=== PATIENT | female | born 1940 | race Caucasian/White ===

== ENCOUNTER → 2020-09-25 13:11 | Outpatient (BNVA) | payer MEDICARE, SELFPAY | PROVIDERS: PCP Internal Medicine; Referring Provider Internal Medicine; Visit Provider Internal Medicine Cardiovascular Disease | DX: I48.0 Paroxysmal atrial fibrillation (principal); I10 Essential (primary) hypertension | CPT/HCPCS: 93005; 99212 ==

== ENCOUNTER 2020-10-08 19:21 | Inpatient (IN) | payer MEDICARE, SELFPAY ==
[2020-10-08 19:27] VITALS: BP 117/57; BP 137/90; PULSE 67; PULSE 80; RESP 19; TEMP 36.6; O2SAT 97; O2SAT 98; BMI 23.5
--- NOTE | 2020-10-08 19:43 | CT_ITS ---
EXAMINATION: CT LUMBAR SPINE WITHOUT CONTRAST CLINICAL INFORMATION: Atraumatic back pain at L3-L4. COMPARISON: Lumbar spine radiographs from 10/19/2006. TECHNIQUE: Multidetector helical imaging of the lumbar spine was obtained without intravenous contrast. Multiple axial reformats and coronal/sagittal reconstructions were created the technologist workstation for review. This CT examination was performed using dose optimization techniques as appropriate, variously including the following: *Automated exposure control. *Adjustment of mA and/or kV according to patient size (this includes techniques or standardized protocols for targeted exams where dose is matched to indication/reason for exam; i.e. extremities or head). *Use of iterative reconstruction technique. DLP: 521 mGy-cm FINDINGS: Straightening of the normal lumbar lordosis. Compression deformity of the L3 vertebral body (30% loss of body height anteriorly and 65% loss of body height centrally). Depression of the L3 superior endplate with mild underlying sclerosis and ledge formation along the superior aspects of the anterior and posterior bodies. The inferior endplate is depressed centrally. There is 0.5 cm retropulsion of the superior posterior body. Mild to moderate prevertebral soft tissue edema at the level of L3. Otherwise, normal anatomic alignment. Advanced degenerative disc disease at L4-L5 and L5-S1. Small Schmorl's node in the superior endplate of L1. No evidence of additional acute fracture or traumatic subluxation. The remaining vertebral body heights are maintained. No suspicious lytic or sclerotic osseous lesions. Fatty atrophy of the paraspinal musculature. No discrete paraspinal collection. Limited evaluation of the intra-abdominal structures without significant abnormalities. The abdominal aorta is of normal contour and caliber with moderate calcific atherosclerotic disease. AXIAL SPINAL LEVELS: L1-L2: Normal annular contour. There is mild bilateral facet joint arthropathy. There is no neural foraminal stenosis. There is no spinal canal stenosis. L2-L3: Mild diffuse disc bulge. Retropulsion of the posterior body wall of L3. There is moderate and mild left facet joint arthropathy. There is mild left and no right neural foraminal stenosis. There appears to be mild spinal canal stenosis secondary to the retropulsed L3 body wall. L3-L4: Mild to moderate diffuse disc bulge. There is moderate bilateral facet joint arthropathy. There is no neural foraminal stenosis. There is no demonstrated spinal canal stenosis. L4-L5: Mild diffuse disc bulge with posterior osseous ridging. There is mild to moderate bilateral facet joint arthropathy. There is mild bilateral neural foraminal stenosis. There is no demonstrated spinal canal stenosis. L5-S1: Mild diffuse disc bulge. There is mild bilateral facet joint arthropathy. There is moderate bilateral neural foraminal stenosis. There is no demonstrated spinal canal stenosis. CT/CT lumbar spine wo con IMPRESSION: Age-indeterminate compression deformity of the L3 vertebral body. However, mild to moderate prevertebral edema suggestive of acuity. There is 0.5 cm retropulsion of the posterior body wall that appears to cause mild spinal canal stenosis at the level of L3. Otherwise, moderate multilevel degenerative spondyloarthropathy of the lumbar spine as described in detail above. There are moderate neural foraminal stenoses at L5-S1. No additional demonstrated spinal canal stenosis on this limited exam without intrathecal contrast.
--- NOTE | 2020-10-08 19:49 | PC.NURSE ---
Taken for CT.
[2020-10-08 20:25] VITALS: RESP 17
[2020-10-08] MEDS: Morphine Sulfate 4 MG/ML CARTRIDGE IVPUSH (20:25)
[2020-10-08] MEDS: ondansetron HCL 4 MG/2 ML VIAL IVPUSH (20:26)
--- NOTE | 2020-10-08 20:48 | ECG_ITS ---
Test Reason : BACK PAIN Blood Pressure : / mmHG Vent. Rate : 068 BPM Atrial Rate : 068 BPM P-R Int : 202 ms QRS Dur : 078 ms QT Int : 420 ms P-R-T Axes : 075 007 054 degrees QTc Int : 446 ms Normal sinus rhythm Possible Left atrial enlargement Borderline ECG When compared with ECG of 11-JUL-2018 18:35, Sinus rhythm has replaced Atrial fibrillation Non-specific change in ST segment in Anterior leads T wave inversion no longer evident in Inferior leads Referred By: Santiago Graham Electronically Signed By:Isauro Conway
--- NOTE | 2020-10-08 20:53 | ED_ITS ---
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 and today she was holding 6 bottles of water and pain got worse without radiation to any lower extremities no urinary incontinence or bowel incontinence no history of any cancer MD elicited complaint: back pain Pertinent past history: prior back pain Onset (ago): day(s) (10) Timing: constant Severity: moderate Similar Symptoms Previously: Yes Quality: sharp Location: lumbar spine Exacerbating factors: movement Relieving factors: immobilization Associated symptoms: denies other symptoms Related Data Home Medications Medication Instructions Recorded Confirmed ascorbic acid (vitamin C) 500 mg 500 mg PO 08/06/20 09/25/20 capsule atorvastatin 20 mg tablet 20 mg PO DAILY 08/06/20 10/09/20 calcium citrate 250 mg 1 tab PO DAILY tab 08/06/20 10/09/20 calcium-vitamin D3 5 mcg (200 unit) tablet cholecalciferol (vitamin D3) 50 50 mcg PO DAILY 08/06/20 10/09/20 mcg (2,000 unit) capsule diazepam 2 mg tablet 2 mg PO DAILY PRN tab 08/06/20 10/08/20 mecobalamin (vitamin B12) 1,000 1,000 mcg SUBLINGUAL 3XW 08/06/20 10/08/20 mcg disintegrating tablet,sublingual dronedarone [Multaq] 400 mg 10/08/20 amoxicillin 500 mg PO BID 10/09/20 10/09/20 apixaban [Eliquis] 5 mg PO BID 10/09/20 10/09/20 Previous Rx's Medication Instructions Recorded atenolol 25 mg tablet 25 mg PO BID 90 Days #180 tab 09/03/20 Allergies Allergy/AdvReac Type Severity Reaction Status Date / Time meperidine [Demerol] Allergy Intermediate syncope Verified 10/08/20 19:37 nitrofurantoin Allergy Intermediate Rash Verified 10/08/20 19:37 [From Macrobid] paroxetine [From PAXIL] Allergy Intermediate SYNCOPE Verified 10/08/20 19:37 shellfish derived Allergy Intermediate HIVES Verified 10/08/20 19:37 [SHELLFISH DERIVED] azithromycin AdvReac presyncope Verified 10/08/20 19:37 [From ZITHROMAX Z-NAYLA] Review of Systems Review of Systems: REVIEW OF SYSTEMS: Pertinent positives and negatives are stated above in the history. GEN: no fevers, chills, fatigue HEENT: no nasal congestion, sore throat, ear pain NEURO: no headache, dizziness, focal weakness PULM: no cough, shortness of breath CV: no chest pain, palpitations, LE edema ABD: no abdominal pain, nausea, vomiting, diarrhea : no dysuria, urgency, frequency SKIN: no rash ROS otherwise negative x 10 PMFSH Past Medical History Medical History Anxiety and depression Gout Hypercholesterolemia Hypertension Osteopenia Paroxysmal atrial fibrillation Tubular adenoma of colon UTI (urinary tract infection) Surgical History History of colonoscopy History of tonsillectomy History of tubal ligation Family History Family History Father Diabetes Social History Social History Alcohol intake: current Alcohol intake frequency: a few times a week Alcohol type: wine Smoked in Last 30 Days: No Use of substances other than those prescribed or required for medical reasons: No Advance Directives: No Advance Directives Information Provided: No Physical Exam Vital Signs: Vital Signs: Last Vital Signs Temp 98.5 F 10/09/20 00:00 Pulse 73 10/09/20 00:00 Resp 22 H 10/09/20 00:00 BP 146/72 H 10/09/20 00:00 Pulse Ox 99 10/09/20 00:00 Body Mass Index 23.5 Const: General: cooperative, healthy appearing, well developed and in distress moderate Nutritional Appearance: average body habitus Orientation/consciousness: patient oriented x3 Limitations: no limitations HENMT: Head: Yes normal to inspection Ears: hearing grossly normal bilaterally General nose exam: Normal external nose present Mouth: Normal oral and palatal mucosa present Eyes: General: appearance normal, both eyes and all related structures Conjunctivae: conjunctivae normal Sclerae: sclerae normal Neck: Neck: Yes normal visual inspection, Yes full ROM and Yes no lymphadenopathy Chest: Chest palpation & inspection: normal inspection of the chest and normal palpation of entire chest wall Resp: Effort & Inspection: normal respiratory effort Auscultation: clear to auscultation bilaterally Cardio: Palpation: normal PMI Rate: regular rate Rhythm: regular rhythm Heart sounds: S1 normal heart sound present and S2 normal heart sound present GI: Inspection: Yes normal to inspection Palpation (GI): Soft to palpation and nontender : General: Yes no CVA tenderness Back/Spine/Pelvis: Back: no CVA tenderness Thoracic/Lumbar Spine: lumbar spinal tenderness at L3 and No straight leg raise positive Skin: General skin exam: no rashes or lesions noted Neuro: General: patient oriented x3, tone normal, moves all extremities, Normal light touch and pain sensation, no focal motor deficits and CN's II-XI intact bilaterally Extrem: General: Yes normal to inspection, Yes full ROM and Yes no calf tend erness MDM - Back Pain/Injury MDM Narrative Medical decision making narrative: Patient with chronic occasional low back pain got worse in last few days after slight pending with focal tenderness in L3. Likely compression fracture which is confirmed by the CT scan which showed L3 compression fracture without any spinal cord injury. Case discussed with neurosurgery PA at [facility] who has seen the CT scan and advised nonsurgical approach with TLSO soft brace and pain management as there is no neuro deficit at this time and is not a surgical case not sure about vertebroplasty. Patient lives alone and very uncomfortable in ambulation will admit patient for pain control and rehab. Medical Records Attestation: I reviewed the patient's medical records. Lab Data Attestation: I reviewed the patient's lab results. Result diagrams: 10/08/20 22:36 10/08/20 22:36 Labs: Lab Results 10/08/20 10/08/20 10/08/20 Range/Units 22:36 22:36 22:36 WBC 10.1 (4.8-10.8) X10*3/uL RBC 4.42 (4.20-5.50) X10*6/uL Hgb 14.0 (12.0-16.0) g/dl Hct 41.4 (37-47) % MCV 93.7 (80-98) fL MCH 31.7 (27.0-33.0) pg MCHC 33.8 (31.0-35.0) g/dl RDW 11.9 (11.0-16.0) % Plt Count 285 (160-400) X10*3/uL MPV 9.0 L (9.4-12.3) fL Immature Gran % (Auto) 0.3 (0.0-0.4) % Neut % (Auto) 71.0 (45-73) % Lymph % (Auto) 17.6 L (20-40) % [place] % (Auto) 8.6 (2-11) % Eos % (Auto) 2.2 (0-4) % Baso % (Auto) 0.3 (0-2) % Lymph # (Auto) 1.8 (1.2-4.9) X10*3/uL [place] # (Auto) 0.9 (0.1-1.2) X10*3/uL Eos # (Auto) 0.2 (0.0-0.4) X10*3/uL Baso # (Auto) 0.0 (0.0-0.2) X10*3/uL Abs Immat Gran (auto) 0.03 (0.00-0.03) X10*3/uL Absolute Neuts (auto) 7.1 (2.0-8.3) X10*3/uL Absolute Nucleated RBC 0.000 (0.0-0.012) X10*3/uL Nucleated RBC % (auto) 0.0 (0.0-0.2) /100WBC ESR 23 H (0-20) MM/HR PT 18.7 H (10.8-13.0) SEC INR 1.6 H (0.9-1.1) Sodium (135-145) mmol/L Potassium (3.3-5.1) mmol/l Chloride (96-108) mmol/L Carbon Dioxide (22-29) mmol/L Anion Gap (12-20) BUN (9-16) mg/dL Creatinine (0.5-1.4) mg/dL Estim Creat Clear Calc Estimated GFR Random Glucose (60-115) mg/dL Calcium (8.4-10.2) mg/dL Coronavirus (PCR) (Negative) Influenza Type A (PCR) (Negative) Influenza Type B (PCR) (Negative) RSV RNA Qual (PCR) (Negative) 10/08/20 10/08/20 Range/Units 22:36 22:37 WBC (4.8-10.8) X10*3/uL RBC (4.20-5.50) X10*6/uL Hgb (12.0-16.0) g/dl Hct (37-47) % MCV (80-98) fL MCH (27.0-33.0) pg MCHC (31.0-35.0) g/dl RDW (11.0-16.0) % Plt Count (160-400) X10*3/uL MPV (9.4-12.3) fL Immature Gran % (Auto) (0.0-0.4) % Neut % (Auto) (45-73) % Lymph % (Auto) (20-40) % [place] % (Auto) (2-11) % Eos % (Auto) (0-4) % Baso % (Auto) (0-2) % Lymph # (Auto) (1.2-4.9) X10*3/uL [place] # (Auto) (0.1-1.2) X10*3/uL Eos # (Auto) (0.0-0.4) X10*3/uL Baso # (Auto) (0.0-0.2) X10*3/uL Abs Immat Gran (auto) (0.00-0.03) X10*3/uL Absolute Neuts (auto) (2.0-8.3) X10*3/uL Absolute Nucleated RBC (0.0-0.012) X10*3/uL Nucleated RBC % (auto) (0.0-0.2) /100WBC ESR (0-20) MM/HR PT (10.8-13.0) SEC INR (0.9-1.1) Sodium 136 (135-145) mmol/L Potassium 4.3 (3.3-5.1) mmol/l Chloride 103 (96-108) mmol/L Carbon Dioxide 23 (22-29) mmol/L Anion Gap 14 (12-20) BUN 13 (9-16) mg/dL Creatinine 0.80 (0.5-1.4) mg/dL Estim Creat Clear Calc 56.5 Estimated GFR > 60 Random Glucose 81 (60-115) mg/dL Calcium 8.2 L (8.4-10.2) mg/dL Coronavirus (PCR) NEGATIVE (Negative) Influenza Type A (PCR) NEGATIVE (Negative) Influenza Type B (PCR) NEGATIVE (Negative) RSV RNA Qual (PCR) NEGATIVE (Negative) ECG Data Attestation: I personally reviewed and interpreted this ECG as follows: Interpretation: Normal sinus rhythm ventricular rate [address] T wave changes normal axis normal intervals impression normal EKG Discharge Plan Discharge Clinical Impression: Closed lumbar vertebral fracture Qualifiers: Encounter type: initial encounter Lumbar vertebra fracture level: L3 Fracture morphology: burst- stable Qualified Code(s): S32.031A - Stable burst fracture of third lumbar vertebra, initial encounter for closed fracture Patient Disposition: Admitted As Inpatient
[2020-10-08 22:45] LABS: Basophils Percent Auto 0.3 % (0-2); Eosinophils Absolute Auto 0.2 X10*3/uL (0.0-0.4); Eosinophils Percent Auto 2.2 % (0-4); Hematocrit 41.4 % (37-47); Imm Gran Abs Auto 0.03 X10*3/uL (0.00-0.03); Imm Gran Pct Auto 0.3 % (0.0-0.4); Lymphocytes Absolute Auto 1.8 X10*3/uL (1.2-4.9); Lymphocytes Percent Auto 17.6 % (20-40); Mean Corpuscular HGB Conc 33.8 g/dl (31.0-35.0); Mean Corpuscular Hemoglobin 31.7 pg (27.0-33.0); Mean Corpuscular Volume 93.7 fL (80-98); Monocytes Absolute Auto 0.9 X10*3/uL (0.1-1.2); Monocytes Percent Auto 8.6 % (2-11); Neutrophils Absolute Auto 7.1 X10*3/uL (2.0-8.3); Platelet Count 285 X10*3/uL (160-400); Red Blood Count 4.42 X10*6/uL (4.20-5.50); Red Cell Distribution Width 11.9 % (11.0-16.0); White Blood Count 10.1 X10*3/uL (4.8-10.8)
[2020-10-08 22:47] LABS: MANUAL DIFF FLAG NO
[2020-10-08 22:56] LABS: INTERNATIONAL NORM RATIO 1.6 (0.9-1.1); Prothrombin Time 18.7 SEC (10.8-13.0)
[2020-10-08 23:06] LABS: Anion Gap 14 (12-20); Blood Urea Nitrogen 13 mg/dL (9-16); Calcium 8.2 mg/dL (8.4-10.2); Carbon Dioxide 23 mmol/L (22-29); Chloride 103 mmol/L (96-108); Creatinine Clr Calc Pharmacy 56.5; Estimated Glomerular Filt Rate > 60; Glucose Random 81 mg/dL (60-115); Potassium 4.3 mmol/l (3.3-5.1); Sodium 136 mmol/L (135-145)
--- NOTE | 2020-10-08 23:16 | PC.NURSE ---
CALL PLACED TO [facility] PT TX LINE PER DR ESPANA REQUEST TO SPEAK WITH A NEUROSURGEON @ [phone] ALEJANDRO ANSWERS, TAKES PT INFO, CALL BACK NUMBER ([phone] GIVEN) AND ASKS TO SPEAK WITH DR ESPANA RETURN CALL FROM ALEJANDRO FROM [facility] PT TX LINE @ [phone] WITH [address] JOVI ESPANA PICKS UP CALL FROM [place] [phone]
--- NOTE | 2020-10-08 23:22 | PC.NURSE ---
RETURN CALL FROM ALEJANDRO FROM [facility] PT TX LINE @ [phone] JOVI ESPANA TAKES OVER CALL RIGHT AWAY
[2020-10-08 23:24] LABS: Influenza A PCR NEGATIVE (Negative); Influenza B PCR NEGATIVE (Negative); Resp Syncy Virus RNA Qual PCR NEGATIVE (Negative); SARS COV2 PCR INHOUSE NEGATIVE (Negative)
--- NOTE | 2020-10-08 23:46 | PC.NURSE ---
RETURN CALL FROM ALEJANDRO FROM [facility] PT TX LINE FOR DR ESPANA @ [phone] DR ESPANA TAKES OVER CALL RIGHT AWAY
[2020-10-08 23:54] LABS: Erythrocyte Sedimentation Rate 23 MM/HR (0-20)
[2020-10-09] VITALS (10 sets, daily range): BP systolic 115–146; BP diastolic 62–72; PULSE 63–73; RESP 16–22; TEMP 36.1–36.9; O2SAT 97–99
--- NOTE | 2020-10-09 00:39 | PM.IMHP ---
History of Present Illness Date of Service: 10/09/20 Chief Complaint: Back pain 80 y/o with an extended PMHX who presented from home c/o back pain. Per history provided by the patient, 10 days ago, she bended herself to get a paper from the floor. Upon bending she felt a strong pain , sharp like, 10/10 in intensity, radiating from the right side of the lower back to the buttocks. Patient reports that pain persistent on and off which is worse with movements, for what decided to come to the ED for further evaluation. Denies any weakness, numbness, urinary incontinence or any bowel incontinence. On presentation to the ED patient is found to be hemodynamically stable, Blood work unremarkable, Imaging of the lower back showing L3 compression fracture with mild bulding causing spinal stenosis. Neurosurgery was consulted per ED at [facility] who does not recommends any further intervention at present besides supportive management. Decision for admission given. Patient seen and examined at the bedside, laying down in bed in no acute distress. ROS as above otherwise negative. Physical exam unremarkable. PMHX: Paroxysmal afib, HTN, HLP, Anxiety disorder, Osteopenia, Hx of tubular adenoma, IBS PSx: bilateral tubal ligation Toxic habits: none Review of Systems Constitutional: Constitutional: Reports as per [facility] Medical History Anxiety and depression Gout Hypercholesterolemia Hypertension Osteopenia Paroxysmal atrial fibrillation Tubular adenoma of colon UTI (urinary tract infection) Functional capacity: independent ambulation Family History Father Diabetes Family history: reviewed and not pertinent Surgical History History of colonoscopy History of tonsillectomy History of tubal ligation Social History Alcohol intake: current Alcohol intake frequency: a few times a week Alcohol type: wine Smoked in Last 30 Days: No Use of substances other than those prescribed or required for medical reasons: No Advance Directives: No Advance Directives Information Provided: No Meds Allergies Allergy/AdvReac Type Severity Reaction Status Date / Time meperidine [Demerol] Allergy Intermediate syncope Verified 10/08/20 19:37 nitrofurantoin Allergy Intermediate Rash Verified 10/08/20 19:37 [From Macrobid] paroxetine [From PAXIL] Allergy Intermediate SYNCOPE Verified 10/08/20 19:37 shellfish derived Allergy Intermediate HIVES Verified 10/08/20 19:37 [SHELLFISH DERIVED] azithromycin AdvReac presyncope Verified 10/08/20 19:37 [From ZITHROMAX Z-NAYLA] Home Medications Medication Instructions Recorded Confirmed Type ascorbic acid (vitamin C) 500 mg 500 mg PO 08/06/20 09/25/20 History capsule atorvastatin 20 mg tablet 20 mg PO DAILY 08/06/20 10/09/20 History calcium citrate 250 mg 1 tab PO DAILY tab 08/06/20 10/09/20 History calcium-vitamin D3 5 mcg (200 unit) tablet cholecalciferol (vitamin D3) 50 50 mcg PO DAILY 08/06/20 10/09/20 History mcg (2,000 unit) capsule diazepam 2 mg tablet 2 mg PO DAILY PRN tab 08/06/20 10/08/20 History mecobalamin (vitamin B12) 1,000 1,000 mcg SUBLINGUAL 3XW 08/06/20 10/08/20 History mcg disintegrating tablet,sublingual dronedarone [Multaq] 400 mg 10/08/20 History amoxicillin 500 mg PO BID 10/09/20 10/09/20 History apixaban [Eliquis] 5 mg PO BID 10/09/20 10/09/20 History Physical Exam Vital Signs and Narrative: Vital Signs: Last Vital Signs Temp 98.5 F 10/09/20 00:00 Pulse 73 10/09/20 00:00 Resp 22 H 10/09/20 00:00 BP 146/72 H 10/09/20 00:00 Pulse Ox 99 10/09/20 00:00 Body Mass Index 23.5 Const: General: cooperative, comfortable and no acute distress Orientation/consciousness: oriented to person, oriented to place and oriented to time HENMT: Head: Yes normal to inspection Eyes: General: appearance normal, both eyes and all related structures Neck: Yes normal visual inspection Chest: Chest palpation & inspection: normal inspection of the chest Resp: Effort & Inspection: normal respiratory effort Cardio: Jugular venous distension: no JVD Rate: regular rate Rhythm: regular rhythm Heart sounds: S1 normal heart sound present and S2 normal heart sound present GI: Inspection: Yes normal to inspection Back/Spine/Pelvis: Cervical Spine: other (right sided tenderness on palpation ) Skin: General skin exam: no rashes or lesions noted Neuro: General: oriented to person, oriented to place and oriented to time Cognition (Neuro): normal cognition Extrem: General: Yes normal to inspection Results Labs CBC and Chem 7: 10/08/20 22:36 10/08/20 22:36 Labs: Laboratory Results - last 24 hr 10/08/20 10/08/20 10/08/20 22:36 22:36 22:36 MCV 93.7 MCH 31.7 MCHC 33.8 RDW 11.9 Plt Count 285 MPV 9.0 L Immature Gran % (Auto) 0.3 Neut % (Auto) 71.0 Lymph % (Auto) 17.6 L [place] % (Auto) 8.6 Eos % (Auto) 2.2 Baso % (Auto) 0.3 Lymph # (Auto) 1.8 [place] # (Auto) 0.9 Eos # (Auto) 0.2 Baso # (Auto) 0.0 Abs Immat Gran (auto) 0.03 Absolute Neuts (auto) 7.1 Absolute Nucleated RBC 0.000 Nucleated RBC % (auto) 0.0 ESR 23 H PT 18.7 H INR 1.6 H Anion Gap Estim Creat Clear Calc Estimated GFR Random Glucose Calcium Coronavirus (PCR) Influenza Type A (PCR) Influenza Type B (PCR) RSV RNA Qual (PCR) 10/08/20 10/08/20 22:36 22:37 MCV MCH MCHC RDW Plt Count MPV Immature Gran % (Auto) Neut % (Auto) Lymph % (Auto) [place] % (Auto) Eos % (Auto) Baso % (Auto) Lymph # (Auto) [place] # (Auto) Eos # (Auto) Baso # (Auto) Abs Immat Gran (auto) Absolute Neuts (auto) Absolute Nucleated RBC Nucleated RBC % (auto) ESR PT INR Anion Gap 14 Estim Creat Clear Calc 56.5 Estimated GFR > 60 Random Glucose 81 Calcium 8.2 L Coronavirus (PCR) NEGATIVE Influenza Type A (PCR) NEGATIVE Influenza Type B (PCR) NEGATIVE RSV RNA Qual (PCR) NEGATIVE Imaging Radiologist's Impressions: Impressions Lumbar Spine CT 10/08/20 19:43 IMPRESSION: Age-indeterminate compression deformity of the L3 vertebral body. However, mild to moderate prevertebral edema suggestive of acuity. There is 0.5 cm retropulsion of the posterior body wall that appears to cause mild spinal canal stenosis at the level of L3. Otherwise, moderate multilevel degenerative spondyloarthropathy of the lumbar spine as described in detail above. There are moderate neural foraminal stenoses at L5-S1. No additional demonstrated spinal canal stenosis on this limited exam without intrathecal contrast. Assessment and Plan (1) Compression fracture of L3 vertebra: Status: Acute Supportive management per Neurosurgery recommendations at [facility] Brace PT/OT Pain control (2) Paroxysmal atrial fibrillation: Problem details: September 2011, echo normal LV July 2018 Status: Acute continue with eliquis home dose continue with atenolol home dose (3) Hypercholesterolemia: Status: Acute continue with statin home dose (4) Hypertension: Status: Acute continue with atenolol home dose (5) Anxiety and depression: Status: Acute continue with diazepam home dose
--- NOTE | 2020-10-09 01:28 | PC.NURSE ---
REPORT TO RN ON FLOOR.
[2020-10-09] MEDS: Atorvastatin Calcium 20 MG TABLET PO ×2 (02:26→20:49)
[2020-10-09 06:29] LABS: Basophils Percent Auto 0.1 % (0-2); Eosinophils Percent Auto 0.1 % (0-4); Hemoglobin 14.3 g/dl (12.0-16.0); Imm Gran Abs Auto 0.03 X10*3/uL (0.00-0.03); Imm Gran Pct Auto 0.4 % (0.0-0.4); Lymphocytes Absolute Auto 0.6 X10*3/uL (1.2-4.9); Lymphocytes Percent Auto 7.5 % (20-40); MANUAL DIFF FLAG SCAN; Mean Corpuscular Hemoglobin 31.3 pg (27.0-33.0); Mean Corpuscular Volume 91.9 fL (80-98); Mean Platelet Volume 9.1 fL (9.4-12.3); Monocytes Absolute Auto 0.1 X10*3/uL (0.1-1.2); Monocytes Percent Auto 1.5 % (2-11); Neutrophils Absolute Auto 7.4 X10*3/uL (2.0-8.3); Neutrophils Percent Auto 90.4 % (45-73); Platelet Count 288 X10*3/uL (160-400); Red Blood Count 4.57 X10*6/uL (4.20-5.50); Red Cell Distribution Width 11.9 % (11.0-16.0); SCAN SMEAR FLAG 1; White Blood Count 8.2 X10*3/uL (4.8-10.8)
[2020-10-09 06:53] LABS: Anion Gap 11 (12-20); Blood Urea Nitrogen 11 mg/dL (9-16); Calcium 8.6 mg/dL (8.4-10.2); Carbon Dioxide 25 mmol/L (22-29); Chloride 101 mmol/L (96-108); Creatinine Clr Calc Pharmacy 66.6; Estimated Glomerular Filt Rate > 60; Glucose Random 136 mg/dL (60-115); Potassium 4.4 mmol/l (3.3-5.1); Sodium 133 mmol/L (135-145)
[2020-10-09] MEDS: Morphine Sulfate 2 MG/ML CARTRIDGE 1 MG IVPUSH (07:23)
[2020-10-09] MEDS: 0.9 % Sodium Chloride Flush 3 ML SYRINGE IVFLUSH ×3 (07:27→23:56)
[2020-10-09 08:00] LABS: SLIDE REVIEW VERIFIED
--- NOTE | 2020-10-09 09:44 | MHC.CM.PN ---
pt lives alone in [facility]. she generally is very independent in her care. although many of her needs are met by the services offered at the facility where she lives. she does not use any AD c ambulation at baseline. pt would like to return to [place] c [facility] ref. for nsg and home PT, this has been done. additionally, pt will need rx at dc for wheeled walker c seat , per her request. pt will have her daughter, phillip from [place] , provide transportation at dc. dc plan is home c vna and rx for walker. cm to cont. to follow.
[2020-10-09] MEDS: Cholecalciferol (Vitamin D3) 25 MCG TABLET 50 MCG PO (10:06)
[2020-10-09] MEDS: Apixaban 5 MG TABLET PO ×2 (10:07→20:49)
[2020-10-09] MEDS: Calcium + Vitamin D 250 MG TABLET PO (10:07)
[2020-10-09] MEDS: atenoloL 25 MG TABLET PO ×2 (10:07→20:48)
--- NOTE | 2020-10-09 10:16 | PC.NURSE ---
Grady removed at 1015. DTV #1 at [id number]. Patient aware and call sandoval in reach to assist to br.
[2020-10-09] MEDS: Acetaminophen 325 MG TABLET 650 MG PO ×2 (11:41→18:05)
[2020-10-09] MEDS: Dronedarone HCl 400 MG TABLET PO ×2 (11:41→20:49)
[2020-10-09] MEDS: Docusate Sodium 100 MG CAPSULE PO ×2 (12:53→20:49)
[2020-10-09] MEDS: Amoxicillin 500 MG CAPSULE PO ×2 (12:53→20:48)
[2020-10-09] MEDS: Milk of Magnesia 30 ML ORAL.SUSP 15 ML PO (12:54)
--- NOTE | 2020-10-09 15:41 | PM.EVENT ---
Event Note Date of Service: 10/09/20 Event Note: Patient seen and evaluated this morning Feels comfortable, was able to work with physical therapy To start ATC Tylenol to start as needed oxycodone She prefer going back home with home services To re-evaluate tomorrow morning and decide on discharge
[2020-10-09] MEDS: oxyCODONE HCl Immed Release 5 MG TABLET 2.5 MG PO (15:48)
[2020-10-10 04:00] VITALS: BP 142/79; PULSE 64; RESP 16; TEMP 36.4; O2SAT 100
[2020-10-10] MEDS: Acetaminophen 325 MG TABLET 650 MG PO ×2 (07:52→12:01)
[2020-10-10 07:54] VITALS: BP 143/68; PULSE 60; RESP 16; TEMP 36.4; O2SAT 99
[2020-10-10] MEDS: Docusate Sodium 100 MG CAPSULE PO (07:54)
[2020-10-10] MEDS: Calcium + Vitamin D 250 MG TABLET PO (07:54)
[2020-10-10] MEDS: 0.9 % Sodium Chloride Flush 3 ML SYRINGE IVFLUSH (07:54)
[2020-10-10] MEDS: Apixaban 5 MG TABLET PO (07:54)
[2020-10-10 07:55] VITALS: BP 143/68; PULSE 64
[2020-10-10] MEDS: atenoloL 25 MG TABLET PO (07:55)
[2020-10-10] MEDS: Dronedarone HCl 400 MG TABLET PO (07:55)
[2020-10-10] MEDS: Cholecalciferol (Vitamin D3) 25 MCG TABLET 50 MCG PO (07:55)
[2020-10-10 08:51] LABS: Anion Gap 12 (12-20); Blood Urea Nitrogen 17 mg/dL (9-16); Calcium 8.7 mg/dL (8.4-10.2); Carbon Dioxide 27 mmol/L (22-29); Chloride 100 mmol/L (96-108); Creatinine Clr Calc Pharmacy 65.5; Estimated Glomerular Filt Rate > 60; Glucose Random 104 mg/dL (60-115); Potassium 4.8 mmol/l (3.3-5.1); Sodium 134 mmol/L (135-145)
[2020-10-10] MEDS: Amoxicillin 500 MG CAPSULE PO (10:15)
--- NOTE | 2020-10-10 11:03 | MHC.CM.PN ---
PATIENT IS A RETURNING HOME WITH [facility]. HOSPITALIST IS AWARE OF PATIENT PRECRIPTION REQUESTS
--- NOTE | 2020-10-10 11:10 | P.F2F_ITS ---
Service Date Service Date: 10/10/20 Encounter Date of encounter: 10/09/20 Reasons for Services Signs and symptoms assessed: L3 lumbar fracture back pain Reason for physical therapy: home safety and mobility and therapeutic exercises Overseeing Care: Isaac Fischer Homebound: Leaving the home is medically contraindicated at this time without the asist of a device and/or another person due th the listed conditions above and below. Certification: Based on the above findings, I certify that this patient is confined to the home and needs intermittent retirement care, physical therapy and/or speech therapy, or continues to need occupational therapy. The patient is under my care, and I have initiated the establishment of the plan of care. The patient will be followed by a physician who will periodically review the plan of care.
--- NOTE | 2020-10-10 11:14 | MHC.CM.PN ---
PER PHYSICIAN ROUNDS, PLAN IS FOR PATIENT TO RETURN HOME BY THURSDAY WITH NO NEED FOR SERVICES
--- NOTE | 2020-10-10 11:16 | P.DS_ITS ---
DS: Providers Provider Date of admission: 10/09/20 00:22 Primary care physician: Isaac Fischer MD DS: Diagnosis Discharge Diagnosis (1) Compression fracture of L3 vertebra: Status: Acute (2) Paroxysmal atrial fibrillation: Status: Acute Problem details: September 2011, echo normal LV July 2018 (3) Hypercholesterolemia: Status: Acute (4) Hypertension: Status: Acute (5) Anxiety and depression: Status: Acute DS: Medications Discharge Medications Home Medications: Home Medications Medication Instructions Recorded Confirmed ascorbic acid (vitamin C) 500 mg 500 mg PO 08/06/20 09/25/20 capsule atorvastatin 20 mg tablet 20 mg PO DAILY 08/06/20 10/09/20 calcium citrate 250 mg 1 tab PO DAILY tab 08/06/20 10/09/20 calcium-vitamin D3 5 mcg (200 unit) tablet cholecalciferol (vitamin D3) 50 50 mcg PO DAILY 08/06/20 10/09/20 mcg (2,000 unit) capsule diazepam 2 mg tablet 2 mg PO DAILY PRN tab 08/06/20 10/08/20 mecobalamin (vitamin B12) 1,000 1,000 mcg SUBLINGUAL 3XW 08/06/20 10/08/20 mcg disintegrating tablet,sublingual dronedarone [Multaq] 400 mg 10/08/20 amoxicillin 500 mg PO BID 10/09/20 10/09/20 apixaban [Eliquis] 5 mg PO BID 10/09/20 10/09/20 Previous Rx's Medication Instructions Recorded atenolol 25 mg tablet 25 mg PO BID 90 Days #180 tab 09/03/20 oxycodone 5 mg PO Q6H PRN #10 tab 10/10/20 DS: Summary Hospital Course Hospital Course: HPI 80 y/o with an extended PMHX who presented from home c/o back pain. Per history provided by the patient, 10 days ago, she bended herself to get a paper from the floor. Upon bending she felt a strong pain , sharp like, 10/10 in intensity, radiating from the right side of the lower back to the buttocks. Patient reports that pain persistent on and off which is worse with movements, for what decided to come to the ED for further evaluation. Denies any weakness, numbness, urinary incontinence or any bowel incontinence. On presentation to the ED patient is found to be hemodynamically stable, Blood work unremarkable, Imaging of the lower back showing L3 compression fracture with mild bulding causing spin al stenosis. Neurosurgery was consulted per ED at [facility] who does not recommends any further intervention at present besides supportive management. Decision for admission given. hospital course 80-year-old female admitted with back pain found to have L3 lumbar fracture, neurosurgery was consulted by ER physician recommended no intervention, patient was started on pain medication, patient was evaluated by Physical therapy recommended home PT, patient's pain was controlled, patient was stable discharged home with physical therapy on pain medication Time Spent with Patient Time attestation: Total time spent providing and/or coordinating discharge services: Physical Exam Vital Signs: Vital Signs: Last Vital Signs Temp 97.5 F 10/10/20 07:54 Pulse 64 10/10/20 07:55 Resp 16 10/10/20 07:54 BP 143/68 H 10/10/20 07:55 Pulse Ox 99 10/10/20 07:54 Body Mass Index 23.5 Const: General: cooperative, comfortable and no acute distress Orientation/consciousness: oriented to person, oriented to place and oriented to time HENMT: Head: Yes normal to inspection Eyes: General: appearance normal, both eyes and all related structures Neck: Neck: Yes normal visual inspection Chest: Chest palpation & inspection: normal inspection of the chest Resp: Effort & Inspection: normal respiratory effort Cardio: Jugular venous distension: no JVD Rate: regular rate Rhythm: regular rhythm Heart sounds: S1 normal heart sound present and S2 normal heart sound present GI: Inspection: Yes normal to inspection Back/Spine/Pelvis: Cervical Spine: other (right sided tenderness on palpation ) Skin: General skin exam: no rashes or lesions noted Neuro: General: oriented to person, oriented to place and oriented to time Cognition (Neuro): normal cognition Extrem: General: Yes normal to inspection DS: Data Data Completed and Pending Labs on day of discharge: 10/08/20 19:43 CT lumbar spine wo con Stat 10/08/20 20:10 Morphine Sulfate 4 mg IVPUSH ONCE ONE dexAMETHasone Sod Phosphate/PF [Decadron] 10 mg IVPUSH ONCE ONE ondansetron HCL [Zofran] 4 mg IVPUSH ONCE ONE 10/08/20 20:48 ECG 12 lead EKG Stat EKG Documentation DIRECTED 10/08/20 22:36 Basic Metabolic Panel Stat Complete Blood Count Auto Diff Stat Erythrocyte Sedimentation Rate Stat Prothrombin Time INR Stat 10/08/20 22:37 SARS-CoV2/FLU/RSV Stat 10/09/20 00:20 Transfer Order Routine 10/09/20 01:33 Insert/maintain urinary catheter NOW 10/09/20 06:15 Basic Metabolic Panel Routine Complete Blood Count Auto Diff Routine SLIDE REVIEW Routine 10/09/20 06:57 Morphine Sulfate 1 mg IVPUSH ONCE ONE 10/09/20 07:59 oxyCODONE HCl Immed Release [Roxicodone] 5 mg PO Q6H PRN 10/10/20 07:50 Basic Metabolic Panel DAILY@0600 10/10/20 10:28 Glycerin Adult [Adult Glycerin] 1 supp UT ONCE ONE Laboratory Last Values WBC 8.2 X10*3/uL (4.8-10.8) 10/09/20 06:15 RBC 4.57 X10*6/uL (4.20-5.50) 10/09/20 06:15 Hgb 14.3 g/dl (12.0-16.0) 10/09/20 06:15 Hct 42.0 % (37-47) 10/09/20 06:15 MCV 91.9 fL (80-98) 10/09/20 06:15 MCH 31.3 pg (27.0-33.0) 10/09/20 06:15 MCHC 34.0 g/dl (31.0-35.0) 10/09/20 06:15 RDW 11.9 % (11.0-16.0) 10/09/20 06:15 Plt Count 288 X10*3/uL (160-400) 10/09/20 06:15 MPV 9.1 fL (9.4-12.3) L 10/09/20 06:15 Immature Gran % (Auto) 0.4 % (0.0-0.4) 10/09/20 06:15 Neut % (Auto) 90.4 % (45-73) H 10/09/20 06:15 Lymph % (Auto) 7.5 % (20-40) L 10/09/20 06:15 [place] % (Auto) 1.5 % (2-11) L 10/09/20 06:15 Eos % (Auto) 0.1 % (0-4) 10/09/20 06:15 Baso % (Auto) 0.1 % (0-2) 10/09/20 06:15 Lymph # (Auto) 0.6 X10*3/uL (1.2-4.9) L 10/09/20 06:15 [place] # (Auto) 0.1 X10*3/uL (0.1-1.2) 10/09/20 06:15 Eos # (Auto) 0.0 X10*3/uL (0.0-0.4) 10/09/20 06:15 Baso # (Auto) 0.0 X10*3/uL (0.0-0.2) 10/09/20 06:15 Abs Immat Gran (auto) 0.03 X10*3/uL (0.00-0.03) 10/09/20 06:15 Absolute Neuts (auto) 7.4 X10*3/uL (2.0-8.3) 10/09/20 06:15 Absolute Nucleated RBC 0.000 X10*3/uL (0.0-0.012) 10/09/20 06:15 Nucleated RBC % (auto) 0.0 /100WBC (0.0-0.2) 10/09/20 06:15 Smear Tech's Comments VERIFIED 10/09/20 06:15 ESR 23 MM/HR (0-20) H 10/08/20 22:36 PT 18.7 SEC (10.8-13.0) H 10/08/20 22:36 INR 1.6 (0.9-1.1) H 10/08/20 22:36 Sodium 134 mmol/L (135-145) L 10/10/20 07:50 Potassium 4.8 mmol/l (3.3-5.1) 10/10/20 07:50 Chloride 100 mmol/L (96-108) 10/10/20 07:50 Carbon Dioxide 27 mmol/L (22-29) 10/10/20 07:50 Anion Gap 12 (-20) 10/10/20 07:50 BUN 17 mg/dL (9-16) H D 10/10/20 07:50 Creatinine 0.69 mg/dL (0.5-1.4) 10/10/20 07:50 Estim Creat Clear Calc 65.5 10/10/20 07:50 Estimated GFR > 60 10/10/20 07:50 Random Glucose 104 mg/dL (60-115) 10/10/20 07:50 Calcium 8.7 mg/dL (8.4-10.2) 10/10/20 07:50 Coronavirus (PCR) NEGATIVE (Negative) 10/08/20 22:37 Influenza Type A (PCR) NEGATIVE (Negative) 10/08/20 22:37 Influenza Type B (PCR) NEGATIVE (Negative) 10/08/20 22:37 RSV RNA Qual (PCR) NEGATIVE (Negative) 10/08/20 22:37 Discharge Plan Discharge Anticipated Discharge Date/Time: 10/10/20 10:54 Patient Disposition: Home Health Service Referrals: [facility] [Outside] (PATIENT IS RETURNING HOME WITH [facility] FOR RN AND PHYSICAL THERAPY NEEDS.) Po,Isaac Zhu MD [Primary Care Provider] - Discharge Medications: New acetaminophen 325 mg Tablet 650 mg PO TIDWM Qty: 20 RF: 0 oxycodone 5 mg Tablet 5 mg PO Q6H PRN (Reason: Pain, Severe (Pain Scale 7-10)) Qty: 10 RF: 0 Continued atenolol 25 mg tablet 25 mg PO BID 90 Days Qty: 180 RF: 1 Multaq 400 mg Tablet 400 mg RF: 0 Eliquis 5 mg Tablet 5 mg PO BID RF: 0 amoxicillin 500 mg Capsule 500 mg PO BID RF: 0 calcium citrate-vitamin D3 [Citracal Regular] 250 mg-5 mcg (200 unit) tablet 1 tab PO DAILY RF: 0 cholecalciferol (vitamin D3) 50 mcg (2,000 unit) capsule 50 mcg PO DAILY RF: 0 mecobalamin (vitamin B12) 1,000 mcg tablet,disintegrating 1,000 mcg sublingual 3XW RF: 0 ascorbic acid (vitamin C) 500 mg capsule 500 mg PO RF: 0 atorvastatin 20 mg tablet 20 mg PO DAILY RF: 0 diazepam 2 mg tablet 2 mg PO DAILY PRN (Reason: Anxiety) RF: 0 Discharge Orders: Discharge Order (Routine); Ordered 10/10/20 Ordered By: Giancarlo Garza Diet: advance to usual diet Activity on Discharge: As tolerated Discharge Date/Time: 10/10/20 14:11 Visit Report Forms: Patient Portal Discharge page Care Plan Goals: Control pain Health Concerns: lumbar fracture Plan of Treatment: pain management and home PT
[2020-10-10] MEDS: Glycerin Adult SUPP.RECT 1 SUPP PR (11:47)
== END 2020-10-10 14:11 | disposition home health service (06) | DRG 552 ==
LOC: HO.ED 10-09 → HO.S3 10-09 00:30
PROVIDERS: Student in an Organized Health Care Education/Training Program; Admitting Provider Internal Medicine; Emergency Provider Internal Medicine; PCP Internal Medicine; Visit Provider Internal Medicine
DX: S32.031A Stable burst fracture of third lumbar vertebra, initial encounter for closed fracture (principal); I10 Essential (primary) hypertension; E78.5 Hyperlipidemia, unspecified; F41.9 Anxiety disorder, unspecified; F32.9 Major depressive disorder, single episode, unspecified; I48.0 Paroxysmal atrial fibrillation; W19.XXXA Unspecified fall, initial encounter; Y93.9 Activity, unspecified; Y92.9 Unspecified place or not applicable; Y99.9 Unspecified external cause status; Z20.828 Contact with and (suspected) exposure to other viral communicable diseases; Z79.01 Long term (current) use of anticoagulants; Z79.891 Long term (current) use of opiate analgesic; Z79.899 Other long term (current) drug therapy
CPT/HCPCS: 0241U; 36415; 72131; 80048; 85025; 85610; 85652; 93005; 96374; 96375; 97162; 97166; 97535; 99284; 99285; C1758; J1100; J2270; J2405

== ENCOUNTER 2020-10-29 23:08 | Emergency (ER) | payer MEDICARE, SELFPAY ==
[2020-10-29 23:31] VITALS: BP 145/56; BP 150/100; PULSE 68; PULSE 80; RESP 16; TEMP 36.5; O2SAT 100; BMI 22.8
--- NOTE | 2020-10-30 | XR_ITS ---
EXAMINATION: XR CHEST CLINICAL INFORMATION: Back pain. Chest pressure. COMPARISON: 07/11/2018 TECHNIQUE: Frontal view of the chest was obtained. FINDINGS: The lungs are well expanded. There is no focal consolidation, edema, or effusion. No pneumothorax. The cardiomediastinal silhouette is within normal limits. No acute osseous abnormality. XR/XR chest 1V IMPRESSION: Clear lungs.
--- NOTE | 2020-10-30 | ECG_ITS ---
Test Reason : PAIN Blood Pressure : / mmHG Vent. Rate : 065 BPM Atrial Rate : 065 BPM P-R Int : 172 ms QRS Dur : 072 ms QT Int : 440 ms P-R-T Axes : 062 000 039 degrees QTc Int : 457 ms Normal sinus rhythm Possible Left atrial enlargement Nonspecific ST and T wave abnormality Abnormal ECG When compared with ECG of 08-OCT-2020 22:08, No significant change was found Referred By: Generic ED Physician Electronically Signed By:Isauro Conway
--- NOTE | 2020-10-30 00:40 | CT_ITS ---
EXAMINATION: CT THORACIC SPINE WITHOUT CONTRAST CT LUMBAR SPINE WITHOUT CONTRAST CLINICAL INFORMATION: New onset of thoracic spine pain around the T10 level. Known compression fracture of L3 with worsening pain. COMPARISON: 10/08/2020 TECHNIQUE: Multidetector volumetric imaging of the thoracic and lumbar spine performed without IV contrast. Coronal and sagittal reformatted images are obtained and reviewed. This CT examination was performed using dose optimization techniques as appropriate, variously including the following: *Automated exposure control *Adjustment of mA and/or kV according to patient size (this includes techniques or standardized protocols for targeted exams where dose is matched to indication/reason for exam; i.e. extremities or head) *Use of iterative reconstruction technique DLP: 888 mGy-cm FINDINGS: There is a compression deformity of the T11 vertebral body superior endplate with central height loss of 70%. There is anterior height loss of 35%. This is of uncertain chronicity. Mild height loss at the T7 vertebral body anteriorly of approximately 20%. Remaining vertebral body heights of the thoracic spine are maintained. Mild disc space narrowing with endplate osteophytes. Facet arthropathy noted. Redemonstration of the compression deformity of the L3 vertebral body. There is increased sclerosis of the vertebral body with increased height loss. Centrally there is approximately 75% loss of vertebral body height, increased from approximately 60% on prior. There is also now mild superior endplate compression of the L2 vertebral body, new from prior. There is central height loss of 25%. Diffuse disc space narrowing. Vacuum disc phenomenon of L4-L5 and L5-S1. The visualized sacrum is intact. The sacroiliac joints are symmetric. The visualized lungs are clear. Coronary artery calcifications are noted. The paraspinal musculature is unremarkable. Diffuse aortic calcifications. The visualized retroperitoneal structures show no acute abnormality. Colonic diverticulosis noted. CT/CT thoracic spine wo con IMPRESSION: 1. Compression deformities of T7 and T11 vertebral bodies, of uncertain chronicity. There is approximately 70% loss of height centrally at the T11 vertebral body. 2. Progressive height loss of the L3 vertebral body compression deformity. There is also new mild compression deformity of L2.
--- NOTE | 2020-10-30 00:43 | ED.GENADULT ---
HPI - General Adult General Chief complaint: Back Pain/Injury Stated complaint: Chest pain/Back pain Time Seen by Provider: 10/30/20 00:30 Source: patient Mode of arrival: EMS Limitations: no limitations History of Present Illness HPI narrative: Patient comes to the emergency room complaining of worsening lumbar pain and thoracic pain. Patient states days ago she was discharged from short-term rehab, she was sent there for back pain secondary to lumbar compression fracture. Patient states that since she got home, she has been deteriorating, becoming weaker, unable to function at home at all, unable to take care of herself. Patient lives alone. Patient denies any new injuries. MD complaint: Back pain Related Data Home Medications Medication Instructions Recorded Confirmed ascorbic acid (vitamin C) 500 mg 500 mg PO 08/06/20 09/25/20 capsule atorvastatin 20 mg tablet 20 mg PO DAILY 08/06/20 10/09/20 calcium citrate 250 mg 1 tab PO DAILY tab 08/06/20 10/09/20 calcium-vitamin D3 5 mcg (200 unit) tablet cholecalciferol (vitamin D3) 50 50 mcg PO DAILY 08/06/20 10/09/20 mcg (2,000 unit) capsule mecobalamin (vitamin B12) 1,000 1,000 mcg SUBLINGUAL 3XW 08/06/20 10/08/20 mcg disintegrating tablet,sublingual Multaq 400 mg 10/08/20 Eliquis 5 mg PO BID 10/09/20 10/09/20 amoxicillin 500 mg PO BID 10/09/20 10/09/20 Previous Rx's Medication Instructions Recorded atenolol 25 mg tablet 25 mg PO BID 90 Days #180 tab 09/03/20 acetaminophen 650 mg PO TIDWM #20 tab 10/10/20 oxycodone 5 mg PO Q6H PRN #10 tab 10/10/20 lidocaine 5 % topical patch 1 patch TOPICAL DAILY 30 Days #30 10/11/20 ea diazepam 2 mg tablet 2 mg PO BID PRN 90 Days #180 tab 10/29/20 Allergies Allergy/AdvReac Type Severity Reaction Status Date / Time meperidine [Demerol] Allergy Intermediate syncope Verified 10/08/20 19:37 nitrofurantoin Allergy Intermediate Rash Verified 10/08/20 19:37 [From Macrobid] paroxetine [From PAXIL] Allergy Intermediate SYNCOPE Verified 10/08/20 19:37 shellfish derived Allergy Intermediate HIVES Verified 10/08/20 19:37 [SHELLFISH DERIVED] azithromycin AdvReac presyncope Verified 10/08/20 19:37 [From ZITHROMAX Z-NAYLA] Review of Systems Review of Systems: Constitutional : No Weight loss, No Fever, No Chills, No Night Sweats, No Fatigue, No Malaise ENT/Mouth : No Hearing loss, No Ear Pain, No Nasal Congestion, No Sinus Pain, No Hoarseness, No sore throat, No Rhinorrhea, No Swallowing Difficulty Eyes: No Eye Pain, No Swelling, No Redness, No Foreign Body, No Discharge, No Vision Changes Cardiovascular : No Chest Pain, No SOB, No Dyspnea on Exertion, No Orthopnea, No Edema, No Palpitations Respiratory : No Cough, No Sputum, No Wheezing, No Smoke Exposure, No Dyspnea Gastrointestinal : No Nausea, No Vomiting, No Diarrhea, No Constipation, No abdominal Pain, No Hematochezia, No Melena Genitourinary : no irregular bleeding, No Dysuria, No Urinary Frequency, No Hematuria, No Urinary Incontinence, No Urgency, No Flank Pain, No Urinary Flow Changes, No Hesitancy Musculoskeletal : No joint pain, complaining of worsening lumbar pain and new thoracic pain Skin : No Skin Lesions, No rash Neuro : No Weakness, No Numbness, No Paresthesias, No Loss of Consciousness, No Dizziness, No Headache Psych : No Anxiety/Panic, No Depression, No SI/HI/AH/VH, No Social Issues, Heme/Lymph: No Bruising, No Bleeding,No Lymphadenopathy Endocrine : No Polyuria, No Polydipsia, No Temperature Intolerance [facility] Past Medical History Medical History Anxiety and depression Gout Hypercholesterolemia Hypertension Osteopenia Paroxysmal atrial fibrillation Tubular adenoma of colon UTI (urinary tract infection) Surgical History History of colonoscopy History of tonsillectomy History of tubal ligation Family History Family History Father Diabetes Social History Social History Household Members: None Housing: Apartment Alcohol intake: current Alcohol intake frequency: a few times a week Alcohol type: wine Smoking Status: Never smoker Second Hand Smoke Exposure: No Advance Directives: No service: No Current occupational status: retired Physical Exam Vital Signs: Vital Signs: Last Vital Signs Temp 97.8 F 10/30/20 01:43 Pulse 59 10/30/20 01:43 Resp 16 10/30/20 01:43 BP 142/71 H 10/30/20 01:43 Pulse Ox 99 10/30/20 01:43 Body Mass Index 22.8 Appearance: Alert. Oriented X3. No acute distress. Eyes: Pupils equal, round and reactive to light. ENT: Pharynx normal. Neck: Normal inspection. Neck supple. No lymph nodes noted. No crepitus CVS: Normal heart rate and rhythm. Pulses normal. Normal S1 and S2 Respiratory: No respiratory distress. Breath sounds normal. No Wheezing. No rales Abdomen: Soft and nontender. No rigidity. No distention. good BS x4 Skin: Skin warm and dry. Normal skin color. Normal skin turgor. Extremities: No lower extremity edema. No lower extremity edema. No Lacerations. No Rash Neuro: Oriented X 3. No motor deficit. No sensory deficit. Moving all extermities. No slurred speech. Course Course Course Narrative: Patient has new L2 compression fracture, unknown chronicity of compression fractures on T7 and T11. Case management and physical therapy consult pending in the morning. Patient declined oxycodone, patient prefers Vicodin for pain control Sign out given to Dr. Restrepo Medical Decision Making Lab Data Result diagrams: 10/30/20 01:49 10/30/20 01:49 Labs: Lab Results 10/30/20 10/30/20 10/30/20 Range/Units 01:49 01:49 01:49 WBC 7.6 (4.8-10.8) X10*3/uL RBC 3.87 L (4.20-5.50) X10*6/uL Hgb 12.2 (12.0-16.0) g/dl Hct 36.3 L (37-47) % MCV 93.8 (80-98) fL MCH 31.5 (27.0-33.0) pg MCHC 33.6 (31.0-35.0) g/dl RDW 12.0 (11.0-16.0) % Plt Count 220 (160-400) X10*3/uL MPV 9.4 (9.4-12.3) fL Immature Gran % (Auto) 0.4 (0.0-0.4) % Neut % (Auto) 65.8 (45-73) % Lymph % (Auto) 21.8 (20-40) % [place] % (Auto) 9.3 (2-11) % Eos % (Auto) 2.4 (0-4) % Baso % (Auto) 0.3 (0-2) % Lymph # (Auto) 1.7 (1.2-4.9) X10*3/uL [place] # (Auto) 0.7 (0.1-1.2) X10*3/uL Eos # (Auto) 0.2 (0.0-0.4) X10*3/uL Baso # (Auto) 0.0 (0.0-0.2) X10*3/uL Abs Immat Gran (auto) 0.03 (0.00-0.03) X10*3/uL Absolute Neuts (auto) 5.0 (2.0-8.3) X10*3/uL Absolute Nucleated RBC 0.000 (0.0-0.012) X10*3/uL Nucleated RBC % (auto) 0.0 (0.0-0.2) /100WBC Sodium 139 (135-145) mmol/L Potassium 4.0 (3.3-5.1) mmol/l Chloride 103 (96-108) mmol/L Carbon Dioxide 23 (22-29) mmol/L Anion Gap 17 (12-20) BUN 10 (9-16) mg/dL Creatinine 0.73 (0.5-1.4) mg/dL Estim Creat Clear Calc 62.0 Estimated GFR > 60 Random Glucose 100 (60-115) mg/dL Calcium 8.3 L (8.4-10.2) mg/dL Troponin I High Sens < 3.5 (<3.5-17.0) ng/L Imaging Data Thoracic and lumbar CT scan: Radiologist's impression: FINDINGS: There is a compression deformity of the T11 vertebral body superior endplate with central height loss of 70%. There is anterior height loss of 35%. This is of uncertain chronicity. Mild height loss at the T7 vertebral body anteriorly of approximately 20%. Remaining vertebral body heights of the thoracic spine are maintained. Mild disc space narrowing with endplate osteophytes. Facet arthropathy noted. Redemonstration of the compression deformity of the L3 vertebral body. There is increased sclerosis of the vertebral body with increased height loss. Centrally there is approximately 75% loss of vertebral body height, increased from approximately 60% on prior. There is also now mild superior endplate compression of the L2 vertebral body, new from prior. There is central height loss of 25%. Diffuse disc space narrowing. Vacuum disc phenomenon of L4-L5 and L5-S1. The visualized sacrum is intact. The sacroiliac joints are symmetric. The visualized lungs are clear. Coronary artery calcifications are noted. The paraspinal musculature is unremarkable. Diffuse aortic calcifications. The visualized retroperitoneal structures show no acute abnormality. Colonic diverticulosis noted. CT/CT lumbar spine wo con IMPRESSION: 1. Compression deformities of T7 and T11 vertebral bodies, of uncertain chronicity. There is approximately 70% loss of height centrally at the T11 vertebral body. 2. Progressive height loss of the L3 vertebral body compression deformity. There is also new mild compression deformity of L2. ECG Data Attestation: I personally reviewed and interpreted this ECG as follows: (Normal sinus, heart rate 65, nonspecific ST and T-wave abnormalities, QTC 457) Discharge Plan Discharge Clinical Impression: Closed compression fracture of L2 vertebra, Closed compression fracture of thoracic vertebra Prescriptions: No [facility] atenolol 25 mg tablet 25 mg PO BID 90 Days Qty: 180 RF: 1 lidocaine [Lidoderm] 5 % adhesive patch,medicated 1 patch topical DAILY 30 Days Qty: 30 RF: 2 diazepam 2 mg tablet 2 mg PO BID PRN (Reason: anxiety) 90 Days Qty: 180 RF: 1 Multaq 400 mg Tablet 400 mg RF: 0 Eliquis 5 mg Tablet 5 mg PO BID RF: 0 amoxicillin 500 mg Capsule 500 mg PO BID RF: 0 acetaminophen 325 mg Tablet 650 mg PO TIDWM Qty: 20 RF: 0 oxycodone 5 mg Tablet 5 mg PO Q6H PRN (Reason: Pain, Severe (Pain Scale 7-10)) Qty: 10 RF: 0 calcium citrate-vitamin D3 [Citracal Regular] 250 mg-5 mcg (200 unit) tablet 1 tab PO DAILY RF: 0 cholecalciferol (vitamin D3) 50 mcg (2,000 unit) capsule 50 mcg PO DAILY RF: 0 mecobalamin (vitamin B12) 1,000 mcg tablet,disintegrating 1,000 mcg sublingual 3XW RF: 0 ascorbic acid (vitamin C) 500 mg capsule 500 mg PO RF: 0 atorvastatin 20 mg tablet 20 mg PO DAILY RF: 0
[2020-10-30] MEDS: HYDROcodone Bit/Acetam 5/325 TABLET 2 TAB PO (00:55)
[2020-10-30 01:43] VITALS: BP 142/71; PULSE 59; RESP 16; TEMP 36.6; O2SAT 99
[2020-10-30 01:55] LABS: Basophils Percent Auto 0.3 % (0-2); Eosinophils Absolute Auto 0.2 X10*3/uL (0.0-0.4); Eosinophils Percent Auto 2.4 % (0-4); Hematocrit 36.3 % (37-47); Hemoglobin 12.2 g/dl (12.0-16.0); Imm Gran Abs Auto 0.03 X10*3/uL (0.00-0.03); Imm Gran Pct Auto 0.4 % (0.0-0.4); Lymphocytes Absolute Auto 1.7 X10*3/uL (1.2-4.9); Lymphocytes Percent Auto 21.8 % (20-40); Mean Corpuscular HGB Conc 33.6 g/dl (31.0-35.0); Mean Corpuscular Hemoglobin 31.5 pg (27.0-33.0); Mean Corpuscular Volume 93.8 fL (80-98); Mean Platelet Volume 9.4 fL (9.4-12.3); Monocytes Absolute Auto 0.7 X10*3/uL (0.1-1.2); Monocytes Percent Auto 9.3 % (2-11); Neutrophils Percent Auto 65.8 % (45-73); Platelet Count 220 X10*3/uL (160-400); Red Blood Count 3.87 X10*6/uL (4.20-5.50); White Blood Count 7.6 X10*3/uL (4.8-10.8)
[2020-10-30 01:56] LABS: MANUAL DIFF FLAG NO
[2020-10-30 02:25] LABS: Anion Gap 17 (12-20); Blood Urea Nitrogen 10 mg/dL (9-16); Calcium 8.3 mg/dL (8.4-10.2); Carbon Dioxide 23 mmol/L (22-29); Chloride 103 mmol/L (96-108); Estimated Glomerular Filt Rate > 60; Glucose Random 100 mg/dL (60-115); Sodium 139 mmol/L (135-145)
[2020-10-30 02:29] LABS: Troponin-I High Sensitivity < 3.5 ng/L (<3.5-17.0)
[2020-10-30] MEDS: Docusate Sodium 100 MG CAPSULE 200 MG PO (10:32)
--- NOTE | 2020-10-30 10:32 | MHC.CM.ED ---
Received case management consult overnight from Dr Valentine. Patient came to ER due to back pain. Work up essentially negative. Physical therapy eval completed. Short term rehab is recommended. Met with patient in regards to d/c planning. Patient lives in independent living at [facility], ambulates with a cane and is active with [facility]. PCP verified. Patient's daughter has a copy of her HCP. Patient has been to [facility] in the past and does not want to return. Patient requesting referral to [facility]. Referrral made via [employer], however they may not be contracted with patient's insurance. List of facilities contracted with patient's insurance provided from [employer]. Patient will review the list and provide 2 choices. Continue to monitor for d/c needs.
[2020-10-30 10:33] VITALS: BP 154/71; PULSE 69; RESP 20; O2SAT 99
--- NOTE | 2020-10-30 11:06 | MHC.CM.ED ---
Patient's facility choices are: 1)[facility] 2)[facility] and 3)[facility]. Referrals made via [employer]. [facility] and [facility] are not able to offer a bed. [facility] is able to offer a bed, but they're requesting a copy of patient's HCP and a negative Covid swab. They are in the process of obtaining insurance auth. Covid swab is pending. T/W spoke with patient's sister, Cornelio via telephone at [phone]. She will contact patient's daughter to obtain a copy. Patient aware. Continue to monitor to d/c needs.
[2020-10-30 11:30] LABS: COVID-19 Test Negative (Negative)
[2020-10-30] MEDS: Cholecalciferol (Vitamin D3) 25 MCG TABLET 50 MCG PO (13:16)
[2020-10-30 13:17] VITALS: BP 156/76; PULSE 67
[2020-10-30] MEDS: Apixaban 5 MG TABLET PO (13:17)
[2020-10-30] MEDS: atenoloL 25 MG TABLET PO (13:17)
[2020-10-30] MEDS: Atorvastatin Calcium 20 MG TABLET PO (13:18)
[2020-10-30] MEDS: oxyCODONE HCl Immed Release 5 MG TABLET PO (13:23)
--- NOTE | 2020-10-30 13:46 | MHC.CM.ED ---
Patient's daughter Stefani was unable to find HCP. New HCP completed, signed and witnessed. Insurance auth has been obtained by [facility]. Patient can leave at 3pm. [facility] booked. [facility] with chart. Patient, sister Cornelio, daughter ElidaZoltan RN and Dr Parra aware. Continue to monitor for d/c needs.
[2020-10-30] MEDS: Dronedarone HCl 400 MG TABLET PO (14:01)
== END 2020-10-30 16:05 | disposition skilled nursing facility (03) ==
PROVIDERS: Emergency Medicine; Emergency Provider Emergency Medicine; PCP Internal Medicine
DX: S22.028A Other fracture of second thoracic vertebra, initial encounter for closed fracture (principal); X58.XXXA Exposure to other specified factors, initial encounter; I10 Essential (primary) hypertension; I48.0 Paroxysmal atrial fibrillation; Z20.828 Contact with and (suspected) exposure to other viral communicable diseases; Y93.9 Activity, unspecified; Y92.9 Unspecified place or not applicable; Y99.9 Unspecified external cause status
CPT/HCPCS: 36415; 71045; 72128; 72131; 80048; 84484; 85025; 87635; 93005; 97162; 99284

== ENCOUNTER 2020-11-11 12:41 | Inpatient (IN) | payer MEDICARE, SELFPAY ==
[2020-11-11 12:48] VITALS: BP 125/44; BP 126/72; PULSE 70; PULSE 82; RESP 20; TEMP 36.7; O2SAT 98; BMI 27.1
--- NOTE | 2020-11-11 13:05 | CT_ITS ---
EXAMINATION: CT ABDOMEN PELVIS WITHOUT IV CONTRAST CT LUMBAR SPINE WITHOUT CONTRAST CLINICAL INFORMATION: Back pain. Known compression fracture. Evaluate for any change. Abdominal pain and diarrhea. COMPARISON: CT thoracolumbar spine from 10/30/2020. TECHNIQUE: Noncontrast volumetric helical CT acquisition of the abdomen and pelvis. Axial images are presented at 0.6 mm and 5 mm slice thickness. Coronal and sagittal reformatted images were generated at the technologist workstation. Also, multidetector CT imaging evaluation of the lumbar spine was performed. Axial images are reviewed. Coronal and sagittal reformatted images are reviewed. This CT examination was performed using dose optimization techniques as appropriate, variously including the following: *Automated exposure control *Adjustment of mA and/or kV according to patient size (this includes techniques or standardized protocols for targeted exams where dose is matched to indication/reason for exam; i.e. extremities or head) *Use of iterative reconstruction technique DLP: 477 mGy-cm. FINDINGS: LUNG BASES: Minimal atelectasis in dependent aspect of each lower lobe. No consolidation or pleural effusion in either base. LIVER, GALLBLADDER, AND BILIARY TREE: The liver has normal size, shape, and attenuation. No focal hepatic lesion. The gallbladder is grossly normal; no radiopaque gallstones, wall thickening, or pericholecystic fluid. No intrahepatic or extrahepatic bile duct dilatation. PANCREAS: Normal. No evidence of pancreatic mass, edema or ductal dilatation. SPLEEN: Normal. ADRENAL GLANDS: Normal. KIDNEYS AND URETERS: Kidneys are normal in size. No nephrolithiasis or hydronephrosis. 2.2 cm cortical cyst at the lower pole of the right kidney has a simple appearance on these noncontrast images. The ureters are unremarkable. BLADDER: No evidence of bladder mass or calculus. Multiple phleboliths are observed within the pelvis. BOWEL AND PERITONEUM: Stomach is underdistended and suboptimally evaluated. No dilated bowel loops. The terminal ileum and appendix have a normal appearance. Diverticulosis of the sigmoid colon. No pericolonic fat stranding. Fluid is seen in the lumen of the rectum, which is underdistended. No ascites or pneumoperitoneum. ABDOMINAL WALL: Unremarkable. LYMPH NODES: No pathologic sized lymph nodes in the abdomen or pelvis. No inguinal lymphadenopathy. VASCULATURE: Atherosclerotic calcification of the abdominal aorta and iliofemoral vessels without aneurysm. PELVIC VISCERA: The uterus is unremarkable. No adnexal mass. No pelvic free fluid. The foci of rim-like calcification in the left presacral fat of no appreciable clinical significance. There is 1.9 cm transverse diameter, hyperdense left-sided Bartholin gland cyst. MUSCULOSKELETAL: Bones appear to be diffusely osteoporotic. Pelvic bones and proximal femurs are intact. LUMBOSACRAL SPINE: Again noted is the T11 compression fracture with approximately 70% central and approximately 40% anterior height loss, which is unchanged if measurements are acquired in same locations on 10/30/2020. There is stable, mild concave depression of the L2 superior endplate. Chronic, severe compression deformity of the L3 vertebral body with approximately 75-80% central height loss and 50% anterior height loss. Chronic, mild retropulsion of the L3 posterior vertebral body wall which narrows the central spinal canal to 1 cm AP diameter. The L4 and L5 vertebral bodies have normal height. Chronic degenerative disc disease of L4-5 and L5-S1. No new fractures or subluxations in the lumbar spine. CT/CT abdomen pelvis wo con IMPRESSION: * On this noncontrast examination, there are no overt findings of acute enteritis, colitis or diverticulitis. * Atherosclerotic disease of the abdominal aorta without aneurysm. * T11, L2 and L3 vertebral body fractures are unchanged compared to 10/30/2020. No new fractures or malalignment.
--- NOTE | 2020-11-11 13:05 | ECG_ITS ---
Test Reason : VOMITING Blood Pressure : / mmHG Vent. Rate : 068 BPM Atrial Rate : 068 BPM P-R Int : 168 ms QRS Dur : 074 ms QT Int : 424 ms P-R-T Axes : 054 -08 037 degrees QTc Int : 450 ms Normal sinus rhythm Possible Left atrial enlargement Nonspecific ST abnormality Abnormal ECG When compared with ECG of 30-OCT-2020 00:23, No significant change was found Referred By: Carmen Godinez Electronically Signed By:BROOKE MUKHERJEE
--- NOTE | 2020-11-11 13:10 | XR_ITS ---
EXAMINATION: XR CHEST CLINICAL INFORMATION: Cough COMPARISON: Previous chest x-rays most recent 10/30/[address] of the thoracic spine from the same day TECHNIQUE: Frontal view of the chest was obtained. FINDINGS: The cardiac and mediastinal contours are normal. There is a small 4 mm right mid lung nodule that is stable. Compared with previous CT of the thoracic spine earlier this month is corresponds to a calcified granuloma. The lungs are otherwise clear. There is no pleural effusion or pneumothorax. There are degenerative changes of the spine. XR/XR chest 1V IMPRESSION: No evidence for acute disease in the chest.
--- NOTE | 2020-11-11 13:17 | ED.GENADULT ---
HPI - General Adult General Chief complaint: General Medical Stated complaint: BACK PAIN NO INJURY,DIARRHEA Time Seen by Provider: 11/11/20 12:46 Source: patient and EMS Mode of arrival: EMS History of Present Illness HPI narrative: 80 y.o. F with PMH of paroxysmal atrial fibrillation on Eliquis, HTN, HLD, anxiety, depression, lumbar compression fractures presenting to the ED with back pain and diarrhea. Pt. states she was recently seen in the ED and was told she had compression fractures, placed into a spinal brace and sent to rehab. Pt. was discharged on Thursday from rehab to home and states she was discharged prematurely. She lives alone and had to hire nursing staff to help her during the day. She has been having a difficult time moving due to the pain. She has not taken anything for her pain because tylenol and pain medication upset her stomach. She also notes she has been extremely nauseous, loss of apetitie, diarrhea. She has intermittent abdominal pain. She dopes suffer from UTIs states it has been several months since her last one and is intermittently incontinent and wears briefs, states she has seen urology for this. She feels generally weak. SHe feels unsafe at home. She also adds she has had a cough. She had a negative COVID on Thursday. She denies new trauma but does state she felt like she was going to fall several times and may have twisted her back. She otherwise denies fevers, CP, SOB, vomiting, dysuria. Related Data Home Medications Medication Instructions Recorded Confirmed calcium citrate 250 mg 1 tab PO DAILY tab 08/06/20 11/11/20 calcium-vitamin D3 5 mcg (200 unit) tablet cholecalciferol (vitamin D3) 50 50 mcg PO DAILY 08/06/20 11/11/20 mcg (2,000 unit) capsule mecobalamin (vitamin B12) 1,000 1,000 mcg SUBLINGUAL Q3D 08/06/20 11/11/20 mcg disintegrating tablet,sublingual Multaq 400 mg PO BID 10/08/20 11/11/20 Eliquis 5 mg PO BID 10/09/20 11/11/20 docusate sodium 100 mg PO BID PRN 10/30/20 11/11/20 Previous Rx's Medication Instructions Recorded atenolol 25 mg tablet 25 mg PO BID 90 Days #180 tab 09/03/20 diazepam 2 mg tablet 2 mg PO BID PRN 90 Days #180 tab 10/29/20 diazepam [Valium] 2 mg PO BID PRN #10 tab 10/30/20 atorvastatin 20 mg tablet 20 mg PO DAILY #30 tab 11/08/20 Allergies Allergy/AdvReac Type Severity Reaction Status Date / Time meperidine [Demerol] Allergy Intermediate syncope Verified 10/08/20 19:37 nitrofurantoin Allergy Intermediate Rash Verified 10/08/20 19:37 [From Macrobid] paroxetine [From PAXIL] Allergy Intermediate SYNCOPE Verified 10/08/20 19:37 shellfish derived Allergy Intermediate HIVES Verified 10/08/20 19:37 [SHELLFISH DERIVED] azithromycin AdvReac presyncope Verified 10/08/20 19:37 [From ZITHROMAX Z-NAYLA] Review of Systems Constitutional: Constitutional: Denies fever(s), Denies headache(s) and Reports poor appetite Eyes: Eyes: Reports no additional eye complaints ENT: Denies headache(s) Cardiovascular: Cardiovascular: Denies chest pain and Denies dyspnea Respiratory: Respiratory: Reports cough and Denies dyspnea Gastrointestinal: Gastrointestinal: Reports abdominal pain, Reports diarrhea, Reports nausea and Denies vomiting Genitourinary: Genitourinary: Denies dysuria Musculoskeletal: Musculoskeletal: Reports back pain Neurologic: Denies headache(s) Hematologic/Lymphatic: Hematologic/Lymphatic: Reports easy bleeding PMFSH Past Medical History Medical History Anxiety and depression Gout Hypercholesterolemia Hypertension Osteopenia Paroxysmal atrial fibrillation Tubular adenoma of colon UTI (urinary tract infection) Surgical History History of colonoscopy History of tonsillectomy History of tubal ligation Family History Family History Father Diabetes Social History Social History Household Members: None Housing: Apartment Alcohol intake: never Smoking Status: Never smoker Smoked in Last 30 Days: No Second Hand Smoke Exposure: No Use of substances other than those prescribed or required for medical reasons: No Advance Directives: No Advance Directives Information Provided: Yes service: No Current occupational status: retired Physical Exam Vital Signs: Vital Signs: Last Vital Signs Temp 98.1 F 11/11/20 12:48 Pulse 67 11/11/20 14:13 Resp 20 11/11/20 12:48 BP 129/64 11/11/20 15:01 Pulse Ox 98 11/11/20 12:48 Body Mass Index 27.1 Const: Other: appears uncomfortable, tearful General: cooperative Orientation/consciousness: patient oriented x3 HENMT: Head: Yes atraumatic Neck: Neck: Yes full ROM and Yes trachea midline Resp: Effort & Inspection: normal respiratory effort and able to speak in complete sentences Auscultation: clear to auscultation bilaterally Cardio: Rate: regular rate Rhythm: regular rhythm GI: Inspection: No distended Palpation (GI): Soft to palpation and Tenderness to palpation present (GI) (mild diffusely, no guarding ) Back/Spine/Pelvis: Other: wearing back brace, brace removed had diffuse tenderness most prominent to her lower spine and had midline lumbar tenderness, no skin changes Skin: Rashes: no rashes Neuro: Other: nonfocal neurological exam, sensation intact, strength diminished bilaterally to lower extremities secondary to pain in back, gait not assessed due to pain General: patient oriented x3 Course Course Course Narrative: Labs reviewed, unrevealing. Pt. declined IV contrast for her CT because she reports it makes her feel hot and she does not like the sensation, she is aware CT would be limited, CT without contrast limited but negative. CT of lumbar spine is unchanged. Per prior ED note neurosurgery was consulted and reccomended nonsurgical intervention, she does have a brace on, no indication for further emergent neurosurgical intervention She does have an upcoming appointment. UA is still pending. Will plan to admit for pain control, new COVID status which is most likely contributing to her symptoms. No hypoxia, no indication for steroids. CXR negative for PNA. Medical Decision Making [facility] Narrative Medical decision making narrative: 80 y.o. F presenting to the ED with back pain, nausea diarrhea, abdominal pain, recent discharge from rehab 5 days ago VS stable, not toxic appearing, hemodynamically stable WIll plan for basic labs to assess for leukocytosis, anemia, renal dysfunction. WIll check for electrolyte abnormalities. Will evaluate UA for infectious source. WIll evaluate abdominal CT to r/o infectious process in the abdomen. Will also check lumbar CT to assess for interval change since her CT on 10/30. SEA less likely as she is afebrile, no IVDU, no injections into the spine, not immunocompromised. Cord compression less likely as she has no saddle anesthesia, no focal weakness. Incontinence was advised as chronic no red flags for cord compression. Doubt retroperitoneal hematoma as her CT on 10/30 did not show this and she has not had a new fall since discharge. WIll give gentle IV fluid hydration due to her diarrhea, zofran for nausea. WIll give morphine for pain as she is very uncomfortable. Will swab for COVID as I anticipate probable admission for pain control and PT/case management eval. Lab Data Lab results reviewed: Yes I reviewed the patient's lab results. Lab results narrative: Leukopenia noted at 4.2, AST slightly elevated and low CA level. COVID newly positive. Result diagrams: 11/11/20 14:05 11/11/20 14:05 Labs: Lab Results 11/11/20 11/11/20 11/11/20 Range/Units 14:05 14:05 14:05 WBC 4.2 L (4.8-10.8) X10*3/uL RBC 4.27 (4.20-5.50) X10*6/uL Hgb 13.2 (12.0-16.0) g/dl Hct 40.0 (37-47) % MCV 93.7 (80-98) fL MCH 30.9 (27.0-33.0) pg MCHC 33.0 (31.0-35.0) g/dl RDW 12.4 (11.0-16.0) % Plt Count 186 (160-400) X10*3/uL MPV 9.9 (9.4-12.3) fL Immature Gran % (Auto) 0.5 H (0.0-0.4) % Neut % (Auto) 64.2 (45-73) % Lymph % (Auto) 23.6 (20-40) % Gates % (Auto) 11.0 (2-11) % Eos % (Auto) 0.5 (0-4) % Baso % (Auto) 0.2 (0-2) % Lymph # (Auto) 1.0 L (1.2-4.9) X10*3/uL Gates # (Auto) 0.5 (0.1-1.2) X10*3/uL Eos # (Auto) 0.0 (0.0-0.4) X10*3/uL Baso # (Auto) 0.0 (0.0-0.2) X10*3/uL Abs Immat Gran (auto) 0.02 (0.00-0.03) X10*3/uL Absolute Neuts (auto) 2.7 (2.0-8.3) X10*3/uL Absolute Nucleated RBC 0.000 (0.0-0.012) X10*3/uL Nucleated RBC % (auto) 0.0 (0.0-0.2) /100WBC Sodium 136 (135-145) mmol/L Potassium 4.8 (3.3-5.1) mmol/l Chloride 104 (96-108) mmol/L Carbon Dioxide 22 (22-29) mmol/L Anion Gap 15 (12-20) BUN 12 (9-16) mg/dL Creatinine 0.79 (0.5-1.4) mg/dL Estim Creat Clear Calc 57.1 Estimated GFR > 60 Random Glucose 93 (60-115) mg/dL Calcium 7.8 L D (8.4-10.2) mg/dL Total Bilirubin 0.3 (0.0-1.0) mg/dL Direct Bilirubin < 0.2 (0.0-0.5) mg/dL AST 36 H (5-31) U/L ALT 20 (0-31) U/L Alkaline Phosphatase 91 (39-117) U/L Total Protein 6.2 L (6.5-8.0) g/dL Albumin 3.4 L (3.5-5.0) g/dL Lipase 38 (8-78) U/L COVID-19 (RONAL) Positive A (Negative) COVID-19 Clin Com See Note ECG Data Attestation: I personally reviewed and interpreted this ECG as follows: Interpretation: NSR rate 68, QTC 450, T wave inversion III, no STEMI Discharge Plan Discharge Clinical Impression: Fracture of lumbar spine, COVID-19, Hypocalcemia, Back pain Patient Disposition: Admitted As Inpatient
[2020-11-11 14:10] LABS: MANUAL DIFF FLAG NO
[2020-11-11] MEDS: 0.9 % Sodium Chloride 500 ML IV (14:11)
[2020-11-11 14:12] LABS: Basophils Percent Auto 0.2 % (0-2); Eosinophils Percent Auto 0.5 % (0-4); Hemoglobin 13.2 g/dl (12.0-16.0); Imm Gran Abs Auto 0.02 X10*3/uL (0.00-0.03); Imm Gran Pct Auto 0.5 % (0.0-0.4); Lymphocytes Percent Auto 23.6 % (20-40); Mean Corpuscular Hemoglobin 30.9 pg (27.0-33.0); Mean Corpuscular Volume 93.7 fL (80-98); Mean Platelet Volume 9.9 fL (9.4-12.3); Monocytes Absolute Auto 0.5 X10*3/uL (0.1-1.2); Neutrophils Absolute Auto 2.7 X10*3/uL (2.0-8.3); Neutrophils Percent Auto 64.2 % (45-73); Platelet Count 186 X10*3/uL (160-400); Red Blood Count 4.27 X10*6/uL (4.20-5.50); Red Cell Distribution Width 12.4 % (11.0-16.0); White Blood Count 4.2 X10*3/uL (4.8-10.8)
[2020-11-11] MEDS: Morphine Sulfate 2 MG/ML CARTRIDGE IVPUSH (14:12)
[2020-11-11] MEDS: ondansetron HCL 4 MG/2 ML VIAL IVPUSH (14:12)
[2020-11-11 14:13] VITALS: BP 120/60; PULSE 67
[2020-11-11 14:27] LABS: IDNOW Serial# 9DD0AD1C
[2020-11-11 14:29] LABS: COVID-19 Test Positive (Negative)
[2020-11-11 14:38] LABS: Alanine Aminotransferase 20 U/L (0-31); Albumin Level 3.4 g/dL (3.5-5.0); Alkaline Phosphatase 91 U/L (39-117); Anion Gap 15 (12-20); Aspartate Amino Transferase 36 U/L (5-31); Bilirubin Direct < 0.2 mg/dL (0.0-0.5); Bilirubin Total 0.3 mg/dL (0.0-1.0); Blood Urea Nitrogen 12 mg/dL (9-16); Calcium 7.8 mg/dL (8.4-10.2); Carbon Dioxide 22 mmol/L (22-29); Chloride 104 mmol/L (96-108); Creatinine Clr Calc Pharmacy 57.1; Estimated Glomerular Filt Rate > 60; Glucose Random 93 mg/dL (60-115); Lipase 38 U/L (8-78); Potassium 4.8 mmol/l (3.3-5.1); Sodium 136 mmol/L (135-145); Total Protein 6.2 g/dL (6.5-8.0)
[2020-11-11 15:01] VITALS: BP 129/64
[2020-11-11 15:56] VITALS: BP 138/68; PULSE 69; RESP 12; TEMP 37.7; O2SAT 98
[2020-11-11] MEDS: 0.9 % Sodium Chloride Flush 3 ML SYRINGE IVFLUSH (16:01)
[2020-11-11] MEDS: Morphine Sulfate 4 MG/ML CARTRIDGE 2 MG IVPUSH (21:27)
[2020-11-11 21:28] VITALS: BP 141/69; PULSE 81
[2020-11-11] MEDS: atenoloL 25 MG TABLET PO (21:28)
[2020-11-11] MEDS: Dronedarone HCl 400 MG TABLET PO (21:28)
[2020-11-11 21:49] LABS: Glucose Urine UA NEG (NEG); Leukocyte Esterase Urine NEG (NEG); Nitrite Urine NEG (NEG); Specific Gravity - Urine 1.025 (1.005-1.025); Urine Blood NEG (NEG); Urine Ketones 5 MG/DL (NEG); Urine Protein NEG (NEG-TRACE)
[2020-11-11 21:58] LABS: Appearance Urine CLEAR; Color Urine YELLOW
[2020-11-11 23:15] VITALS: BP 142/63; PULSE 73; RESP 16; TEMP 36.9; O2SAT 97
[2020-11-12] VITALS (9 sets, daily range): BP systolic 99–175; BP diastolic 47–78; PULSE 60–95; RESP 16–20; TEMP 36.6–36.8; O2SAT 94–97
--- NOTE | 2020-11-12 | NM_ITS ---
EXAMINATION: NM BONE SCAN OF THE WHOLE BODY CLINICAL INFORMATION: Severe back pain. L3 compression fracture. COMPARISON: CT lumbar spine 11/11/2020 TECHNIQUE: Multiple gamma scintillation camera images of the whole body were performed 3 hours following the intravenous administration of 26 mCi Tc-99m MDP. FINDINGS: In the head, no abnormal uptake. In the thoracic cage and upper extremities, no abnormal uptake seen. In the spine, there is moderate to intense activity seen in L3, L2 and T7 vertebra with minimal activity seen in T11 vertebra. In the pelvis, no bony abnormality seen. There is activity seen in the bladder with a Grady's catheter noted In the lower extremities, no abnormal uptake No other definite bony abnormalities are noted. The urinary bladder and faint visualization of both kidneys are noted. NM/NM bone scan whole body IMPRESSION: Moderate intense activity L3, L2 and T7 vertebra consistent with acute vertebral compression fractures. There is mild activity seen in T11 vertebra likely subacute to old compression fracture.
[2020-11-12] MEDS: 0.9 % Sodium Chloride Flush 3 ML SYRINGE IVFLUSH ×2 (00:16→23:57)
[2020-11-12 01:13] LABS: Mucus Urine 1+ /LPF; RBC Urine 0 /HPF (0); Squamous Epithelial Cell Urine TRACE /LPF; WBC Urine 0-2 /HPF (0-4)
[2020-11-12 06:16] LABS: MANUAL DIFF FLAG NO
[2020-11-12 06:19] LABS: Basophils Percent Auto 0.2 % (0-2); Eosinophils Percent Auto 0.9 % (0-4); Hematocrit 38.2 % (37-47); Hemoglobin 13.1 g/dl (12.0-16.0); Imm Gran Abs Auto 0.02 X10*3/uL (0.00-0.03); Imm Gran Pct Auto 0.5 % (0.0-0.4); Lymphocytes Absolute Auto 1.1 X10*3/uL (1.2-4.9); Lymphocytes Percent Auto 26.5 % (20-40); Mean Corpuscular HGB Conc 34.3 g/dl (31.0-35.0); Mean Corpuscular Hemoglobin 31.6 pg (27.0-33.0); Mean Platelet Volume 9.5 fL (9.4-12.3); Monocytes Absolute Auto 0.4 X10*3/uL (0.1-1.2); Monocytes Percent Auto 8.3 % (2-11); Neutrophils Absolute Auto 2.7 X10*3/uL (2.0-8.3); Neutrophils Percent Auto 63.6 % (45-73); Platelet Count 179 X10*3/uL (160-400); Red Blood Count 4.15 X10*6/uL (4.20-5.50); Red Cell Distribution Width 12.3 % (11.0-16.0); White Blood Count 4.2 X10*3/uL (4.8-10.8)
[2020-11-12 06:36] LABS: Anion Gap 14 (12-20); Blood Urea Nitrogen 8 mg/dL (9-16); Carbon Dioxide 22 mmol/L (22-29); Chloride 102 mmol/L (96-108); Creatinine Clr Calc Pharmacy 71.7; Estimated Glomerular Filt Rate > 60; Glucose Random 90 mg/dL (60-115); Sodium 134 mmol/L (135-145)
--- NOTE | 2020-11-12 07:56 | PC.NURSE ---
Pt sleeping in room at this time. no sign of distress noted. respirations even/unlabored bilaterally. will continue to monitor.
[2020-11-12] MEDS: atenoloL 25 MG TABLET PO ×2 (09:42→21:31)
[2020-11-12] MEDS: Docusate Sodium 100 MG CAPSULE PO (09:42)
[2020-11-12] MEDS: Cholecalciferol (Vitamin D3) 25 MCG TABLET 50 MCG PO (09:42)
[2020-11-12] MEDS: Dronedarone HCl 400 MG TABLET PO ×2 (09:43→21:31)
[2020-11-12] MEDS: Atorvastatin Calcium 20 MG TABLET PO (09:43)
--- NOTE | 2020-11-12 12:01 | MHC.CM.PN ---
Attempted to meet with patient in regards to discharrge planning. Patient currently sleeping. Spoke with patient's daughter/HCP Elida via telephone at [phone]. Patient was discharged to [facility] [address] [facility] on 10/30. She was discharged home with [facility] HERNANDEZ on 11/07. Elida stated it was like she didn't receive any rehab at all. She was so weak and unable to transfer by herself. Fracisco HERNANDEZ was attempting to find placement from home. However, patient became more weak, had increased pain and was having diarrhea. Patient came to the ER and was found to be positive for Covid. Patient lives alone at [facility] assisted living. PCP verified. HCP verified to be on file. IMM explained and mailed to Elida. Elida is requesting hospitalist see if there are any IR interventions that can help with patient's pain. Dr Garza made aware of this. Physical therapy has seen patient and is recommending short term rehab. Daughter's choices are: 1) [facility] 2)[facility]. Referrals made via allscripts. Continue to monitor for d/c needs.
--- NOTE | 2020-11-12 12:58 | HP_ITS ---
DATE OF SERVICE: 11/11/2020 CHIEF COMPLAINT: Back pain. HISTORY OF PRESENT ILLNESS: An 80-year-old woman presenting to the ER with complaints of worsening back pain. The patient was originally diagnosed with L3 lumbar fracture in September 2020 at [facility]. Neurosurgery was consulted and recommendation was for no intervention. The patient was started on pain medication and had physical therapy evaluation for home PT. The patient then presented to [facility] on October 14 with complaints of continued pain. She was seen by the neurosurgeon at that time, who recommended a soft TLSO brace, which was ordered and which she has been using. She was treated for pain at that time and sent for short-term rehab. She reports that she was discharged from short-term rehab on Thursday, however, continued to have back pain, leg weakness, and developed diarrhea and lethargy. She denied fever, chills, nausea, vomiting, numbness or tingling to her lower extremities, falls. Today, she was diagnosed with COVID-19, however, not noted to be hypoxic and chest x-ray not showing any consolidation or effusion. Lumbar spine CT showed T11, L2, and L3 vertebral fractures unchanged from previous imaging. She was given Salonpas patch, morphine, IV fluids, and Zofran. She will be admitted for further management and treatment of intractable back pain due to compression fracture. PAST MEDICAL HISTORY: 1. Atrial fibrillation, on anticoagulation. 2. Hypertension. 3. Hyperlipidemia. 4. Anxiety. 5. Osteopenia. 6. History of tubular adenomas. 7. IBS. 8. Bilateral tubal ligation. 9. Colonoscopy. 10. Tonsillectomy. SOCIAL HISTORY: Lives alone. Denies any alcohol, tobacco, or illicit drug use. FAMILY HISTORY: Father had diabetes. LABORATORY DATA: WBC 4.2, hemoglobin 13.2, hematocrit 40.0, platelets 186. Sodium is 136, potassium is 4.8, chloride is 104, bicarb is 22, BUN is 12, creatinine 0.79. COVID-19 is positive. REVIEW OF SYSTEMS: CONSTITUTIONAL: Denies any recent fever, chills, decrease in appetite. RESPIRATORY: Denies any shortness of breath, cough, or sputum production. CARDIOVASCULAR: Denies any chest pain, orthopnea, PND, or edema. GASTROINTESTINAL: See HPI. GENITOURINARY: Denies any dysuria, frequency, or hematuria. MUSCULOSKELETAL: See HPI. NEURO: Reports leg weakness. No history of seizures. All other systems are reviewed and are negative. PHYSICAL EXAMINATION: CONSTITUTIONAL: Resting in bed. No acute distress. Lying flat. VITAL SIGNS: 98.1, 67, 120/60, 98% on room air. SKIN: Intact without rash or open sores. HEENT: Head is normocephalic, atraumatic. Eyes, pupils are PERRLA. Sclerae anicteric. Mouth and throat, mucous membranes are intact and moist. NECK: Supple. No lymphadenopathy. No JVD noted. CHEST: Clear to auscultation without wheezes, rhonchi, or rales. HEART: Regular rate and rhythm. Clear S1, S2. No murmurs, rubs, gallops. ABDOMEN: Soft, nontender. No hepatomegaly or splenomegaly noted. NEURO: The patient is alert and oriented x3. Cranial nerves 2 through 12 were grossly intact without focal deficits. ASSESSMENT AND PLAN: An 80-year-old woman, who is being admitted with intractable back pain and subsequently found to have COVID-19. She had been initially diagnosed with lumbar fracture in September and then again went to [facility] and was given a TLSO soft brace. However, pain seems to be continuous at this point. She was also subsequently found to have COVID-19, asymptomatic. 1. Intractable back pain secondary to T11, L2, and L3 vertebral body fractures. Pain management, Interventional Radiology consultation for possible kyphoplasty. We will hold Eliquis. Last dose was this morning. We will need physical therapy consultation at some point. 2. COVID-19. Completely asymptomatic. We will need to be placed on isolation. 3. Atrial fibrillation. Continue atenolol. Hold Eliquis. Continue Multaq. 4. Hyperlipidemia. Continue statin. 5. Deep vein thrombosis prophylaxis with mechanical compression boots. 6. Case discussed with Dr. Garza. 7. Full code. AMBER De La Cruz MD JR/KENNA / [id number]
--- NOTE | 2020-11-12 14:17 | HO.PM.IMPN ---
Subjective Subjective Date of Service: 11/12/20 Interval History: Patient seen and examined at bedside, patient was reporting back pain Constitutional Constitutional: Denies fever(s), Denies headache(s) and Reports poor appetite Eyes Eyes: Reports no additional eye complaints ENT Ears, Nose, Mouth, and Throat: Denies headache(s) Cardiovascular Cardiovascular: Denies chest pain and Denies dyspnea Respiratory Respiratory: Reports cough and Denies dyspnea Gastrointestinal Gastrointestinal: Reports abdominal pain, Reports diarrhea, Reports nausea and Denies vomiting Musculoskeletal Musculoskeletal: Reports back pain Neurologic Neurologic: Denies headache(s) Hematologic/Lymphatic Hematologic/Lymphatic: Reports easy bleeding Physical Exam Vital Signs: Vital Signs: Last Vital Signs Temp 97.9 F 11/12/20 06:04 Pulse 95 11/12/20 12:13 Resp 16 11/12/20 12:13 BP 129/71 11/12/20 12:13 Pulse Ox 96 11/12/20 12:13 Body Mass Index 27.1 Const: Other: appears uncomfortable, tearful General: cooperative Orientation/consciousness: patient oriented x3 HENMT: Head: Yes atraumatic Neck: Neck: Yes full ROM and Yes trachea midline Resp: Effort & Inspection: normal respiratory effort and able to speak in complete sentences Auscultation: clear to auscultation bilaterally Cardio: Other: appears uncomfortable, tearful Rate: regular rate Rhythm: regular rhythm GI: Inspection: No distended Palpation (GI): Soft to palpation and Tenderness to palpation present (GI) (mild diffusely, no guarding ) Back/Spine/Pelvis: Other: wearing back brace, brace removed had diffuse tenderness most prominent to her lower spine and had midline lumbar tenderness, no skin changes Skin: Rashes: no rashes Neuro: Other: nonfocal neurological exam, sensation intact, strength diminished bilaterally to lower extremities secondary to pain in back, gait not assessed due to pain General: patient oriented x3 Objective Data Current Medications Generic Name Dose Route Start Last Admin Trade Name Freq PRN Reason Stop Dose Admin Acetaminophen 650 mg 11/11/20 15:47 Acetaminophen 325 Mg Tablet PO Q6H PRN Pain, Mild (Pain Scale 1-3) Acetaminophen 650 mg 11/11/20 15:47 11/12/20 10:19 Acetaminophen 325 Mg Tablet PO Not Given Q6H [facility] Atenolol 25 mg 11/11/20 21:00 11/12/20 09:42 Atenolol 25 Mg Tablet PO 25 mg BID KETAN Administration Protocol Atorvastatin Calcium 20 mg 11/12/20 09:00 11/12/20 09:43 Atorvastatin Calcium 20 Mg Tablet PO 20 mg DAILY KETAN Administration Diazepam 2 mg 11/11/20 15:47 Diazepam 2 Mg Tablet PO BID PRN anxiety Diazepam 2 mg 11/11/20 15:47 Diazepam 2 Mg Tablet PO BID PRN anxiety Docusate Sodium 100 mg 11/11/20 15:47 11/12/20 09:42 Docusate Sodium 100 Mg Capsule PO 100 mg BID PRN Administration Constipation Dronedarone 400 mg 11/11/20 21:00 11/12/20 09:43 Dronedarone Hcl 400 Mg Tablet PO 400 mg BID KETAN Administration Morphine Sulfate 2 mg 11/11/20 15:47 11/11/20 21:27 Morphine Sulfate 4 Mg/Ml Cartridge IVPUSH 2 mg Q4H PRN Administration Pain, Severe (Pain Scale 7-10) Ondansetron HCl 4 mg 11/11/20 15:47 Ondansetron Hcl 4 Mg/2 Ml Vial IVPUSH Q8H PRN Nausea and Vomiting Oxycodone HCl 5 mg 11/11/20 15:47 Oxycodone Hcl Immed Release 5 Mg Tablet PO Q6H PRN Pain, Severe (Pain Scale 7-10) Pharmacy Consult 1 each 11/11/20 14:47 Consult Rx Perform Med Rec MISCELLANE ONCE PRN Consult order Sodium Chloride 3 ml 11/11/20 16:00 11/12/20 08:14 0.9 % Sodium Chloride Flush 3 Ml Syringe IVFLUSH Not Given QSHIFT [facility] Vitamin D 50 mcg 11/12/20 09:00 11/12/20 09:42 Cholecalciferol (Vitamin D3) 25 Mcg Tablet PO 50 mcg DAILY KETAN Administration Labs CBC & Chem 7: 11/12/20 06:09 11/12/20 06:09 Assessment and Plan (1) Closed lumbar vertebral fracture: Status: Acute (2) Paroxysmal atrial fibrillation: Problem details: September 2011, echo normal LV July 2018 Status: Acute (3) Hypercholesterolemia: Status: Acute (4) Back pain: Status: Acute Assessment and Plan: 80-year-old woman, who is being admitted with intractable back pain and subsequently found to have COVID-19. She had been initially diagnosed with lumbar fracture in September and then again went to [facility] and was given a TLSO soft brace. However, pain seems to be continuous at this point. She was also subsequently found to have COVID-19, asymptomatic. Intractable back pain secondary to T11, L2, and L3 vertebral body fractures. continue Pain management discussed with IR Dr. parkinson recommended holding Eliquis, recommended bone scan bone scan ordered hold Eliquis COVID-19. Completely asymptomatic continue isolation Atrial fibrillation. Continue atenolol. Hold Eliquis. Continue Multaq Hyperlipidemia. Continue statin. Deep vein thrombosis prophylaxis with mechanical compression boots.
[2020-11-12 15:36] LABS: SARS COV2 IgG Negative (Negative)
--- NOTE | 2020-11-12 20:25 | PC.NURSE ---
pt co of the cui and requests the cui to be dc. pt has a uti and has burning on urination. teaching done, call place to give report and rn will call back for report.
[2020-11-12] MEDS: diazePAM 2 MG TABLET PO (21:32)
[2020-11-13] VITALS (8 sets, daily range): BP systolic 92–140; BP diastolic 60–79; PULSE 64–92; RESP 18–19; TEMP 36.6–36.8; O2SAT 92–99
[2020-11-13] MEDS: diazePAM 2 MG TABLET PO ×2 (00:06→16:59)
--- NOTE | 2020-11-13 06:35 | MHC.PIE ---
P ?UTI I.PT STATES SHE FEELS LIKE SHE HAS A UTI.STATES SHE FEELS BURNING. UPDATED.ORDER GIVEN FOR URINE SAMPLE TO BE OBTAINED.PT UPDATED AND NEXT SHIFT UPDATED. E.CONT TO MONITOR.
[2020-11-13] MEDS: Dronedarone HCl 400 MG TABLET PO ×2 (09:26→20:32)
[2020-11-13] MEDS: Cholecalciferol (Vitamin D3) 25 MCG TABLET 50 MCG PO (09:26)
[2020-11-13] MEDS: atenoloL 25 MG TABLET PO ×2 (09:27→20:32)
[2020-11-13] MEDS: Atorvastatin Calcium 20 MG TABLET PO (09:27)
[2020-11-13] MEDS: 0.9 % Sodium Chloride Flush 3 ML SYRINGE IVFLUSH ×2 (09:28→14:49)
[2020-11-13] MEDS: ondansetron HCL 4 MG/2 ML VIAL IVPUSH (12:51)
--- NOTE | 2020-11-13 14:01 | P.PNIM_ITS ---
Subjective Subjective Date of Service: 11/13/20 Interval History: Patient seen and examined at bedside, patient was reporting back pain Constitutional Constitutional: Denies fever(s), Denies headache(s) and Reports poor appetite Eyes Eyes: Reports no additional eye complaints ENT Ears, Nose, Mouth, and Throat: Denies headache(s) Cardiovascular Cardiovascular: Denies chest pain and Denies dyspnea Respiratory Respiratory: Reports cough and Denies dyspnea Gastrointestinal Gastrointestinal: Reports abdominal pain, Reports diarrhea, Reports nausea and Denies vomiting Musculoskeletal Musculoskeletal: Reports back pain Neurologic Neurologic: Denies headache(s) Hematologic/Lymphatic Hematologic/Lymphatic: Reports easy bleeding Physical Exam Vital Signs: Vital Signs: Last Vital Signs Temp 97.8 F 11/13/20 10:49 Pulse 64 11/13/20 10:49 Resp 18 11/13/20 10:49 BP 92/60 11/13/20 10:49 Pulse Ox 97 11/13/20 10:49 Body Mass Index 27.1 Const: Other: appears uncomfortable, tearful General: cooperative Orientation/consciousness: patient oriented x3 HENMT: Head: Yes atraumatic Neck: Neck: Yes full ROM and Yes trachea midline Resp: Effort & Inspection: normal respiratory effort and able to speak in complete sentences Auscultation: clear to auscultation bilaterally Cardio: Other: appears uncomfortable, tearful Rate: regular rate Rhythm: regular rhythm GI: Inspection: No distended Palpation (GI): Soft to palpation and Tenderness to palpation present (GI) (mild diffusely, no guarding ) Back/Spine/Pelvis: Other: wearing back brace, brace removed had diffuse tenderness most prominent to her lower spine and had midline lumbar tenderness, no skin changes Skin: Rashes: no rashes Neuro: Other: nonfocal neurological exam, sensation intact, strength diminished bilaterally to lower extremities secondary to pain in back, gait not assessed due to pain General: patient oriented x3 Objective Data Current Medications Generic Name Dose Route Start Last Admin Trade Name Freq PRN Reason Stop Dose Admin Acetaminophen 650 mg 11/11/20 15:47 Acetaminophen 325 Mg Tablet PO Q6H PRN Pain, Mild (Pain Scale 1-3) Acetaminophen 650 mg 11/11/20 15:47 11/13/20 12:51 Acetaminophen 325 Mg Tablet PO Not Given Q6H [facility] Atenolol 25 mg 11/11/20 21:00 11/13/20 09:27 Atenolol 25 Mg Tablet PO 25 mg BID KETAN Administration Protocol Atorvastatin Calcium 20 mg 11/12/20 09:00 11/13/20 09:27 Atorvastatin Calcium 20 Mg Tablet PO 20 mg DAILY KETAN Administration Diazepam 2 mg 11/11/20 15:47 11/13/20 00:06 Diazepam 2 Mg Tablet PO 2 mg BID PRN Administration anxiety Docusate Sodium 100 mg 11/11/20 15:47 11/12/20 09:42 Docusate Sodium 100 Mg Capsule PO 100 mg BID PRN Administration Constipation Dronedarone 400 mg 11/11/20 21:00 11/13/20 09:26 Dronedarone Hcl 400 Mg Tablet PO 400 mg BID KETAN Administration Morphine Sulfate 2 mg 11/11/20 15:47 11/11/20 21:27 Morphine Sulfate 4 Mg/Ml Cartridge IVPUSH 2 mg Q4H PRN Administration Pain, Severe (Pain Scale 7-10) Ondansetron HCl 4 mg 11/11/20 15:47 11/13/20 12:51 Ondansetron Hcl 4 Mg/2 Ml Vial IVPUSH 4 mg Q8H PRN Administration Nausea and Vomiting Oxycodone HCl 5 mg 11/11/20 15:47 Oxycodone Hcl Immed Release 5 Mg Tablet PO Q6H PRN Pain, Severe (Pain Scale 7-10) Pharmacy Consult 1 each 11/11/20 14:47 Consult Rx Perform Med Rec MISCELLANE ONCE PRN Consult order Sodium Chloride 3 ml 11/11/20 16:00 11/13/20 09:28 0.9 % Sodium Chloride Flush 3 Ml Syringe IVFLUSH 3 ml QSHIFT KETAN Administration Vitamin D 50 mcg 11/12/20 09:00 11/13/20 09:26 Cholecalciferol (Vitamin D3) 25 Mcg Tablet PO 50 mcg DAILY KETAN Administration Labs CBC & Chem 7: 11/12/20 06:09 11/12/20 06:09 Assessment and Plan (1) Closed lumbar vertebral fracture: Status: Acute (2) Paroxysmal atrial fibrillation: Problem details: September 2011, echo normal LV July 2018 Status: Acute (3) Hypercholesterolemia: Status: Acute (4) Back pain: Status: Acute Assessment and Plan: 80-year-old woman, who is being admitted with intractable back pain and subsequently found to have COVID-19. She had been initially diagnosed with lumbar fracture in September and then again went to [facility] and was given a TLSO soft brace. However, pain seems to be continuous at this point. She was also subsequently found to have COVID-19, asymptomatic. Intractable back pain secondary to T11, L2, and L3 vertebral body fractures. continue Pain management IR consulted for kyphoplasty recommended bone scan Bone scan done shows fracture at T11-L2 and L3 Plan for kyphoplasty possibly tomorrow hold Eliquis COVID-19. Completely asymptomatic continue isolation Atrial fibrillation. Continue atenolol. Hold Eliquis. Continue Multaq Hyperlipidemia. Continue statin. Deep vein thrombosis prophylaxis with mechanical compression boots.
[2020-11-13 14:16] LABS: Glucose Urine UA NEG (NEG); Leukocyte Esterase Urine 2+ (NEG); Nitrite Urine POS (NEG); Specific Gravity - Urine 1.025 (1.005-1.025); Urine Blood 3+ (NEG); Urine Ketones 15 MG/DL (NEG); Urine Protein 2+ MG/DL (NEG-TRACE)
[2020-11-13 14:21] LABS: Appearance Urine CLOUDY; Color Urine YELLOW
[2020-11-13 15:05] LABS: Bacteria Urine 3+ /LPF; RBC Urine 50-75 /HPF (0); Squamous Epithelial Cell Urine 1+ /LPF; WBC Urine TNTC /HPF (0-4)
--- NOTE | 2020-11-13 18:41 | PC.NURSE ---
MD made aware of urine results from today being back for review. Also reported patient symptoms of UTI (burning on urination and lower abdominal pain) Awaiting for response or new orders at this time. Will continue to monitor and assess.
[2020-11-13] MEDS: cefTRIAXone sodium 1 GM in 0.9 % Sodium Chloride 50 ML IV (19:45)
--- NOTE | 2020-11-13 23:15 | P.CNID_ITS ---
History of Present Illness Data of Consult Service Date: 11/13/20 Requesting physician: Giancarlo Garza Primary Care Provider: MD CHAO Spear Reason for consult: pyuria,COVID She presents to hospital with worsening back pain She had gone to Rehab after compression fracture She has pyuria She is now COVID positive She complains of back and pelvic pain Review of Systems Constitutional: Constitutional: Denies headache(s) ENT: Denies headache(s) Neurologic: Denies headache(s) [facility] Past Medical History Medical History (Updated 11/25/20 @ 00:00 by Dirk Randolph) Anxiety and depression Back pain Closed lumbar vertebral fracture Fracture of lumbar spine Gout Hypercholesterolemia Hypertension Osteopenia Paroxysmal atrial fibrillation Tubular adenoma of colon Family History Family History Father Diabetes Family history: reviewed and not pertinent Surgical History Surgical History History of colonoscopy History of tonsillectomy History of tubal ligation Social History Social History Household Members: None Housing: Apartment Alcohol intake: never Smoking Status: Never smoker Second Hand Smoke Exposure: No service: No Current occupational status: retired Meds Allergies Allergy/AdvReac Type Severity Reaction Status Date / Time meperidine [Demerol] Allergy Intermediate syncope Verified 10/08/20 19:37 nitrofurantoin Allergy Intermediate Rash Verified 10/08/20 19:37 [From Macrobid] paroxetine [From PAXIL] Allergy Intermediate SYNCOPE Verified 10/08/20 19:37 shellfish derived Allergy Intermediate HIVES Verified 10/08/20 19:37 [SHELLFISH DERIVED] azithromycin AdvReac presyncope Verified 10/08/20 19:37 [From ZITHROMAX Z-NAYLA] Home Medications Medication Instructions Recorded Confirmed Type calcium citrate 250 mg 1 tab PO DAILY tab 08/06/20 11/11/20 History calcium-vitamin D3 5 mcg (200 unit) tablet cholecalciferol (vitamin D3) 50 50 mcg PO DAILY 08/06/20 11/11/20 History mcg (2,000 unit) capsule mecobalamin (vitamin B12) 1,000 1,000 mcg SUBLINGUAL Q3D 08/06/20 11/11/20 History mcg disintegrating tablet,sublingual Multaq 400 mg PO BID 10/08/20 11/11/20 History Eliquis 5 mg PO BID 10/09/20 11/11/20 History docusate sodium 100 mg PO BID PRN 10/30/20 11/11/20 History Physical Exam Vital Signs: Vital Signs: Last Vital Signs Temp 98.1 F 11/13/20 19:19 Pulse 72 11/13/20 20:32 Resp 19 11/13/20 19:19 BP 138/70 11/13/20 20:32 Pulse Ox 98 11/13/20 19:19 Body Mass Index 27.1 Const: General: cooperative HENMT: Head: Yes normal to inspection Mouth: Normal oral and palatal mucosa present Eyes: General: appearance normal, both eyes and all related structures Resp: Effort & Inspection: normal respiratory effort Cardio: Rate: regular rate Rhythm: regular rhythm GI: Palpation (GI): Soft to palpation and nontender : General: Yes CVA tenderness Back/Spine/Pelvis: Back: CVA tenderness Skin: General skin exam: no rashes or lesions noted Extrem: General: Yes normal to inspection Assessment and Plan (1) Fracture of lumbar spine: Problem details: Kyphoplasty October 2020 (2) COVID-19: Problem details: Asymptomatic Status: Acute No treatment unless hypoxic (3) UTI (urinary tract infection): Status: Inactive Continue Ceftriaxone ?hold on surgery until improved,probable total 10-14 d antibiotics,can change to po Results Labs CBC & Chem 7: 11/16/20 05:43 11/16/20 05:43 Labs: Urine 11/13/20 Range/Units 14:02 Urine Color YELLOW Urine Appearance CLOUDY Urine pH 6.0 (5.0-8.0) Ur Specific [place] 1.025 (1.005-1.025) Urine Protein 2+ H (NEG-TRACE) MG/DL Urine Glucose (UA) NEG (NEG) MG/DL
[2020-11-14] VITALS (7 sets, daily range): BP systolic 101–112; BP diastolic 51–84; PULSE 68–111; RESP 18–22; TEMP 36.7–36.8; O2SAT 95–97
[2020-11-14] MEDS: 0.9 % Sodium Chloride Flush 3 ML SYRINGE IVFLUSH ×3 (00:05→15:41)
[2020-11-14] MEDS: atenoloL 25 MG TABLET PO ×2 (08:35→20:09)
[2020-11-14] MEDS: Dronedarone HCl 400 MG TABLET PO ×2 (08:35→20:09)
[2020-11-14] MEDS: Atorvastatin Calcium 20 MG TABLET PO (08:35)
[2020-11-14] MEDS: Cholecalciferol (Vitamin D3) 25 MCG TABLET 50 MCG PO (08:36)
--- NOTE | 2020-11-14 08:46 | MHC.CM.PN ---
CM spoke with patient by phone r/t COVID +. Instructed both first choices [facility] and [facility] are not able to accept COVID +. Instructed [facility] and [facility] are able to offer a bed. Patient wants to speak with her dtr before picking 1st choice. CM will continue to follow patient for discharge needs.
--- NOTE | 2020-11-14 12:34 | MHC.CM.PN ---
Patient is on IV Ceftriaxone for +UTI. Also waiting for IR to do Kyphoplasty, pain still not controlled. Patient's discharge plan is [facility]. CM instructed patient top 2 choices, [facility] and [facility] are not able to accept COVID + patients. Also instructed that [facility] and [facility] are interested. Patient states she wants to speak with her dtr before deciding on choice of [facility]. CM will continue to follow patient for discharge needs.
[2020-11-14] MEDS: ondansetron HCL 4 MG/2 ML VIAL IVPUSH (13:34)
--- NOTE | 2020-11-14 15:20 | P.PNIM_ITS ---
Subjective Subjective Date of Service: 11/14/20 Interval History: Patient seen and examined at bedside, patient was reporting back pain and lower abdominal pain Constitutional Constitutional: Denies fever(s), Denies headache(s) and Reports poor appetite Eyes Eyes: Reports no additional eye complaints ENT Ears, Nose, Mouth, and Throat: Denies headache(s) Cardiovascular Cardiovascular: Denies chest pain and Denies dyspnea Respiratory Respiratory: Reports cough and Denies dyspnea Gastrointestinal Gastrointestinal: Reports abdominal pain, Reports diarrhea, Reports nausea and Denies vomiting Musculoskeletal Musculoskeletal: Reports back pain Neurologic Neurologic: Denies headache(s) Hematologic/Lymphatic Hematologic/Lymphatic: Reports easy bleeding Physical Exam Vital Signs: Vital Signs: Last Vital Signs Temp 98.0 F 11/14/20 11:38 Pulse 87 11/14/20 11:38 Resp 20 11/14/20 11:38 BP 104/61 11/14/20 11:38 Pulse Ox 96 11/14/20 11:38 Body Mass Index 27.1 Const: Other: appears uncomfortable, tearful General: cooperative Orientation/consciousness: patient oriented x3 HENMT: Head: Yes atraumatic Neck: Neck: Yes full ROM and Yes trachea midline Resp: Effort & Inspection: normal respiratory effort and able to speak in complete sentences Auscultation: clear to auscultation bilaterally Cardio: Other: appears uncomfortable, tearful Rate: regular rate Rhythm: regular rhythm GI: Inspection: No distended Palpation (GI): Soft to palpation and Tenderness to palpation present (GI) (mild diffusely, no guarding ) Back/Spine/Pelvis: Other: wearing back brace, brace removed had diffuse tenderness most prominent to her lower spine and had midline lumbar tenderness, no skin changes Skin: Rashes: no rashes Neuro: Other: nonfocal neurological exam, sensation intact, strength diminished bilaterally to lower extremities secondary to pain in back, gait not assessed due to pain General: patient oriented x3 Objective Data Current Medications Generic Name Dose Route Start Last Admin Trade Name Freq PRN Reason Stop Dose Admin Acetaminophen 650 mg 11/11/20 15:47 Acetaminophen 325 Mg Tablet PO Q6H PRN Pain, Mild (Pain Scale 1-3) Acetaminophen 650 mg 11/11/20 15:47 11/14/20 08:36 Acetaminophen 325 Mg Tablet PO Not Given Q6H [facility] Atenolol 25 mg 11/11/20 21:00 11/14/20 08:35 Atenolol 25 Mg Tablet PO 25 mg BID KETAN Administration Protocol Atorvastatin Calcium 20 mg 11/12/20 09:00 11/14/20 08:35 Atorvastatin Calcium 20 Mg Tablet PO 20 mg DAILY KETAN Administration Diazepam 2 mg 11/11/20 15:47 11/13/20 16:59 Diazepam 2 Mg Tablet PO 2 mg BID PRN Administration anxiety Docusate Sodium 100 mg 11/11/20 15:47 11/12/20 09:42 Docusate Sodium 100 Mg Capsule PO 100 mg BID PRN Administration Constipation Dronedarone 400 mg 11/11/20 21:00 11/14/20 08:35 Dronedarone Hcl 400 Mg Tablet PO 400 mg BID KETAN Administration Ceftriaxone Sodium 1 gm/ 50 mls @ 100 mls/hr 11/13/20 20:00 11/13/20 20:20 Sodium Chloride IV Infused Q24H K[facility]AN Infusion Morphine Sulfate 2 mg 11/11/20 15:47 11/11/20 21:27 Morphine Sulfate 4 Mg/Ml Cartridge IVPUSH 2 mg Q4H PRN Administration Pain, Severe (Pain Scale 7-10) Ondansetron HCl 4 mg 11/11/20 15:47 11/14/20 13:34 Ondansetron Hcl 4 Mg/2 Ml Vial IVPUSH 4 mg Q8H PRN Administration Nausea and Vomiting Oxycodone HCl 5 mg 11/11/20 15:47 Oxycodone Hcl Immed Release 5 Mg Tablet PO Q6H PRN Pain, Severe (Pain Scale 7-10) Pharmacy Consult 1 each 11/11/20 14:47 Consult Rx Perform Med Rec MISCELLANE ONCE PRN Consult order Sodium Chloride 3 ml 11/11/20 16:00 11/14/20 08:36 0.9 % Sodium Chloride Flush 3 Ml Syringe IVFLUSH 3 ml QSHIFT KETAN Administration Vitamin D 50 mcg 11/12/20 09:00 11/14/20 08:36 Cholecalciferol (Vitamin D3) 25 Mcg Tablet PO 50 mcg DAILY KETAN Administration Labs CBC & Chem 7: 11/12/20 06:09 11/12/20 06:09 Assessment and Plan (1) Closed lumbar vertebral fracture: Status: Acute (2) Paroxysmal atrial fibrillation: Problem details: September 2011, echo normal LV July 2018 Status: Acute (3) Hypercholesterolemia: Status: Acute (4) Back pain: Status: Acute Assessment and Plan: 80-year-old woman, who is being admitted with intractable back pain and subsequently found to have COVID-19. She had been initially diagnosed with lumbar fracture in September and then again went to [facility] and was given a TLSO soft brace. However, pain seems to be continuous at this point. She was also subsequently found to have COVID-19, asymptomatic. Intractable back pain secondary to T11, L2, and L3 vertebral body fractures. continue Pain management IR consulted for kyphoplasty recommended bone scan Bone scan done shows fracture at T11-L2 and L3 Plan for kyphoplasty possibly on hold Eliquis UTI Started on Rocephin Follow-up urine culture COVID-19. Completely asymptomatic continue isolation Atrial fibrillation. Continue atenolol. Hold Eliquis. Continue Multaq Hyperlipidemia. Continue statin. Deep vein thrombosis prophylaxis with mechanical compression boots.
[2020-11-14] MEDS: cefTRIAXone sodium 1 GM in 0.9 % Sodium Chloride 50 ML IV (20:09)
[2020-11-15] MEDS: 0.9 % Sodium Chloride Flush 3 ML SYRINGE IVFLUSH ×4 (00:24→23:50)
[2020-11-15 03:57] VITALS: BP 96/70; PULSE 103; RESP 18; TEMP 36.7; O2SAT 96
[2020-11-15 07:52] VITALS: BP 108/57; PULSE 107; RESP 18; TEMP 36.8; O2SAT 93
[2020-11-15] MEDS: Cholecalciferol (Vitamin D3) 25 MCG TABLET 50 MCG PO (09:17)
[2020-11-15] MEDS: atenoloL 25 MG TABLET PO ×2 (09:18→21:11)
[2020-11-15] MEDS: Dronedarone HCl 400 MG TABLET PO ×2 (09:18→21:11)
[2020-11-15] MEDS: Atorvastatin Calcium 20 MG TABLET PO (09:18)
[2020-11-15 12:00] VITALS: BP 97/58; PULSE 100; RESP 18; TEMP 36.4; O2SAT 98
--- NOTE | 2020-11-15 14:10 | P.PNIM_ITS ---
Subjective Subjective Date of Service: 11/15/20 Interval History: Patient seen and examined at bedside, patient was reporting back pain and lower abdominal pain Patient was reporting diarrhea Constitutional Constitutional: Denies fever(s), Denies headache(s) and Reports poor appetite Eyes Eyes: Reports no additional eye complaints ENT Ears, Nose, Mouth, and Throat: Denies headache(s) Cardiovascular Cardiovascular: Denies chest pain and Denies dyspnea Respiratory Respiratory: Reports cough and Denies dyspnea Gastrointestinal Gastrointestinal: Reports abdominal pain, Reports diarrhea, Reports nausea and Denies vomiting Musculoskeletal Musculoskeletal: Reports back pain Neurologic Neurologic: Denies headache(s) Hematologic/Lymphatic Hematologic/Lymphatic: Reports easy bleeding Physical Exam Vital Signs: Vital Signs: Last Vital Signs Temp 97.5 F 11/15/20 12:00 Pulse 100 11/15/20 12:00 Resp 18 11/15/20 12:00 BP 97/58 L 11/15/20 12:00 Pulse Ox 98 11/15/20 12:00 Body Mass Index 27.1 Const: Other: appears uncomfortable, tearful General: cooperative Orientation/consciousness: patient oriented x3 HENMT: Head: Yes atraumatic Neck: Neck: Yes full ROM and Yes trachea midline Resp: Effort & Inspection: normal respiratory effort and able to speak in complete sentences Auscultation: clear to auscultation bilaterally Cardio: Other: appears uncomfortable, tearful Rate: regular rate Rhythm: regular rhythm GI: Inspection: No distended Palpation (GI): Soft to palpation and Tenderness to palpation present (GI) (mild diffusely, no guarding ) Back/Spine/Pelvis: Other: wearing back brace, brace removed had diffuse tenderness most prominent to her lower spine and had midline lumbar tenderness, no skin changes Skin: Rashes: no rashes Neuro: Other: nonfocal neurological exam, sensation intact, strength diminished bilaterally to lower extremities secondary to pain in back, gait not assessed due to pain General: patient oriented x3 Objective Data Current Medications Generic Name Dose Route Start Last Admin Trade Name Freq PRN Reason Stop Dose Admin Acetaminophen 650 mg 11/11/20 15:47 Acetaminophen 325 Mg Tablet PO Q6H PRN Pain, Mild (Pain Scale 1-3) Acetaminophen 650 mg 11/11/20 15:47 11/15/20 09:18 Acetaminophen 325 Mg Tablet PO Not Given Q6H KETAN Atenolol 25 mg 11/11/20 21:00 11/15/20 09:18 Atenolol 25 Mg Tablet PO 25 mg BID KETAN Administration Protocol Atorvastatin Calcium 20 mg 11/12/20 09:00 11/15/20 09:18 Atorvastatin Calcium 20 Mg Tablet PO 20 mg DAILY KETAN Administration Diazepam 2 mg 11/11/20 15:47 11/13/20 16:59 Diazepam 2 Mg Tablet PO 2 mg BID PRN Administration anxiety Docusate Sodium 100 mg 11/11/20 15:47 11/12/20 09:42 Docusate Sodium 100 Mg Capsule PO 100 mg BID PRN Administration Constipation Dronedarone 400 mg 11/11/20 21:00 11/15/20 09:18 Dronedarone Hcl 400 Mg Tablet PO 400 mg BID KETAN Administration Ceftriaxone Sodium 1 gm/ 50 mls @ 100 mls/hr 11/13/20 20:00 11/14/20 20:50 Sodium Chloride IV Infused Q24H KETAN Infusion Morphine Sulfate 2 mg 11/11/20 15:47 11/11/20 21:27 Morphine Sulfate 4 Mg/Ml Cartridge IVPUSH 2 mg Q4H PRN Administration Pain, Severe (Pain Scale 7-10) Ondansetron HCl 4 mg 11/11/20 15:47 11/14/20 13:34 Ondansetron Hcl 4 Mg/2 Ml Vial IVPUSH 4 mg Q8H PRN Administration Nausea and Vomiting Oxycodone HCl 5 mg 11/11/20 15:47 Oxycodone Hcl Immed Release 5 Mg Tablet PO Q6H PRN Pain, Severe (Pain Scale 7-10) Pharmacy Consult 1 each 11/11/20 14:47 Consult Rx Perform Med Rec MISCELLANE ONCE PRN Consult order Sodium Chloride 3 ml 11/11/20 16:00 11/15/20 09:18 0.9 % Sodium Chloride Flush 3 Ml Syringe IVFLUSH 3 ml QSHIFT [facility] Administration Vitamin D 50 mcg 11/12/20 09:00 11/15/20 09:17 Cholecalciferol (Vitamin D3) 25 Mcg Tablet PO 50 mcg DAILY KETAN Administration Labs CBC & Chem 7: 11/12/20 06:09 11/12/20 06:09 Microbiology Microbiology Results: Microbiology 11/13/20 14:02 Urine clean catch - Clean Catch Midstream Urine Culture - Preliminary Gram negative chyna Assessment and Plan (1) Closed lumbar vertebral fracture: Status: Acute (2) Paroxysmal atrial fibrillation: Problem details: September 2011, echo normal LV July 2018 Status: Acute (3) Hypercholesterolemia: Status: Acute (4) Back pain: Status: Acute Assessment and Plan: 80-year-old woman, who is being admitted with intractable back pain and subsequently found to have COVID-19. She had been initially diagnosed with lumbar vertebra fracture in September and then again went to [facility] and was given a TLSO soft brace. However, pain seems to be continuous at this point. She was also subsequently found to have COVID-19, asymptomatic. Intractable back pain secondary to T11, L2, and L3 vertebral body fractures. continue Pain management IR consulted for kyphoplasty recommended bone scan Bone scan done shows fracture at T11-L2 and L3 Plan for kyphoplasty possibly on Thursday given UTI hold Eliquis UTI Started on Rocephin Urine culture growing gram-negative rods Diarrhea on antibiotics Will check C diff COVID-19. continue isolation Continue supportive manage Currently not requiring any oxygen Atrial fibrillation. Continue atenolol. Hold Eliquis. Continue Multaq Hyperlipidemia. Continue statin. Deep vein thrombosis prophylaxis with mechanical compression boots.
[2020-11-15 15:23] LABS: CDIFF Ag Negative (Negative); CDIFF Internal ctrl Dots and bkg OK (V); CDiff Toxin Negative (Negative)
[2020-11-15 15:29] VITALS: BP 109/71; PULSE 95; RESP 18; TEMP 36.4; O2SAT 95
[2020-11-15 19:28] VITALS: BP 109/62; PULSE 95; RESP 18; TEMP 36.8; O2SAT 92
[2020-11-15] MEDS: cefTRIAXone sodium 1 GM in 0.9 % Sodium Chloride 50 ML IV (21:11)
[2020-11-15 23:59] VITALS: BP 113/71; PULSE 85; RESP 18; TEMP 36.8; O2SAT 96
[2020-11-16] VITALS (14 sets, daily range): BP systolic 101–142; BP diastolic 59–70; PULSE 63–80; RESP 16–18; TEMP 36.3–36.9; O2SAT 94–97
--- NOTE | 2020-11-16 | IR_ITS ---
EXAMINATION: FLUOROSCOPY-GUIDED T7, L2 AND L3 KYPHOPLASTY CLINICAL INFORMATION: Significant back pain unable to move. No relief with pain medications. Covid positive. COMPARISON: None TECHNIQUE: Following explaining fluoroscopy-guided T7, L2 and L3 kyphoplasty procedure, benefits and risk, a written consent was obtained. Separate consent was obtained by anesthesia department for sedation. Patient was placed prone and the entire thoracic and lumbar spine area was cleaned and draped in usual sterile manner. Initially right L2 pedicle was localized on the skin and 1% lidocaine infiltrated. A 22-gauge spinal needle was then advanced from the skin to the level of right pedicle periosteum and 0.25% Marcaine injected. Through a small skin incision a 10-gauge Kyphon needle was advanced from the skin to the level of right L2 pedicle and through the pedicle into the posterior one-third of vertebra with a hammer. In a similar fashion a 2nd needle was inserted to the left pedicle of L2 vertebra followed by 3rd and 4th needles through the right and left pedicles of L3 vertebra. A hand drill was injected in a similar fashion through the right and left pedicles of L2 and L3 vertebrae and a tract created. High tensile balloons were then inserted through the pedicles of L2 and L3 vertebra and inflated to 200 psi for 5 minutes. The balloons were deflated and freshly prepared polymethylmethacrylate was injected through the right and left needles at L3 vertebra followed by right and left needles at L2 vertebra. The cement injection was observed under fluoroscopy in oblique, AP and lateral positions. After achieving adequate amount of cement and observing no cement leak, both needles were withdrawn and complete hemostasis achieved at puncture site. 1% lidocaine was then injected on the skin following localization of right T7 pedicle. A 22-gauge needle was then inserted from the skin to the level of periosteum of the right pedicle. Through a small skin incision a 10-gauge Kyphon needle was inserted from the skin to the level of the pedicle and through the pedicle into the posterior one-third of T7 vertebra with a hammer. A 2nd needle was then inserted through the left needle in a similar fashion. A hand drill was injected and a tract created. High tensile balloons were then inserted through the right and left needle and inflated to 100 psi for 5 minutes. The balloons were deflated and removed and a freshly prepared polymethylmethacrylate was injected through the right and left needle under continuous AP, oblique and lateral fluoroscopy monitoring. After achieving adequate amount of cement and observing no more cement leak, both needles were withdrawn and complete hemostasis achieved at puncture site. Sterile band-aid was applied at all 6 sites. Images were obtained during the exam. Sedation was provided by anesthesia department. There were no immediate competitions. FINDINGS: On preliminary fluoroscopy imaging there is acute T7, L2 and L3 compression fractures as was noted on the pre-kyphoplasty CT. Under fluoroscopy high tensile balloons were inserted and dilated at all 3 fractured vertebral levels without any complications. Cement was also injected at all 3 vertebral levels without any extravasation. No biopsy was obtained. IR/IR kyphoplasty thoracic IMPRESSION: Successful fluoroscopy-guided bipedicle approach T7, L2 and L3 kyphoplasty of compression fracture was performed without immediate complications. Fluoroscopy time: 22.5 minutes. DAP: 5655 mGy/cm2
--- NOTE | 2020-11-16 | CT_ITS ---
EXAMINATION: CT LUMBAR SPINE WITHOUT CONTRAST CLINICAL INFORMATION: Acute L2 and L3 compression fracture. Pre-kyphoplasty evaluation. COMPARISON: None TECHNIQUE: Axial 2 mm thin and reformatted 2 mm thin coronal and sagittal images of lumbar spine were obtained from T12 through L3 vertebra. In addition axial 2 mm thin images of thoracic spine from T3 to mid T10 vertebra were obtained. This CT examination was performed using dose optimization techniques as appropriate, variously including the following: *Automated exposure control *Adjustment of mA and/or kV according to patient size (this includes techniques or standardized protocols for targeted exams where dose is matched to indication/reason for exam; i.e. extremities or head) *Use of iterative reconstruction technique DLP: 439 mGy-cm FINDINGS: Thoracic Spine: On sagittal reconstructed images, there is exaggerated thoracic kyphosis centered at T7 vertebra. There is an acute T7 compression fracture with approximately 20% loss of vertebral height. There is mild sclerotic bone seen along the superior endplate and posterior one-third of the vertebra likely from compressed bone from fracture. No posterior bony component seen extending into the spinal canal. There is no pedicular fracture seen. The paravertebral soft tissues are normal. The adjacent dorsal vertebrae are normal height. The intervening disc heights within the mid thoracic spine are normal. No spinal canal stenosis seen. The paravertebral soft tissues are normal. There is minimal atelectatic changes and patchy ground-glass opacity in both lower lobes likely related to COVID inflammation. Lumbar Spine: There is maintained lumbar lordosis. There is acute loss of L2 and L3 vertebral heights. There is approximately 60-70% loss of L3 and approximately 10-50% loss of superior endplate L2 vertebral height. There is an old T11 compression fracture noted. Rest of the vertebral height is preserved. There are degenerative disc changes with vacuum disc phenomena L5-S1 and L4-L5 disc levels with endplate spondylosis. There is no extension of fracture into the spinal canal or any spinal stenosis. No evidence of disc bulge, herniation or spinal stenosis at any of the disc levels. CT/CT lumbar spine wo con IMPRESSION: Acute T7, L2 and L3 compression fractures. There is no posterior bony component causing spinal canal compromise. The pedicles are intact. There is an old T11 compression fracture. There is no disc herniation or spinal stenosis. Incidental finding of ground-glass opacity in both lower lobes superior segment likely related to COVID inflammation.
--- NOTE | 2020-11-16 | CT_ITS ---
EXAMINATION: CT THORACIC AND LUMBAR SPINE CLINICAL INFORMATION: Status post T7, L2 and L3 kyphoplasty. COMPARISON: Pre-kyphoplasty CT thoracic and lumbar spine. TECHNIQUE: 2 mm thin axial and reformatted 2 mm thin sagittal and coronal images of thoracic spine from T6 through mid T9 and lumbar spine from mid L1 through inferior L4 vertebra was obtained. This CT examination was performed using dose optimization techniques as appropriate, variously including the following: *Automated exposure control *Adjustment of mA and/or kV according to patient size (this includes techniques or standardized protocols for targeted exams where dose is matched to indication/reason for exam; i.e. extremities or head) *Use of iterative reconstruction technique DLP: 269 mGy-cm FINDINGS: THORACIC SPINE: There is an adequate amount of cement occupying the entire T7 vertebra with no extravasation of cement seen. There is no small canal stenosis. The paravertebral soft tissues are normal. The adjoining T5, T6, T8 vertebral heights are maintained normal. Again visualized is bilateral ground-glass opacities in lower lobes. There is diffuse osteopenia visualized bones. LUMBAR SPINE: There is maintained lumbar lordosis. There is an adequate amount of cement occupying the L2 and L3 vertebrae without any cement extravasation. There is no change in 20% loss of L2 vertebral height and greater than 50% loss of L5 vertebral height. There is no cement extravasation seen into the disc space or spinal canal. The adjoining L1 and L4 vertebral heights are maintained. There is diffuse osteopenia of visualized bones. CT/CT lumbar spine post vert IMPRESSION: Adequate amount of cement occupying T7 compression fracture without any extravasation. There is no spinal canal stenosis. There are ground-glass densities in both lower lobes likely related to Covid infection. Adequate amount of cement occupying the L2 and L3 compression fracture without any extravasation.
[2020-11-16 06:44] LABS: INTERNATIONAL NORM RATIO 1.1 (0.9-1.1); Prothrombin Time 12.6 SEC (10.8-13.0)
[2020-11-16 07:04] LABS: Basophils Percent Auto 0.3 % (0-2); Eosinophils Percent Auto 0.6 % (0-4); Hematocrit 45.2 % (37-47); Imm Gran Abs Auto 0.05 X10*3/uL (0.00-0.03); Imm Gran Pct Auto 0.7 % (0.0-0.4); Lymphocytes Absolute Auto 1.2 X10*3/uL (1.2-4.9); Lymphocytes Percent Auto 17.6 % (20-40); MANUAL DIFF FLAG SCAN; Mean Corpuscular HGB Conc 33.2 g/dl (31.0-35.0); Mean Corpuscular Hemoglobin 30.5 pg (27.0-33.0); Mean Corpuscular Volume 92.1 fL (80-98); Mean Platelet Volume 11.2 fL (9.4-12.3); Monocytes Absolute Auto 0.7 X10*3/uL (0.1-1.2); Monocytes Percent Auto 10.8 % (2-11); Neutrophils Absolute Auto 4.8 X10*3/uL (2.0-8.3); Platelet Count 204 X10*3/uL (160-400); Red Blood Count 4.91 X10*6/uL (4.20-5.50); Red Cell Distribution Width 12.5 % (11.0-16.0); SCAN SMEAR FLAG 1; White Blood Count 6.8 X10*3/uL (4.8-10.8)
[2020-11-16 07:14] LABS: Anion Gap 17 (12-20); Blood Urea Nitrogen 22 mg/dL (9-16); Calcium 8.5 mg/dL (8.4-10.2); Carbon Dioxide 23 mmol/L (22-29); Chloride 100 mmol/L (96-108); Creatinine Clr Calc Pharmacy 52.4; Estimated Glomerular Filt Rate > 60; Glucose Random 79 mg/dL (60-115); Potassium 4.8 mmol/l (3.3-5.1); Sodium 135 mmol/L (135-145)
[2020-11-16] MEDS: Cholecalciferol (Vitamin D3) 25 MCG TABLET 50 MCG PO (08:43)
[2020-11-16] MEDS: Dronedarone HCl 400 MG TABLET PO ×2 (08:43→20:04)
[2020-11-16] MEDS: 0.9 % Sodium Chloride Flush 3 ML SYRINGE IVFLUSH ×3 (08:44→20:04)
[2020-11-16] MEDS: atenoloL 25 MG TABLET PO ×2 (08:44→20:04)
[2020-11-16] MEDS: Atorvastatin Calcium 20 MG TABLET PO (08:44)
[2020-11-16 08:46] LABS: SLIDE REVIEW VERIFIED
[2020-11-16 08:48] LABS: Glucose Urine UA NEG (NEG); Leukocyte Esterase Urine NEG (NEG); Nitrite Urine NEG (NEG); Specific Gravity - Urine >= 1.030 (1.005-1.025); Urine Blood 1+ (NEG); Urine Ketones 40 MG/DL (NEG); Urine Protein TRACE MG/DL (NEG-TRACE)
[2020-11-16 08:51] LABS: Appearance Urine CLEAR; Color Urine YELLOW
[2020-11-16 09:01] LABS: Hyaline Casts Urine 0-2 /LPF; Mucus Urine 2+ /LPF; Squamous Epithelial Cell Urine 2+ /LPF; UACC CULT YES
[2020-11-16 09:02] LABS: Bacteria Urine TRACE /LPF; Granular Casts Urine 0-2 /LPF
--- NOTE | 2020-11-16 11:25 | HO.ANESPROP2 ---
HPI - Anesthesia Eval Consult details Narrative: COVID-19 severe back pain PMFSH Past Medical History Medical History Anxiety and depression Gout Hypercholesterolemia Hypertension Osteopenia Paroxysmal atrial fibrillation Tubular adenoma of colon UTI (urinary tract infection) UTI (urinary tract infection) Family History Family History Father Diabetes Family history of problems with anesthesia: No Surgical History Surgical History History of colonoscopy History of tonsillectomy History of tubal ligation History of Problems with Anesthesia: No Social History Social History Household Members: None Housing: Apartment Alcohol intake: never Smoking Status: Never smoker Smoked in Last 30 Days: No Second Hand Smoke Exposure: No Use of substances other than those prescribed or required for medical reasons: No Currently Displaying Signs/Symptoms of Drug Intoxication Withdrawal: No Have you been hit, kicked, punched, or otherwise hurt by someone within the past year? If so, by whom?: No Do you feel safe in your current relationship?: No Is there a partner from a previous relationship who is making you feel unsafe now?: No Are you made to feel afraid or neglected: No Advance Directives: No Advance Directives Information Provided: Yes Do you have thoughts of harming others: None Do you have a plan to hurt others: No Plan Recently lost weight without trying: No service: No Current occupational status: retired Meds Allergies Allergy/AdvReac Type Severity Reaction Status Date / Time meperidine [Demerol] Allergy Intermediate syncope Verified 10/08/20 19:37 nitrofurantoin Allergy Intermediate Rash Verified 10/08/20 19:37 [From Macrobid] paroxetine [From PAXIL] Allergy Intermediate SYNCOPE Verified 10/08/20 19:37 shellfish derived Allergy Intermediate HIVES Verified 10/08/20 19:37 [SHELLFISH DERIVED] azithromycin AdvReac presyncope Verified 10/08/20 19:37 [From ZITHROMAX Z-NAYLA] Home Medications Medication Instructions Recorded Confirmed Type calcium citrate 250 mg 1 tab PO DAILY tab 08/06/20 11/11/20 History calcium-vitamin D3 5 mcg (200 unit) tablet cholecalciferol (vitamin D3) 50 50 mcg PO DAILY 08/06/20 11/11/20 History mcg (2,000 unit) capsule mecobalamin (vitamin B12) 1,000 1,000 mcg SUBLINGUAL Q3D 08/06/20 11/11/20 History mcg disintegrating tablet,sublingual Multaq 400 mg PO BID 10/08/20 11/11/20 History Eliquis 5 mg PO BID 10/09/20 11/11/20 History docusate sodium 100 mg PO BID PRN 10/30/20 11/11/20 History Exam Exam Date and Time: November 16, 2020 1125 Height,Weight and Vital Signs: Height 5 ft 5 in Weight 73.9 kg Last Vital Signs Temp 97.9 F 11/16/20 08:00 Pulse 80 11/16/20 10:57 Resp 17 11/16/20 08:00 BP 119/66 11/16/20 10:57 Pulse Ox 95 11/16/20 10:57 Pertinent Lab Results Pertinent Lab Results: Laboratory Tests 11/11/20 11/11/20 11/11/20 14:05 14:05 14:05 WBC 4.2 L RBC 4.27 Hgb 13.2 Hct 40.0 MCV 93.7 MCH 30.9 MCHC 33.0 RDW 12.4 Plt Count 186 MPV 9.9 Immature Gran % (Auto) 0.5 H Neut % (Auto) 64.2 Lymph % (Auto) 23.6 [place] % (Auto) 11.0 Eos % (Auto) 0.5 Baso % (Auto) 0.2 Lymph # (Auto) 1.0 L [place] # (Auto) 0.5 Eos # (Auto) 0.0 Baso # (Auto) 0.0 Abs Immat Gran (auto) 0.02 Absolute Neuts (auto) 2.7 Absolute Nucleated RBC 0.000 Nucleated RBC % (auto) 0.0 Smear Tech's Comments PT INR Sodium 136 Potassium 4.8 Chloride 104 Carbon Dioxide 22 Anion Gap 15 BUN 12 Creatinine 0.79 Estim Creat Clear Calc 57.1 Estimated GFR > 60 Random Glucose 93 Calcium 7.8 L D Total Bilirubin 0.3 Direct Bilirubin < 0.2 AST 36 H ALT 20 Alkaline Phosphatase 91 Total Protein 6.2 L Albumin 3.4 L Lipase 38 Urine Color Urine Appearance Urine pH Ur Specific [place] Urine Protein Urine Glucose (UA) Urine Ketones Urine Blood Urine Nitrite Ur Leukocyte Esterase Urine RBC Urine WBC Ur Squamous Epith Cells Urine Bacteria Hyaline Casts Granular Casts Urine Mucus C. difficile Toxin A&B C. difficile Antigen C. difficile Interpret COVID-19 (RONAL) Positive A COVID-19 Clin Com See Note SARS-CoV-2 IgG Ab 11/11/20 11/12/20 11/12/20 21:36 06:09 06:09 WBC 4.2 L RBC 4.15 L Hgb 13.1 Hct 38.2 MCV 92.0 MCH 31.6 MCHC 34.3 RDW 12.3 Plt Count 179 MPV 9.5 Immature Gran % (Auto) 0.5 H Neut % (Auto) 63.6 Lymph % (Auto) 26.5 [place] % (Auto) 8.3 Eos % (Auto) 0.9 Baso % (Auto) 0.2 Lymph # (Auto) 1.1 L [place] # (Auto) 0.4 Eos # (Auto) 0.0 Baso # (Auto) 0.0 Abs Immat Gran (auto) 0.02 Absolute Neuts (auto) 2.7 Absolute Nucleated RBC 0.000 Nucleated RBC % (auto) 0.0 Smear Tech's Comments PT INR Sodium 134 L Potassium 4.0 Chloride 102 Carbon Dioxide 22 Anion Gap 14 BUN 8 L Creatinine 0.63 Estim Creat Clear Calc 71.7 Estimated GFR > 60 Random Glucose 90 Calcium 8.0 L Total Bilirubin Direct Bilirubin AST ALT Alkaline Phosphatase Total Protein Albumin Lipase Urine Color YELLOW Urine Appearance CLEAR Urine pH 6.0 Ur Specific [place] 1.025 Urine Protein NEG Urine Glucose (UA) NEG Urine Ketones 5 Urine Blood NEG Urine Nitrite NEG Ur Leukocyte Esterase NEG Urine RBC 0 Urine WBC 0-2 Ur Squamous Epith Cells TRACE Urine Bacteria NONE Hyaline Casts Granular Casts Urine Mucus 1+ C. difficile Toxin A&B C. difficile Antigen C. difficile Interpret COVID-19 (RONAL) COVID-19 Clin Com SARS-CoV-2 IgG Ab 11/12/20 11/13/20 11/15/20 06:09 14:02 14:00 WBC RBC Hgb Hct MCV MCH MCHC RDW Plt Count MPV Immature Gran % (Auto) Neut % (Auto) Lymph % (Auto) [place] % (Auto) Eos % (Auto) Baso % (Auto) Lymph # (Auto) [place] # (Auto) Eos # (Auto) Baso # (Auto) Abs Immat Gran (auto) Absolute Neuts (auto) Absolute Nucleated RBC Nucleated RBC % (auto) Smear Tech's Comments PT INR Sodium Potassium Chloride Carbon Dioxide Anion Gap BUN Creatinine Estim Creat Clear Calc Estimated GFR Random Glucose Calcium Total Bilirubin Direct Bilirubin AST ALT Alkaline Phosphatase Total Protein Albumin Lipase Urine Color YELLOW Urine Appearance CLOUDY Urine pH 6.0 Ur Specific [place] 1.025 Urine Protein 2+ H Urine Glucose (UA) NEG Urine Ketones 15 Urine Blood 3+ H Urine Nitrite POS H Ur Leukocyte Esterase 2+ H Urine RBC 50-75 H Urine WBC TNTC H Ur Squamous Epith Cells 1+ Urine Bacteria 3+ Hyaline Casts Granular Casts Urine Mucus C. difficile Toxin A&B Negative C. difficile Antigen Negative C. difficile Interpret SEE NOTE COVID-19 (RONAL) COVID-19 Clin Com SARS-CoV-2 IgG Ab Negative 11/16/20 11/16/20 11/16/20 05:43 05:43 05:43 WBC 6.8 RBC 4.91 Hgb 15.0 Hct 45.2 MCV 92.1 MCH 30.5 MCHC 33.2 RDW 12.5 Plt Count 204 MPV 11.2 Immature Gran % (Auto) 0.7 H Neut % (Auto) 70.0 Lymph % (Auto) 17.6 L [place] % (Auto) 10.8 Eos % (Auto) 0.6 Baso % (Auto) 0.3 Lymph # (Auto) 1.2 [place] # (Auto) 0.7 Eos # (Auto) 0.0 Baso # (Auto) 0.0 Abs Immat Gran (auto) 0.05 H Absolute Neuts (auto) 4.8 Absolute Nucleated RBC 0.000 Nucleated RBC % (auto) 0.0 Smear Tech's Comments VERIFIED PT 12.6 D INR 1.1 Sodium 135 Potassium 4.8 Chloride 100 Carbon Dioxide 23 Anion Gap 17 BUN 22 H D Creatinine 0.86 Estim Creat Clear Calc 52.4 Estimated GFR > 60 Random Glucose 79 Calcium 8.5 D Total Bilirubin Direct Bilirubin AST ALT Alkaline Phosphatase Total Protein Albumin Lipase Urine Color Urine Appearance Urine pH Ur Specific [place] Urine Protein Urine Glucose (UA) Urine Ketones Urine Blood Urine Nitrite Ur Leukocyte Esterase Urine RBC Urine WBC Ur Squamous Epith Cells Urine Bacteria Hyaline Casts Granular Casts Urine Mucus C. difficile Toxin A&B C. difficile Antigen C. difficile Interpret COVID-19 (RONAL) COVID-19 Clin Com SARS-CoV-2 IgG Ab 11/16/20 Unknown WBC RBC Hgb Hct MCV MCH MCHC RDW Plt Count MPV Immature Gran % (Auto) Neut % (Auto) Lymph % (Auto) [place] % (Auto) Eos % (Auto) Baso % (Auto) Lymph # (Auto) [place] # (Auto) Eos # (Auto) Baso # (Auto) Abs Immat Gran (auto) Absolute Neuts (auto) Absolute Nucleated RBC Nucleated RBC % (auto) Smear Tech's Comments PT INR Sodium Potassium Chloride Carbon Dioxide Anion Gap BUN Creatinine Estim Creat Clear Calc Estimated GFR Random Glucose Calcium Total Bilirubin Direct Bilirubin AST ALT Alkaline Phosphatase Total Protein Albumin Lipase Urine Color YELLOW Urine Appearance CLEAR Urine pH 6.0 Ur Specific [place] >= 1.030 H Urine Protein TRACE Urine Glucose (UA) NEG Urine Ketones 40 Urine Blood 1+ H Urine Nitrite NEG Ur Leukocyte Esterase NEG Urine RBC 15-29 H Urine WBC 5-9 H Ur Squamous Epith Cells 2+ Urine Bacteria TRACE Hyaline Casts 0-2 Granular Casts 0-2 Urine Mucus 2+ C. difficile Toxin A&B C. difficile Antigen C. difficile Interpret COVID-19 (RONAL) COVID-19 Clin Com SARS-CoV-2 IgG Ab Airway Mallampati Class: I TM Dist: >3cm Neck ROM: Full Heart: ok Lungs: ok Assessment and Plan Assessment Anesthesia Assessment: Anesthesia Plan Discussed and Chart Reviewed Final Anesthetic Review NPO: Yes ASA Class: IV Final Preanesthetic Review: No Changes in Pt Med Stat, Meds/Allgs Chart Reviewed, Consent Obtained/Reviewed and Anes Risks/Benef Reviewed Patient Risk: Intermediate Procedure Risk: Intermediate Anesthetic Plan Anesthetic Plan: MAC: and Agree w/ Assess. and Plan Disposition: Standard PACU
--- NOTE | 2020-11-16 12:03 | MHC.CM.PN ---
DP STR via BLS. 1st choice. waiting on confirmation of Bed @ [facility].
[2020-11-16] MEDS: Lidocaine HCl 1 % MPF 5 ML VIAL 10 ML SUBCUT (14:43)
--- NOTE | 2020-11-16 14:53 | HO.PM.IMPN ---
Subjective Subjective Date of Service: 11/16/20 Interval History: Patient seen and examined at bedside, patient was reporting weakness Constitutional Constitutional: Denies fever(s), Denies headache(s) and Reports poor appetite Eyes Eyes: Reports no additional eye complaints ENT Ears, Nose, Mouth, and Throat: Denies headache(s) Cardiovascular Cardiovascular: Denies chest pain and Denies dyspnea Respiratory Respiratory: Reports cough and Denies dyspnea Gastrointestinal Gastrointestinal: Reports abdominal pain, Reports diarrhea, Reports nausea and Denies vomiting Musculoskeletal Musculoskeletal: Reports back pain Neurologic Neurologic: Denies headache(s) Hematologic/Lymphatic Hematologic/Lymphatic: Reports easy bleeding Physical Exam Vital Signs: Vital Signs: Last Vital Signs Temp 98.4 F 11/16/20 12:19 Pulse 74 11/16/20 12:19 Resp 18 11/16/20 12:19 BP 101/67 11/16/20 12:19 Pulse Ox 95 11/16/20 12:19 Body Mass Index 27.1 Const: General: cooperative Orientation/consciousness: patient oriented x3 HENMT: Head: Yes atraumatic Neck: Neck: Yes full ROM and Yes trachea midline Resp: Effort & Inspection: normal respiratory effort and able to speak in complete sentences Auscultation: clear to auscultation bilaterally Cardio: Other: appears uncomfortable, tearful Rate: regular rate Rhythm: regular rhythm GI: Inspection: No distended Palpation (GI): Soft to palpation and Tenderness to palpation present (GI) (mild diffusely, no guarding ) Back/Spine/Pelvis: Other: wearing back brace, brace removed had diffuse tenderness most prominent to her lower spine and had midline lumbar tenderness, no skin changes Skin: Rashes: no rashes Neuro: Other: nonfocal neurological exam, sensation intact, strength diminished bilaterally to lower extremities secondary to pain in back, gait not assessed due to pain General: patient oriented x3 Objective Data Current Medications Generic Name Dose Route Start Last Admin Trade Name Freq PRN Reason Stop Dose Admin Acetaminophen 650 mg 11/11/20 15:47 Acetaminophen 325 Mg Tablet PO Q6H PRN Pain, Mild (Pain Scale 1-3) Acetaminophen 650 mg 11/11/20 15:47 11/16/20 08:44 Acetaminophen 325 Mg Tablet PO Not Given Q6H [facility] Atenolol 25 mg 11/11/20 21:00 11/16/20 08:44 Atenolol 25 Mg Tablet PO 25 mg BID KETAN Administration Protocol Atorvastatin Calcium 20 mg 11/12/20 09:00 11/16/20 08:44 Atorvastatin Calcium 20 Mg Tablet PO 20 mg DAILY KETAN Administration Diazepam 2 mg 11/11/20 15:47 11/13/20 16:59 Diazepam 2 Mg Tablet PO 2 mg BID PRN Administration anxiety Docusate Sodium 100 mg 11/11/20 15:47 11/12/20 09:42 Docusate Sodium 100 Mg Capsule PO 100 mg BID PRN Administration Constipation Dronedarone 400 mg 11/11/20 21:00 11/16/20 08:43 Dronedarone Hcl 400 Mg Tablet PO 400 mg BID KETAN Administration Ceftriaxone Sodium 1 gm/ 50 mls @ 100 mls/hr 11/13/20 20:00 11/15/20 21:54 Sodium Chloride IV Infused Q24H KETAN Infusion Morphine Sulfate 2 mg 11/11/20 15:47 11/11/20 21:27 Morphine Sulfate 4 Mg/Ml Cartridge IVPUSH 2 mg Q4H PRN Administration Pain, Severe (Pain Scale 7-10) Ondansetron HCl 4 mg 11/11/20 15:47 11/14/20 13:34 Ondansetron Hcl 4 Mg/2 Ml Vial IVPUSH 4 mg Q8H PRN Administration Nausea and Vomiting Oxycodone HCl 5 mg 11/11/20 15:47 Oxycodone Hcl Immed Release 5 Mg Tablet PO Q6H PRN Pain, Severe (Pain Scale 7-10) Pharmacy Consult 1 each 11/11/20 14:47 Consult Rx Perform Med Rec MISCELLANE ONCE PRN Consult order Sodium Chloride 3 ml 11/11/20 16:00 11/16/20 08:44 0.9 % Sodium Chloride Flush 3 Ml Syringe IVFLUSH 3 ml QSHIFT [facility] Administration Vitamin D 50 mcg 11/12/20 09:00 11/16/20 08:43 Cholecalciferol (Vitamin D3) 25 Mcg Tablet PO 50 mcg DAILY KETAN Administration Labs CBC & Chem 7: 11/16/20 05:43 11/16/20 05:43 Microbiology Microbiology Results: Microbiology 11/13/20 14:02 Urine clean catch - Clean Catch Midstream Urine Culture - Final Escherichia coli Assessment and Plan (1) Closed lumbar vertebral fracture: Status: Acute (2) Paroxysmal atrial fibrillation: Problem details: September 2011, echo normal LV July 2018 Status: Acute (3) Hypercholesterolemia: Status: Acute (4) Back pain: Status: Acute Assessment and Plan: 80-year-old woman, who is being admitted with intractable back pain and subsequently found to have COVID-19. She had been initially diagnosed with lumbar vertebra fracture in September and then again went to [facility] and was given a TLSO soft brace. However, pain seems to be continuous at this point. She was also subsequently found to have COVID-19, asymptomatic. Intractable back pain secondary to T11, L2, and L3 vertebral body fractures. Improving continue Pain management IR consulted for kyphoplasty recommended bone scan Bone scan done shows fracture at T11-L2 and L3 plan for kyphoplasty today Eliquis on hold will resume tomorrow per Interventional Radiology UTI Continue Rocephin Urine culture growing E coli Switch to p.o. on discharge Diarrhea on antibiotics C diff negative improving COVID-19. continue isolation Continue supportive manage Currently not requiring any oxygen Atrial fibrillation. Continue atenolol. Continue Multaq Resume Eliquis tomorrow per Interventional Radiology Hyperlipidemia. Continue statin. Deep vein thrombosis prophylaxis with mechanical compression boots. Resume Eliquis tomorrow Debility weakness PT recommended short-term rehab
[2020-11-16] MEDS: Morphine Sulfate 2 MG/ML CARTRIDGE IVPUSH ×2 (16:29→20:03)
[2020-11-16] MEDS: cefTRIAXone sodium 1 GM in 0.9 % Sodium Chloride 50 ML IV (20:03)
[2020-11-17 04:00] VITALS: BP 111/64; PULSE 79; RESP 16; TEMP 36.4; O2SAT 98
--- NOTE | 2020-11-17 04:43 | PC.NURSE ---
pt refusing to reposition throughout the night, pt was states she was told to lay on her back as long as possible and would like to wait to work with PT in the morning, despite education pt continues to remain supine in bed.
[2020-11-17] MEDS: Atorvastatin Calcium 20 MG TABLET PO (10:30)
[2020-11-17] MEDS: Cholecalciferol (Vitamin D3) 25 MCG TABLET 50 MCG PO (10:30)
[2020-11-17] MEDS: Dronedarone HCl 400 MG TABLET PO (10:34)
[2020-11-17] MEDS: Acetaminophen 325 MG TABLET 650 MG PO (10:35)
[2020-11-17] MEDS: 0.9 % Sodium Chloride Flush 3 ML SYRINGE IVFLUSH (10:35)
[2020-11-17] MEDS: atenoloL 25 MG TABLET PO (10:35)
--- NOTE | 2020-11-17 10:44 | MHC.CM.PN ---
CM contacted pt on her room phone ([phone]) to discuss DC planning. Pt reports she did not speak to anyone yet regarding rehab because her daughter, Elida, usually deals with this. She was informed [facility] is offering a bed and that her first choice facility, [facility] was unable to accept the referral. Lucinda reports she would like this typewriter tester to contact her daughter but asks that it be done after 1200 or 1230 hours as her daughter is busy at the moment getting a covid test. CM informed her the call would be made at 1200 hours and a message would be left if she was unavailable. Pt is agreeable to this plan. CM also informed her she would DC today and CM will call her back once a DC time is known.
--- NOTE | 2020-11-17 11:17 | HO.POSTANES ---
Post Anesthesia Evaluation Post Anesthesia Evaluation Vital Signs: Vital Signs Temp Pulse Resp BP Pulse Ox 11/17/20 04:00 97.5 F 79 16 111/64 98 11/16/20 23:58 97.4 F 68 16 123/67 97 Anesthesia: General Endotracheal-GETA Mental Status: Awake Pain Control: Satisfactory Nausea/Vomiting: None Hydration: Adequate Anesthesia-Related Issues: No Anes. Related Issues
--- NOTE | 2020-11-17 11:30 | MHC.CM.PN ---
CM CONTACTED PTS DAUGHTER, VIRAL [phone]) TO DISCUSS PTS DISCHARGE. VIRAL REPORTS BEING GRATEFUL THAT THE PT WAS OFFERED A BED AT [facility] BECAUSE SHE IS FAMILIAR WITH THE FACILITY AND SOME OF THE STAFF. VIRAL REPORTS SHE SPOKE TO THE PT AND THEY ARE BOTH AGREEABLE TO PT GOING TODAY. A DISCHARGE TIME OF 1400 HOURS WAS AGREED ON AND SHE IS AWARE THE PT WILL BE TRANSPORTED VIA BLS. VIRAL CONFIRMS THE CM YESTERDAY REVIEWED THE PTS MEDICARE RIGHTS WITH HER FOR A SECOND TIME AND SHE REPORTS SHE HAS A COPY THAT WAS MAILED TO HER ON ADMISSION AND REPORTS IT IS NOT NECESSARY TO MAIL ANOTHER COPY. PT WILL DISCHARGE TO [facility] TODAY AT 1400 HOURS VIA [facility] PT, HER DAUGHTER, PTS NURSE AND MD ARE AWARE
--- NOTE | 2020-11-17 11:38 | PM.DS ---
DS: Providers Provider Date of Service: 11/17/20 Date of admission: 11/11/20 15:47 Primary care physician: Isaac Fischer MD Consults: 11/11/20 15:48 Consult to Infectious Diseases Routine Consulting Provider: Indigo Jaeger Reason for consultation: COVID 19 Has provider been notified: No DS: Diagnosis Discharge Diagnosis (1) Closed lumbar vertebral fracture: Status: Acute (2) Paroxysmal atrial fibrillation: Status: Acute (3) Hypercholesterolemia: Status: Acute (4) Back pain: Status: Acute (5) COVID-19: Status: Acute (6) UTI (urinary tract infection): Status: Acute DS: Medications Discharge Medications Home Medications: Home Medications Medication Instructions Recorded Confirmed calcium citrate 250 mg 1 tab PO DAILY tab 08/06/20 11/11/20 calcium-vitamin D3 5 mcg (200 unit) tablet cholecalciferol (vitamin D3) 50 50 mcg PO DAILY 08/06/20 11/11/20 mcg (2,000 unit) capsule mecobalamin (vitamin B12) 1,000 1,000 mcg SUBLINGUAL Q3D 08/06/20 11/11/20 mcg disintegrating tablet,sublingual Multaq 400 mg PO BID 10/08/20 11/11/20 Eliquis 5 mg PO BID 10/09/20 11/11/20 docusate sodium 100 mg PO BID PRN 10/30/20 11/11/20 Previous Rx's Medication Instructions Recorded atenolol 25 mg tablet 25 mg PO BID 90 Days #180 tab 09/03/20 diazepam 2 mg tablet 2 mg PO BID PRN 90 Days #180 tab 10/29/20 diazepam [Valium] 2 mg PO BID PRN #10 tab 10/30/20 atorvastatin 20 mg tablet 20 mg PO DAILY #30 tab 11/08/20 oxycodone 5 mg PO Q6H PRN #15 tab 11/17/20 DS: Summary Hospital Course Hospital Course: Admission note HPI An 80-year-old woman presenting to the ER with complaints of worsening back pain. The patient was originally diagnosed with L3 lumbar fracture in September 2020 at [facility]. Neurosurgery was consulted and recommendation was for no intervention. The patient was started on pain medication and had physical therapy evaluation for home PT. The patient then presented to [facility] on October 14 with complaints of continued pain. She was seen by the neurosurgeon at that time, who recommended a soft TLSO brace, which was ordered and which she has been using. She was treated for pain at that time and sent for short-term rehab. She reports that she was discharged from short-term rehab on Thursday, however, continued to have back pain, leg weakness, and developed diarrhea and lethargy. She denied fever, chills, nausea, vomiting, numbness or tingling to her lower extremities, falls. Today, she was diagnosed with COVID-19, however, not noted to be hypoxic and chest x-ray not showing any consolidation or effusion. Lumbar spine CT showed T11, L2, and L3 vertebral fractures unchanged from previous imaging. She was given Salonpas patch, morphine, IV fluids, and Zofran. She will be admitted for further management and treatment of intractable back pain due to compression fracture. Hospital Course Admitted to the hospital with intractable back pain with a with known lumbar vertebra fracture since September was bothering her on not improving with conservative measures. Images were done as an image of bone scan consistent with T12, L2 and L3 vertebral body fracture. Kyphoplasty was done by IR with fair response. She was able to participate with physical therapy who recommended short-term rehab. To be discharged on as needed doses of oxycodone and to continue physical therapy. She was noted to have urine infection growing E coli. Treated with 5 days of ceftriaxone during the hospital stay. She was noted to have COVID-19 infection. Asymptomatic and did not require any steroids or active treatment. Remained on room air during the hospital stay. Time Spent with Patient Time attestation: Total time spent providing and/or coordinating discharge services: Discharge coordination time: Greater than 30 minutes Physical Exam Vital Signs: Vital Signs: Last Vital Signs Temp 97.5 F 11/17/20 04:00 Pulse 79 11/17/20 04:00 Resp 16 11/17/20 04:00 BP 111/64 11/17/20 04:00 Pulse Ox 98 11/17/20 04:00 Body Mass Index 27.1 Constitutional : Alert, oriented, not in distress Neck : Normal inspection, Supple Cardiovascular : RRR, S1 S2, no lower extremity edema Respiratory : Good bilateral air entry, no crackles, wheezes or rhonchi Gastrointestinal: soft, lax, Normal bowel sounds, Non tender Skin : Warm/Dry, No rash Neurological : Alert & oriented x3, No focal deficit DS: Data Data Completed and Pending Labs on day of discharge: Laboratory Tests 11/11/20 11/11/20 11/11/20 14:05 14:05 14:05 WBC 4.2 L RBC 4.27 Hgb 13.2 Hct 40.0 MCV 93.7 MCH 30.9 MCHC 33.0 RDW 12.4 Plt Count 186 MPV 9.9 Immature Gran % (Auto) 0.5 H Neut % (Auto) 64.2 Lymph % (Auto) 23.6 [place] % (Auto) 11.0 Eos % (Auto) 0.5 Baso % (Auto) 0.2 Lymph # (Auto) 1.0 L [place] # (Auto) 0.5 Eos # (Auto) 0.0 Baso # (Auto) 0.0 Abs Immat Gran (auto) 0.02 Absolute Neuts (auto) 2.7 Absolute Nucleated RBC 0.000 Nucleated RBC % (auto) 0.0 Smear Tech's Comments PT INR Sodium 136 Potassium 4.8 Chloride 104 Carbon Dioxide 22 Anion Gap 15 BUN 12 Creatinine 0.79 Estim Creat Clear Calc 57.1 Estimated GFR > 60 Random Glucose 93 Calcium 7.8 L D Total Bilirubin 0.3 Direct Bilirubin < 0.2 AST 36 H ALT 20 Alkaline Phosphatase 91 Total Protein 6.2 L Albumin 3.4 L Lipase 38 Urine Color Urine Appearance Urine pH Ur Specific [place] Urine Protein Urine Glucose (UA) Urine Ketones Urine Blood Urine Nitrite Ur Leukocyte Esterase Urine RBC Urine WBC Ur Squamous Epith Cells Urine Bacteria Hyaline Casts Granular Casts Urine Mucus C. difficile Toxin A&B C. difficile Antigen C. difficile Interpret COVID-19 (RONAL) Positive A COVID-19 Clin Com See Note SARS-CoV-2 IgG Ab 11/11/20 11/12/20 11/12/20 21:36 06:09 06:09 WBC 4.2 L RBC 4.15 L Hgb 13.1 Hct 38.2 MCV 92.0 MCH 31.6 MCHC 34.3 RDW 12.3 Plt Count 179 MPV 9.5 Immature Gran % (Auto) 0.5 H Neut % (Auto) 63.6 Lymph % (Auto) 26.5 [place] % (Auto) 8.3 Eos % (Auto) 0.9 Baso % (Auto) 0.2 Lymph # (Auto) 1.1 L [place] # (Auto) 0.4 Eos # (Auto) 0.0 Baso # (Auto) 0.0 Abs Immat Gran (auto) 0.02 Absolute Neuts (auto) 2.7 Absolute Nucleated RBC 0.000 Nucleated RBC % (auto) 0.0 Smear Tech's Comments PT INR Sodium 134 L Potassium 4.0 Chloride 102 Carbon Dioxide 22 Anion Gap 14 BUN 8 L Creatinine 0.63 Estim Creat Clear Calc 71.7 Estimated GFR > 60 Random Glucose 90 Calcium 8.0 L Total Bilirubin Direct Bilirubin AST ALT Alkaline Phosphatase Total Protein Albumin Lipase Urine Color YELLOW Urine Appearance CLEAR Urine pH 6.0 Ur Specific [place] 1.025 Urine Protein NEG Urine Glucose (UA) NEG Urine Ketones 5 Urine Blood NEG Urine Nitrite NEG Ur Leukocyte Esterase NEG Urine RBC 0 Urine WBC 0-2 Ur Squamous Epith Cells TRACE Urine Bacteria NONE Hyaline Casts Granular Casts Urine Mucus 1+ C. difficile Toxin A&B C. difficile Antigen C. difficile Interpret COVID-19 (RONAL) COVID-19 Clin Com SARS-CoV-2 IgG Ab 11/12/20 11/13/20 11/15/20 06:09 14:02 14:00 WBC RBC Hgb Hct MCV MCH MCHC RDW Plt Count MPV Immature Gran % (Auto) Neut % (Auto) Lymph % (Auto) [place] % (Auto) Eos % (Auto) Baso % (Auto) Lymph # (Auto) [place] # (Auto) Eos # (Auto) Baso # (Auto) Abs Immat Gran (auto) Absolute Neuts (auto) Absolute Nucleated RBC Nucleated RBC % (auto) Smear Tech's Comments PT INR Sodium Potassium Chloride Carbon Dioxide Anion Gap BUN Creatinine Estim Creat Clear Calc Estimated GFR Random Glucose Calcium Total Bilirubin Direct Bilirubin AST ALT Alkaline Phosphatase Total Protein Albumin Lipase Urine Color YELLOW Urine Appearance CLOUDY Urine pH 6.0 Ur Specific [place] 1.025 Urine Protein 2+ H Urine Glucose (UA) NEG Urine Ketones 15 Urine Blood 3+ H Urine Nitrite POS H Ur Leukocyte Esterase 2+ H Urine RBC 50-75 H Urine WBC TNTC H Ur Squamous Epith Cells 1+ Urine Bacteria 3+ Hyaline Casts Granular Casts Urine Mucus C. difficile Toxin A&B Negative C. difficile Antigen Negative C. difficile Interpret SEE NOTE COVID-19 (RONAL) COVID-19 Clin Com SARS-CoV-2 IgG Ab Negative 11/16/20 11/16/20 11/16/20 05:43 05:43 05:43 WBC 6.8 RBC 4.91 Hgb 15.0 Hct 45.2 MCV 92.1 MCH 30.5 MCHC 33.2 RDW 12.5 Plt Count 204 MPV 11.2 Immature Gran % (Auto) 0.7 H Neut % (Auto) 70.0 Lymph % (Auto) 17.6 L [place] % (Auto) 10.8 Eos % (Auto) 0.6 Baso % (Auto) 0.3 Lymph # (Auto) 1.2 [place] # (Auto) 0.7 Eos # (Auto) 0.0 Baso # (Auto) 0.0 Abs Immat Gran (auto) 0.05 H Absolute Neuts (auto) 4.8 Absolute Nucleated RBC 0.000 Nucleated RBC % (auto) 0.0 Smear Tech's Comments VERIFIED PT 12.6 D INR 1.1 Sodium 135 Potassium 4.8 Chloride 100 Carbon Dioxide 23 Anion Gap 17 BUN 22 H D Creatinine 0.86 Estim Creat Clear Calc 52.4 Estimated GFR > 60 Random Glucose 79 Calcium 8.5 D Total Bilirubin Direct Bilirubin AST ALT Alkaline Phosphatase Total Protein Albumin Lipase Urine Color Urine Appearance Urine pH Ur Specific [place] Urine Protein Urine Glucose (UA) Urine Ketones Urine Blood Urine Nitrite Ur Leukocyte Esterase Urine RBC Urine WBC Ur Squamous Epith Cells Urine Bacteria Hyaline Casts Granular Casts Urine Mucus C. difficile Toxin A&B C. difficile Antigen C. difficile Interpret COVID-19 (RONAL) COVID-19 Clin Com SARS-CoV-2 IgG Ab 11/16/20 Unknown WBC RBC Hgb Hct MCV MCH MCHC RDW Plt Count MPV Immature Gran % (Auto) Neut % (Auto) Lymph % (Auto) [place] % (Auto) Eos % (Auto) Baso % (Auto) Lymph # (Auto) [place] # (Auto) Eos # (Auto) Baso # (Auto) Abs Immat Gran (auto) Absolute Neuts (auto) Absolute Nucleated RBC Nucleated RBC % (auto) Smear Tech's Comments PT INR Sodium Potassium Chloride Carbon Dioxide Anion Gap BUN Creatinine Estim Creat Clear Calc Estimated GFR Random Glucose Calcium Total Bilirubin Direct Bilirubin AST ALT Alkaline Phosphatase Total Protein Albumin Lipase Urine Color YELLOW Urine Appearance CLEAR Urine pH 6.0 Ur Specific [place] >= 1.030 H Urine Protein TRACE Urine Glucose (UA) NEG Urine Ketones 40 Urine Blood 1+ H Urine Nitrite NEG Ur Leukocyte Esterase NEG Urine RBC 15-29 H Urine WBC 5-9 H Ur Squamous Epith Cells 2+ Urine Bacteria TRACE Hyaline Casts 0-2 Granular Casts 0-2 Urine Mucus 2+ C. difficile Toxin A&B C. difficile Antigen C. difficile Interpret COVID-19 (RONAL) COVID-19 Clin Com SARS-CoV-2 IgG Ab Discharge Plan Discharge Patient Disposition: er [facility] Referrals: [facility] [Outside] Po,Isaac Zhu MD [Primary Care Provider] - Discharge Medications: New oxycodone 5 mg Tablet 5 mg PO Q6H PRN (Reason: Pain, Moderate (Pain Scale 4-6) Qty: 15 RF: 0 Continued atenolol 25 mg tablet 25 mg PO BID 90 Days Qty: 180 RF: 1 diazepam 2 mg tablet 2 mg PO BID PRN (Reason: anxiety) 90 Days Qty: 180 RF: 1 atorvastatin 20 mg tablet 20 mg PO DAILY Qty: 30 RF: 3 Multaq 400 mg Tablet 400 mg PO BID RF: 0 Eliquis 5 mg Tablet 5 mg PO BID RF: 0 docusate sodium 100 mg Tablet 100 mg PO BID PRN (Reason: Constipation) RF: 0 diazepam [Valium] 2 mg tablet 2 mg PO BID PRN (Reason: anxiety) Qty: 10 RF: 0 calcium citrate-vitamin D3 [Citracal Regular] 250 mg-5 mcg (200 unit) tablet 1 tab PO DAILY RF: 0 cholecalciferol (vitamin D3) 50 mcg (2,000 unit) capsule 50 mcg PO DAILY RF: 0 mecobalamin (vitamin B12) 1,000 mcg tablet,disintegrating 1,000 mcg sublingual Q3D RF: 0 Discharge Orders: Discharge Order (Routine); Ordered 11/17/20 Ordered By: Dorian Deng Diet: advance to usual diet Activity on Discharge: As tolerated Stand Alone Forms: Patient Portal Discharge page Care Plan Goals: Read below Health Concerns: Read below Plan of Treatment: You were admitted to the hospital for evaluation of back pain. A kyphoplasty was done by radiologist with good response. You were evaluated by physical therapy team who recommended short-term rehab. You were tested negative for COVID-19 before being discharged. continue physical therapy. To use oxycodone as needed for pain.
[2020-11-17 12:00] VITALS: BP 102/59; PULSE 78; RESP 18; TEMP 36.2; O2SAT 97
== END 2020-11-17 14:45 | disposition skilled nursing facility (03) | DRG 515 ==
LOC: HO.ED 15:22 → HO.EDOVER 15:52 → HO.IMC 11-12 16:46
PROVIDERS: Internal Medicine; Nurse Practitioner Acute Care; Physician Assistant Medical; Radiology Diagnostic Radiology; Admitting Provider Internal Medicine; Emergency Provider Emergency Medicine Emergency Medical Services; PCP Internal Medicine; Visit Provider Student in an Organized Health Care Education/Training Program
PROC: 0QS03ZZ Reposition Lumbar Vertebra, Percutaneous Approach (ICD-10-PCS; principal; 2020-11-16 12:00)
DX: S32.031A Stable burst fracture of third lumbar vertebra, initial encounter for closed fracture (principal); U07.1 COVID-19; S22.089A Unspecified fracture of T11-T12 vertebra, initial encounter for closed fracture; S22.069A Unspecified fracture of T7-T8 vertebra, initial encounter for closed fracture; N39.0 Urinary tract infection, site not specified; I48.0 Paroxysmal atrial fibrillation; E83.51 Hypocalcemia; E78.5 Hyperlipidemia, unspecified; F41.9 Anxiety disorder, unspecified; F32.9 Major depressive disorder, single episode, unspecified; B96.20 Unspecified Escherichia coli [E. coli] as the cause of diseases classified elsewhere; S32.029A Unspecified fracture of second lumbar vertebra, initial encounter for closed fracture; S32.039A Unspecified fracture of third lumbar vertebra, initial encounter for closed fracture; X58.XXXA Exposure to other specified factors, initial encounter; Y93.9 Activity, unspecified; Y92.9 Unspecified place or not applicable; Y99.9 Unspecified external cause status; Z79.01 Long term (current) use of anticoagulants; Z79.899 Other long term (current) drug therapy
CPT/HCPCS: 22513; 22514; 22515; 36415; 71045; 72131; 74176; 78306; 80048; 80076; 81001; 83690; 85025; 85610; 86769; 87086; 87088; 87186; 87324; 87449; 87635; 93005; 97110; 97116; 97163; 97530; 99285; A9503; C1713; J0696; J2270; J2405

== ENCOUNTER 2020-11-18 06:31 | Outpatient (REF) | payer MEDICARE, SELFPAY ==
[2020-11-18 07:19] LABS: Hematocrit 40.2 % (37-47); Mean Corpuscular HGB Conc 34.8 g/dl (31.0-35.0); Mean Corpuscular Hemoglobin 31.4 pg (27.0-33.0); Mean Corpuscular Volume 90.1 fL (80-98); Mean Platelet Volume 10.8 fL (9.4-12.3); Platelet Count 206 X10*3/uL (160-400); Red Blood Count 4.46 X10*6/uL (4.20-5.50); Red Cell Distribution Width 12.2 % (11.0-16.0); White Blood Count 5.6 X10*3/uL (4.8-10.8)
[2020-11-18 07:21] LABS: Alanine Aminotransferase 16 U/L (0-31); Albumin Level 3.3 g/dL (3.5-5.0); Alkaline Phosphatase 137 U/L (39-117); Anion Gap 17 (12-20); Aspartate Amino Transferase 29 U/L (5-31); Bilirubin Total 0.9 mg/dL (0.0-1.0); Blood Urea Nitrogen 21 mg/dL (9-16); Calcium 8.2 mg/dL (8.4-10.2); Carbon Dioxide 19 mmol/L (22-29); Chloride 105 mmol/L (96-108); Estimated Glomerular Filt Rate > 60; Glucose Random 88 mg/dL (60-115); Sodium 137 mmol/L (135-145); Total Protein 5.9 g/dL (6.5-8.0)
== END 2020-11-18 06:32 | disposition home or self-care (01) ==
LOC: HO.MMNH1L 06:31
PROVIDERS: Visit Provider Family Medicine
DX: U07.1 COVID-19 (principal); I10 Essential (primary) hypertension
CPT/HCPCS: 36415; 80053; 85027

== ENCOUNTER 2020-11-26 13:36 | Outpatient (REF) | payer MEDICARE, SELFPAY ==
[2020-11-26 07:45] LABS: Hematocrit 32.7 % (37-47); Hemoglobin 11.1 g/dl (12.0-16.0); Mean Corpuscular HGB Conc 33.9 g/dl (31.0-35.0); Mean Corpuscular Hemoglobin 30.9 pg (27.0-33.0); Mean Corpuscular Volume 91.1 fL (80-98); Mean Platelet Volume 10.2 fL (9.4-12.3); Platelet Count 249 X10*3/uL (160-400); Red Blood Count 3.59 X10*6/uL (4.20-5.50); Red Cell Distribution Width 12.4 % (11.0-16.0)
[2020-11-26 08:12] LABS: Anion Gap 12 (12-20); Blood Urea Nitrogen 12 mg/dL (9-16); Carbon Dioxide 24 mmol/L (22-29); Chloride 105 mmol/L (96-108); Estimated Glomerular Filt Rate > 60; Glucose Random 75 mg/dL (60-115); Potassium 3.4 mmol/L (3.3-5.1); Sodium 138 mmol/L (135-145)
== END 2020-11-26 13:37 | disposition home or self-care (01) ==
LOC: HO.MMNH1L 13:36
PROVIDERS: Visit Provider Family Medicine
DX: U07.1 COVID-19 (principal); I10 Essential (primary) hypertension
CPT/HCPCS: 36415; 80048; 85027

== ENCOUNTER 2020-12-03 10:29 | Outpatient (REF) | payer MEDICARE, SELFPAY ==
[2020-12-03 07:50] LABS: Hemoglobin 12.1 g/dl (12.0-16.0); Mean Corpuscular HGB Conc 32.7 g/dl (31.0-35.0); Mean Corpuscular Hemoglobin 30.3 pg (27.0-33.0); Mean Corpuscular Volume 92.7 fL (80-98); Mean Platelet Volume 10.5 fL (9.4-12.3); Platelet Count 238 X10*3/uL (160-400); Red Blood Count 3.99 X10*6/uL (4.20-5.50); Red Cell Distribution Width 12.9 % (11.0-16.0); White Blood Count 6.9 X10*3/uL (4.8-10.8)
[2020-12-03 08:14] LABS: Anion Gap 13 (12-20); Blood Urea Nitrogen 11 mg/dL (9-16); Calcium 8.5 mg/dL (8.4-10.2); Carbon Dioxide 27 mmol/L (22-29); Chloride 104 mmol/L (96-108); Estimated Glomerular Filt Rate > 60; Glucose Random 77 mg/dL (60-115); Potassium 3.4 mmol/L (3.3-5.1); Sodium 141 mmol/L (135-145)
== END 2020-12-03 10:30 | disposition home or self-care (01) ==
LOC: HO.MMNH1L 10:29
PROVIDERS: Visit Provider Family Medicine
DX: U07.1 COVID-19 (principal); I10 Essential (primary) hypertension
CPT/HCPCS: 36415; 80048; 85027

== ENCOUNTER 2020-12-28 11:21 | Outpatient (REF) | payer MEDICARE, SELFPAY ==
--- NOTE | ~2020-12-28 | XR_ITS ---
EXAMINATION: XR LUMBOSACRAL SPINE CLINICAL INFORMATION: Fracture COMPARISON: Previous lumbar spine CT scan most recent November 16, 2020 TECHNIQUE: Three views of the lumbosacral spine. FINDINGS: There are compression fractures and post vertebroplasty changes seen in the L2 and L3 vertebral bodies similar to most recent lumbar spine CT 11/16/2020. There is a severe L1 vertebral body compression fracture. There is a mild L4 vertebral body compression fracture. These are new from October 2020 exam. There is degenerative disc disease at L4-L5 and L5-S1. There is lower lumbar spine facet arthritis. There is evidence of atherosclerotic disease. XR/XR lumbar spine 2-3V IMPRESSION: Compression fractures and post vertebroplasty changes of the L2 and L3 vertebral bodies similar to October 2020 exam. New L1 and L4 vertebral body compression fractures.
== END 2020-12-28 11:22 | disposition home or self-care (01) ==
LOC: HO.XRAY 11:21
PROVIDERS: PCP Internal Medicine; Visit Provider Internal Medicine
DX: S32.009A Unspecified fracture of unspecified lumbar vertebra, initial encounter for closed fracture (principal)
CPT/HCPCS: 72100

== ENCOUNTER → 2021-04-01 13:47 | Outpatient (REF) | payer MEDICARE, SELFPAY ==
--- NOTE | 2021-04-01 13:50 | CA_ITS ---
Transthoracic Echocardiogram Patient (Last, First, Middle): Lucinda Nolasco A Gender: Female Date of : 1940 Age: 81 Procedure Date: 04/01/2021 Procedure Type: Transthoracic Echocardiogram Location: OP Height: 172.72 cm Weight: 64.41 kg BSA: 1.77 m2 Heart Rate: bpm BP: 120 / 74 mmHg Property Portfolio Officer: PIA Referring MD: Seymour Rivera MD Boring Machine Operator Double End: Seymour Rivera MD Symptoms: I48.0 - Paroxysmal atrial fibrillation Study Quality: Good ECG Rhythm: Sinus Conclusions: - 1. Normal LV systolic function with impaired relaxation filling pattern with elevated filling pressures 2. Normal cardiac valvular Doppler 3. Normal RV systolic pressure 4. No pericardial effusion Findings Left Ventricle Normal left ventricular size, thickness, and systolic function. The visually estimated ejection fraction is between 60-65%. Spectral Doppler is indicative of an impaired relaxation filling pattern. Elevated filling pressures. E/E prime ratio is >15, consistent with elevated filling pressures. Right Ventricle Normal right ventricular cavity size and systolic function. Atria The left atrium is likely dilated. There is lipomatous hypertrophy of the interatrial septum. There is no evidence of interatrial shunt. The right atrium is normal in size. Aortic Valve There is moderate calcification of the aortic valve. There is mild thickening of the aortic valve. There is no aortic valve stenosis. There is no aortic valve regurgitation. Mitral Valve There is mild anterior mitral leaflet thickening. There is mild mitral annular calcification. There is trace mitral valve regurgitation. There is no mitral valve stenosis. Pulmonic Valve The pulmonic valve was not well visualized. Tricuspid Valve Likely normal tricuspid valve structure and function. There is mild tricuspid valve regurgitation. The right ventricular systolic pressure is normal. The right ventricular systolic pressure is 27 mmHg. Normal right atrial pressure. There is no evidence of pulmonary hypertension. Great Vessels All visible segments of the aorta are normal in size. The pulmonary artery was not well visualized. Venous The inferior vena cava is normal in size and collapses greater than 50% with inspiration. Pericardium/Pleural There is no evidence of pericardial effusion. Prior Study Comparison Changes noted compared to prior study dated: 08/25/2018. Elevated LV filling pressures noted on this study Measurements 2D Linear Measurements IVSd: 0.97 0.6-0.9/0.6-1.0 cm LVIDd: 3.84 3.9-5.3/4.2-5.9 cm LVIDd Index: 2.17 2.4-3.2/2.2-3.1 cm/m2 LVIDs: 2.70 2.0-3.6 cm LVPWd: 0.65 0.7-1.1 cm Ao Root: 3.00 2.1-3.5 cm LA Diam: 3.20 2.7-3.8/3.0-4.0 cm LAIDs Index: 1.81 1.5-2.3 cm/m2 LV Mass: 109.65 67-162/88-224 g LV Mass Index: 61.95 43-95/49-115 g/m2 LVOT Diam: 1.90 3.0+(-)1.3 cm 2D Systolic Function EF 4C: 63.60 >55% EF 2C: 64.10 >55% EF BiP: 63.80 >55% Mitral Valve MV Pk E: 0.91 MV PK A: 1.16 MV Decel Time: 295.00 E/A: 0.80 E'Lateral: 5.87 E'Medial: 5.11 E/E' Med: 17.70 E/E' Lat: 15.40 PHT: 86.00 MVA PHT: 2.56 Decel Luna: 3.07 Aortic Valve AoV Pk Alhaji: 1.29 AoV Mn Alhaji: 0.98 AoV VTI: 0.30 AoV Pk Grad: 7.00 Aov Mn Grad: 4.00 BHARGAV Cont.VTI: 2.10 LVOT LVOT Pk Alhaji: 0.96 LVOT Mn Alhaji: 0.65 LVOT VTI: 0.22 LVOT Pk Grad: 4.00 LVOT Mn Grad: 2.00 LVOT Diam: 1.90 LVOT Area: 2.84 Diastolic Function MV Pk E: 0.91 MV Pk A: 1.16 E/A: 0.80 E'Medial: 5.11 E/E' Med: 17.70 E' Laterial: 5.87 E/E' Lat: 15.40 Tricuspid Valve TR Pk Alhaji: 2.47 TR Pk Grad: 24.00 RA Press: 3.00 RVSP: 27.00 Great Vessels Aorta Ao Root-2D: 3.00 2.0-3.7 cm Ao Asc: 2.90 2.1-3.4 cm Ao Arch: 2.90 Updated in Other Vendor System with Status of Final Seymour Rivera MD electronically signed on 04/01/2021 5:38:40 PM with status of Final
== END ==
LOC: HO.CARD 13:47
PROVIDERS: PCP Internal Medicine; Visit Provider Internal Medicine Cardiovascular Disease
DX: I48.0 Paroxysmal atrial fibrillation (principal); I10 Essential (primary) hypertension
CPT/HCPCS: 93306

== ENCOUNTER → 2021-04-11 12:45 | Outpatient (BNVA) | payer MEDICARE, SELFPAY | PROVIDERS: PCP Internal Medicine; Referring Provider Internal Medicine; Visit Provider Internal Medicine Cardiovascular Disease | DX: I48.0 Paroxysmal atrial fibrillation (principal); I10 Essential (primary) hypertension; R60.0 Localized edema | CPT/HCPCS: 93005; 99212 ==

== ENCOUNTER → 2021-05-30 13:50 | Outpatient (BNVA) | payer MEDICARE, SELFPAY | PROVIDERS: PCP Internal Medicine; Visit Provider Student in an Organized Health Care Education/Training Program | DX: M80.00XD Age-related osteoporosis with current pathological fracture, unspecified site, subsequent encounter for fracture with routine healing (principal) | CPT/HCPCS: 99202 ==

== ENCOUNTER → 2021-07-11 14:28 | Outpatient (BNVA) | payer MEDICARE, SELFPAY | PROVIDERS: PCP Internal Medicine; Referring Provider Internal Medicine; Visit Provider Internal Medicine Cardiovascular Disease ==

== ENCOUNTER 2021-08-08 14:33 | Outpatient (REF) | payer MEDICARE, SELFPAY ==
[2021-08-08 14:55] LABS: MANUAL DIFF FLAG NO
[2021-08-08 15:05] LABS: Basophils Percent Auto 0.6 % (0-2); Eosinophils Absolute Auto 0.3 X10*3/uL (0.0-0.4); Eosinophils Percent Auto 6.2 % (0-4); Hematocrit 41.1 % (37-47); Hemoglobin 13.7 g/dl (12.0-16.0); Imm Gran Abs Auto 0.01 X10*3/uL (0.00-0.03); Imm Gran Pct Auto 0.2 % (0.0-0.4); Lymphocytes Absolute Auto 1.5 X10*3/uL (1.2-4.9); Lymphocytes Percent Auto 27.1 % (20-40); Mean Corpuscular HGB Conc 33.3 g/dl (31.0-35.0); Mean Corpuscular Hemoglobin 31.6 pg (27.0-33.0); Mean Corpuscular Volume 94.9 fL (80-98); Mean Platelet Volume 9.6 fL (9.4-12.3); Monocytes Absolute Auto 0.6 X10*3/uL (0.1-1.2); Monocytes Percent Auto 10.6 % (2-11); Neutrophils Percent Auto 55.3 % (45-73); Platelet Count 220 X10*3/uL (160-400); Red Blood Count 4.33 X10*6/uL (4.20-5.50); White Blood Count 5.4 X10*3/uL (4.8-10.8)
[2021-08-08 15:26] LABS: Alanine Aminotransferase 15 U/L (0-31); Albumin Level 4.1 g/dL (3.5-5.0); Alkaline Phosphatase 70 U/L (39-117); Anion Gap 10 (12-20); Aspartate Amino Transferase 23 U/L (5-31); Bilirubin Total 0.6 mg/dL (0.0-1.0); Blood Urea Nitrogen 14 mg/dL (9-16); C Reactive Protein 0.04 mg/dL (< or = 0.50); Calcium 9.3 mg/dL (8.4-10.2); Carbon Dioxide 28 mmol/L (22-29); Chloride 104 mmol/L (96-108); Estimated Glomerular Filt Rate 57; Glucose Random 111 mg/dL (60-115); Potassium 4.6 mmol/L (3.3-5.1); Sodium 137 mmol/L (135-145); Total Protein 6.8 g/dL (6.5-8.0)
[2021-08-08 15:31] LABS: B Type Natriuretic Peptide 107 pg/mL (<100)
[2021-08-08 15:49] LABS: Free T4 (Free Thyroxine) 1.13 ng/dL (0.71-1.85); Thyroid Stimulating Hormone 1.87 uIU/mL (0.32-4.0)
[2021-08-08 17:39] LABS: Erythrocyte Sedimentation Rate 7 MM/HR (0-20)
== END 2021-08-08 14:34 | disposition home or self-care (01) ==
LOC: HO.LAB 14:33
PROVIDERS: PCP Internal Medicine; Visit Provider Internal Medicine
DX: I48.0 Paroxysmal atrial fibrillation (principal); K21.9 Gastro-esophageal reflux disease without esophagitis
CPT/HCPCS: 36415; 80053; 83880; 84439; 84443; 85025; 85652; 86140

== ENCOUNTER → 2021-08-09 13:21 | Outpatient (BNVA) | payer MEDICARE, SELFPAY | PROVIDERS: PCP Internal Medicine; Visit Provider Nurse Practitioner Family | DX: M48.56XA Collapsed vertebra, not elsewhere classified, lumbar region, initial encounter for fracture (principal); M85.80 Other specified disorders of bone density and structure, unspecified site; E78.00 Pure hypercholesterolemia, unspecified; I10 Essential (primary) hypertension; I48.0 Paroxysmal atrial fibrillation; D12.6 Benign neoplasm of colon, unspecified | CPT/HCPCS: 99202 ==

== ENCOUNTER → 2021-10-10 13:41 | Outpatient (BNVA) | payer MEDICARE, SELFPAY | PROVIDERS: PCP Internal Medicine; Referring Provider Internal Medicine; Visit Provider Internal Medicine Cardiovascular Disease | DX: I48.0 Paroxysmal atrial fibrillation (principal); I10 Essential (primary) hypertension | CPT/HCPCS: 93005; 99212 ==

== ENCOUNTER → 2022-01-09 12:52 | Outpatient (BNVA) | payer MEDICARE, SELFPAY | PROVIDERS: PCP Internal Medicine; Referring Provider Internal Medicine; Visit Provider Internal Medicine Cardiovascular Disease | DX: I48.0 Paroxysmal atrial fibrillation (principal); I10 Essential (primary) hypertension | CPT/HCPCS: 93005; 99212 ==

== ENCOUNTER → 2022-01-28 11:57 | Outpatient (BNVA) | payer MEDICARE, SELFPAY | PROVIDERS: PCP Internal Medicine; Visit Provider Physician Assistant | DX: K57.90 Diverticulosis of intestine, part unspecified, without perforation or abscess without bleeding (principal); K59.09 Other constipation; S32.030D Wedge compression fracture of third lumbar vertebra, subsequent encounter for fracture with routine healing | CPT/HCPCS: 99202 ==

== ENCOUNTER → 2022-04-29 13:27 | Outpatient (BNVA) | payer MEDICARE, SELFPAY | PROVIDERS: PCP Internal Medicine; Referring Provider Internal Medicine; Visit Provider Physician Assistant | DX: K59.09 Other constipation (principal); I48.91 Unspecified atrial fibrillation; Z79.01 Long term (current) use of anticoagulants | CPT/HCPCS: 99212 ==

== ENCOUNTER → 2022-07-24 12:48 | Outpatient (BNVA) | payer MEDICARE, SELFPAY | PROVIDERS: PCP Internal Medicine; Referring Provider Internal Medicine; Visit Provider Internal Medicine Cardiovascular Disease | DX: I48.0 Paroxysmal atrial fibrillation (principal); I10 Essential (primary) hypertension | CPT/HCPCS: 93005; 99212 ==

== ENCOUNTER → 2022-09-01 13:55 | Outpatient (BNVA) | payer MEDICARE, SELFPAY | PROVIDERS: PCP Internal Medicine; Visit Provider Internal Medicine Gastroenterology | DX: K59.09 Other constipation (principal); M81.0 Age-related osteoporosis without current pathological fracture; R10.9 Unspecified abdominal pain | CPT/HCPCS: 99212 ==

== ENCOUNTER 2022-10-23 13:30 | Outpatient (REF) | payer MEDICARE, SELFPAY ==
[2022-10-23 13:43] LABS: MANUAL DIFF FLAG NO
[2022-10-23 14:14] LABS: Basophils Percent Auto 0.5 % (0-2); Eosinophils Absolute Auto 0.3 X10*3/uL (0.0-0.4); Eosinophils Percent Auto 5.1 % (0-4); Hematocrit 41.6 % (37.0-47.0); Hemoglobin 14.1 g/dl (12.0-16.0); Imm Gran Abs Auto 0.01 X10*3/uL (0.00-0.03); Imm Gran Pct Auto 0.2 % (0.0-0.4); Lymphocytes Absolute Auto 1.8 X10*3/uL (1.2-4.9); Lymphocytes Percent Auto 29.3 % (20-40); Mean Corpuscular HGB Conc 33.9 g/dl (31.0-35.0); Mean Corpuscular Hemoglobin 32.8 pg (27.0-33.0); Mean Corpuscular Volume 96.7 fL (80.0-98.0); Mean Platelet Volume 9.7 fL (9.4-12.3); Monocytes Absolute Auto 0.6 X10*3/uL (0.1-1.2); Monocytes Percent Auto 10.4 % (2-11); Neutrophils Absolute Auto 3.3 x10*3/uL (2.0-8.3); Neutrophils Percent Auto 54.5 % (45-73); Platelet Count 219 X10*3/uL (160-400); Red Cell Distribution Width 12.1 % (11.0-16.0)
[2022-10-23 15:09] LABS: Erythrocyte Sedimentation Rate 6 MM/HR (0-20)
[2022-10-23 16:03] LABS: Alanine Aminotransferase 19 U/L (0-31); Albumin Level 4.2 g/dL (3.5-5.0); Alkaline Phosphatase 79 U/L (39-117); Anion Gap 13 (12-20); Aspartate Amino Transferase 23 U/L (5-31); Bilirubin Total 0.9 mg/dL (0.0-1.0); Blood Urea Nitrogen 16 mg/dL (9-16); Calcium 9.6 mg/dL (8.4-10.2); Carbon Dioxide 26 mmol/L (22-29); Chloride 105 mmol/L (96-108); Estimated Glomerular Filt Rate > 60; Ferritin 88 ng/mL (10-250); Glucose Random 89 mg/dL (60-115); Iron 135 mcg/dL (30-160); Percent Iron Saturation 41 % (15-50); Potassium 4.6 mmol/L (3.3-5.1); Sodium 139 mmol/L (135-145); TSH reflex Free T4 2.28 uIU/mL (0.32-4.0); Total Iron Binding Capacity 330 mcg/dL (228-428); Total Protein 6.7 g/dL (6.5-8.0); Unsaturated Iron Binding 195 ug/dL; Vitamin D 25-OH Total 30.2 ng/mL (>30)
[2022-10-23 16:23] LABS: Folate 7.3 ng/mL (> or = 4.0); Vitamin B12 356 pg/mL (200-900)
[2022-11-01 08:24] LABS: Transglutaminase Ab IgG 6.7 U/mL; Transglutaminase IgA 5.7 U/mL
== END 2022-10-23 13:31 | disposition home or self-care (01) ==
LOC: HO.LAB 13:30
PROVIDERS: PCP Internal Medicine; Visit Provider Internal Medicine Gastroenterology
DX: K59.09 Other constipation (principal); M81.0 Age-related osteoporosis without current pathological fracture; G89.29 Other chronic pain; R10.33 Periumbilical pain; R10.9 Unspecified abdominal pain; Z86.2 Personal history of diseases of the blood and blood-forming organs and certain disorders involving the immune mechanism
CPT/HCPCS: 36415; 80053; 82306; 82607; 82728; 82746; 83540; 84443; 85025; 85652; 86364

== ENCOUNTER → 2022-12-25 12:56 | Outpatient (REF) | payer MEDICARE, SELFPAY ==
--- NOTE | 2022-12-25 12:59 | CA_ITS ---
Transthoracic Echocardiogram Patient (Last, First, Middle): Lucinda Nolasco A Gender: Female Date of : 1940 Age: 82 Procedure Date: 12/25/2022 Procedure Type: Transthoracic Echocardiogram Location: OP Height: 172.72 cm Weight: 65.77 kg BSA: 1.78 m2 Heart Rate: 61 bpm BP: 130 / 70 mmHg Graphic Illustrator: AGUSTINA Referring MD: Seymour Rivera MD Spooler: Seymour Rivera MD Symptoms: I48.0 - Paroxysmal atrial fibrillation Study Quality: Fair ECG Rhythm: Sinus Conclusions: - 1. Normal LV systolic function with impaired relaxation filling pattern 2. Cardiac valvular Doppler within normal limits 3. Normal RV systolic pressure 4. No gross pericardial effusion Findings Left Ventricle Normal left ventricular size, thickness, and systolic function. The visually estimated ejection fraction is between 60-65%. Spectral Doppler is indicative of an impaired relaxation filling pattern. E/E prime ratio is between 8 and 15 consistent with indeterminate filling pressures. Right Ventricle Normal right ventricular cavity size and systolic function. Atria Both atria are normal in size. Aortic Valve There is mild calcification of the aortic valve. There is no aortic valve stenosis. There is no aortic valve regurgitation. Mitral Valve There is mild anterior and posterior mitral leaflet thickening. There is mild mitral annular calcification. There is trace mitral valve regurgitation. There is no mitral valve stenosis. Pulmonic Valve The pulmonic valve is likely normal. There is trace pulmonic valve regurgitation. Tricuspid Valve Normal tricuspid valve structure. There is trace tricuspid valve regurgitation. The right ventricular systolic pressure is normal. The right ventricular systolic pressure is 21 mmHg. Normal right atrial pressure. There is no evidence of pulmonary hypertension. Great Vessels All visible segments of the aorta are normal in size. The pulmonary artery was not well visualized. Venous The inferior vena cava is normal in size and collapses greater than 50% with inspiration. Pericardium/Pleural There is no evidence of pericardial effusion. Measurements 2D Linear Measurements IVSd: 0.95 0.6-0.9/0.6-1.0 cm LVIDd: 3.57 3.9-5.3/4.2-5.9 cm LVIDd Index: 2.01 2.4-3.2/2.2-3.1 cm/m2 LVIDs: 2.41 2.0-3.6 cm LVPWd: 0.90 0.7-1.1 cm LA Diam: 3.30 2.7-3.8/3.0-4.0 cm LAIDs Index: 1.85 1.5-2.3 cm/m2 LV Mass: 117.63 67-162/88-224 g LV Mass Index: 66.08 43-95/49-115 g/m2 LVOT Diam: 1.70 3.0+(-)1.3 cm 2D Systolic Function EF 4C: 58.20 >55% EF 2C: 57.20 >55% EF BiP: 60.00 >55% Mitral Valve MV Pk E: 0.78 MV PK A: 0.96 MV Decel Time: 326.00 E/A: 0.80 E'Lateral: 7.51 E'Medial: 4.90 E/E' Med: 16.00 E/E' Lat: 10.40 PHT: 95.00 MVA PHT: 2.32 Decel [place]: 2.41 Aortic Valve AoV Pk [place]aji: 1.29 AoV Mn [place]: 0.92 AoV VTI: 0.29 AoV Pk Grad: 7.00 Aov Mn Grad: 4.00 BHARGAV Cont.VTI: 1.60 LVOT LVOT Pk [place]: 0.97 LVOT Mn [place]: 0.63 LVOT VTI: 0.21 LVOT Pk Grad: 4.00 LVOT Mn Grad: 2.00 LVOT Diam: 1.70 LVOT Area: 2.27 Diastolic Function MV Pk E: 0.78 MV Pk A: 0.96 E/A: 0.80 E'Medial: 4.90 E/E' Med: 16.00 E' Laterial: 7.51 E/E' Lat: 10.40 Right Ventricle TAPSE (mm): 21.90 TVS' Alhaji: 9.75 Tricuspid Valve TR Pk Al[place]aji: 2.10 TR Pk Grad: 18.00 RA Press: 3.00 RVSP: 21.00 Great Vessels Aorta Sinus of Valsalva: 3.00 2.0-3.5 cm Ao Asc: 3.10 2.1-3.4 cm Pulmonary Valve PV Pk Alhaji: 0.88 Peak PV Grad: 3.00 Updated in Other Vendor System with Status of Final Seymour Rivera MD electronically signed on 12/26/2022 2:23:33 PM with status of Final
== END ==
LOC: HO.CARD 12:56
PROVIDERS: PCP Internal Medicine; Visit Provider Internal Medicine Cardiovascular Disease
DX: I48.0 Paroxysmal atrial fibrillation (principal)
CPT/HCPCS: 93306

== ENCOUNTER → 2023-02-02 11:08 | Outpatient (BNVA) | payer MEDICARE, SELFPAY | PROVIDERS: PCP Internal Medicine; Visit Provider Internal Medicine Gastroenterology | DX: R10.9 Unspecified abdominal pain (principal); R19.4 Change in bowel habit | CPT/HCPCS: 99212 ==

== ENCOUNTER → 2023-02-23 12:15 | Outpatient (BNVA) | payer MEDICARE, SELFPAY | PROVIDERS: PCP Internal Medicine; Referring Provider Internal Medicine; Visit Provider Internal Medicine Cardiovascular Disease | DX: I48.0 Paroxysmal atrial fibrillation (principal) | CPT/HCPCS: 99212 ==

== ENCOUNTER 2023-05-28 11:20 | Outpatient (AMB) | payer MEDICARE, SELFPAY ==
--- NOTE | 2023-05-28 11:51 | A.OFFPC_ITS ---
Vital Signs 05/28/23 12:15 Height 5 ft 5 in Weight 157 lb BMI 26.1 BP 128/68 Blood Pressure Location Lt brachial Position Sitting Pulse 69 Pulse Source Pulse Oximeter Pulse Oximetry (%) 95 Oxygen Delivery Method Room Air Intake Visit Reasons: Annual Exam Allergies meperidine [Demerol] Allergy (Intermediate, Verified 05/28/23 12:15) syncope nitrofurantoin [From Macrobid] Allergy (Intermediate, Verified 05/28/23 12:15) Rash paroxetine [From PAXIL] Allergy (Intermediate, Verified 05/28/23 12:15) SYNCOPE shellfish derived [SHELLFISH DERIVED] Allergy (Intermediate, Verified 05/28/23 12:15) HIVES ondansetron [From Zofran] Allergy (Verified 05/28/23 12:15) Nausea azithromycin [From ZITHROMAX Z-NAYLA] Adverse Reaction (Verified 05/28/23 12:15) presyncope Medication List - Last Reconciled 05/28/23 by Isaac Fischer MD apixaban (Eliquis) 5 mg PO BID 90 days atenolol 25 mg PO BID atorvastatin 20 mg PO DAILY lorazepam 0.5 mg PO DAILY PRN Tobacco use date assessed: 12/24/22 Fall risk assessment: No Falls in past year Last assessed Fall Risk: 05/28/23 Dental Screening Dental Screen Date: 05/28/23 Did you have a dental visit in the last 12 months?: Yes Did you have a dental problem in the last 6 months where you did not have access to dental care?: No Was dental information given to patient?: Patient has dentist HPI Annual Exam HPI Details 83-year-old female with atrial fibrillation, L3 vertebral compression fracture hypertension hypercholesterolemia GERD constipation osteoporosis last seen in December 2022. Patient is here for physical exam. Review of the notes has seen Cardiology for atrial fibrillation patient is stable continuing anticoagulation problems with sleep discussed. Patient also has fill seen gastroenterology has the constipation problem but declined any new medication. Patient is here for physical exam. certain foods caused abdominal diffuse pain- since covid loss of taste very anxious-- took lorazepam 0.5 mg takes the med and states help. discussed about side effects and advised no important decision or driving when taking this. [facility] Medical History Chronic constipation Closed lumbar vertebral fracture Gout Hypercholesterolemia Hypertension Osteopenia Paroxysmal atrial fibrillation Tubular adenoma of colon Surgical History Fracture of lumbar spine History of colonoscopy History of tonsillectomy History of tubal ligation Family History (Updated 05/28/23 @ 12:16 by Annetta Burciaga CMA) Father Diabetes Social History (Updated 05/28/23 @ 12:46 by Isaac Fischer MD) Household Members: None Housing: Apartment Housing Other:: independent living Do you presently have visiting nurse or other home services: No Alcohol intake: current Alcohol intake frequency: does not drink Alcohol type: wine Patient Tobacco Use Status: Never used Tobacco e-Cigarette/Vaping Use: Never Used Second Hand Smoke Exposure: No service: No Current occupational status: retired Cognitive needs: No Hearing needs: No Vision needs: Yes Questionnaire PHQ-9 Over the last 2 weeks, how often have you been bothered by any of the following problems? 1. Little interest or pleasure in doing things: not at all 2. Feeling down, depressed, or hopeless: not at all 3. Trouble falling or staying asleep, or sleeping too much: not at all 4. Feeling tired or having little energy: not at all 5. Poor appetite or overeating: not at all 6. Feeling bad about yourself - or that you are a failure or have let yourself or your family down: not at all 7. Trouble concentrating on things, such as reading the newspaper or watching television: not at all 8. Moving or speaking so slowly that other people could have noticed. Or the opposite - being so fidgety or restless that you have been moving around a lot more than usual: not at all 9. Thoughts that you would be better off or of hurting yourself in some wa y: not at all Total score: 0 Depression Screening Interpretation: Negative Source: Developed by Drs. Leonidas Edwards, Kait Hong, [place] See and colleagues, with an educational lance from [employer]. Thrive Questionnaire Date Thrive assessed: 12/24/22 AUDIT C Alcohol Use Questionnaire (AUDIT-C) 1. How often do you have a drink containing alcohol?: Monthly or less 2. How many drinks containing alcohol do you have on a typical day when you are drinking?: 1 or 2 3. How often do you have six or more drinks on one occasion?: Never Total Score: 1 VAIBHAV-7 AMB Questionnaire VAIBHAV-7 Date VAIBHAV - 7 assessed: 05/28/23 Feeling nervous, anxious, or on edge: 3 = Nearly every day Not being able to stop or control worryin = Several days Worrying too much about different things: 1 = Several days Trouble relaxin = Several days Being so restless that it is hard to sit still: 1 = Several days Becoming easily annoyed or irritable: 1 = Several days Feeling afraid as if something awful might happen: 0 = Not at all Total VAIBHAV-7 score (0-4 normal; 5-9 mild; 10-14 moderate; 15-21 severe): 8 Source: Developed by Drs. Leonidas Edwards, Kait Hong, [place] See and colleagues, with an educational lance from [employer]. Review of Systems Const Denies poor appetite and Denies weakness Eyes Denies no additional complaints ENT Reports Normal hearing present, Denies dizziness, Denies nasal congestion, Denies tinnitus and Denies sore throat Card Denies chest pain, Denies syncope, Denies rapid heart rate and Denies dyspnea Resp Denies cough and Denies dyspnea GI Denies change in stool character, Reports constipation, Denies diarrhea, Denies nausea and Denies vomiting Denies urinary frequency, Denies difficulty voiding and Denies dysuria Neuro Reports Normal hearing present, Denies confusion, Denies dizziness, Denies syncope and Denies weakness Psych Denies confusion Physical exam (Primary Care) Vital Signs: Last Vital Signs Pulse 69 05/28/23 12:15 BP 128/68 05/28/23 12:15 Pulse Ox 95 05/28/23 12:15 Oxygen Delivery Method Room Air 05/28/23 12:15 BMI result Body Mass Index 26.1 Tobacco/Smoking Status: Tobacco use Status Tobacco use date assessed 12/24/22 05/28/23 11:51 Patient Tobacco Use Status Never used Tobacco 05/28/23 12:46 e-Cigarette/Vaping Use Never Used 05/28/23 12:46 PHQ-9: PHQ-9 Score PHQ-9: Total score 0 05/28/23 12:40 Depression Screening Interpretation: Negative Thrive Assessment: Date of Thrive Assessment Date Thrive assessed 12/24/22 05/28/23 11:51 Const General: No confusion Orientation/consciousness: No confusion HENMT Head: Yes normocephalic Ears: external ears normal and TM's normal bilaterally Face and sinus: Yes normal facial exam Mouth: moist mucous membranes Throat: Yes tonsils normal Eyes Conjunctivae: conjunctivae normal Pupils: Equal, round and reactive pupils present and Pupil accommodation reflex normal Direct Ophthalmoscopy: normal light reflex Neck Neck: No lymphadenopathy Thyroid: Thyroid normal Chest Chest palpation & inspection: normal inspection of the chest Resp Effort & Inspection: normal respiratory effort and no audible wheezes Auscultation: clear to auscultation bilaterally, no crackles, no wheezes and lung sounds not diminished Cardio Rate: regular rate Rhythm: regular rhythm Peripheral pulses: radial pulses present and dorsalis pedis present GI Palpation (GI): no masses Auscultation: normal bowel sounds and normoactive bowel sounds Rectal Exam - Female: deferred Skin General skin exam: no rashes or lesions noted Rashes: no rashes Neuro General: No confusion Cranial nerves: Yes Equal, round and reactive pupils present and Yes Normal hearing present Cognition (Neuro): normal cognition Gait exam (Neuro): Normal gait present Motor exam (neuro): 5/5 motor strength present throughout Deep tendon reflexes (DTR's): Right brachioradialis reflex intensity grade: 2+, Left brachioradialis reflex intensity grade: 2+, Right patellar reflex intensity grade: 2+ and Left patellar reflex intensity grade: 2+ Extrem General: No edema Assessment and Plan Assessment & Plan (1) Annual physical exam: Code(s): Z00.00 - Encounter for general adult medical examination without abnormal f indings (2) Hypertension: Code(s): I10 - Essential (primary) hypertension Qualifiers: Hypertension type: essential hypertension Qualified Code(s): I10 - Essential (primary) hypertension Plan: Continue with blood pressure medication. Decrease salt intake and exercise on atenolol 25 mg twice a day (3) Paroxysmal atrial fibrillation: Code(s): I48.0 - Paroxysmal atrial fibrillation Plan: Continue with anticoagulation patient follows up with Cardiology and nothing significant on with echocardiogram (4) Hypercholesterolemia: Comment: April 2022 blood work Code(s): E78.00 - Pure hypercholesterolemia, unspecified Plan: Avoid fried foods, chicken skin, eggs, butter margarine, pastries and meat. Be it pork or beef they have a lot of cholesterol LDL goal of less than 100 and triglyceride of less than 150 on atorvastatin 20 mg once a day (5) GERD (gastroesophageal reflux disease): Code(s): K21.9 - Gastro-esophageal reflux disease without esophagitis Plan: Avoid the foods that causes that usually spicy foods, tomato products, juices, coffee, soda and foods that your sensitive to. After eating do not lie down, allow 3-4 hours before in lie down. And keep the head of bed above 30 degrees to avoid the acid from going up. (6) Generalized anxiety disorder: Code(s): F41.1 - Generalized anxiety disorder Plan: prescrition sent in discussed about side effects of drowsiness and addicting quality (7) Bloated abdomen: Code(s): R14.0 - Abdominal distension (gaseous) Plan: discussed about diet like Dairy products. Medications: New lorazepam 0.5 mg PO DAILY PRN 30 tabs 1RF anxiety F41.1 - Generalized anxiety disorder Coding Level of Care Code Est Pt Prev Care >65y(50487) Diagnoses Annual physical exam Z00.00 Hypertension I10 Hypertension type: essential hypertension Paroxysmal atrial fibrillation I48.0 Hypercholesterolemia E78.00 GERD (gastroesophageal reflux disease) K21.9 Generalized anxiety disorder F41.1 Bloated abdomen R14.0 Additional Codes PHQ-9 - 53349 - PHQ-9 Billing: Y ([id number])
[2023-05-28 12:15] VITALS: BP 128/68; PULSE 69; O2SAT 95; BMI 26.1
== END 2023-05-28 13:12 | disposition home or self-care (01) ==
PROVIDERS: Visit Provider Internal Medicine
DX: Z00.00 Encounter for general adult medical examination without abnormal findings (principal); I10 Essential (primary) hypertension; E78.00 Pure hypercholesterolemia, unspecified; K21.9 Gastro-esophageal reflux disease without esophagitis; F41.1 Generalized anxiety disorder; R14.0 Abdominal distension (gaseous)
CPT/HCPCS: 99397

== ENCOUNTER 2023-10-27 12:49 | Outpatient (AMB) | payer MEDICARE, SELFPAY ==
--- NOTE | 2023-10-27 12:58 | A.SPINEOV_ITS ---
Intake Intake Visit Reasons: low back pain Intake Note: Ms. Nolasco is here today c/o low back pain. MRI done @ [facility]/brought disc. Partnership Marketing Manager Required: No Allergies meperidine [Demerol] Allergy (Intermediate, Verified 05/28/23 12:15) syncope nitrofurantoin [From Macrobid] Allergy (Intermediate, Verified 05/28/23 12:15) Rash paroxetine [From PAXIL] Allergy (Intermediate, Verified 05/28/23 12:15) SYNCOPE shellfish derived [SHELLFISH DERIVED] Allergy (Intermediate, Verified 05/28/23 12:15) HIVES ondansetron [From Zofran] Allergy (Verified 05/28/23 12:15) Nausea azithromycin [From ZITHROMAX Z-NAYLA] Adverse Reaction (Verified 05/28/23 12:15) presyncope Assessment & Plan Assessment & Plan (1) Osteoporosis: Comment: decline meds and testing Code(s): M81.0 - Age-related osteoporosis without current pathological fracture (2) Fracture of lumbar spine: Comment: Kyphoplasty October 2020 Code(s): S32.009A - Unspecified fracture of unspecified lumbar vertebra, initial e ncounter for closed fracture Qualifiers: Encounter type: sequela Fracture morphology: wedge compression Fracture type: closed Lumbar vertebra fracture level: unspecified lumbar vertebra Qualified Code(s): S32.000S - Wedge compression fracture of unspecified lumbar vertebra, sequela Plan Dear Dr. Fischer, I saw your patient 83-year-old Mrs. Nolasco [facility] evaluation of chronic ache in her lower lumbar region. She has a history of osteoporosis with compression fracture at L2 and L3 in 2020, status post kyphoplasty. At the time of those injuries, she experienced improvement in her pain after the procedure but did not get a tremendous relief. Since that time she has had a so slowly worsening burning sensation in her lower lumbar region. She has no pain going down her legs, no tingling or numbness. To this point she has done some physical therapy but other than that has not tried any injections, acupuncture, medicines etc.. She underwent an MRI for evaluation and this showed evidence of multiple chronic compression fractures in the lumbar spine amongst other degenerative changes. She came to us today for evaluation. She is not looking for any type of surgical intervention but rather wanted to try to understand better what is causing her symptoms. PMH: She has a history of IBS, hypertension, high cholesterol macular degene ration, AFib on Eliquis, osteoporosis with compression fractures, long COVID Social hx: She does not smoke Medications: Lipitor, Eliquis, atenolol, PreserVision Allergies: Please see the App[employer] list Physical exam: She is awake alert oriented no acute distress, she is able to stand up out of a chair on her own and her motor examination is normal. She has a significant kyphosis of her thoracic spine, no scoliotic curvature upon palpation. Imaging review: She has a lumbar MRI done at [facility], compared to previous x- rays done in 2020 shows evidence of kyphoplasty at L2 and L3 with compression fractures at L1-T12 and T11. These all appear to be healed. She has some degenerative disc disease lower down at L4-5 as well. There is no evidence of significant central canal stenosis or nerve compression. Impression: 83-year-old with history of osteoporosis, history of compression fracture at L2 and L3 treated with kyphoplasty a few years ago who still remains with some feelings of stiffness and burning in her lower lumbar region. She also gets a little bit of discomfort in between her shoulder blades. I reviewed her MRI and it shows evidence of multiple he will compression fractures throughout the lumbar spine going up into the thoracolumbar junction. I suspect she probably has more going up into her midthoracic region as she has an accentuated kyphotic curvature to her thoracic spine. Unfortunately there is not much we can do for this surgically. I suspect most of the aching that she is feeling in her lumbar region is coming from her lack of sagittal balance as a side effect from the multiple compression fractures causing muscular strain. This is not something we can surgically fix in a woman of her age with poor bone quality. To this point she has done no dedicated conservative treatment either with medicines or injections. She was interested in talking with our colleagues at pain management so I will put a referral into them to see if there is anyt jovani they can offer her. Thank you for allowing us to care for your patient. The total time spent with this visit with this patient was 45 minutes reviewing history, physical exam, lumbar imaging review, and implementation of treatment plan or further diagnostic testing Luke Cordoba MD,PhD [facility] Orders: Referrals Physiatry Referral M81.0 - Age-related osteoporosis without current patholog ical fracture, S32.009A - Unspecified fracture of unspecified lumbar vertebra, initial encounter for closed fracture Coding Level of Care Code New Pt Level 4 (80708) Diagnoses Osteoporosis M81.0 Closed wedge fracture of lumbar vertebra, unspecified lumbar vertebral level, sequela S32.000S Encounter type: sequela Fracture morphology: wedge compression Fracture type: closed Lumbar vertebra fracture level: unspecified lumbar vertebra
== END 2023-10-27 14:08 | disposition home or self-care (01) ==
PROVIDERS: PCP Internal Medicine; Visit Provider Physician Assistant
DX: M81.0 Age-related osteoporosis without current pathological fracture (principal); S32.000S Wedge compression fracture of unspecified lumbar vertebra, sequela
CPT/HCPCS: 99204

== ENCOUNTER → 2023-10-27 12:49 | Outpatient (BNVA) | payer MEDICARE, SELFPAY | PROVIDERS: PCP Internal Medicine; Visit Provider Physician Assistant | DX: M81.0 Age-related osteoporosis without current pathological fracture (principal); S32.000S Wedge compression fracture of unspecified lumbar vertebra, sequela | CPT/HCPCS: 99202 ==

== ENCOUNTER 2023-11-18 10:55 | Outpatient (AMB) | payer MEDICARE, SELFPAY ==
--- NOTE | 2023-11-18 11:00 | MHC.PC.OV ---
Vital Signs 11/18/23 11:01 Height 5 ft 5 in Weight 161 lb 0.8 oz BMI 26.8 BP 140/86 H Blood Pressure Location Lt brachial Position Sitting Pulse 66 Pulse Source Pulse Oximeter Pulse Oximetry (%) 99 Oxygen Delivery Method Room Air Intake Visit Reasons: R eye cataract 11/27-L eye 12/17 Intake Note: Patient is here for a Pre-op for Right eye Cataracts scheduled with Dr. Jacky Moulton 11/27/23 and Left eye for 12/17/23 Allergies meperidine [Demerol] Allergy (Intermediate, Verified 11/18/23 11:45) syncope nitrofurantoin [From Macrobid] Allergy (Intermediate, Verified 11/18/23 11:45) Rash paroxetine [From PAXIL] Allergy (Intermediate, Verified 11/18/23 11:45) SYNCOPE shellfish derived [SHELLFISH DERIVED] Allergy (Intermediate, Verified 11/18/23 11:45) HIVES ondansetron [From Zofran] Allergy (Verified 11/18/23 11:45) Nausea azithromycin [From ZITHROMAX Z-NAYLA] Adverse Reaction (Verified 11/18/23 11:45) presyncope Medication List - Last Reconciled 11/18/23 by Marv Saenz PA-C apixaban (Eliquis) 5 mg PO BID 90 days atenolol 25 mg PO BID atorvastatin 20 mg PO DAILY lorazepam 0.5 mg PO DAILY PRN Tobacco use date assessed: 11/18/23 Fall risk assessment: No Falls in past year Last assessed Fall Risk: 11/18/23 Dental Screening Dental Screen Date: 11/18/23 Did you have a dental visit in the last 12 months?: Yes Did you have a dental problem in the last 6 months where you did not have access to dental care?: No Was dental information given to patient?: Patient has dentist HPI R eye cataract 11/27-L eye 12/17 HPI Details Patient is an 83-year-old female here today for preop visit. Patient is due for cataract removal in November of 2023 This is the 1st time I am meeting this 83-year-old female with a past medical history significant for osteoporosis, peripheral vascular disease, paroxysmal AFib, hyper lipidemia and hypertension. Patient does not have history of UT, Congestive heart failure for CVA. She does take anticoagulation on a daily basis for her AFib. [facility] Medical History Chronic constipation Closed lumbar vertebral fracture Gout Hypercholesterolemia Hypertension Osteopenia Paroxysmal atrial fibrillation Tubular adenoma of colon Surgical History Fracture of lumbar spine History of colonoscopy History of tonsillectomy History of tubal ligation Family History Father Diabetes Social History Household Members: None Housing: Apartment Housing Other:: independent living Do you presently have visiting nurse or other home services: No Alcohol intake: current Alcohol intake frequency: does not drink Alcohol type: wine Comment: sleeping Patient Tobacco Use Status: Never used Tobacco e-Cigarette/Vaping Use: Never Used Second Hand Smoke Exposure: No service: No Current occupational status: retired Cognitive needs: No Hearing needs: No Vision needs: Yes Questionnaire Thrive Questionnaire Date Thrive assessed: 12/24/22 AUDIT C Alcohol Use Questionnaire (AUDIT-C) 1. How often do you have a drink containing alcohol?: Monthly or less 2. How many drinks containing alcohol do you have on a typical day when you are drinking?: 1 or 2 3. How often do you have six or more drinks on one occasion?: Never Total Score: 1 VAIBHAV-7 AMB Questionnaire VAIBHAV-7 Date VAIBHAV - 7 assessed: 11/18/23 Source: Developed by Drs. Leonidas Edwards, Kait Hong, [place] See and colleagues, with an educational lance from [employer]. Review of Systems Const Denies headache(s) Eyes Denies loss of vision ENT Denies vertigo, Denies dizziness, Denies headache(s) and Denies sore throat Card Denies chest pain, Denies leg edema and Denies lightheadedness Resp Denies cough, Denies hemoptysis and Denies wheezing GI Denies abdominal pain, Denies melena, Denies constipation, Denies diarrhea and Denies vomiting Denies urinary frequency, Denies dysuria and Denies urinary urgency Musc Denies arthralgias, Denies joint swelling, Denies numbness and Denies tingling Neuro Denies Abnormal speech present, Denies behavioral changes, Denies vertigo, Denies dizziness, Denies headache(s), Denies loss of vision, Denies memory loss, Denies numbness and Denies tingling Psych Denies anxiety, Denies behavioral changes, Denies depression, Denies memory loss and Denies panic attacks Radu/Lymph Denies easy bleeding and Denies easy bruising Aller/Immun Denies wheezing Physical exam (Primary Care) Vital Signs: Last Vital Signs Pulse 66 11/18/23 11:01 BP 140/86 H 11/18/23 11:01 Pulse Ox 99 11/18/23 11:01 Oxygen Delivery Method Room Air 11/18/23 11:01 BMI result Body Mass Index 26.8 Tobacco/Smoking Status: Tobacco use Status Tobacco use date assessed 11/18/23 11/18/23 11:32 Patient Tobacco Use Status Never used Tobacco 11/18/23 11:01 e-Cigarette/Vaping Use Never Used 11/18/23 11:01 Thrive Assessment: Date of Thrive Assessment Date Thrive assessed 12/24/22 11/18/23 11:01 Const General: healthy appearing, no acute distress, alert and awake Nutritional Appearance: well nourished Orientation/consciousness: oriented to person, oriented to place and oriented to time HENMT Ears: TM's normal bilaterally General nose exam: Normal nasal mucous membranes and turbinates present Eyes Conjunctivae: conjunctivae normal Sclerae: sclerae normal Pupils: Equal, round and reactive pupils present Neck Neck: Yes no lymphadenopathy and Yes no JVD Thyroid: Thyroid normal Carotids: no bruits Resp Effort & Inspection: normal respiratory effort and not tachypneic Auscultation: no crackles, no rales, no rhonchi and no wheezes Cardio Rate: regular rate Rhythm: regular rhythm Heart sounds: no murmurs and normal S1 and S2 GI Palpation (GI): Soft to palpation, nontender, no hepatomegaly and no splenomegaly Auscultation: normal bowel sounds Skin General skin exam: no rashes or lesions noted and dry skin Neuro General: oriented to person, oriented to place and oriented to time Cranial nerves: Yes Equal, round and reactive pupils present Speech: No Abnormal speech present Gait exam (Neuro): Normal gait present Motor exam (neuro): no tremor noted Extrem Right upper extremity: full ROM Left upper extremity: full ROM Right lower extremity: full ROM; no edema Left lower extremity: full ROM; no edema Psych Mental Status: mental status grossly normal Speech and movement: Normal speech and movement present Affect: normal affect Attitude: cooperative Thought process: Normal thought process present Assessment and Plan Assessment & Plan (1) Pre-op evaluation: Code(s): Z01.818 - Encounter for other preprocedural examination Plan: Patient's recent labs and vitals are stable. Patient medically clear for needed cataract removal procedure. (2) Generalized anxiety disorder: Code(s): F41.1 - Generalized anxiety disorder Plan: Interested in getting a refill on her lorazepam to use on a p.r.n. basis for her panic disorder (3) Paroxysmal atrial fibrillation: Code(s): I48.0 - Paroxysmal atrial fibrillation Plan: Followed by Cardiology. Has been stable without any recent hospitalizations. Continues on anticoagulation without any overt signs of bleeding. Medications: Refilled lorazepam 0.5 mg PO DAILY PRN 30 tabs 1RF anxiety F41.1 - Generalized anxiety disorder Coding Level of Care Code Est Pt Level 3 (57117) Diagnoses Pre-op evaluation Z01.818 Generalized anxiety disorder F41.1 Paroxysmal atrial fibrillation I48.0
[2023-11-18 11:01] VITALS: BP 140/86; PULSE 66; O2SAT 99; BMI 26.8
== END 2023-11-18 13:56 | disposition home or self-care (01) ==
PROVIDERS: PCP Internal Medicine; Visit Provider Physician Assistant
DX: I48.0 Paroxysmal atrial fibrillation (principal); F41.1 Generalized anxiety disorder; Z01.818 Encounter for other preprocedural examination
CPT/HCPCS: 99213

== ENCOUNTER 2023-12-02 12:50 | Outpatient (AMB) | payer MEDICARE, SELFPAY ==
[2023-12-02 12:53] VITALS: BP 122/84; PULSE 64; O2SAT 99; BMI 26.6
--- NOTE | 2023-12-02 12:53 | A.OFFPC_ITS ---
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 Allergies meperidine [Demerol] Allergy (Intermediate, Verified 12/02/23 12:57) syncope nitrofurantoin [From Macrobid] Allergy (Intermediate, Verified 12/02/23 12:57) Rash paroxetine [From PAXIL] Allergy (Intermediate, Verified 12/02/23 12:57) SYNCOPE shellfish derived [SHELLFISH DERIVED] Allergy (Intermediate, Verified 12/02/23 12:57) HIVES ondansetron [From Zofran] Allergy (Verified 12/02/23 12:57) Nausea azithromycin [From ZITHROMAX Z-NAYLA] Adverse Reaction (Verified 12/02/23 12:57) presyncope Tobacco use date assessed: 12/02/23 Fall risk assessment: No Falls in past year Last assessed Fall Risk: 12/02/23 Dental Screening Dental Screen Date: 12/02/23 HPI 6m follow up HPI Details 83-year-old female with a history of atr ial fibrillation hypertension hypercholesterolemia GERD generalized anxiety disorder last seen in May 2023. Patient is here for follow-up recently seen by the nurse practitioner for preop for right cataract surgery. Patient also has a history of low back pain fracture of the lumbar spine with kyphoplasty October 2020 continues to complain of lower back pain compression fracture of the L2-3 L3 complains of some burning sensation in the lower lumbar region CT scan done showing multiple chronic compression fracture of the lower thoracic and lumbar vertebral bodies L2-L3 kyphoplasty degenerative changes with central canal and foraminal narrowing- R eye cataract surgery doing good post surgery. [facility] Medical History Chronic constipation Closed lumbar vertebral fracture Gout Hypercholesterolemia Hypertension Osteopenia Paroxysmal atrial fibrillation Tubular adenoma of colon Surgical History Fracture of lumbar spine History of colonoscopy History of tonsillectomy History of tubal ligation Family History Father Diabetes Social History Household Members: None Housing: Apartment Housing Other:: independent living Do you presently have visiting nurse or other home services: No Alcohol intake: current Alcohol intake frequency: does not drink Alcohol type: wine Comment: sleeping Patient Tobacco Use Status: Never used Tobacco e-Cigarette/Vaping Use: Never Used Second Hand Smoke Exposure: No service: No Current occupational status: retired Cognitive needs: No Hearing needs: No Vision needs: Yes Questionnaire Thrive Questionnaire Date Thrive assessed: 12/24/22 AUDIT C Alcohol Use Questionnaire (AUDIT-C) 1. How often do you have a drink containing alcohol?: Monthly or less 2. How many drinks containing alcohol do you have on a typical day when you are drinking?: 1 or 2 3. How often do you have six or more drinks on one occasion?: Never Total Score: 1 VAIBHAV-7 AMB Questionnaire VAIBHAV-7 Date VAIBHAV - 7 assessed: 11/18/23 Source: Developed by Drs. Leonidas Edwards, Kait Hong, [employer] and colleagues, with an educational lance from [employer]. Physical exam (Primary Care) Vital Signs: Last Vital Signs Pulse 64 12/02/23 12:53 BP 122/84 12/02/23 12:53 Pulse Ox 99 12/02/23 12:53 Oxygen Delivery Method Room Air 12/02/23 12:53 BMI result Body Mass Index 26.6 Tobacco/Smoking Status: Tobacco use Status Tobacco use date assessed 12/02/23 12/02/23 13:00 Patient Tobacco Use Status Never used Tobacco 12/02/23 13:00 e-Cigarette/Vaping Use Never Used 12/02/23 13:00 Thrive Assessment: Date of Thrive Assessment Date Thrive assessed 12/24/22 12/02/23 13:00 Const General: alert; No acute distress Eyes Conjunctivae: conjunctivae normal Resp Auscultation: clear to auscultation bilaterally Cardio Rate: regular rate Rhythm: regular rhythm GI Inspection: Yes normal to inspection Extrem General: Yes normal to inspection and No edema Assessment and Plan Assessment & Plan (1) Compression fracture of L3 vertebra: Comment: Walks with cane, MRI 08/2023 Code(s): S32.030A - Wedge compression fracture of third lumbar vertebra, initial encounter for closed fracture Plan: Patient has been evaluated by the neurosurgeon and nonsurgical, has been advised to seek pain management (2) Hypertension: Code(s): I10 - Essential (primary) hypertension Qualifiers: Hypertension type: essential hypertension Qualified Code(s): I10 - Essential (primary) hypertension Plan: Continue with blood pressure medication. Decrease salt intake and exercise presently on atenolol 25 mg twice a day (3) Paroxysmal atrial fibrillation: Code(s): I48.0 - Paroxysmal atrial fibrillation Plan: Patient on anticoagulation with apixaban (4) Hypercholesterolemia: Comment: April 2022 blood work Code(s): E78.00 - Pure hypercholesterolemia, unspecified Plan: Avoid fried foods, chicken skin, eggs, butter margarine, pastries and meat. Be it pork or beef they have a lot of cholesterol presently on atorvastatin 20 mg once a day (5) GERD (gastroesophageal reflux disease): Code(s): K21.9 - Gastro-esophageal reflux disease without esophagitis Plan: Avoid the foods that causes that usually spicy foods, tomato products, juices, coffee, soda and foods that your sensitive to. After eating do not lie down, allow 3-4 hours before in lie down. And keep the head of bed above 30 degrees to avoid the acid from going up. (6) Osteoporosis: Comment: decline meds and testing Code(s): M81.0 - Age-related osteoporosis without current pathological fracture Plan: Declined any further testing and meds. (7) Generalized anxiety disorder: Code(s): F41.1 - Generalized anxiety disorder Plan: Continue with present medication Medications: New pregabalin (Lyrica) 50 mg PO BID 60 caps 0RF S32.030A - Wedge compression fracture of third lumbar vertebra, initial encounter for closed fracture Coding Level of Care Code Est Pt Level 4 (69673) Diagnoses Compression fracture of L3 vertebra S32.030A Essential hypertension I10 Hypertension type: essential hypertension Paroxysmal atrial fibrillation I48.0 Hypercholesterolemia E78.00 GERD (gastroesophageal reflux disease) K21.9 Osteoporosis M81.0 Generalized anxiety disorder F41.1
== END 2023-12-02 14:03 | disposition home or self-care (01) ==
PROVIDERS: PCP Internal Medicine; Visit Provider Internal Medicine
DX: S32.030A Wedge compression fracture of third lumbar vertebra, initial encounter for closed fracture (principal); I10 Essential (primary) hypertension; I48.0 Paroxysmal atrial fibrillation; E78.00 Pure hypercholesterolemia, unspecified; K21.9 Gastro-esophageal reflux disease without esophagitis; M81.0 Age-related osteoporosis without current pathological fracture; F41.1 Generalized anxiety disorder
CPT/HCPCS: 99214

== ENCOUNTER 2024-03-03 13:21 | Outpatient (AMB) | payer MEDICARE, SELFPAY ==
[2024-03-03 13:25] VITALS: BP 110/76; PULSE 58; BMI 23.8
--- NOTE | 2024-03-03 13:25 | A.OFFVIS_ITS ---
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 Worker Required: No Allergies meperidine [Demerol] Allergy (Intermediate, Verified 12/02/23 12:57) syncope nitrofurantoin [From Macrobid] Allergy (Intermediate, Verified 12/02/23 12:57) Rash paroxetine [From PAXIL] Allergy (Intermediate, Verified 12/02/23 12:57) SYNCOPE shellfish derived [SHELLFISH DERIVED] Allergy (Intermediate, Verified 12/02/23 12:57) HIVES ondansetron [From Zofran] Allergy (Verified 12/02/23 12:57) Nausea azithromycin [From ZITHROMAX Z-NAYLA] Adverse Reaction (Verified 12/02/23 12:57) presyncope Medication List - Last Reconciled 03/03/24 by Seymour Rivera MD apixaban (Eliquis) 5 mg PO BID 90 days atenolol 25 mg PO BID atorvastatin 20 mg PO DAILY lorazepam 0.5 mg PO DAILY PRN HPI Comments Details: Lucinda comes for follow-up. She says she gets infrequent episodes of atrial fibrillation once every 2 months and symptoms subsided within half an hour. These are not life-limiting symptoms. She has no bleeding issues or neurologic events. Has issues with the spine with constant pain related to osteoporosis and compression fractures. She has not had any falls. She tries to walk and remain active. Denies any heart failure symptoms. Denies any exertional chest pain. No lightheadedness, syncope. Takes all her medications. Tries to avoid stimulants. [facility] Medical History Chronic constipation Closed lumbar vertebral fracture Gout Osteopenia Tubular adenoma of colon Hypertension Hypercholesterolemia Paroxysmal atrial fibrillation Surgical History Fracture of lumbar spine History of colonoscopy History of tonsillectomy History of tubal ligation Family History Father Diabetes Social History Household Members: None Housing: Apartment Housing Other:: independent living Do you presently have visiting nurse or other home services: No Alcohol intake: current Alcohol intake frequency: does not drink Alcohol type: wine Comment: sleeping Patient Tobacco Use Status: Never used Tobacco e-Cigarette/Vaping Use: Never Used Second Hand Smoke Exposure: No service: No Current occupational status: retired Cognitive needs: No Hearing needs: No Vision needs: Yes Review of Systems Const Denies chills, Denies fatigue, Denies fever(s), Denies frequent falls, Denies weakness, Denies weight gain and Denies weight loss ENT Denies dizziness Card Denies chest pain, Denies leg edema, Denies lightheadedness, Denies palpitations, Denies dyspnea, Denies dyspnea on exertion, Denies orthopnea and Denies other (loss of consciousness) Resp Denies cough, Denies dyspnea and Denies dyspnea on exertion GI Denies hematochezia and Denies change in stool character Musc Denies abnormal gait, Denies muscle weakness, Denies numbness, Denies radiating pain into limb and Denies tingling Neuro Denies abnormal gait, Denies dizziness, Denies frequent falls, Denies numbness, Denies tingling and Denies weakness Endo Denies fatigue and Denies palpitations Physical Exam Vital Signs: Last Vital Signs Pulse 58 03/03/24 13:25 BP 110/76 03/03/24 13:25 BMI result Body Mass Index 23.8 Const General: cooperative, comfortable, no acute distress, alert, awake and well groomed Nutritional Appearance: thin and other (Frail elderly woman) Orientation/consciousness: patient oriented x3 Limitations: ambulation with cane Neck Neck: Yes trachea midline, Yes supple and Yes no JVD Chest Chest palpation & inspection: abnormal inspection of the chest kyphotic Resp Effort & Inspection: normal respiratory effort Auscultation: clear to auscultation bilaterally Cardio Jugular venous distension: no JVD Palpation: normal PMI Rate: regular rate Rhythm: regular rhythm Heart sounds: S1 normal heart sound present, S2 normal heart sound present and Other heart sounds present (S4 present) GI Auscultation: normal bowel sounds Skin General skin exam: no rashes or lesions noted Neuro General: patient oriented x3 and no focal motor deficits Extrem General: No clubbing, No cyanosis and Yes edema (Ashlee ankle) Psych Appearance: grossly normal Office Procedures EKG Details: EKG shows normal sinus rhythm at 58 beats per minute with poor R-wave progression most likely lead placement [id number], Complete Assessment & Plan Assessment & Plan (1) Paroxysmal atrial fibrillation: Code(s): I48.0 - Paroxysmal atrial fibrillation Category: Medical Plan: Paroxysmal atrial fibrillation which has overall remained suppressed with infrequent symptoms. She has no life-limiting symptoms at current point time. Avoid antiarrhythmic drug therapy. Continue atenolol. Avoidance of triggers and stimulants was discussed. Continue full oral anticoagulation, currently on Eliquis 5 mg b.i.d.. At least semi annual renal function test should be performed. Advised to call me with worsening symptoms. (2) Hypertension: Code(s): I10 - Essential (primary) hypertension Category: Medical Qualifiers: Hypertension type: essential hypertension Qualified Code(s): I10 - Essential (primary) hypertension Plan: Prior history of hypertension which is currently well optimized on low-dose atenolol therapy. Continue the same. Advised to monitor blood pressure intermittently at home and maintain a log. Goal blood pressure less than 130/84. Low-salt diet was discussed. Will follow up in the clinic in 1 year's time, sooner p.r.n.. Thank you for allowing me to partake in her care Coding Level of Care Code Est Pt Level 4 (39555) Diagnoses Paroxysmal atrial fibrillation I48.0 Essential hypertension I10 Hypertension type: essential hypertension CPT Codes EKG - CPT: [id number], Complete ([id number])
== END 2024-03-03 13:57 | disposition home or self-care (01) ==
PROVIDERS: Visit Provider Internal Medicine Cardiovascular Disease
DX: I48.0 Paroxysmal atrial fibrillation (principal); I10 Essential (primary) hypertension
CPT/HCPCS: 93010; 99214

== ENCOUNTER → 2024-03-03 13:21 | Outpatient (BNVA) | payer MEDICARE, SELFPAY | PROVIDERS: Visit Provider Internal Medicine Cardiovascular Disease | DX: I48.0 Paroxysmal atrial fibrillation (principal); I10 Essential (primary) hypertension | CPT/HCPCS: 93005; 99212 ==

== ENCOUNTER 2024-08-18 06:31 | Inpatient (IN) | payer MEDICARE, SELFPAY ==
[2024-08-18] VITALS (9 sets, daily range): BP systolic 114–153; BP diastolic 59–90; PULSE 58–115; RESP 15–21; TEMP 36.6–37; O2SAT 95–98; BMI 24.6
--- NOTE | 2024-08-18 | ECG_ITS ---
Test Reason : ABD PAIN Blood Pressure : / mmHG Vent. Rate : 111 BPM Atrial Rate : 000 BPM P-R Int : 000 ms QRS Dur : 070 ms QT Int : 326 ms P-R-T Axes : 000 -14 -14 degrees QTc Int : 443 ms Atrial fibrillation with rapid ventricular response Low voltage QRS Nonspecific T wave abnormality Abnormal ECG When compared with ECG of 11-NOV-2020 13:57, Atrial fibrillation has replaced Sinus rhythm Vent. rate has increased BY 43 BPM Inverted T waves have replaced nonspecific T wave abnormality in Inferior leads Nonspecific T wave abnormality now evident in Anterior leads Referred By: Generic ED Physician Electronically Signed By:Isauro Conway
--- NOTE | ~2024-08-18 | CT_ITS ---
EXAMINATION: CT ABDOMEN AND PELVIS WITH CONTRAST CLINICAL INFORMATION: Pain. Distention. Nausea. COMPARISON: CT dated November 11, 2020. TECHNIQUE: Multidetector volumetric images were obtained from the superior aspect of the liver through the pubic symphysis following administration 85 mL of Omnipaque 350 intravenous contrast. Sagittal and coronal reformatted images were obtained on the technologist's workstation. Oral contrast: No This CT examination was performed using dose optimization techniques as appropriate, variously including the following: *Automated exposure control *Adjustment of mA and/or kV according to patient size (this includes techniques or standardized protocols for targeted exams where dose is matched to indication/reason for exam; i.e. extremities or head) *Use of iterative reconstruction technique DLP: 527 mGy-cm FINDINGS: LUNG BASES: No gross acute airspace disease. Calcified plaques in the coronary arteries. LIVER, GALLBLADDER, AND BILIARY TREE: Liver measures 15 cm. No focal mass. Portal vein and hepatic veins are patent. Gallbladder is fluid-filled without pericholecystic fluid collection. No intrahepatic or extrahepatic biliary ductal dilatation. PANCREAS: No peripancreatic fluid collections. No focal pancreatic mass. No main pancreatic ductal dilatation. Volume loss of the pancreatic parenchyma. SPLEEN: Measures 8 cm. No focal mass. ADRENAL GLANDS: No nodular lesions. KIDNEYS AND URETERS: No adrenal mass. No hydronephrosis. 2 cm exophytic cyst, lower pole right kidney. Renal cortical thinning, bilaterally. BLADDER: Fluid-filled. GASTROINTESTINAL TRACT: Gas and fluid-filled mildly prominent small bowel loops, the most conspicuous at the right lower pelvis. No ascites. No pneumoperitoneum. No intestinal obstruction pattern. Numerous diverticula, sigmoid colon. Appendix is normal. Abundant stool, large intestine.. ABDOMINAL WALL: Small fat-containing umbilical hernia. LYMPH NODES: No lymphadenopathy. VASCULAR: Throughout the abdominal aorta wall, origin of the mesenteric arteries and main renal arteries and the iliac arteries. No aneurysm or dissection, abdominal aorta. PELVIC VISCERA: Calcifications in the adnexa. OSSEOUS STRUCTURES: Multilevel thoracolumbar spondylosis. Old compression deformities of the vertebral bodies lower thoracic and lumbar spine likely osteoporotic in nature. Status post kyphoplasty/vertebroplasty procedure, L2 and L3. Fatty atrophy of the lumbar muscles likely denervation. CT/CT abdomen pelvis w IV con IMPRESSION: Regional ileus versus partial/intermittent distal small bowel obstruction. Diverticular disease, sigmoid colon. Coronary artery disease and atherosclerosis disease. Electronically signed by: Harry Bain MD 08/18/2024 01:29 PM EDT RP
--- NOTE | ~2024-08-18 | CT_ITS ---
EXAMINATION: CT ABDOMEN AND PELVIS WITHOUT CONTRAST CLINICAL INFORMATION: Worsening abdominal pain. COMPARISON: Multiple priors, most recent CT abdomen/pelvis dated 08/18/2024. TECHNIQUE: Multidetector volumetric imaging was performed from the superior aspect of the liver through the pubic symphysis. Sagittal and coronal reformatted images were obtained on the technologist's workstation. This CT examination was performed using dose optimization techniques as appropriate, variously including the following: *Automated exposure control *Adjustment of mA and/or kV according to patient size (this includes techniques or standardized protocols for targeted exams where dose is matched to indication/reason for exam; i.e. extremities or head) *Use of iterative reconstruction technique DLP: 520 mGy-cm FINDINGS: LUNG BASES: The visualized lung bases are unremarkable. LIVER, GALLBLADDER, AND BILIARY TREE: The liver is normal in size, shape, and attenuation. No focal hepatic lesion or biliary ductal dilatation is present. The gallbladder is unremarkable with no evidence of radiopaque gallstones, gallbladder wall thickening, or obvious pericholecystic inflammatory changes. PANCREAS: Unremarkable. SPLEEN: Unremarkable. ADRENAL GLANDS: Unremarkable. KIDNEYS AND URETERS: The kidneys are normal in size, shape, and attenuation. No hydronephrosis, hydroureter, or calculi seen. Simple right lower pole renal cysts, unchanged. Findings are not clinically significant and no dedicated follow-up imaging is recommended. No perinephric stranding. BLADDER: Unremarkable. GASTROINTESTINAL TRACT: No significant bowel wall thickening or associated inflammatory change. Prominent sigmoid diverticulosis with calcifications. No evidence of acute diverticulitis. There are right lower quadrant fluid-filled small bowel loops which are nondilated. No associated bowel wall thickening or inflammatory change. Findings could represent mild enteritis or very mild ileus. Obstruction is thought less likely. Unremarkable appendix. PERITONEAL CAVITY: No intra-abdominal free air or free fluid. No organized fluid collection or abscess formation. ABDOMINAL WALL: No significant hernia is appreciated. LYMPH NODES: No significant lymphadenopathy. VASCULAR: No abdominal aortic dilatation or dissection. Atherosclerotic calcifications. PELVIC VISCERA: The uterus and adnexa are unremarkable. OSSEOUS STRUCTURES: Chronic compression deformities with vertebroplasty at L2 and L3 are redemonstrated. Additional multiple chronic compression deformities are unchanged. No acute osseous abnormality. CT/CT abdomen pelvis wo IV con IMPRESSION: 1. Sigmoid diverticulosis without evidence of acute diverticulitis. No small or large bowel obstruction. Fluid-filled right lower quadrant small bowel loops which are nondilated. No associated bowel wall thickening or inflammatory change. Findings could represent mild enteritis or very mild ileus. Obstruction is thought less likely. 2. No intra-abdominal mass, lymphadenopathy, or ascites. 3. Additional chronic findings are unchanged. Fleischner guidelines were followed. Electronically signed by: Jayesh Loyola MD 08/20/2024 10:37 AM EDT
[2024-08-18 06:52] LABS: MANUAL DIFF FLAG NO
[2024-08-18 06:53] LABS: Basophils Percent Auto 0.5 % (0-2); Eosinophils Absolute Auto 0.2 X10*3/uL (0.0-0.4); Eosinophils Percent Auto 3.5 % (0-4); Hematocrit 40.1 % (37.0-47.0); Hemoglobin 14.1 g/dl (12.0-16.0); Imm Gran Abs Auto 0.02 X10*3/uL (0.00-0.03); Imm Gran Pct Auto 0.3 % (0.0-0.4); Lymphocytes Absolute Auto 1.6 X10*3/uL (1.2-4.9); Lymphocytes Percent Auto 26.8 % (20-40); Mean Corpuscular HGB Conc 35.2 g/dl (31.0-35.0); Mean Corpuscular Hemoglobin 32.2 pg (27.0-33.0); Mean Corpuscular Volume 91.6 fL (80.0-98.0); Mean Platelet Volume 9.5 fL (9.4-12.3); Monocytes Absolute Auto 0.7 X10*3/uL (0.1-1.2); Monocytes Percent Auto 10.8 % (2-11); Neutrophils Absolute Auto 3.5 x10*3/uL (2.0-8.3); Neutrophils Percent Auto 58.1 % (45-73); Platelet Count 214 X10*3/uL (160-400); Red Blood Count 4.38 X10*6/uL (4.20-5.50); Red Cell Distribution Width 12.4 % (11.0-16.0)
--- NOTE | 2024-08-18 07:05 | ED.ABDPAIN ---
HPI - Abdominal Pain General Chief Complaint: Abdominal Pain Stated Complaint: ABDOMINAL PAIN Time Seen by Provider: 08/18/24 07:04 Source: patient and EMS Mode of arrival: EMS Limitations: no limitations History of Present Illness ED Provider: MORELIA HPI narrative: 84 yo female with PMH of constipation, abdominal pain, GERD, anxiety, HLD, PAF on eliquis, IBS, compression fracture of L3 vertebra, HTN here with c/o starting with intense central abdominal pain radiating to her back since 1am. Mild nausea. She has been bloated since yesterday but had BM and flatus last BM was 5pm. She felt more bloated the past few days. No urinary symptoms, no fevers. NO change in diet. She also feels she is in afib. MD elicited complaint: abdominal pain Pertinent past history: constipation Onset (ago): hour(s) (1am today) Pain Consistency: constant Location: periumbilical Severity: moderate Quality: aching and fullness Radiation: back Migration to: no migration Exacerbating factors: nothing Relieving factors: nothing Context: history of similar episodes Associated symptoms: nausea Related Data Previous Rx's ?Medication ?Instructions ?Recorded atenolol 25 mg tablet 25 mg PO BID #180 tabs 10/09/23 atorvastatin 20 mg tablet 20 mg PO DAILY #90 tabs 10/09/23 lorazepam 0.5 mg tablet 0.5 mg PO DAILY PRN anxiety #30 07/05/24 tabs apixaban 5 mg tablet (Eliquis) 5 mg PO BID #180 tabs 08/15/24 Allergies Allergy/AdvReac Type Severity Reaction Status Date / Time meperidine [Demerol] Allergy Intermediate syncope Verified 08/18/24 06:42 nitrofurantoin Allergy Intermediate Rash Verified 08/18/24 06:42 [From Macrobid] paroxetine [From PAXIL] Allergy Intermediate SYNCOPE Verified 08/18/24 06:42 shellfish derived Allergy Intermediate HIVES Verified 08/18/24 06:42 [SHELLFISH DERIVED] ondansetron [From Zofran] Allergy Nausea Verified 08/18/24 06:42 azithromycin AdvReac presyncope Verified 08/18/24 06:42 [From ZITHROMAX Z-NAYLA] Review of Systems Review of Systems Constitutional : No Weight loss, No Fever, No Chills ENT/Mouth : No sore throat, No Rhinorrhea Eyes: No Swelling, No Redness Cardiovascular : No Chest Pain, No SOB, NoEdema Respiratory : No Cough, No Sputum, No Wheezing Gastrointestinal : Positive Nausea, no Vomiting, no Diarrhea, positive abdominal Pain, No Hematochezia, No Melena Genitourinary : No Dysuria, No Urinary Frequency, No Hematuria, No Urgency Musculoskeletal : No joint pain, No Myalgias, No Joint Swelling, pos back pain Skin : No Skin Lesions, No rash Neuro : No Weakness, No Numbness, No Dizziness, No Headache Psych : No Anxiety/Panic, No Depression Heme/Lymph: No Bruising, No Lymphadenopathy Endocrine : No Polyuria, No Polydipsia All other systems reviewed and are negative. [facility] Past Medical History Attestation statement: The following information was validated with the patient. Source: old records reviewed Medical History Chronic constipation Closed lumbar vertebral fracture Gout Osteopenia Tubular adenoma of colon Hypertension Hypercholesterolemia Paroxysmal atrial fibrillation Surgical History Fracture of lumbar spine History of colonoscopy History of tonsillectomy History of tubal ligation Family History Family History Father Diabetes Social History Social History Household Members: None Housing: Apartment Housing Other:: independent living Do you presently have visiting nurse or other home services: No Alcohol intake: current Alcohol intake frequency: 0-2 drinks per day Alcohol type: wine Comment: sleeping Patient Tobacco Use Status: Never used Tobacco Smoked in Last 30 Days: No e-Cigarette/Vaping Use: Never Used Second Hand Smoke Exposure: No Use of substances other than those prescribed or required for medical reasons: No Advance Directives: No Advance Directives Information Provided: Yes Do you have a plan to hurt others: No Plan service: No Current occupational status: retired Cognitive needs: No Hearing needs: No Vision needs: Yes Physical Exam ED Vital Signs: Vital Signs - 24 hr 08/18/24 06:38 08/18/24 07:37 08/18/24 08:13 Temperature 97.8 F Pulse Rate 110 H 110 H 94 Respiratory Rate 15 16 Blood Pressure 153/90 H 153/90 H 121/82 Pulse Oximetry 98 96 Oxygen Delivery Method Room Air Room Air 08/18/24 11:20 08/18/24 14:15 Temperature 97.9 F 97.9 F Pulse Rate 75 87 Respiratory Rate 16 16 Blood Pressure 114/72 151/75 H Pulse Oximetry 98 98 Oxygen Delivery Method Room Air Room Air BMI result Body Mass Index 24.6 Appearance: Alert. Oriented X3. No acute distress. Eyes: Pupils equal, round and reactive to light. ENT: Pharynx normal. Neck: Normal inspection. Neck supple. CVS: tachycardic irregular heart rate and rhythm. Pulses normal. Respiratory: No respiratory distress. Breath sounds normal. Abdomen: Soft with some mild upper distention and mild ttp in epigastric region no rebound Skin: Skin warm and dry. Normal skin color. Normal skin turgor. Extremities: trace edema both ankles No calf ttp Neuro: Oriented X 3. No motor deficit. No sensory deficit. Medical Decision Making Medical Decision Making [facility] Narrative: 84 yo female with PMH of constipation, abdominal pain, GERD, anxiety, HLD, PAF on eliquis, IBS, compression fracture of L3 vertebra, HTN here with c/o distention, pain and nausea at this time she has not had abdominal surgery she does have hx of constipation and IBS - will obtain basic labs, EKG, CT scan for ileus, SBO, mass - IV tylenol and pepcid ordered. Her home dose of atenolol as well if she remains in rapid afib will add on lopressor. She has no eda chest pain doubt ACS. Differential Diagnosis Differential Diagnoses: The differential diagnosis associated with the presentation includes ileus, SBO, mass, lyte abnormality Admission/Observation Consideration of admission/observation: Escalation of care including admission/observation considered will admit for observation and bowel rest Consult Healthcare Provider Management of the patient was discussed with: Hospitalist (will admit) and [employer] Grinder Operator (Dr. Dela Cruz - no acute surgical needs) Lab Data [facility] Lab Attestation statement: I reviewed the patient's lab results. 08/18/24 06:48 08/18/24 07:12 Labs: Lab Results 08/18/24 08/18/24 08/18/24 Range/Units 06:48 07:12 11:26 WBC 6.0 (4.8-10.8) X10*3/uL RBC 4.38 (4.20-5.50) X10*6/uL Hgb 14.1 (12.0-16.0) g/dl Hct 40.1 (37.0-47.0) % MCV 91.6 (80.0-98.0) fL MCH 32.2 (27.0-33.0) pg MCHC 35.2 H (31.0-35.0) g/dl RDW 12.4 (11.0-16.0) % Plt Count 214 (160-400) X10*3/uL MPV 9.5 (9.4-12.3) fL Immature Gran % (Auto) 0.3 (0.0-0.4) % Neut % (Auto) 58.1 (45-73) % Lymph % (Auto) 26.8 (20-40) % [place] % (Auto) 10.8 (2-11) % Eos % (Auto) 3.5 (0-4) % Baso % (Auto) 0.5 (0-2) % Lymph # (Auto) 1.6 (1.2-4.9) X10*3/uL [place] # (Auto) 0.7 (0.1-1.2) X10*3/uL Eos # (Auto) 0.2 (0.0-0.4) X10*3/uL Baso # (Auto) 0.0 (0.0-0.2) X10*3/uL Abs Immat Gran (auto) 0.02 (0.00-0.03) X10*3/uL Absolute Neuts (auto) 3.5 (2.0-8.3) x10*3/uL Absolute Nucleated RBC 0.000 (0.0-0.012) X10*3/uL Nucleated RBC % (auto) 0.0 (0.0-0.2) /100WBC Sodium 140 (135-145) mmol/L Potassium 4.0 (3.3-5.1) mmol/L Chloride 110 H (96-108) mmol/L Carbon Dioxide 21 L (22-29) mmol/L Anion Gap 13 (12-20) BUN 10 (9-16) mg/dL Creatinine 0.77 (0.5-1.4) mg/dL Estim Creat Clear Calc 54.8 Estimated GFR > 60 Random Glucose 104 (60-115) mg/dL Calcium 9.3 (8.4-10.2) mg/dL Magnesium 2.0 (1.6-2.6) mg/dL Total Bilirubin 0.5 (0.0-1.0) mg/dL AST 25 (5-31) U/L ALT 22 (0-31) U/L Alkaline Phosphatase 82 (39-117) U/L Troponin I High Sens < 2.7 (<3.5-17.0) ng/L C-Reactive Protein < 0.04 (< or = 0.50) mg/dL B-Natriuretic Peptide 154 H (<100) pg/mL Total Protein 6.3 L (6.5-8.0) g/dL Albumin 3.7 (3.5-5.0) g/dL Lipase 23 (8-78) U/L Urine Color Yellow Urine Appearance Clear Urine pH 7.0 (5.0-9.0) Ur Specific [place] <= 1.005 (1.005-1.025) Urine Protein Negative (Neg-Trace) mg/dL Urine Glucose (UA) Negative (Negative) mg/dL Urine Ketones Negative (Negative) mg/dL Urine Blood Negative (Negative) Urine Nitrite Negative (Negative) Ur Leukocyte Esterase Negative (Negative) Independent Interpretation I performed an independent interpretation of an: EKG and CT Scan (ileus vs PSBO) Interpretation: Rate: 111 Rhythm: afib with RVR Doyle: left Normal QRS complex. ST T wave : no PAIGE, nonspecific ST T wave changes inf leads qTC: 443 prior studies: in afib hx of afib The study has been interpreted contemporaneously by me. . Radiology Impression Discussion of test interpretation with radiology: I have reviewed the radiologist's reading. Independent Historian Clinical information obtained from an independent historian. History obtained from or confirmed by: EMS External Record Review External record reviewed: Office record Medications Administered Discontinued Medications Generic Name Dose Route Start Last Admin Trade Name Freq PRN Reason Stop Dose Admin Atenolol 25 mg 08/18/24 07:14 08/18/24 07:37 Atenolol 25 Mg Tablet PO 08/18/24 07:15 25 mg ONCE ONE Administration Protocol Famotidine 20 mg 08/18/24 07:13 08/18/24 07:48 Famotidine/Pf 20 Mg/2 Ml Vial IVPUSH 08/18/24 07:14 20 mg ONCE ONE Administration Acetaminophen 1,000 mg in 100 mls @ 400 mls/hr 08/18/24 07:13 08/18/24 08:09 Ofirmev IV 08/18/24 07:27 Infused ONCE ONE Infusion Iohexol 100 ml 08/18/24 08:30 08/18/24 08:33 Iohexol 350 Mg/Ml 100 Ml Infus..Btl IV 08/18/24 08:31 85 ml ONCE ONE Administration Discharge Plan Discharge Clinical Impression: Abdominal pain, Ileus Patient Disposition: Admitted As Inpatient Prescriptions: No Action atenolol 25 mg tablet 25 mg PO BID Qty: 180 3RF atorvastatin 20 mg tablet 20 mg PO DAILY Qty: 90 3RF lorazepam 0.5 mg tablet 0.5 mg PO DAILY PRN (Reason: anxiety) Qty: 30 1RF Eliquis 5 mg tablet 5 mg PO BID Qty: 180 2RF Print Language: Ukrainian
[2024-08-18 07:15] LABS: B Type Natriuretic Peptide 154 pg/mL (<100)
[2024-08-18 07:19] LABS: Troponin-I High Sensitivity < 2.7 ng/L (<3.5-17.0)
[2024-08-18 07:37] LABS: Alanine Aminotransferase 22 U/L (0-31); Albumin Level 3.7 g/dL (3.5-5.0); Alkaline Phosphatase 82 U/L (39-117); Anion Gap 13 (12-20); Aspartate Amino Transferase 25 U/L (5-31); Bilirubin Total 0.5 mg/dL (0.0-1.0); Blood Urea Nitrogen 10 mg/dL (9-16); C Reactive Protein < 0.04 mg/dL (< or = 0.50); Calcium 9.3 mg/dL (8.4-10.2); Carbon Dioxide 21 mmol/L (22-29); Chloride 110 mmol/L (96-108); Creatinine Clr Calc Pharmacy 54.8; Estimated Glomerular Filt Rate > 60; Glucose Random 104 mg/dL (60-115); Lipase 23 U/L (8-78); Sodium 140 mmol/L (135-145); Total Protein 6.3 g/dL (6.5-8.0)
[2024-08-18] MEDS: atenoloL 25 MG TABLET PO ×2 (07:37→21:00)
[2024-08-18] MEDS: Famotidine/PF 20 MG/2 ML VIAL IVPUSH (07:48)
[2024-08-18] MEDS: Acetaminophen 1,000 MG/100 ML PIGGYBACK 400 MG IV (07:54)
[2024-08-18] MEDS: iohexoL 350 MG/ML 100 ML INFUS..BTL IV (08:33)
--- NOTE | 2024-08-18 09:23 | PC.NURSE ---
Care of Pt assumed at change of shift. Pt medicated per DEC. VSS and Pt is A&Ox3 Pt assisted to bathroom and tolerated well. CT completed--results pending. Pt gives permission to speak with sister Cornelio about condition. Brief overview given on care up to this point. Cornelio states she and Pts daughter may visit later on.
[2024-08-18 11:35] LABS: Appearance Urine Clear; Color Urine Yellow; Glucose Urine UA Negative (Negative); Leukocyte Esterase Urine Negative (Negative); Nitrite Urine Negative (Negative); Specific Gravity - Urine <= 1.005 (1.005-1.025); Urine Blood Negative (Negative); Urine Ketones Negative (Negative); Urine Protein Negative (Neg-Trace)
--- NOTE | 2024-08-18 12:02 | PC.NURSE ---
assumed care of pt at 1100, remains in afib on monitor, HR 80s-90s, other vss. pt reports improvement in pain to 1/10 after pepcid. pt resting quietly pending CT scan results.
--- NOTE | 2024-08-18 14:13 | PM.CNGS ---
History of Present Illness Consult details Consult date: 08/18/24 Narrative: Patient was a very pleasant 84-year-old female who presents here with family members. At 01:00 o'clock this morning, she was awoken by crampy abdominal pain and abdominal swelling. She eventually had a bowel movement with some relief of her symptoms. Patient has a history of irritable bowel syndrome. Because of unclear etiology and concern of something more ominous, patient presents to the emergency department further evaluation. At present, patient says her abdominal pain has completely resolved. Her abdominal distention also has markedly decreased. She denies any sick contacts. She has not had any unusual diet. No recent foreign travel. No new meds. Chart was reviewed and patient evaluated. A CT scan is very innocuous. Normal white count. PMFSH Past Medical History Medical History Chronic constipation Closed lumbar vertebral fracture Gout Osteopenia Tubular adenoma of colon Hypertension Hypercholesterolemia Paroxysmal atrial fibrillation Family History Family History Father Diabetes Surgical History Surgical History Fracture of lumbar spine History of colonoscopy History of tonsillectomy History of tubal ligation Social History Social History Household Members: None Housing: Apartment Housing Other:: independent living Do you presently have visiting nurse or other home services: No Alcohol intake: current Alcohol intake frequency: 0-2 drinks per day Alcohol type: wine Comment: sleeping Patient Tobacco Use Status: Never used Tobacco Smoked in Last 30 Days: No e-Cigarette/Vaping Use: Never Used Second Hand Smoke Exposure: No Use of substances other than those prescribed or required for medical reasons: No Advance Directives: No Advance Directives Information Provided: Yes Do you have a plan to hurt others: No Plan service: No Current occupational status: retired Cognitive needs: No Hearing needs: No Vision needs: Yes Meds Allergies Allergy/AdvReac Type Severity Reaction Status Date / Time meperidine [Demerol] Allergy Intermediate syncope Verified 08/18/24 06:42 nitrofurantoin Allergy Intermediate Rash Verified 08/18/24 06:42 [From Macrobid] paroxetine [From PAXIL] Allergy Intermediate SYNCOPE Verified 08/18/24 06:42 shellfish derived Allergy Intermediate HIVES Verified 08/18/24 06:42 [SHELLFISH DERIVED] ondansetron [From Zofran] Allergy Nausea Verified 08/18/24 06:42 azithromycin AdvReac presyncope Verified 08/18/24 06:42 [From ZITHROMAX Z-NAYLA] Physical Exam Vital Signs: Vital Signs: Last Vital Signs Temp 97.9 F 08/18/24 11:20 Pulse 75 08/18/24 11:20 Resp 16 08/18/24 11:20 BP 114/72 08/18/24 11:20 Pulse Ox 98 08/18/24 11:20 O2 Del Method Room Air 08/18/24 11:20 BMI result Body Mass Index 24.6 GI: Other: Abdomen mildly corpulent, soft, benign. No evidence of any guarding, rebound, or rigidity. As noted above, patient states that her distention has markedly improved from earlier this morning. Results Labs 08/18/24 06:48 08/18/24 07:12 Labs: Abnormal lab results 08/18/24 08/18/24 Range/Units 06:48 07:12 MCHC 35.2 H (31.0-35.0) g/dl Chloride 110 H (96-108) mmol/L Carbon Dioxide 21 L (22-29) mmol/L B-Natriuretic Peptide 154 H (<100) pg/mL Total Protein 6.3 L (6.5-8.0) g/dL Short CBC 08/18/24 Range/Units 06:48 WBC 6.0 (4.8-10.8) X10*3/uL Hgb 14.1 (12.0-16.0) g/dl Hct 40.1 (37.0-47.0) % Plt Count 214 (160-400) X10*3/uL BMP 08/18/24 07:12 Sodium 140 Potassium 4.0 Chloride 110 H Carbon Dioxide 21 L BUN 10 Creatinine 0.77 Calcium 9.3 Liver Function 08/18/24 Range/Units 07:12 Total Bilirubin 0.5 (0.0-1.0) mg/dL AST 25 (5-31) U/L ALT 22 (0-31) U/L Alkaline Phosphatase 82 (39-117) U/L Albumin 3.7 (3.5-5.0) g/dL Urine 08/18/24 Range/Units 11:26 Urine Color Yellow Urine Appearance Clear Urine pH 7.0 (5.0-9.0) Ur Specific [place] <= 1.005 (1.005-1.025) Urine Protein Negative (Neg-Trace) mg/dL Urine Glucose (UA) Negative (Negative) mg/dL All other labs normal. Assessment and Plan (1) Ileus: Status: Acute Plan At present, no acute surgical issues. Patient may have had a GI bug/gastroenteritis/food poisoning but at present she is asymptomatic and has a benign exam. Briefly discussed with Dr. Parra/ physician. We will follow up p.r.n.. Procedures Date of Service Date of Service: 08/18/24
--- NOTE | 2024-08-18 15:08 | PHA.MEDREC ---
Addendum entered by Bradley Taylor RPh 08/18/24 15:26: MED REC CHECKED BY [facility] Original Note: Pharmacy Consult ? Medication Reconciliation Pharmacy has completed the medication reconciliation. Confirmed medications with patient. Patient was able to confirm she takes Eliquis 5mg tabs 1 tab BID but states she was not able to take one this morning before coming in but took both doses yesterday. She also confirmed she took her medications last night.
--- NOTE | 2024-08-18 15:09 | P.HPHOSP_ITS ---
<Statement entered by Dorian Deng MD - 08/24/24 15:30> the patient was seen and evaluated with PATRICE Su. I agree with her note, assessment and plan with the following. History of Present Illness Date of Service: 08/18/24 Attending physician on admission: Dorian Deng Chief Complaint: Abdominal pain, AFib Patient is a 84-year-old female with a past medical history significant for irritable bowel syndrome with constipation, GERD, anxiety, hyperlipidemia, paroxysmal AFib on Eliquis and atenolol, L3 compression fracture, hypertension, gout, long COVID, who presented to the emergency department this morning after she woke around 01:00 with severe sharp upper abdominal pain radiating to the back. She had associated nausea but no vomiting. She was able to have a very small bowel movement around 1:30AM, but pain persisted. She has not been able to pass gas but does not normally. Her usual bowel regimen includes 1 tsp of milk of magnesia daily although the recommendation by Dr. Damon has been 3 Tbsp daily. She reports that this has been manageable for her. She denies headache, shortness of breath, dyspnea, or chest pain. Review of Systems 2 Constitutional: Constitutional: Denies body ache(s), Denies chills, Denies fever(s) and Denies headache(s) Eyes: Eyes: Denies change in vision ENT: Denies headache(s), Denies nasal congestion and Denies nasal discharge Cardiovascular: Cardiovascular: Denies chest pain, Reports rapid heart rate, Denies lightheadedness and Denies dyspnea Respiratory: Respiratory: Denies cough and Denies dyspnea Gastrointestinal: Gastrointestinal: Reports abdominal pain, Reports constipation, Denies diarrhea, Reports nausea and Denies vomiting Genitourinary: Genitourinary: Denies dysuria Musculoskeletal: Musculoskeletal: Reports back pain (L3 compression fx) and Denies myalgias Integumentary/Breasts: Skin/Breast: Denies rash Neurologic: Denies headache(s) [facility] Medical History Chronic constipation Closed lumbar vertebral fracture Gout Osteopenia Tubular adenoma of colon Hypertension Hypercholesterolemia Paroxysmal atrial fibrillation Functional capacity: independent ambulation Family History Father Diabetes Surgical History Fracture of lumbar spine History of colonoscopy History of tonsillectomy History of tubal ligation Social History Household Members: None Housing: Apartment Housing Other:: independent living Do you presently have visiting nurse or other home services: No Alcohol intake: current Alcohol intake frequency: 0-2 drinks per day Alcohol type: wine Comment: sleeping Patient Tobacco Use Status: Never used Tobacco Smoked in Last 30 Days: No e-Cigarette/Vaping Use: Never Used Second Hand Smoke Exposure: No Use of substances other than those prescribed or required for medical reasons: No Advance Directives: No Advance Directives Information Provided: Yes Do you have a plan to hurt others: No Plan service: No Current occupational status: retired Cognitive needs: No Hearing needs: No Vision needs: Yes Meds Allergies Allergy/AdvReac Type Severity Reaction Status Date / Time meperidine [Demerol] Allergy Intermediate syncope Verified 08/18/24 06:42 nitrofurantoin Allergy Intermediate Rash Verified 08/18/24 06:42 [From Macrobid] paroxetine [From PAXIL] Allergy Intermediate SYNCOPE Verified 08/18/24 06:42 shellfish derived Allergy Intermediate HIVES Verified 08/18/24 06:42 [SHELLFISH DERIVED] ondansetron [From Zofran] Allergy Nausea Verified 08/18/24 06:42 azithromycin AdvReac presyncope Verified 08/18/24 06:42 [From ZITHROMAX Z-NAYLA] Home Medications ?Medication ?Instructions ?Recorded ?Confirmed ?Last Taken ?Type atorvastatin 20 mg tablet 20 mg PO BEDTIME 08/18/24 08/18/24 08/17/24 History vitamins A,C,L-frfj-aiqloj 2,148 1 tab PO BID 08/18/24 08/18/24 08/17/24 History mcg-113 mg-45 mg-17.4 mg tablet (PreserVision AREDS) Physical Exam 2 Vital Signs and Narrative: Vital Signs: Last Vital Signs Temp 97.9 F 08/18/24 14:15 Pulse 87 08/18/24 14:15 Resp 16 08/18/24 14:15 BP 151/75 H 08/18/24 14:15 Pulse Ox 98 08/18/24 14:15 O2 Del Method Room Air 08/18/24 14:15 BMI result Body Mass Index 24.6 General: AOx3, no acute distress, seen with sisters bedside Resp: CTA bilaterally CVS: regular rate, irregularly irregular rhythm GI: hypoactive bowels, NT, no distention Skin: Warm, dry Extremities: No edema Psych: Appropriate affect Results Labs 08/18/24 06:48 08/18/24 07:12 Labs: Laboratory Results - last 24 hr 08/18/24 08/18/24 08/18/24 06:48 07:12 11:26 MCV 91.6 MCH 32.2 MCHC 35.2 H RDW 12.4 Plt Count 214 MPV 9.5 Immature Gran % (Auto) 0.3 Neut % (Auto) 58.1 Lymph % (Auto) 26.8 [place] % (Auto) 10.8 Eos % (Auto) 3.5 Baso % (Auto) 0.5 Lymph # (Auto) 1.6 [place] # (Auto) 0.7 Eos # (Auto) 0.2 Baso # (Auto) 0.0 Abs Immat Gran (auto) 0.02 Absolute Neuts (auto) 3.5 Absolute Nucleated RBC 0.000 Nucleated RBC % (auto) 0.0 Anion Gap 13 Estim Creat Clear Calc 54.8 Estimated GFR > 60 Random Glucose 104 Calcium 9.3 Magnesium 2.0 Total Bilirubin 0.5 AST 25 ALT 22 Alkaline Phosphatase 82 Troponin I High Sens < 2.7 C-Reactive Protein < 0.04 B-Natriuretic Peptide 154 H Total Protein 6.3 L Albumin 3.7 Lipase 23 Urine Color Yellow Urine Appearance Clear Urine pH 7.0 Ur Specific [place] <= 1.005 Urine Protein Negative Urine Glucose (UA) Negative Urine Ketones Negative Urine Blood Negative Urine Nitrite Negative Ur Leukocyte Esterase Negative Imaging Radiologist's Impressions: Impressions Abdomen/Pelvis CT 08/18/24 07:14 IMPRESSION: Regional ileus versus partial/intermittent distal small bowel obstruction. Diverticular disease, sigmoid colon. Coronary artery disease and atherosclerosis disease. Electronically signed by: Harry Bain MD 08/18/2024 01:29 PM EDT Assessment and Plan (1) Paroxysmal atrial fibrillation: Status: Acute (2) Partial small bowel obstruction: Status: Acute Plan Patient is a 84-year-old female with a past medical history significant for irritable bowel syndrome with constipation, GERD, anxiety, hyperlipidemia, paroxysmal AFib on Eliquis and atenolol, L3 compression fracture, hypertension, gout, long COVID, who presented to the emergency department this morning after she woke around 01:00 with severe sharp upper abdominal pain radiating to the back. Pain is improved since being here. Abdominopelvic CT suggestive of regional ileus versus partial/intermittent distal small-bowel obstruction. EKG with AFib with RVR. Ileus vs partial small-bowel obstruction - pain has improved - continue NPO - LR 80mls/hr - electrolytes normal - UA negative - surgical consult-no acute surgical issues, possible gastroenteritis - monitor CBC and BMP A fib with RVR - rate controlled with atenolol - continue atenolol 25 mg b.i.d. - admit to telemetry - switch from Eliquis to Lovenox in case surgical intervention needed for above Anxiety - continue lorazepam Hyperlipidemia - continue atorvastatin HTN - continue atenolol as above Full code VTE prophylaxis: Lovenox Patient with ileus versus partial small-bowel obstruction and AFib with RVR, admit to med tele for monitoring for improvement of symptoms and stability of AFib for at least 2 midnight stay. Quality Stroke Does the patient have a stroke diagnosis?: No VTE Prior VTE?: No VTE Risk Level:: Medical - moderate - high VTE Device Contraindication: Treatment Not Indicated VTE Drug Contraindication: N/A - Med Ordered
[2024-08-18] MEDS: Lactated Ringers 1,000 ML 80 ML IVCONT (15:45)
[2024-08-18] MEDS: Enoxaparin Sodium 40 MG/0.4 ML SYRINGE SUBCUT (15:49)
[2024-08-18] MEDS: Atorvastatin Calcium 20 MG TABLET PO (21:00)
[2024-08-19 03:19] VITALS: BP 128/91; PULSE 60; RESP 22; TEMP 36.6; O2SAT 99
[2024-08-19] MEDS: Lactated Ringers 1,000 ML 80 ML IVCONT (03:55)
[2024-08-19 07:17] LABS: Hematocrit 39.2 % (37.0-47.0); Hemoglobin 13.2 g/dl (12.0-16.0); Mean Corpuscular HGB Conc 33.7 g/dl (31.0-35.0); Mean Corpuscular Hemoglobin 32.1 pg (27.0-33.0); Mean Corpuscular Volume 95.4 fL (80.0-98.0); Mean Platelet Volume 10.2 fL (9.4-12.3); Platelet Count 184 X10*3/uL (160-400); Red Blood Count 4.11 X10*6/uL (4.20-5.50); Red Cell Distribution Width 12.6 % (11.0-16.0); White Blood Count 5.1 X10*3/uL (4.8-10.8)
[2024-08-19 07:19] VITALS: BP 142/66; PULSE 60; RESP 17; TEMP 36.7; O2SAT 98
[2024-08-19 07:36] LABS: Anion Gap 13 (12-20); Blood Urea Nitrogen 10 mg/dL (9-16); Carbon Dioxide 21 mmol/L (22-29); Chloride 108 mmol/L (96-108); Creatinine Clr Calc Pharmacy 54.8; Estimated Glomerular Filt Rate > 60; Glucose Random 72 mg/dL (60-115); Potassium 4.1 mmol/L (3.3-5.1); Sodium 138 mmol/L (135-145)
[2024-08-19] MEDS: atenoloL 25 MG TABLET PO ×2 (08:14→20:02)
[2024-08-19] MEDS: 0.9 % Sodium Chloride Flush 3 ML SYRINGE IVFLUSH ×2 (08:15→20:03)
--- NOTE | 2024-08-19 08:24 | MHC.CM.PN ---
CM met with Patient at bedside and addressed IMM with her, providing Patient with the original and a copy has been placed on the chart. Patient lives alone in an ILF apartment, where meals and housekeeping are provided. Patient uses a cane and a rollator to assist with mobility. Home/self care is the goal and CM has initiated and will follow for dc planning. PCP is Dr. Isaac Fischer and Daughter/HCP/Elida will transport to home.
--- NOTE | 2024-08-19 10:13 | HO.PM.IMPN ---
Subjective Subjective Date of Service: 08/19/24 Interval History: Seen and evaluated this morning feels better, passing gas asking for diet no other events overnight Review of Systems Review of Systems: Yes all other systems are reviewed and are negative Physical Exam Vital Signs: Vital Signs: Last Vital Signs Temp 98.1 F 08/19/24 07:19 Pulse 60 08/19/24 07:19 Resp 17 08/19/24 07:19 BP 142/66 H 08/19/24 07:19 Pulse Ox 98 08/19/24 07:19 O2 Del Method Room Air 08/19/24 07:19 BMI result Body Mass Index 24.6 Const: Other: Constitutional : Awake, interactive, not in distress Neck : Normal inspection, Supple Cardiovascular : RRR, no JVP, no lower extremity edema Respiratory : good bilateral air entry, no crackles, wheezes or rhonchi Gastrointestinal: soft, lax, improved bowel sounds, Non tender Skin : Warm, Dry Neurological : Alert & oriented x3, No focal deficit , CN 2-12 within normal Objective Data Active Medications Acetaminophen (Acetaminophen 325 Mg Tablet) 650 mg PO Q6H PRN PRN Reason: Pain, Mild (Pain Scale 1-3), fever or headache Atenolol (Atenolol 25 Mg Tablet) 25 mg PO BID [facility]; Protocol Last Admin: 08/19/24 08:14 Dose: 25 mg Documented By: TIKA Atorvastatin Calcium (Atorvastatin Calcium 20 Mg Tablet) 20 mg PO BEDTIME [facility] Last Admin: 08/18/24 21:00 Dose: 20 mg Documented By: KAIA Calcium Carbonate (Calcium Carbonate 750 Mg Tab.Chew) 750 mg PO Q4H PRN PRN Reason: Heartburn Enoxaparin Sodium (Enoxaparin Sodium 40 Mg/0.4 Ml Syringe) 40 mg SUBCUT Q24H [facility] Last Admin: 08/18/24 15:49 Dose: 40 mg Documented By: TYREL Lactated Ringer's (Lr) 1,000 mls @ 80 mls/hr IVCONT .[id number] [facility] Last Infusion: 08/19/24 03:56 Dose: 0 mls/hr Documented By: KAIA Lorazepam (Lorazepam 0.5 Mg Tablet) 0.5 mg PO DAILY PRN PRN Reason: anxiety Magnesium Hydroxide (Milk Of Magnesia 30 Ml Oral.Susp) 30 ml PO DAILY PRN PRN Reason: Constipation Melatonin (Melatonin 3 Mg Tablet) 6 mg PO BEDTIME PRN PRN Reason: Insomnia Ondansetron HCl (Ondansetron Hcl 4 Mg/2 Ml Vial) 4 mg IVPUSH Q8H PRN PRN Reason: Nausea and Vomiting Sodium Chloride (0.9 % Sodium Chloride Flush 3 Ml Syringe) 3 ml IVFLUSH QSHIFT [facility] Last Admin: 08/19/24 08:15 Dose: 3 ml Documented By: TIKA Labs 08/19/24 06:20 08/19/24 06:20 Labs: Laboratory Results - last 24 hr 08/18/24 08/19/24 11:26 06:20 MCV 95.4 MCH 32.1 MCHC 33.7 RDW 12.6 Plt Count 184 MPV 10.2 Absolute Nucleated RBC 0.000 Nucleated RBC % (auto) 0.0 Anion Gap 13 Estim Creat Clear Calc 54.8 Estimated GFR > 60 Random Glucose 72 Calcium 9.0 Urine Color Yellow Urine Appearance Clear Urine pH 7.0 Ur Specific [place] <= 1.005 Urine Protein Negative Urine Glucose (UA) Negative Urine Ketones Negative Urine Blood Negative Urine Nitrite Negative Ur Leukocyte Esterase Negative Assessment and Plan (1) Partial small bowel obstruction: Status: Acute Plan Patient is a 84-year-old female with a past medical history significant for irritable bowel syndrome with constipation, GERD, anxiety, hyperlipidemia, paroxysmal AFib on Eliquis and atenolol, L3 compression fracture, hypertension, gout, long COVID, who presented to the emergency department this morning after she woke around 01:00 with severe sharp upper abdominal pain radiating to the back. Pain is improved since being here. Abdominopelvic CT suggestive of regional ileus versus partial/intermittent distal small-bowel obstruction. EKG with AFib with RVR. Ileus vs partial small-bowel obstruction pain has improved, passing gas now Continue LR 80mls/hr surgery following monitor CBC and BMP Advance diet to clears today A fib with RVR Converted back to sinus continue atenolol 25 mg b.i.d. switched from Eliquis to Lovenox in case surgical intervention needed Anxiety continue lorazepam Hyperlipidemia continue atorvastatin HTN continue atenolol as above Full code VTE prophylaxis: Lovenox Patient with ileus versus partial small-bowel obstruction will need overnight stay for monitoring for improvement obstruction pending increase PO intake and tolerance Quality Stroke Does the patient have a stroke diagnosis?: No VTE Prior VTE?: No VTE Risk Level:: Medical - moderate - high VTE Device Contraindication: Treatment Not Indicated VTE Drug Contraindication: N/A - Med Ordered
[2024-08-19] MEDS: Acetaminophen 1,000 MG/100 ML PIGGYBACK 400 MG IV (10:15)
[2024-08-19 11:55] VITALS: BP 118/82; PULSE 60; RESP 17; TEMP 36.8; O2SAT 100
[2024-08-19] MEDS: Enoxaparin Sodium 40 MG/0.4 ML SYRINGE SUBCUT (14:23)
--- NOTE | 2024-08-19 14:29 | P.CDIM_ITS ---
PROVIDER RESPONSE TEXT: To clarify, the appropriate diagnosis supported by the clinical indicators: Compression fracture L3 vertebra: chronic, due to osteopenia QUERY TEXT: PHYSICIAN'S DOCUMENTATION REQUEST Date of Query: 08/19/2024 12:02 PM EDT Patient Name: Lucinda Nolasco Admit Date: 08/18/2024 Dear Dorian Deng MD, A review of the medical record indicates additional documentation may be needed. Please review below and update the documentation accordingly. Clinical Indicators: Progress notes: Compression fracture L3 vertebra Osteopenia/osteoporosis Back pain Please provide the following additional clarification regarding the fracture Type: Compression fracture L3 vertebra due to osteoporosis, pathological, traumatic, non traumatic etc. Other (explain) Clinically unable to determine (explain) Thank you, Lisa Chang, CCS, CDIS Use of terms such as suspected, likely, concern for, or probable (associated with a specific diagnosi s that is being evaluated, monitored, or treated as if it exists) are acceptable and can be coded in the inpatient se tting, when documented at the time of discharge. Please use your independent medical judgment in providing your response. THIS QUERY IS PART OF THE PERMANENT MEDICAL RECORD
[2024-08-19 15:25] VITALS: BP 156/67; PULSE 50; RESP 18; TEMP 36.6; O2SAT 96
[2024-08-19 19:22] VITALS: BP 152/71; PULSE 58; RESP 16; TEMP 36.6; O2SAT 99
[2024-08-19] MEDS: Atorvastatin Calcium 20 MG TABLET PO (20:02)
[2024-08-20] VITALS (7 sets, daily range): BP systolic 116–178; BP diastolic 61–95; PULSE 57–70; RESP 17–20; TEMP 36.1–36.7; O2SAT 98–100
[2024-08-20 07:13] LABS: Hemoglobin 13.5 g/dl (12.0-16.0); Mean Corpuscular HGB Conc 33.8 g/dl (31.0-35.0); Mean Corpuscular Hemoglobin 31.7 pg (27.0-33.0); Mean Corpuscular Volume 93.9 fL (80.0-98.0); Platelet Count 195 X10*3/uL (160-400); Red Blood Count 4.26 X10*6/uL (4.20-5.50); Red Cell Distribution Width 12.2 % (11.0-16.0); White Blood Count 4.5 X10*3/uL (4.8-10.8)
[2024-08-20] MEDS: atenoloL 25 MG TABLET PO ×2 (07:21→20:14)
[2024-08-20] MEDS: Calcium Carbonate 750 MG TAB.CHEW PO (07:21)
[2024-08-20] MEDS: LORazepam 0.5 MG TABLET PO (07:21)
[2024-08-20 07:29] LABS: Anion Gap 13 (12-20); Blood Urea Nitrogen 8 mg/dL (9-16); Calcium 9.2 mg/dL (8.4-10.2); Carbon Dioxide 25 mmol/L (22-29); Chloride 104 mmol/L (96-108); Creatinine Clr Calc Pharmacy 54.8; Estimated Glomerular Filt Rate > 60; Glucose Random 100 mg/dL (60-115); Potassium 3.6 mmol/L (3.3-5.1); Sodium 138 mmol/L (135-145)
[2024-08-20] MEDS: Morphine Sulfate 2 MG/ML CARTRIDGE 1 MG IVPUSH (08:46)
[2024-08-20] MEDS: 0.9 % Sodium Chloride Flush 3 ML SYRINGE IVFLUSH (08:47)
--- NOTE | 2024-08-20 11:08 | HO.PM.IMPN ---
Subjective Subjective Date of Service: 08/20/24 Interval History: feels better, passing gas no other events overnight pain to abd this morning Review of Systems Review of Systems: Yes all other systems are reviewed and are negative Physical Exam Vital Signs: Vital Signs: Last Vital Signs Temp 97.3 F 08/20/24 07:07 Pulse 70 08/20/24 07:07 Resp 17 08/20/24 07:07 BP 146/82 H 08/20/24 07:07 Pulse Ox 100 08/20/24 07:07 O2 Del Method Room Air 08/20/24 07:07 BMI result Body Mass Index 24.6 Appearing in no acute distress lung sounds are clear to auscultation heart regular rate rhythm, clear S1, S2 positive bowel sounds, abdomen is soft, nontender neuro patient is alert x3, no focal deficits Objective Data Active Medications Acetaminophen (Acetaminophen 325 Mg Tablet) 650 mg PO Q6H PRN PRN Reason: Pain, Mild (Pain Scale 1-3), fever or headache Atenolol (Atenolol 25 Mg Tablet) 25 mg PO BID [facility]; Protocol Last Admin: 08/20/24 07:21 Dose: 25 mg Documented By: GIUSEPPE Atorvastatin Calcium (Atorvastatin Calcium 20 Mg Tablet) 20 mg PO BEDTIME [facility] Last Admin: 08/19/24 20:02 Dose: 20 mg Documented By: LAUREN Calcium Carbonate (Calcium Carbonate 750 Mg Tab.Chew) 750 mg PO Q4H PRN PRN Reason: Heartburn Last Admin: 08/20/24 07:21 Dose: 750 mg Documented By: GIUSEPPE Enoxaparin Sodium (Enoxaparin Sodium 40 Mg/0.4 Ml Syringe) 40 mg SUBCUT Q24H [facility] Last Admin: 08/19/24 14:23 Dose: 40 mg Documented By: TIKA Lactated Ringer's (Lr) 1,000 mls @ 80 mls/hr IVCONT .[id number] [facility] Last Admin: 08/20/24 04:47 Dose: Not Given Documented By: LAUREN Non-Admin Reason: Fluids on hold per day Lorazepam (Lorazepam 0.5 Mg Tablet) 0.5 mg PO DAILY PRN PRN Reason: anxiety Last Admin: 08/20/24 07:21 Dose: 0.5 mg Documented By: HO.RUANES Magnesium Hydroxide (Milk Of Magnesia 30 Ml Oral.Susp) 30 ml PO DAILY PRN PRN Reason: Constipation Melatonin (Melatonin 3 Mg Tablet) 6 mg PO BEDTIME PRN PRN Reason: Insomnia Morphine Sulfate (Morphine Sulfate 2 Mg/Ml Cartridge) 1 mg IVPUSH Q4H PRN; Protocol PRN Reason: Pain, Severe (Pain Scale 7-10) Last Admin: 08/20/24 08:46 Dose: 1 mg Documented By: MANUEL Ondansetron HCl (Ondansetron Hcl 4 Mg/2 Ml Vial) 4 mg IVPUSH Q8H PRN PRN Reason: Nausea and Vomiting Sodium Chloride (0.9 % Sodium Chloride Flush 3 Ml Syringe) [facility] Last Admin: 08/20/24 08:47 Dose: 3 ml Documented By: MANUEL Labs 08/20/24 06:14 08/20/24 06:14 Labs: Laboratory Results - last 24 hr 08/20/24 08/20/24 08/20/24 06:14 06:14 06:14 MCV 93.9 Cancelled MCH 31.7 Cancelled MCHC 33.8 RDW Plt Count MPV Absolute Nucleated RBC Nucleated RBC % (auto) Anion Gap Estim Creat Clear Calc Estimated GFR Random Glucose Calcium 08/20/24 08/20/24 08/20/24 06:14 06:14 06:14 MCV MCH MCHC Cancelled RDW 12.2 Cancelled Plt Count 195 Cancelled MPV 10.0 Absolute Nucleated RBC Nucleated RBC % (auto) Anion Gap Estim Creat Clear Calc Estimated GFR Random Glucose Calcium 08/20/24 08/20/24 08/20/24 06:14 06:14 06:14 MCV MCH MCHC RDW Plt Count MPV Cancelled Absolute Nucleated RBC 0.000 Cancelled Nucleated RBC % (auto) 0.0 Cancelled Anion Gap 13 Estim Creat Clear Calc Estimated GFR Random Glucose Calcium 08/20/24 08/20/24 08/20/24 06:14 06:14 06:14 MCV MCH MCHC RDW Plt Count MPV Absolute Nucleated RBC Nucleated RBC % (auto) Anion Gap Cancelled Estim Creat Clear Calc 54.8 Cancelled Estimated GFR > 60 Cancelled Random Glucose 100 Calcium 08/20/24 08/20/24 06:14 06:14 MCV MCH MCHC RDW Plt Count MPV Absolute Nucleated RBC Nucleated RBC % (auto) Anion Gap Estim Creat Clear Calc Estimated GFR Random Glucose Cancelled Calcium 9.2 Cancelled Assessment and Plan (1) Partial small bowel obstruction: Status: Acute Plan 84-year-old female with a past medical history significant for irritable bowel syndrome with constipation, GERD, anxiety, hyperlipidemia, paroxysmal AFib on Eliquis and atenolol, L3 compression fracture, hypertension, gout, long COVID, who presented to the emergency department this morning after she woke around 01:00 with severe sharp upper abdominal pain radiating to the back. Pain is improved since being here. Abdominopelvic CT suggestive of regional ileus versus partial/intermittent distal small-bowel obstruction. EKG with AFib with RVR. Ileus vs partial small-bowel obstruction Continue LR 80mls/hr surgery following Worse abd pain this morning, repeat abd ct negative Advance diet Afib with RVR Converted back to sinus continue atenolol 25 mg b.i.d. Eliquis Chronic back pain exacerbation ice and heat pads for pain Morphine prn PT consult oob to chair Anxiety continue lorazepam Hyperlipidemia continue atorvastatin HTN continue atenolol as above Full code Attending Dr. Thrasher VTE prophylaxis: Lovenox Quality Stroke Does the patient have a stroke diagnosis?: No VTE Prior VTE?: No VTE Risk Level:: Medical - moderate - high VTE Device Contraindication: Treatment Not Indicated VTE Drug Contraindication: N/A - Med Ordered
[2024-08-20] MEDS: Famotidine/PF 20 MG/2 ML VIAL IVPUSH ×2 (11:53→20:13)
--- NOTE | 2024-08-20 18:29 | PC.NURSE ---
Approximately 0715 pt called for RN to come to bedside. c/o abdominal pain 10/10 across abdomen and into back. BS+X4 although very faint no tenderness noted with palpation, pt reports passing flatus and having a large formed BM overnight as well as a small loose BM this am. SBP elevated into 190's at time. Denies any further pain, no headache, dizziness of vision changes at this time. Denies any numbness/tingling to extremities. Denies chest pain or SOB, NSR on tele 70-80's. Pt very anxious and upset. Pt provided with am atenolol and prn ativan. Provider notified of findings. 0800 pt reports increased discomfort in abdomen with burning feeling to mid epigastric area. Also now with headache and numbness to upper thighs. Tearful and upset. SBP improved at this time. Lesvia Sprague [employer] on unit to patient. PRN morphine ordered and given STAT CT abdomen completed. Pt reports continued pain after morphine although appears more comfortable and less anxious. 1130 IV famotidine ordered and given pt reports good effect and improvement in systems throughout shift. Pt and family requesting nutrition consult for poor appetite order placed.
[2024-08-20] MEDS: Apixaban 5 MG TABLET PO (20:14)
[2024-08-20] MEDS: Atorvastatin Calcium 20 MG TABLET PO (20:14)
[2024-08-21] VITALS (8 sets, daily range): BP systolic 107–154; BP diastolic 55–75; PULSE 52–73; RESP 16–20; TEMP 36.1–36.5; O2SAT 97–99
[2024-08-21] MEDS: 0.9 % Sodium Chloride Flush 3 ML SYRINGE IVFLUSH ×3 (01:00→22:06)
[2024-08-21 07:07] LABS: Hematocrit 39.1 % (37.0-47.0); Hemoglobin 13.1 g/dl (12.0-16.0); Mean Corpuscular HGB Conc 33.5 g/dl (31.0-35.0); Mean Corpuscular Hemoglobin 31.6 pg (27.0-33.0); Mean Corpuscular Volume 94.2 fL (80.0-98.0); Mean Platelet Volume 9.8 fL (9.4-12.3); Platelet Count 194 X10*3/uL (160-400); Red Blood Count 4.15 X10*6/uL (4.20-5.50); Red Cell Distribution Width 12.4 % (11.0-16.0); White Blood Count 4.3 X10*3/uL (4.8-10.8)
[2024-08-21 07:14] LABS: Anion Gap 12 (12-20); Blood Urea Nitrogen 7 mg/dL (9-16); Carbon Dioxide 24 mmol/L (22-29); Chloride 107 mmol/L (96-108); Creatinine Clr Calc Pharmacy 54.1; Estimated Glomerular Filt Rate > 60; Glucose Random 93 mg/dL (60-115); Potassium 3.7 mmol/L (3.3-5.1); Sodium 139 mmol/L (135-145)
[2024-08-21] MEDS: LORazepam 0.5 MG TABLET PO (08:31)
[2024-08-21] MEDS: atenoloL 25 MG TABLET PO ×2 (08:31→22:04)
[2024-08-21] MEDS: Apixaban 5 MG TABLET PO ×2 (08:31→22:06)
[2024-08-21] MEDS: Famotidine/PF 20 MG/2 ML VIAL IVPUSH ×2 (08:32→22:06)
--- NOTE | 2024-08-21 10:39 | P.PNIM_ITS ---
Subjective Subjective Date of Service: 08/21/24 Interval History: feels better, passing gas no other events overnight pain to abd this morning Review of Systems Review of Systems: Yes all other systems are reviewed and are negative Physical Exam 2 Vital Signs: Vital Signs: Last Vital Signs Temp 97.6 F 08/21/24 08:00 Pulse 73 08/21/24 08:31 Resp 16 08/21/24 08:00 BP 154/70 H 08/21/24 08:31 Pulse Ox 99 08/21/24 08:00 O2 Del Method Room Air 08/21/24 08:00 BMI result Body Mass Index 24.6 Appearing in no acute distress lung sounds are clear to auscultation heart regular rate rhythm, clear S1, S2 positive bowel sounds, abdomen is soft, nontender neuro patient is alert x3, no focal deficits Objective Data Active Medications Acetaminophen (Acetaminophen 325 Mg Tablet) 650 mg PO Q6H PRN PRN Reason: Pain, Mild (Pain Scale 1-3), fever or headache Apixaban (Apixaban 5 Mg Tablet) 5 mg PO BID [facility] Last Admin: 08/21/24 08:31 Dose: 5 mg Documented By: NE Atenolol (Atenolol 25 Mg Tablet) 25 mg PO BID [facility]; Protocol Last Admin: 08/21/24 08:31 Dose: 25 mg Documented By: NE Atorvastatin Calcium (Atorvastatin Calcium 20 Mg Tablet) 20 mg PO BEDTIME [facility] Last Admin: 08/20/24 20:14 Dose: 20 mg Documented By: LYNDA Calcium Carbonate (Calcium Carbonate 750 Mg Tab.Chew) 750 mg PO Q4H PRN PRN Reason: Heartburn Last Admin: 08/20/24 07:21 Dose: 750 mg Documented By: GIUSEPPE Famotidine (Famotidine/Pf 20 Mg/2 Ml Vial) 20 mg IVPUSH BID [facility] Last Admin: 08/21/24 08:32 Dose: 20 mg Documented By: NE Lactated Ringer's (Lr) 1,000 mls @ 80 mls/hr IVCONT .[id number] [facility] Last Admin: 08/21/24 05:14 Dose: Not Given Documented By: LYNDA Non-Admin Reason: fluids on hold Lorazepam (Lorazepam 0.5 Mg Tablet) 0.5 mg PO DAILY PRN PRN Reason: anxiety Last Admin: 08/21/24 08:31 Dose: 0.5 mg Documented By: NE Magnesium Hydroxide (Milk Of Magnesia 30 Ml Oral.Susp) 30 ml PO DAILY PRN PRN Reason: Constipation Melatonin (Melatonin 3 Mg Tablet) 6 mg PO BEDTIME PRN PRN Reason: Insomnia Morphine Sulfate (Morphine Sulfate 2 Mg/Ml Cartridge) 1 mg IVPUSH Q4H PRN; Protocol PRN Reason: Pain, Severe (Pain Scale 7-10) Last Admin: 08/20/24 08:46 Dose: 1 mg Documented By: MANUEL Ondansetron HCl (Ondansetron Hcl 4 Mg/2 Ml Vial) 4 mg IVPUSH Q8H PRN PRN Reason: Nausea and Vomiting Sodium Chloride (0.9 % Sodium Chloride Flush 3 Ml Syringe) 3 ml IVFLUSH QSHIFT [facility] Last Admin: 08/21/24 08:32 Dose: 3 ml Documented By: NE Labs 08/21/24 06:09 08/21/24 06:09 Labs: Laboratory Results - last 24 hr 08/21/24 06:09 MCV 94.2 MCH 31.6 MCHC 33.5 RDW 12.4 Plt Count 194 MPV 9.8 Absolute Nucleated RBC 0.000 Nucleated RBC % (auto) 0.0 Anion Gap 12 Estim Creat Clear Calc 54.1 Estimated GFR > 60 Random Glucose 93 Calcium 9.0 Assessment and Plan (1) Partial small bowel obstruction: Status: Acute Plan 84-year-old female with a past medical history significant for irritable bowel syndrome with constipation, GERD, anxiety, hyperlipidemia, paroxysmal AFib on Eliquis and atenolol, L3 compression fracture, hypertension, gout, long COVID, who presented to the emergency department this morning after she woke around 01:00 with severe sharp upper abdominal pain radiating to the back. Pain is improved since being here. Abdominopelvic CT suggestive of regional ileus versus partial/intermittent distal small-bowel obstruction. EKG with AFib with RVR. Ileus vs partial small-bowel obstruction s/p Continue LR 80mls/hr surgery following abd pain resolved Advance diet to solids Afib with RVR Converted back to sinus continue atenolol 25 mg b.i.d. Eliquis Chronic back pain exacerbation ice and heat pads for pain Morphine prn PT consult oob to chair Anxiety continue lorazepam Hyperlipidemia continue atorvastatin HTN continue atenolol as above Full code Attending Dr. Thrasher VTE prophylaxis: Lovenox Quality Stroke Does the patient have a stroke diagnosis?: No VTE Prior VTE?: No VTE Risk Level:: Medical - moderate - high VTE Device Contraindication: Treatment Not Indicated VTE Drug Contraindication: N/A - Med Ordered
[2024-08-21] MEDS: Atorvastatin Calcium 20 MG TABLET PO (22:04)
[2024-08-22] VITALS: BP 126/58; PULSE 57; RESP 18; TEMP 36.1; O2SAT 98
[2024-08-22 04:00] VITALS: BP 165/83; PULSE 62; RESP 16; TEMP 36.1; O2SAT 98
[2024-08-22 05:00] VITALS: BP 147/83; PULSE 55
[2024-08-22 07:25] VITALS: BP 158/89; PULSE 62; RESP 16; TEMP 36.2
--- NOTE | 2024-08-22 07:47 | PM.DS ---
DS: Providers Provider Date of Service: 08/22/24 Date of admission: 08/18/24 15:05 Primary care physician: Isaac Fischer MD DS: Diagnosis Discharge Diagnosis (1) Partial small bowel obstruction: Status: Acute DS: Summary Hospital Course Hospital Course: History and physical as per admitting provider. Patient is a 84-year-old female with a past medical history significant for irritable bowel syndrome with constipation, GERD, anxiety, hyperlipidemia, paroxysmal AFib on Eliquis and atenolol, L3 compression fracture, hypertension, gout, long COVID, who presented to the emergency department this morning after she woke around 01:00 with severe sharp upper abdominal pain radiating to the back. She had associated nausea but no vomiting. She was able to have a very small bowel movement around 1:30AM, but pain persisted. She has not been able to pass gas but does not normally. Her usual bowel regimen includes 1 tsp of milk of magnesia daily although the recommendation by Dr. Damon has been 3 Tbsp daily. She reports that this has been manageable for her. She denies headache, shortness of breath, dyspnea, or chest pain. Ileus and gastritis. s/p Continue LR 80mls/hr, PPI, clear diet advanced to regular, abd pain resolved. Follow up with GI for possible need for colonocopy and/or endoscopy Afib with RVR . Converted back to sinus. continue atenolol 25 mg b.i.d. and Eliquis Chronic back pain exacerbation . ice and heat pads for pain prn Anxiety continue lorazepam prn Hyperlipidemia. continue atorvastatin HTN. continue atenolol as above Time Attestation Discharge Coordination Time (in mins): 40 Quality: Safe Use of Opioids Does Pt have an Active Cancer Diagnosis on the Problem List?: No Quality: Stroke Does the patient have a stroke diagnosis?: No Physical Exam Vital Signs: Vital Signs: Last Vital Signs Temp 97.1 F 08/22/24 07:25 Pulse 62 08/22/24 07:25 Resp 16 08/22/24 07:25 BP 158/89 H 08/22/24 07:25 Pulse Ox 98 08/22/24 04:00 O2 Del Method Room Air 08/22/24 04:00 BMI result Body Mass Index 24.6 Appearing in no acute distress head is normocephalic atraumatic eyes pupils are PERRLA sclera is anicteric mouth throat mucous membranes are intact and moist neck is supple no lymphadenopathy, no JVD noted lung sounds are clear to auscultation heart regular rate rhythm, clear S1, S2 positive bowel sounds, abdomen is soft, nontender neuro patient is alert x3, no focal deficits DS: Data Data Completed and Pending Completed studies during hospitalization [Text1]: Procedures Reposition Lumbar Vertebra, Percutaneous Approach (11/11/20) Reposition Thoracic Vertebra, Percutaneous Approach (11/11/20) Supplement Lumbar Vertebra with Synthetic Substitute, Percutaneous Approach (11/11/20) Supplement Thoracic Vertebra with Synthetic Substitute, Percutaneous Approach (11/11/20) Discharge Plan Discharge Anticipated Discharge Date/Time: 08/22/24 07:45 Patient Disposition: Home, Self-Care Discharge Diagnosis: Abdominal pain Ileus gastriis Referrals: Po,Isaac Zhu MD [Primary Care Provider] - 1 Week Discharge Medications: New famotidine [Pepcid] 20 mg tablet 20 mg PO DAILY Qty: 30 0RF Continued atenolol 25 mg tablet 25 mg PO BID Qty: 180 3RF lorazepam 0.5 mg tablet 0.5 mg PO DAILY PRN (Reason: anxiety) Qty: 30 1RF Eliquis 5 mg tablet 5 mg PO BID Qty: 180 2RF PreserVision AREDS 2,148 mcg-113 mg-45 mg-17.4mg Tablet 1 tab PO BID Rx Instructions: administer with AM and PM meals atorvastatin 20 mg tablet 20 mg PO BEDTIME Discharge Orders: Discharge Order (Routine); Ordered 08/22/24 Ordered By: Mari Sprague Diet: Advance to usual diet Activity on Discharge: As tolerated Stand Alone Forms: Patient Portal Discharge page Print Language: Filipino Care Plan Goals: you have been started on pepcid for gastritis symptoms Health Concerns: Abdominal pain Ileus gastritis Plan of Treatment: Follow-up with primary care provider as needed Take all medications as prescribed Assessment: See discharge summary Discharge Date/Time: 08/22/24 11:11
[2024-08-22] MEDS: atenoloL 25 MG TABLET PO (08:48)
[2024-08-22] MEDS: Apixaban 5 MG TABLET PO (08:48)
[2024-08-22] MEDS: Famotidine/PF 20 MG/2 ML VIAL IVPUSH (08:48)
[2024-08-22] MEDS: 0.9 % Sodium Chloride Flush 3 ML SYRINGE IVFLUSH (08:48)
--- NOTE | 2024-08-22 09:27 | P.DS_ITS ---
DS: Providers Provider Date of Service: 08/22/24 Date of admission: 08/18/24 15:05 Date of discharge: 08/22/24 Primary care physician: Isaac Fischer MD DS: Diagnosis Discharge Diagnosis (1) Partial small bowel obstruction: Status: Acute DS: Summary Hospital Course Hospital Course: History and physical as per admitting provider. Patient is a 84-year-old female with a past medical history significant for irritable bowel syndrome with consti pation, GERD, anxiety, hyperlipidemia, paroxysmal AFib on Eliquis and atenolol, L3 compression fracture, hypertension, gout, long COVID, who presented to the emergency department this morning after she woke around 01:00 with severe sharp upper abdominal pain radiating to the back. She had associated nausea but no vomiting. She was able to have a very small bowel movement around 1:30AM, but pain persisted. She has not been able to pass gas but does not normally. Her usual bowel regimen includes 1 tsp of milk of magnesia daily although the recommendation by Dr. Damon has been 3 Tbsp daily. She reports that this has been manageable for her. She denies headache, shortness of breath, dyspnea, or chest pain. Ileus and gastritis. s/p Continue LR 80mls/hr, PPI, clear diet advanced to regul ar, abd pain resolved. Follow up with GI for possible need for colonocopy and/or endoscopy Afib with RVR . Converted back to sinus. continue atenolol 25 mg b.i.d. and Eliquis Chronic back pain exacerbation . ice and heat pads for pain prn Anxiety continue lorazepam prn Hyperlipidemia. continue atorvastatin HTN. continue atenolol as above Time Attestation Discharge Coordination Time (in mins): 36 Quality: Safe Use of Opioids Does Pt have an Active Cancer Diagnosis on the Problem List?: No Quality: Stroke Does the patient have a stroke diagnosis?: No Physical Exam Vital Signs: Vital Signs: Last Vital Signs Temp 97.1 F 08/22/24 07:25 Pulse 62 08/22/24 07:25 Resp 16 08/22/24 07:25 BP 158/89 H 08/22/24 07:25 Pulse Ox 98 08/22/24 04:00 O2 Del Method Room Air 08/22/24 04:00 BMI result Body Mass Index 24.6 Appearing in no acute distress head is normocephalic atraumatic eyes pupils are PERRLA sclera is anicteric mouth throat mucous membranes are intact and moist neck is supple no lymphadenopathy, no JVD noted lung sounds are clear to auscultation heart regular rate rhythm, clear S1, S2 positive bowel sounds, abdomen is soft, nontender neuro patient is alert x3, no focal deficits DS: Data Data Completed and Pending Completed studies during hospitalization [Text1]: Procedures Reposition Lumbar Vertebra, Percutaneous Approach (11/11/20) Reposition Thoracic Vertebra, Percutaneous Approach (11/11/20) Supplement Lumbar Vertebra with Synthetic Substitute, Percutaneous Approach (11/11/20) Supplement Thoracic Vertebra with Synthetic Substitute, Percutaneous Approach (11/11/20) Discharge Plan Discharge Anticipated Discharge Date/Time: 08/22/24 07:45 Patient Disposition: Home, Self-Care Discharge Diagnosis: Abdominal pain Ileus gastriis Referrals: Po,Isaac Zhu MD [Primary Care Provider] - 1 Week Discharge Medications: New famotidine [Pepcid] 20 mg tablet 20 mg PO DAILY Qty: 30 0RF Continued atenolol 25 mg tablet 25 mg PO BID Qty: 180 3RF lorazepam 0.5 mg tablet 0.5 mg PO DAILY PRN (Reason: anxiety) Qty: 30 1RF Eliquis 5 mg tablet 5 mg PO BID Qty: 180 2RF PreserVision AREDS 2,148 mcg-113 mg-45 mg-17.4mg Tablet 1 tab PO BID Rx Instructions: administer with AM and PM meals atorvastatin 20 mg tablet 20 mg PO BEDTIME Discharge Orders: Discharge Order (Routine); Ordered 08/22/24 Ordered By: Mari Sprague Diet: Advance to usual diet Activity on Discharge: As tolerated Stand Alone Forms: Patient Portal Discharge page Print Language: German Care Plan Goals: you have been started on pepcid for gastritis symptoms Health Concerns: Abdominal pain Ileus gastritis Plan of Treatment: Follow-up with primary care provider as needed Take all medications as prescribed Assessment: See discharge summary
--- NOTE | 2024-08-22 09:42 | MHC.CM.PN ---
Patient has been medically cleared for dc to home today, self care. IMM addressed with Patient at bedside and the original was given to Patient and a copy has been placed on the chart.
== END 2024-08-22 11:11 | disposition home or self-care (01) | DRG 389 ==
LOC: HO.ED 14:17 → HO.EDOVER 15:17 → HO.IMC 16:01
PROVIDERS: Admitting Provider Physician Assistant; Emergency Provider Emergency Medicine; PCP Internal Medicine; Visit Provider Nurse Practitioner Acute Care
DX: K56.7 Ileus, unspecified (principal); M48.56XA Collapsed vertebra, not elsewhere classified, lumbar region, initial encounter for fracture; K29.70 Gastritis, unspecified, without bleeding; I48.0 Paroxysmal atrial fibrillation; F41.9 Anxiety disorder, unspecified; E78.5 Hyperlipidemia, unspecified; K58.1 Irritable bowel syndrome with constipation; M54.9 Dorsalgia, unspecified; M85.88 Other specified disorders of bone density and structure, other site; G89.29 Other chronic pain; I10 Essential (primary) hypertension; Z79.01 Long term (current) use of anticoagulants; Z79.899 Other long term (current) drug therapy
CPT/HCPCS: 36415; 74176; 74177; 80048; 80053; 81003; 83690; 83735; 83880; 84484; 85025; 85027; 86140; 93005; 97161; 99285; J0131; J1650; J2270; J7120; Q9967

== ENCOUNTER → 2024-08-18 06:33 | Outpatient (BNV) | payer MEDICARE, SELFPAY | PROVIDERS: Admitting Provider Physician Assistant; Emergency Provider Emergency Medicine; PCP Internal Medicine; Visit Provider Internal Medicine Cardiovascular Disease | DX: R94.31 Abnormal electrocardiogram [ECG] [EKG] (principal) | CPT/HCPCS: 93010 ==

== ENCOUNTER → 2024-08-18 07:14 | Outpatient (BNV) | payer MEDICARE, SELFPAY | PROVIDERS: Emergency Provider Emergency Medicine; PCP Internal Medicine; Visit Provider Radiology Diagnostic Radiology | DX: R10.9 Unspecified abdominal pain (principal) | CPT/HCPCS: 74177 ==

== ENCOUNTER → 2024-08-18 07:25 | Outpatient (BNV) | payer MEDICARE, SELFPAY | PROVIDERS: Emergency Provider Emergency Medicine; PCP Internal Medicine; Visit Provider Surgery | DX: K56.7 Ileus, unspecified (principal) | CPT/HCPCS: 99284 ==

== ENCOUNTER → 2024-08-18 15:05 | Outpatient (BNV) | payer MEDICARE, SELFPAY | PROVIDERS: Admitting Provider Physician Assistant; Emergency Provider Emergency Medicine; PCP Internal Medicine; Visit Provider Student in an Organized Health Care Education/Training Program | DX: K56.600 Partial intestinal obstruction, unspecified as to cause (principal) | CPT/HCPCS: 99222; 99232; 99239 ==

== ENCOUNTER 2024-08-30 13:57 | Outpatient (AMB) | payer MEDICARE, SELFPAY ==
--- NOTE | 2024-08-30 14:01 | A.OFFPC_ITS ---
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 Accompanied by: Sister Allergies meperidine [Demerol] Allergy (Intermediate, Verified 08/30/24 14:06) syncope nitrofurantoin [From Macrobid] Allergy (Intermediate, Verified 08/30/24 14:06) Rash paroxetine [From PAXIL] Allergy (Intermediate, Verified 08/30/24 14:06) SYNCOPE shellfish derived [SHELLFISH DERIVED] Allergy (Intermediate, Verified 08/30/24 14:06) HIVES ondansetron [From Zofran] Allergy (Verified 08/30/24 14:06) Nausea azithromycin [From ZITHROMAX Z-NAYLA] Adverse Reaction (Verified 08/30/24 14:06) presyncope Tobacco use date assessed: 12/02/23 Fall risk assessment: No Falls in past year Last assessed Fall Risk: 08/30/24 Dental Screening Dental Screen Date: 12/02/23 HPI TCM TCM Information Date of Discharge 08/22/24 Discharged From [facility] HPI Comments History of Present Illness Details 84 y/o female patient [facility]. Patient with past medical history significant for irritable bowel syndrome with constipation, GERD, anxiety, hyperlipidemia, paroxysmal AFib on Eliquis and atenolol, L3 compression fracture, hypertension, and gout. She was admitted at [facility] on 08/18 and discharged home on 08/22/24. She was found to have Partial Small Bowel Obstruction (Ileus). She has an appointment with with [facility] in 1 month. Pt wondering if she can have a sooner appointment, because she is in severe pain. COUNT INCLUDES [facility] Medical History Chronic constipation Closed lumbar vertebral fracture Gout Osteopenia Tubular adenoma of colon Hypertension Hypercholesterolemia Paroxysmal atrial fibrillation Surgical History Fracture of lumbar spine History of colonoscopy History of tonsillectomy History of tubal ligation Family History Father Diabetes Social History Household Members: None Housing: Assisted Living Facility Housing Other:: independent living Do you presently have visiting nurse or other home services: No Alcohol intake: current Alcohol intake frequency: 0-2 drinks per day Alcohol type: wine Comment: sleeping Patient Tobacco Use Status: Never used Tobacco Tobacco use type: Cigarette e-Cigarette/Vaping Use: Never Used Second Hand Smoke Exposure: No service: No Current occupational status: retired Cognitive needs: No Hearing needs: No Vision needs: Yes Questionnaire Thrive Questionnaire Date Thrive assessed: 08/19/24 VAIBHAV-7 AMB Questionnaire VAIBHAV-7 Date VAIBHAV - 7 assessed: 11/18/23 Source: Developed by Drs. Leonidas Edwards, Kait Hong, [place] See and colleagues, with an educational lance from [employer]. Review of Systems Const All systems reviewed & are unremarkable except as noted in HPI and below Physical exam (Primary Care) Vital Signs: Last Vital Signs Pulse 67 08/30/24 14:02 BP 136/80 08/30/24 14:02 Pulse Ox 96 08/30/24 14:02 Oxygen Delivery Method Room Air 08/30/24 14:02 BMI result Body Mass Index 24.9 Tobacco/Smoking Status: Tobacco use Status Tobacco use date assessed 12/02/23 08/30/24 14:02 Patient Tobacco Use Status Never used Tobacco 08/30/24 14:02 Tobacco use type Cigarette 08/30/24 14:08 e-Cigarette/Vaping Use Never Used 08/30/24 14:02 Thrive Assessment: Date of Thrive Assessment Date Thrive assessed 08/19/24 08/30/24 14:02 Const General: cooperative and no acute distress Nutritional Appearance: obese Orientation/consciousness: patient oriented x3 Resp Effort & Inspection: normal respiratory effort Auscultation: clear to auscultation bilaterally Cardio Heart sounds: S1 normal heart sound present and S2 normal heart sound present GI Inspection: Yes Abdominal panniculus present Palpation (GI): Soft to palpation, not firm, Tenderness to palpation present (GI) (generalized tenderness. ), no guarding, not rigid and No hepatosplenomegaly present Skin General skin exam: no rashes or lesions noted Neuro General: patient oriented x3 and moves all extremities Psych Speech and movement: Normal speech and movement present Coding Level of Care Code TCM Mod MDM <= 7 Days Diagnoses Ileus K56.7 Partial small bowel obstruction K56.600 Time Spent (min) 20 Assessment & Plan Assessment & Plan (1) Ileus: Code(s): K56.7 - Ileus, unspecified Plan: Follow up with GI as scheduled. (2) Partial small bowel obstruction: Code(s): K56.600 - Partial intestinal obstruction, unspecified as to cause Plan: Follow up with GI as scheduled.
[2024-08-30 14:02] VITALS: BP 136/80; PULSE 67; O2SAT 96; BMI 24.9
== END 2024-08-30 15:03 | disposition home or self-care (01) ==
LOC: HO.HMCH 13:58
PROVIDERS: PCP Internal Medicine; Visit Provider Nurse Practitioner Family
DX: K56.7 Ileus, unspecified (principal); K56.600 Partial intestinal obstruction, unspecified as to cause

== ENCOUNTER → 2024-08-30 13:57 | Outpatient (BNVA) | payer MEDICARE, SELFPAY | PROVIDERS: PCP Internal Medicine; Visit Provider Nurse Practitioner Family | DX: K56.7 Ileus, unspecified (principal); K56.600 Partial intestinal obstruction, unspecified as to cause | CPT/HCPCS: 99212 ==

== ENCOUNTER 2024-09-01 13:15 | Outpatient (AMB) | payer MEDICARE, SELFPAY ==
[2024-09-01 13:18] VITALS: BP 112/68; PULSE 60; O2SAT 99; BMI 25.1
--- NOTE | 2024-09-01 13:18 | MHC.PC.OV ---
Vital Signs 09/01/24 13:18 Height 5 ft 7 in Weight 160 lb BMI 25.1 BP 112/68 Blood Pressure Location Lt brachial Position Sitting Pulse 60 Pulse Source Pulse Oximeter Pulse Oximetry (%) 99 Oxygen Delivery Method Room Air Intake Visit Reasons: PE Intake Note: Pt wants to be seen by GI sooner than her next appt. She wants PCP to reach out to office to help her get earlier appt. Pt reports brain fog which has been affecting how she articulates what she means. Title I Director Required: No Accompanied by: Daughter Allergies meperidine [Demerol] Allergy (Intermediate, Verified 09/01/24 13:23) syncope nitrofurantoin [From Macrobid] Allergy (Intermediate, Verified 09/01/24 13:23) Rash paroxetine [From PAXIL] Allergy (Intermediate, Verified 09/01/24 13:23) SYNCOPE shellfish derived [SHELLFISH DERIVED] Allergy (Intermediate, Verified 09/01/24 13:23) HIVES ondansetron [From Zofran] Allergy (Verified 09/01/24 13:23) Nausea azithromycin [From ZITHROMAX Z-NAYLA] Adverse Reaction (Verified 09/01/24 13:23) presyncope Medication List - Last Reconciled 09/01/24 by Isaac Fischer MD apixaban (Eliquis) 5 mg PO BID atenolol 25 mg PO BID atorvastatin 20 mg PO BEDTIME famotidine (Pepcid) 20 mg PO DAILY fluoride (sodium) 1.1% (Denta 5000 Plus) 1 appl PO DAILY lorazepam 0.5 mg PO DAILY PRN vitamins A,C,Y-xngd-xqiegx 2,148 mcg-113 mg-45 mg-17.4mg (PreserVision AREDS) 1 tab PO BID Tobacco use date assessed: 12/02/23 Fall risk assessment: No Falls in past year Last assessed Fall Risk: 09/01/24 Dental Screening Dental Screen Date: 12/02/23 HPI PE HPI Details 84-year-old female with a history of lumbar L3 compression fracture hypertension atrial fibrillation hypercholesterolemia GERD osteoporosis and generalized anxiety disorder last seen in 12/15/2023. Seen recently in the office August 30 for hospital discharge for irritable bowel syndrome with constipation found to have partial small-bowel obstruction. Patient was seen by Cardiology March 03 for the atrial fibrillation on atenolol and anticoagulation Eliquis 5 mg twice a day twice a day year blood work requested. [facility] Medical History Chronic constipation Closed lumbar vertebral fracture Gout Osteopenia Tubular adenoma of colon Hypertension Hypercholesterolemia Paroxysmal atrial fibrillation Surgical History Fracture of lumbar spine History of colonoscopy History of tonsillectomy History of tubal ligation Family History Father Diabetes Social History (Updated 09/01/24 @ 13:42 by Isaac Fischer MD) Household Members: None Housing: Assisted Living Facility Housing Other:: independent living Do you presently have visiting nurse or other home services: No Alcohol intake: current Alcohol intake frequency: 0-2 drinks per day Alcohol type: wine Comment: Qd 6 oz red wine Patient Tobacco Use Status: Never used Tobacco Tobacco use type: Cigarette e-Cigarette/Vaping Use: Never Used Second Hand Smoke Exposure: No service: No Current occupational status: retired Cognitive needs: No Hearing needs: No Vision needs: Yes Questionnaire Thrive Questionnaire Date Thrive assessed: 08/19/24 I am a: Patient What is your living situation today?: I have a steady place to live Within the past 12 months, did the food you bought not last and you didn't have the money to get more?: I choose not to answer this question Within the past 12 months, did you worry whether your food would run out before you got money to buy more?: Never true Do you have trouble paying for medicines?: No Do you have trouble getting transportation to medical appointments?: No Do you have trouble paying your heating and electricity bill?: No Do you have trouble taking care of your child, family member or friend?: No Do you have trouble with day-to-day activities such as bathing, preparing meals, shopping, managing finances, etc.?: No Are you currently unemployed and looking for a job?: No Are you interested in more education?: No Please select the resources that you would like help with: None Currently or been in a relationship where the following occur: I choose not to answer THRIVE Score: 0 AUDIT C Alcohol Use Questionnaire (AUDIT-C) 1. How often do you have a drink containing alcohol?: 2-3 times a week 2. How many drinks containing alcohol do you have on a typical day when you are drinking?: 1 or 2 3. How often do you have six or more drinks on one occasion?: Never Total Score: 3 VAIBHAV-7 AMB Questionnaire VAIBHAV-7 Date VAIBHAV - 7 assessed: 11/18/23 Feeling nervous, anxious, or on edge: 1 = Several days Not being able to stop or control worryin = More than half the days Worrying too much about different things: 2 = More than half the days Trouble relaxin = More than half the days Being so restless that it is hard to sit still: 0 = Not at all Becoming easily annoyed or irritable: 0 = Not at all Feeling afraid as if something awful might happen: 2 = More than half the days Total VAIBHAV-7 score (0-4 normal; 5-9 mild; 10-14 moderate; 15-21 severe): 9 Source: Developed by Drs. Leonidas Edwards, Kait Hong, [place] [employer] and colleagues, with an educational lance from [employer]. Review of Systems Const Denies poor appetite and Denies weakness Eyes Denies no additional complaints ENT Reports Normal hearing present, Denies dizziness, Denies nasal congestion, Denies tinnitus and Denies sore throat Card Denies chest pain, Denies syncope, Denies rapid heart rate and Denies dyspnea Resp Denies cough and Denies dyspnea GI Denies change in stool character, Reports constipation, Denies diarrhea, Denies nausea and Denies vomiting Denies urinary frequency, Denies difficulty voiding and Denies dysuria Neuro Reports Normal hearing present, Denies confusion, Denies dizziness, Denies syncope and Denies weakness Psych Denies confusion Physical exam (Primary Care) Vital Signs: Last Vital Signs Pulse 60 09/01/24 13:18 BP 112/68 09/01/24 13:18 Pulse Ox 99 09/01/24 13:18 Oxygen Delivery Method Room Air 09/01/24 13:18 BMI result Body Mass Index 25.1 Tobacco/Smoking Status: Tobacco use Status Tobacco use date assessed 12/02/23 09/01/24 13:20 Patient Tobacco Use Status Never used Tobacco 09/01/24 13:42 Tobacco use type Cigarette 09/01/24 13:42 e-Cigarette/Vaping Use Never Used 09/01/24 13:42 Thrive Assessment: Date of Thrive Assessment Date Thrive assessed 08/19/24 09/01/24 13:20 Currently or been in a relationship where the following occur: I choose not to answer Const General: No confusion Orientation/consciousness: No confusion HENMT Head: Yes normocephalic Ears: external ears normal and TM's normal bilaterally Face and sinus: Yes normal facial exam Mouth: moist mucous membranes Throat: Yes tonsils normal Eyes Conjunctivae: conjunctivae normal Pupils: Equal, round and reactive pupils present and Pupil accommodation reflex normal Direct Ophthalmoscopy: normal light reflex Neck Neck: No lymphadenopathy Thyroid: Thyroid normal Chest Chest palpation & inspection: normal inspection of the chest Resp Effort & Inspection: normal respiratory effort and no audible wheezes Auscultation: clear to auscultation bilaterally, no crackles, no wheezes and lung sounds not diminished Cardio Rate: regular rate Rhythm: regular rhythm Peripheral pulses: radial pulses present and dorsalis pedis present GI Palpation (GI): no masses Auscultation: normal bowel sounds and normoactive bowel sounds Rectal Exam - Female: deferred Skin General skin exam: no rashes or lesions noted Rashes: no rashes Neuro General: No confusion Cranial nerves: Yes Equal, round and reactive pupils present and Yes Normal hearing present Cognition (Neuro): normal cognition Gait exam (Neuro): Normal gait present Motor exam (neuro): 5/5 motor strength present throughout Deep tendon reflexes (DTR's): Right brachioradialis reflex intensity grade: 2+, Left brachioradialis reflex intensity grade: 2+, Right patellar reflex intensity grade: 2+ and Left patellar reflex intensity grade: 2+ Extrem General: No edema Coding Level of Care Code Est Pt Prev Care >65y(30990) Diagnoses Annual physical exam Z00.00 Essential hypertension I10 Hypertension type: essential hypertension Hypercholesterolemia E78.00 Peripheral vascular disease I73.9 Gastroesophageal reflux disease without esophagitis K21.9 Esophagitis presence: without esophagitis Generalized anxiety disorder F41.1 Slow transit constipation K59.01 Constipation type: slow transit constipation Assessment & Plan Assessment & Plan (1) Annual physical exam: Code(s): Z00.00 - Encounter for general adult medical examination without abnormal findings Category: Medical Plan: Patient is advised to eat healthy, keep well hydrated, keep active and have adequate sleep. (2) Hypertension: Code(s): I10 - Essential (primary) hypertension Category: Medical Qualifiers: Hypertension type: essential hypertension Qualified Code(s): I10 - Essential (primary) hypertension Plan: Continue with blood pressure medication. Decrease salt intake and exercise patient is presently on atenolol 25 mg twice a day (3) Hypercholesterolemia: Comment: April 2022 blood work Code(s): E78.00 - Pure hypercholesterolemia, unspecified Category: Medical Plan: Avoid fried foods, chicken skin, eggs, butter margarine, pastries and meat. Be it pork or beef they have a lot of cholesterol LDL goal of less than 130 and triglyceride of less than 150 patient is taking atorvastatin 20 mg at bedtime (4) Peripheral vascular disease: Code(s): I73.9 - Peripheral vascular disease, unspecified Category: Medical Plan: When sitting down elevate the legs, exercise, and support stockings (5) GERD (gastroesophageal reflux disease): Code(s): K21.9 - Gastro-esophageal reflux disease without esophagitis Category: Medical Qualifiers: Esophagitis presence: without esophagitis Qualified Code(s): K21.9 - Gastro-esophageal reflux disease without esophagitis Plan: Avoid the foods that causes that usually spicy foods, tomato products, juices, coffee, soda and foods that your sensitive to. After eating do not lie down, allow 3-4 hours before in lie down. And keep the head of bed above 30 degrees to avoid the acid from going up. (6) Generalized anxiety disorder: Code(s): F41.1 - Generalized anxiety disorder Category: Medical Plan: Continue with present medication (7) Constipation: Code(s): K59.00 - Constipation, unspecified Category: Medical Qualifiers: Constipation type: slow transit constipation Qualified Code(s): K59.01 - Slow transit constipation Plan: Three rules for constipation 1. Diet need to have a high fiber diet less of meat 2. Increase oral fluids 3. Exercise Orders: Orders Complete Blood Count Auto Diff Today R79.89 - Other specified abnormal findings of blood chemistry Comprehensive Met. Panel Today R7.89 - Other specified abnormal findings of blood chemistry Thyroid Stimulating Hormone Today R79.89 - Other specified abnormal findings of blood chemistry Magnesium Today R79.89 - Other specified abnormal findings of blood chemistry Free T4 (Free Thyroxine) Today R79.89 - Other specified abnormal findings of blood chemistry Lipid Panel Today E78.00 - Pure hypercholesterolemia, unspecified, R79.89 - Other specified abnormal findings of blood chemistry Vitamin B12 and Folate Today R79.89 - Other specified abnormal findings of blood chemistry Vitamin D 25-OH Total Today R79.89 - Other specified abnormal findings of blood chemistry UA CC w/rflx Micro + Cult Today R30.0 - Dysuria, R79.89 - Other specified abnormal findings of blood chemistry Medications: New sennosides-docusate sodium 8.6-50 mg (Senna Plus) 2 tab-caps (2 x 8.6-50 mg) PO BEDTIME 60 caps 2RF K59.00 - Constipation, unspecified duloxetine (Cymbalta) 20 mg PO DAILY 30 caps 1RF S32.030A - Wedge compression fracture of third lumbar vertebra, initial encounter for closed fracture Refilled famotidine (Pepcid) 20 mg PO DAILY 90 tabs 3RF gastritis lorazepam 0.5 mg PO DAILY PRN 90 tabs 1RF anxiety F41.1 - Generalized anxiety disorder
== END 2024-09-01 14:20 | disposition home or self-care (01) ==
LOC: HO.HMCH 13:16
PROVIDERS: PCP Internal Medicine; Visit Provider Internal Medicine
DX: Z00.00 Encounter for general adult medical examination without abnormal findings (principal); I10 Essential (primary) hypertension; E78.00 Pure hypercholesterolemia, unspecified; I73.9 Peripheral vascular disease, unspecified; K21.9 Gastro-esophageal reflux disease without esophagitis; F41.1 Generalized anxiety disorder; K59.01 Slow transit constipation

== ENCOUNTER → 2024-09-01 13:15 | Outpatient (BNVA) | payer MEDICARE, SELFPAY | PROVIDERS: PCP Internal Medicine; Visit Provider Internal Medicine | DX: I10 Essential (primary) hypertension (principal); E78.00 Pure hypercholesterolemia, unspecified; I73.9 Peripheral vascular disease, unspecified; K21.9 Gastro-esophageal reflux disease without esophagitis; F41.1 Generalized anxiety disorder; K59.01 Slow transit constipation | CPT/HCPCS: 99397 ==

== ENCOUNTER 2024-12-21 13:10 | Outpatient (REF) | payer MEDICARE, SELFPAY ==
[2024-12-21 14:39] LABS: MANUAL DIFF FLAG NO
[2024-12-21 15:30] LABS: Basophils Percent Auto 0.7 % (0-2); Eosinophils Absolute Auto 0.3 X10*3/uL (0.0-0.4); Eosinophils Percent Auto 4.5 % (0-4); Hematocrit 40.1 % (37.0-47.0); Hemoglobin 13.8 g/dl (12.0-16.0); Imm Gran Abs Auto 0.01 X10*3/uL (0.00-0.03); Imm Gran Pct Auto 0.2 % (0.0-0.4); Lymphocytes Absolute Auto 1.6 X10*3/uL (1.2-4.9); Lymphocytes Percent Auto 28.6 % (20-40); Mean Corpuscular HGB Conc 34.4 g/dl (31.0-35.0); Mean Corpuscular Hemoglobin 31.4 pg (27.0-33.0); Mean Corpuscular Volume 91.3 fL (80.0-98.0); Mean Platelet Volume 10.5 fL (9.4-12.3); Monocytes Absolute Auto 0.7 X10*3/uL (0.1-1.2); Monocytes Percent Auto 11.8 % (2-11); Neutrophils Percent Auto 54.2 % (45-73); Platelet Count 214 X10*3/uL (160-400); Red Blood Count 4.39 X10*6/uL (4.20-5.50); Red Cell Distribution Width 12.6 % (11.0-16.0); White Blood Count 5.6 X10*3/uL (4.8-10.8)
[2024-12-21 15:40] LABS: Appearance Urine Clear; Color Urine Yellow; Glucose Urine UA Negative (Negative); Leukocyte Esterase Urine Negative (Negative); Nitrite Urine Negative (Negative); PH 6.5 (5.0-9.0); Urine Blood Negative (Negative); Urine Ketones Negative (Negative); Urine Protein Negative (Neg-Trace)
[2024-12-21 16:03] LABS: B Type Natriuretic Peptide 136 pg/mL (<100)
[2024-12-21 16:36] LABS: Folate 6.5 ng/mL (> or = 4.0); Vitamin B12 1728 pg/mL (200-900)
[2024-12-21 16:57] LABS: Alanine Aminotransferase 19 U/L (0-31); Albumin Level 3.8 g/dL (3.5-5.0); Alkaline Phosphatase 80 U/L (39-117); Anion Gap 12 (12-20); Aspartate Amino Transferase 26 U/L (5-31); Bilirubin Total 0.6 mg/dL (0.0-1.0); Blood Urea Nitrogen 11 mg/dL (9-16); C Reactive Protein < 0.04 mg/dL (< or = 0.50); Calcium 9.2 mg/dL (8.4-10.2); Carbon Dioxide 23 mmol/L (22-29); Chloride 108 mmol/L (96-108); Estimated Glomerular Filt Rate > 60; Glucose Random 89 mg/dL (60-115); Magnesium 2.1 mg/dL (1.6-2.6); Potassium 4.4 mmol/L (3.3-5.1); Sodium 139 mmol/L (135-145); Total Protein 6.8 g/dL (6.5-8.0)
[2024-12-21 17:15] LABS: Free T4 (Free Thyroxine) 1.03 ng/dL (0.71-1.85); Thyroid Stimulating Hormone 3.04 uIU/mL (0.32-4.0); Vitamin D 25-OH Total 25.5 ng/mL (>30)
--- OUTSIDE RECORDS SUMMARY | 2024-12-21 17:23 | XMS_ITS | Encounter Summary ---
Author Organization [facility] Address [address] [place] [address] Care Team Providers Care Surveying Technician Name Role Phone Unavailable Primary Care Provider Unavailabl e Encounter Details Date Type Department Care Team (Late st Contact Info) Description 09/07/2024 Lab Requisition [facility] - Main Lab [address] [facility] [place] [address] Isaac Fischer MD [address] [place] [address] [address] [facility] [place] [address] Dysuria Social History Tobacco Use Types Packs/Day [...] Urine No growth 09/08/2024 8:12 AM EST [facility]) [facility] Urine Urine specimen obtained by clean catch procedure / Unknown Non-blood Collection / Unknown 09/07/2024 8:00 AM EST 09/07/2024 12:33 PM EST Isaac Fischer MD LAB MICROBIOLOGY - GENERAL ORDER HEIDI Final Result [facility] [address] [place] [address], [place] [phone] * (ABNORMAL) Urinalysis with reflex microscopic and culture (09/07/2024 8:00 AM EST) Specific [place] Urine 1.025 1.003 - 1.030 LAB URINALYSIS - AUTOMATED METHOD 09/07/2024 12:33 PM [facility] pH, Urine 6.0 5.0 - 8.0 pH LAB URINALYSIS - AUTOMATED METHOD 09/07/2024 12:33 PM [facility] Leukocytes, Urine Trace(A) Negative LAB URINALYSIS - AUTOMATED METHOD 09/07/2024 12:33 PM [facility] Nitrite, Urine Negative Negative LAB URINALYSIS - AUTOMATED METHOD 09/07/2024 12:33 PM [facility] Protein, Urine Negative <=Trace mg/dL LAB URINALYSIS - AUTOMATED METHOD 09/07/2024 12:33 PM [facility] Glucose, Urine Negative Negative mg/dL LAB URINALYSIS - AUTOMATED METHOD 09/07/2024 12:33 PM [facility] Ketones, Urine Negative Negative mg/dL LAB URINALYSIS - AUTOMATED METHOD 09/07/2024 12:33 PM [facility] Urobilinogen, Urine 0.2 0.2 - 1.0 mg/dL LAB URINALYSIS - AUTOMATED METHOD 09/07/2024 12:33 PM [facility] Bilirubin, Urine Negative Negative LAB URINALYSIS - AUTOMATED METHOD 09/07/2024 12:33 PM [facility] Blood, Urine Negative Negative LAB URINALYSIS - AUTOMATED METHOD 09/07/2024 12:33 PM [facility] RBC, Urine 5.3(H) 0 - 4 /HPF LAB URINALYSIS - AUTOMATED METHOD 09/07/2024 12:33 PM [facility] WBC, Urine 5.0(H) 0 - 4 /HPF LAB URINALYSIS - AUTOMATED METHOD 09/07/2024 12:33 PM [facility] Squamous Epithelial, Urine 53 0 - 60 /LPF LAB URINALYSIS - AUTOMATED METHOD 09/07/2024 12:33 PM [facility] Bacteria, Urine Negative Negative /HPF LAB URINALYSIS - AUTOMATED METHOD 09/07/2024 12:33 PM [facility] Hyaline Casts, Urine 4.5(H) 0 - 3 /LPF LAB URINALYSIS - AUTOMATED METHOD 09/07/2024 12:33 PM [facility] Urine Urine specimen obtained by clean catch procedure / Unknown Non-blood Collection / Unknown 09/07/2024 8:00 AM EST 09/07/2024 11:43 AM EST us Isaac Fischer MD LAB URINE ORDERABLES Final Resul t Performing Organization Address City/[facility]/ZIP Co de Phone Number [facility] [address] [place] [address], * Carpenter urine culture tube (09/07/2024 8:00 AM EST) Extra Tube Hold for add-ons. 09/07/2024 1:01 PM [facility] Comment:Auto resulted. Urine Urine specimen obtained by clean catch procedure / Unknown Non-blood Collection / Unknown 09/07/2024 8:00 AM EST 09/07/2024 11:43 AM EST us Isaac Fischer MD LAB URINE ORDERABLES Final Resul t [facility] [address] [place] [address], documented in this encounter Visit Diagnoses Diagnosis Dysuria documented in this encounter
--- OUTSIDE RECORDS SUMMARY | 2024-12-21 17:24 | XMS_ITS | Clinical Summary ---
Author Organization [facility] [address] [facility] Address [address] [place] [address] Phone Care Team Providers Care Gasoline Engine Assembler Name Role Phone Unavailable Primary Care Provider [...] mg/dL LAB CHEMISTRY METHOD 09/07/2024 12:[address] [facility] Triglycerides 64 0 - 150 mg/dL LAB CHEMISTRY METHOD 09/07/2024 12:08 PM EST [facility] HDL 63 >=40 mg/dL LAB CHEMISTRY METHOD 09/07/2024 12:08 PM EST [facility] LDL Calculated 86 0 - 100 mg/dL LAB CHEMISTRY METHOD 09/07/2024 12:08 PM EST [facility] VLDL Cholesterol Pablo 12.8 mg/dL LAB CHEMISTRY METHOD 09/07/2024 12:[address] [facility] Non HDL Chol. (LDL+VLDL) 99 <145 mg/dL LAB CHEMISTRY METHOD 09/07/2024 12:08 PM EST [facility] Chol/HDL Ratio 2.6 0.0 - 4.4 LAB CHEMISTRY METHOD 09/07/2024 12:[address] [facility] Blood Venous blood specimen / Unknown Venipuncture / Unknown 09/07/2024 7:44 AM EST 09/07/2024 10:33 AM EST us Isaac Fischer MD LAB BLOOD ORDERABLES Final Resul t [facility] [address] [place] [address], from Last 3 Months or Most Recently Relevant to Health Maintenance Insurance [employer] MEDICARE
--- OUTSIDE RECORDS SUMMARY | 2024-12-21 17:24 | XMS_ITS | Encounter Summary ---
Author Organization [facility] Address [address] [place] [address] Care Team Providers Care Supervisor Mechanic Boilermaking Name Role Phone Unavailable Primary Care Provider Unavailabl e Encounter Details Date Type Department Care Team (Late st Contact Info) Description 09/07/2024 Lab Requisition [facility] - Main Lab [address] [facility] [place] [address] Isaac Fischer MD [address] [place] [address] [address] [facility] [place] [address] Vitamin D deficiency, unspecified; Pure hypercholesterolemia , [...] CBC auto differential (09/07/2024 7:44 AM EST) [facility] WBC 5.1 4.8 - 10.8 K/mcL LAB HEMETOLOGY METHOD 09/07/2024 11:30 AM [facility] RBC 4.50 3.80 - 4.80 M/mcL LAB HEMETOLOGY METHOD 09/07/2024 11:30 AM [facility] Hemoglobin 14.2 11.5 - 16.0 g/dL LAB HEMETOLOGY METHOD 09/07/2024 11:30 AM [facility] Hematocrit 43.3 35.0 - 47.0 % LAB HEMETOLOGY METHOD 09/07/2024 11:30 AM [facility] MCV 95.8 79.0 - 98.0 FL LAB HEMETOLOGY METHOD 09/07/2024 11:30 AM [facility] MCH 31.4 27.0 - 32.0 pcg LAB HEMETOLOGY METHOD 09/07/2024 11:30 AM [facility] MCHC 32.8 32.0 - 37.0 g/dL LAB HEMETOLOGY METHOD 09/07/2024 11:30 AM [facility] RDW 12.7 11.0 - 15.0 % LAB HEMETOLOGY METHOD 09/07/2024 11:30 AM [facility] Platelets 240 130 - 400 K/mcL LAB HEMETOLOGY METHOD 09/07/2024 11:30 AM [facility] MPV 10.2 7.0 - 11.0 FL LAB HEMETOLOGY METHOD 09/07/2024 11:30 AM [facility] NRBC 0.0 <1.0 % LAB HEMETOLOGY METHOD 09/07/2024 11:30 AM [facility] NRBC Absolute 0.00 <0.10 K/mcL LAB HEMETOLOGY METHOD 09/07/2024 11:30 AM [facility] Neutrophils Relative 56.0 % LAB HEMETOLOGY METHOD 09/07/2024 11:30 AM [facility] Lymphocytes Relative 28.4 % LAB HEMETOLOGY METHOD 09/07/2024 11:30 AM [facility] Monocytes Relative 10.1 % LAB HEMETOLOGY METHOD 09/07/2024 11:30 AM [facility] Eosinophils Relative 4.7 % LAB HEMETOLOGY METHOD 09/07/2024 11:30 AM [facility] Basophils Relative 0.6 % LAB HEMETOLOGY METHOD 09/07/2024 11:30 AM [facility] Immature Granulocytes Relative 0.2 % LAB HEMETOLOGY METHOD 09/07/2024 11:30 AM [facility] Neutrophils Absolute 2.84 1.50 - 7.00 K/mcL LAB HEMETOLOGY METHOD 09/07/2024 11:30 AM EST [facility] Lymphocytes Absolute 1.44 1.00 - 5.00 K/mcL LAB HEMETOLOGY METHOD 09/07/2024 11:30 AM EST [facility] Monocytes Absolute 0.51 0.20 - 1.00 [facility] LAB HEMETOLOGY METHOD 09/07/2024 11:30 AM EST [facility] Eosinophils Absolute 0.24 0.00 - 0.50 [facility] LAB HEMETOLOGY METHOD 09/07/2024 11:30 AM EST [facility] Basophils Absolute 0.03 0.00 - 0.20 [facility] LAB HEMETOLOGY METHOD 09/07/2024 11:30 AM [facility] Immature Granulocytes Absolute 0.01 0.00 - 0.03 K/[facility] LAB HEMETOLOGY METHOD 09/07/2024 11:30 AM [facility] Blood Venous blood specimen / Unknown 09/07/2024 7:44 AM EST 09/07/2024 10:33 AM EST Isaac Fischer MD LAB BLOOD ORDERABLES Final Resul t [facility] [address] [place] [address], * Comprehensive metabolic panel (09/07/2024 7:44 AM EST) Sodium 140 133 - 145 mmol/L LAB CHEMISTRY METHOD 09/07/2024 12:08 PM [facility] Potassium 4.3 3.5 - 5.5 mmol/L LAB CHEMISTRY METHOD 09/07/2024 12:08 PM [facility] Chloride 106 96 - 110 mmol/L LAB CHEMISTRY METHOD 09/07/2024 12:08 PM [facility] CO2 26 21 - 32 mmol/L LAB CHEMISTRY METHOD 09/07/2024 12:08 PM [facility] Anion Gap 8 3 - 11 LAB CHEMISTRY METHOD 09/07/2024 12:08 PM [facility] Glucose 84 70 - 100 mg/dL LAB CHEMISTRY METHOD 09/07/2024 12:08 PM [facility] BUN 13 5 - 25 mg/dL LAB CHEMISTRY METHOD 09/07/2024 12:08 PM [facility] Creatinine 0.85 0.50 - 1.10 mg/dL LAB CHEMISTRY METHOD 09/07/2024 12:08 PM [facility] eGFR 68 >=60 mL/min/1. 73m2 LAB CHEMISTRY METHOD 09/07/2024 12:08 PM [facility] Comment:Calculation based on the??Chronic Kidney Disease Epidemiology Collaboration (CKD-EPI) equation refit??without adjustment for race. BUN/Creatinine Ratio 15.3 LAB CHEMISTRY METHOD 09/07/2024 12:08 PM [facility] Calcium 8.9 8.5 - 10.5 mg/dL LAB CHEMISTRY METHOD 09/07/2024 12:08 PM [facility] AST (SGOT) 24 10 - 42 unit/L LAB CHEMISTRY METHOD 09/07/2024 12:08 PM [facility] ALT (SGPT) 27 10 - 60 unit/L LAB CHEMISTRY METHOD 09/07/2024 12:08 PM [facility] Alkaline Phosphatase 93 42 - 121 unit/L LAB CHEMISTRY METHOD 09/07/2024 12:08 PM [facility] Total Protein 6.4 6.0 - 8.0 g/dL LAB CHEMISTRY METHOD 09/07/2024 12:08 PM [facility] Albumin 3.6 3.2 - 5.0 g/dL LAB CHEMISTRY METHOD 09/07/2024 12:08 PM [facility] Total Bilirubin 0.7 0.0 - 1.4 mg/dL LAB CHEMISTRY METHOD 09/07/2024 12:08 PM EST [facility] Blood Venous blood specimen / Unknown Venipuncture / Unknown 09/07/2024 7:44 AM EST 09/07/2024 10:33 AM EST us Isaac Fischer MD LAB BLOOD ORDERABLES Final Resul t Performing Organization Address City/[facility]/ZIP Co de Phone Number [facility] [address] [place] [address], [place] [phone] * Thyroid stimulating hormone (09/07/2024 7:44 AM EST) TSH 3.62 0.40 - 4.00 mcIU/mL LAB CHEMISTRY METHOD 09/07/2024 12:16 PM EST [facility] Blood Venous blood specimen / Unknown Venipuncture / Unknown 09/07/2024 7:44 AM EST 09/07/2024 10:33 AM EST us Isaac Fischer MD LAB BLOOD ORDERABLES Final Resul t Performing Organization Address City/[facility]/ZIP Co de Phone Number [facility] [address] [place] [address], [place] [phone] * Magnesium (09/07/2024 7:44 AM EST) Magnesium 2.0 1.9 - 2.6 mg/dL LAB CHEMISTRY METHOD 09/07/2024 12:08 PM EST [facility] Blood Venous blood specimen / Unknown Venipuncture / Unknown 09/07/2024 7:44 AM EST 09/07/2024 10:33 AM EST us Isaac Fischer MD LAB BLOOD ORDERABLES Final Resul t [facility] [address] [place] [address], [place] [phone] * Lipid panel with reflex to direct LDL (09/07/2024 7:44 AM EST) Cholesterol 162 0 - 200 mg/dL LAB CHEMISTRY METHOD 09/07/2024 12:08 PM [facility] Triglycerides 64 0 - 150 mg/dL LAB CHEMISTRY METHOD 09/07/2024 12:08 PM [facility] HDL 63 >=40 mg/dL LAB CHEMISTRY METHOD 09/07/2024 12:08 PM [facility] LDL Calculated 86 0 - 100 mg/dL LAB CHEMISTRY METHOD 09/07/2024 12:08 PM [facility] VLDL Cholesterol Pablo 12.8 mg/dL LAB CHEMISTRY METHOD 09/07/2024 12:08 PM [facility] Non HDL Chol. (LDL+VLDL) 99 <145 mg/dL LAB CHEMISTRY METHOD 09/07/2024 12:08 PM [facility] Chol/HDL Ratio 2.6 0.0 - 4.4 LAB CHEMISTRY METHOD 09/07/2024 12:08 PM [facility] Blood Venous blood specimen / Unknown Venipuncture / Unknown 09/07/2024 7:44 AM EST 09/07/2024 10:33 AM EST us Isaac Fischer MD LAB BLOOD ORDERABLES Final Resul t [facility] [address] [place] [address], * Thyroxine free (09/07/2024 7:44 AM EST) Free T4 1.17 0.70 - 1.80 ng/dL LAB CHEMISTRY METHOD 09/07/2024 12:16 PM [facility] Blood Venous blood specimen / Unknown Venipuncture / Unknown 09/07/2024 7:44 AM EST 09/07/2024 10:33 AM EST us Isaac Fischer MD LAB BLOOD ORDERABLES Final Resul t Performing Organization Address City/[facility]/ZIP Co de Phone Number [facility] [address] [place] [address], [place] [phone] * (ABNORMAL) Vitamin B12 and folate (09/07/2024 7:44 AM EST) Vitamin B-12 241(L) 250 - 900 pcg/mL LAB CHEMISTRY METHOD 09/07/2024 12:30 PM EST [facility] Folate 5.2 2.8 - 17.0 ng/ml LAB CHEMISTRY METHOD 09/07/2024 12:30 PM EST [facility] Blood Venous blood specimen / Unknown Venipuncture / Unknown 09/07/2024 7:44 AM EST 09/07/2024 10:33 AM EST us Isaac Fischer MD LAB BLOOD ORDERABLES Final Resul t Performing Organization Address [facility] Co de Phone Number [facility] [address] [place] [address], [place] [phone] * (ABNORMAL) Vitamin D 25 hydroxy (09/07/2024 7:44 AM EST) Vit D, 25-Hydroxy 20.3(L) 30.0 - 80.0 ng/mL LAB CHEMISTRY METHOD 09/07/2024 12:16 PM EST [facility] Blood Venous blood specimen / Unknown Venipuncture / Unknown 09/07/2024 7:44 AM EST 09/07/2024 10:33 AM EST us Isaac Fischer MD LAB BLOOD ORDERABLES Final Resul t Performing Organization Address City/[facility]/ZIP Co de Phone Number [facility] [address] [place] [address], [place] [phone] documented in this encounter Visit Diagnoses Diagnosis Vitamin D deficiency, unspecified Pure hypercholesterolemia, unspecified Other specified abnormal findings of blood chemistry documented in this encounter
[2024-12-21 17:51] LABS: Erythrocyte Sedimentation Rate 6 MM/HR (0-20)
[2024-12-25 12:34] LABS: Parietal Cell Antibody <=20.0 Unit (<=20.0)
[2024-12-29 04:44] LABS: Intrinsic Factor Antibodies Negative (Negative)
== END 2024-12-21 13:11 | disposition home or self-care (01) ==
LOC: HO.LAB 13:10
PROVIDERS: PCP Internal Medicine; Visit Provider Internal Medicine
DX: I10 Essential (primary) hypertension (principal); E78.00 Pure hypercholesterolemia, unspecified; K21.9 Gastro-esophageal reflux disease without esophagitis; I73.9 Peripheral vascular disease, unspecified; F41.1 Generalized anxiety disorder; I48.0 Paroxysmal atrial fibrillation; E53.8 Deficiency of other specified B group vitamins; S32.030D Wedge compression fracture of third lumbar vertebra, subsequent encounter for fracture with routine healing; R94.6 Abnormal results of thyroid function studies; R30.0 Dysuria; Z79.899 Other long term (current) drug therapy
CPT/HCPCS: 36415; 80053; 81003; 82306; 82607; 82746; 83516; 83735; 83880; 84439; 84443; 85025; 85652; 86140; 86340; 96127; 99212

== ENCOUNTER 2024-12-21 13:10 | Outpatient (AMB) | payer MEDICARE, SELFPAY ==
[2024-12-21 13:13] VITALS: BP 118/68; PULSE 63; O2SAT 98; BMI 25.7
--- NOTE | 2024-12-21 13:13 | A.OFFPC_ITS ---
Vital Signs 12/21/24 13:13 Height 5 ft 7 in Weight 164 lb BMI 25.7 BP 118/68 Blood Pressure Location Lt brachial Position Sitting Pulse 63 Pulse Source Pulse Oximeter Pulse Oximetry (%) 98 Oxygen Delivery Method Room Air Intake Visit Reasons: constipation, A fib Allergies meperidine [Demerol] Allergy (Intermediate, Verified 12/21/24 13:14) syncope nitrofurantoin [From Macrobid] Allergy (Intermediate, Verified 12/21/24 13:14) Rash paroxetine [From PAXIL] Allergy (Intermediate, Verified 12/21/24 13:14) SYNCOPE shellfish derived [SHELLFISH DERIVED] Allergy (Intermediate, Verified 12/21/24 13:14) HIVES ondansetron [From Zofran] Allergy (Verified 12/21/24 13:14) Nausea azithromycin [From ZITHROMAX Z-NAYLA] Adverse Reaction (Verified 12/21/24 13:14) presyncope Medication List - Last Reconciled 12/21/24 by Isaac Fischer MD apixaban (Eliquis) 5 mg PO BID atenolol 25 mg PO BID atorvastatin 20 mg PO DAILY 90 days duloxetine (Cymbalta) 20 mg PO DAILY famotidine (Pepcid) 20 mg PO DAILY fluoride (sodium) 1.1% (Denta 5000 Plus) 1 appl PO DAILY lorazepam 0.5 mg PO DAILY PRN sennosides-docusate sodium 8.6-50 mg (Senna Plus) 2 tab-caps (2 x 8.6-50 mg) PO BEDTIME vitamins A,C,E-ljwn-lhkouz 2,148 mcg-113 mg-45 mg-17.4mg (PreserVision AREDS) 1 tab PO BID Tobacco use date assessed: 12/21/24 Fall risk assessment: No Falls in past year Last assessed Fall Risk: 12/21/24 Dental Screening Dental Screen Date: 12/21/24 Did you have a dental visit in the last 12 months?: Yes Did you have a dental problem in the last 6 months where you did not have access to dental care?: No Was dental information given to patient?: Patient has dentist HPI constipation, A fib HPI Details AM nausea- fatigue, brain fog, no taste, bloating PFSH Medical History (Updated 12/21/24 @ 13:39 by Isaac Fischer MD) Paroxysmal atrial fibrillation Chronic constipation Closed lumbar vertebral fracture Gout Osteopenia Tubular adenoma of colon Hypertension Hypercholesterolemia Surgical History (Updated 08/30/24 @ 00:03 by Dirk Randolph) Fracture of lumbar spine History of colonoscopy History of tonsillectomy History of tubal ligation Family History Father Diabetes Social History (Updated 09/01/24 @ 13:42 by Isaac Fischer MD) Household Members: None Housing: Assisted Living Facility Housing Other:: independent living Do you presently have visiting nurse or other home services: No Alcohol intake: current Alcohol intake frequency: 0-2 drinks per day Alcohol type: wine Comment: Qd 6 oz red wine Patient Tobacco Use Status: Never used Tobacco Tobacco use type: Cigarette e-Cigarette/Vaping Use: Never Used Second Hand Smoke Exposure: No service: No Current occupational status: retired Cognitive needs: No Hearing needs: No Vision needs: Yes Questionnaire PHQ-9 Over the last 2 weeks, how often have you been bothered by any of the following problems? 1. Little interest or pleasure in doing things: not at all 2. Feeling down, depressed, or hopeless: not at all 3. Trouble falling or staying asleep, or sleeping too much: not at all 4. Feeling tired or having little energy: not at all 5. Poor appetite or overeating: not at all 6. Feeling bad about yourself - or that you are a failure or have let yourself or your family down: not at all 7. Trouble concentrating on things, such as reading the newspaper or watching television: not at all 8. Moving or speaking so slowly that other people could have noticed. Or the opposite - being so fidgety or restless that you have been moving around a lot more than usual: not at all 9. Thoughts that you would be better off or of hurting yourself in some way: not at all Total score: 0 Depression Screening Interpretation: Negative Depression Screening Done: Yes Source: Developed by Drs. Leonidas Edwards, Kait Hong, Kong See and colleagues, with an educational lance from [employer]. Thrive Questionnaire Date Thrive assessed: 12/21/24 I am a: Patient What is your living situation today?: I have a steady place to live Within the past 12 months, did the food you bought not last and you didn't have the money to get more?: Never true Within the past 12 months, did you worry whether your food would run out before you got money to buy more?: Never true Do you have trouble paying for medicines?: No Do you have trouble getting transportation to medical appointments?: No Do you have trouble paying your heating and electricity bill?: No Do you have trouble taking care of your child, family member or friend?: No Do you have trouble with day-to-day activities such as bathing, preparing meals, shopping, managing finances, etc.?: No Are you currently unemployed and looking for a job?: No Are you interested in more education?: No Currently or been in a relationship where the following occur: No concerns reported THRIVE Score: 0 AUDIT C Alcohol Use Questionnaire (AUDIT-C) 1. How often do you have a drink containing alcohol?: 2-3 times a week 2. How many drinks containing alcohol do you have on a typical day when you are drinking?: 1 or 2 3. How often do you have six or more drinks on one occasion?: Never Total Score: 3 VAIBHAV-7 AMB Questionnaire VAIBHAV-7 Date VAIBHAV - 7 assessed: 12/21/24 Feeling nervous, anxious, or on edge: 1 = Several days Not being able to stop or control worryin = More than half the days Worrying too much about different things: 2 = More than half the days Trouble relaxin = More than half the days Being so restless that it is hard to sit still: 0 = Not at all Becoming easily annoyed or irritable: 0 = Not at all Feeling afraid as if something awful might happen: 2 = More than half the days Total VAIBHAV-7 score (0-4 normal; 5-9 mild; 10-14 moderate; 15-21 severe): 9 Source: Developed by Drs. Leonidas Edwards, Kait Hnog, Kong See and colleagues, with an educational lnace from [employer]. VAIBHAV-7 Assessment Billing VAIBHAV-7 Assessment Tool: VAIBHAV-7 Assessment 54851 Physical exam (Primary Care) Vital Signs: Last Vital Signs Pulse 63 12/21/24 13:13 BP 118/68 12/21/24 13:13 Pulse Ox 98 12/21/24 13:13 Oxygen Delivery Method Room Air 12/21/24 13:13 BMI result Body Mass Index 25.7 Tobacco/Smoking Status: Tobacco use Status Tobacco use date assessed 12/21/24 12/21/24 13:21 Patient Tobacco Use Status Never used Tobacco 12/21/24 13:21 Tobacco use type Cigarette 12/21/24 13:21 e-Cigarette/Vaping Use Never Used 12/21/24 13:21 PHQ-9: PHQ-9 Score PHQ-9: Total score 0 12/21/24 13:35 Depression Screening Interpretation: Negative Thrive Assessment: Date of Thrive Assessment Date Thrive assessed 12/21/24 12/21/24 13:21 Currently or been in a relationship where the following occur: No concerns reported Const General: alert; No acute distress Eyes Conjunctivae: conjunctivae normal Resp Auscultation: clear to auscultation bilaterally Cardio Rate: regular rate Rhythm: regular rhythm GI Inspection: Yes normal to inspection Extrem General: Yes normal to inspection and No edema Coding Level of Care Code Est Pt Level 4 (68634) Complex EM visit Add On G2211 Diagnoses Compression fracture of L3 vertebra S32.030A Essential hypertension I10 Hypertension type: essential hypertension Hypercholesterolemia E78.00 Gastroesophageal reflux disease without esophagitis K21.9 Esophagitis presence: without esophagitis Peripheral vascular disease I73.9 Generalized anxiety disorder F41.1 Paroxysmal atrial fibrillation I48.0 Vitamin B 12 deficiency E53.8 Additional Codes VAIBHAV-7 Assessment Billing - VAIBHAV-7 Assessment Tool: VAIBHAV-7 Assessment [id number] ([id number]) Assessment & Plan Assessment & Plan (1) Compression fracture of L3 vertebra: Comment: Walks with cane, MRI 08/2023 Code(s): S32.030A - Wedge compression fracture of third lumbar vertebra, initial encounter for closed fracture Category: Medical Plan: Stable keep active (2) Hypertension: Code(s): I10 - Essential (primary) hypertension Category: Medical Qualifiers: Hypertension type: essential hypertension Qualified Code(s): I10 - Essential (primary) hypertension Plan: Continue with blood pressure medication. Decrease salt intake and exercise on atenolol 25 mg twice a day (3) Hypercholesterolemia: Comment: April 2022 blood work Code(s): E78.00 - Pure hypercholesterolemia, unspecified Category: Medical Plan: Avoid fried foods, chicken skin, eggs, butter margarine, pastries and meat. Be it pork or beef they have a lot of cholesterol LDL goal of less than 130 and triglyceride of less than 150 on atorvastatin 20 mg once a day (4) GERD (gastroesophageal reflux disease): Code(s): K21.9 - Gastro-esophageal reflux disease without esophagitis Category: Medical Qualifiers: Esophagitis presence: without esophagitis Qualified Code(s): K21.9 - Gastro-esophageal reflux disease without esophagitis Plan: Avoid the foods that causes that usually spicy foods, tomato products, juices, coffee, soda and foods that your sensitive to. After eating do not lie down, allow 3-4 hours before in lie down. And keep the head of bed above 30 degrees to avoid the acid from going up. (5) Peripheral vascular disease: Code(s): I73.9 - Peripheral vascular disease, unspecified Category: Medical Plan: When sitting down elevate the legs, exercise, and support stockings (6) Generalized anxiety disorder: Code(s): F41.1 - Generalized anxiety disorder Category: Medical Plan: Continue with present medication duloxetine and lorazepam (7) Paroxysmal atrial fibrillation: Code(s): I48.0 - Paroxysmal atrial fibrillation Category: Medical Plan: Patient on anticoagulation (8) Vitamin B 12 deficiency: Code(s): E53.8 - Deficiency of other specified B group vitamins Category: Medical Plan History of Present Illness The patient is an 84-year-old female presenting for follow-up on multiple chronic conditions, including hypertension, hyperlipidemia, GERD, peripheral vascular disease, and generalized anxiety disorder. She recently experienced symptoms of brain fog and anosmia, likely due to recent COVID-19 infection and vaccination. Past medical history includes a significant hospitalization for small bowel obstruction and ongoing symptoms such as fatigue. Lab results from 2022 reveal controlled cholesterol, vitamin B12 deficiency, and low vitamin D. She manages constipation related to irritable bowel syndrome with dietary changes and supplements. Her medication regimen includes atenolol, atorvastatin, duloxetine, and lorazepam. Health Maintenance - Monitoring of blood pressure; goal to maintain under control with atenolol. - Cholesterol management with atorvastatin with LDL goal less than 130 mg/dL. - Vitamin D supplementation of 2000 IU daily, with potential reduction during sunnier months. - Vitamin B12 supplementation at 2000 mcg daily, retesting for absorption assessment. - Advice for regular eye and dental check-ups. - Discussed potential reduction of vitamin D supplementation when exposed to more sunlight. Social History - Lives at [facility] with 129 residents. - Maintains physical activity to the best of her ability given fatigue. - Reports moderate fluid intake, usually decaf beverages, six glasses of water per day. - Manages constipation with six prunes daily and occasional stool softeners. - Experiences limitations due to [id number] symptoms. Review of Systems - Neurological: Reports brain fog and cognitive impairment. - ENT: Reports anosmia and ageusia. - Gastrointestinal: Reports chronic nausea, constipation, and irritable bowel syndrome. - Musculoskeletal: Reports past compression fracture of L3 vertebra. - General: Reports persistent fatigue. Physical Exam - Musculoskeletal- Strength assessed through finger squeeze and arm lift. - Neurological- No explicit findings recorded during this visit. Results - Labs: Normal electrolytes, normal glucose, BUN 84, creatinine 0.85, normal liver function, cholesterol (total 162, LDL 86, HDL 63, VLDL 12.8), vitamin B12 low at 241, normal folic acid, low vitamin D. - Urinalysis: Normal. - Thyroid Function: Normal. Plan Management of hypertension continues with atenolol 25 mg twice daily. Hyperlipidemia is controlled with atorvastatin 20 mg daily. Vitamin deficiency is being addressed with supplementation and retesting for effectiveness. Management of anxiety involves a regular duloxetine regimen and lorazepam as needed. Continued vitamin D supplementation, with reassessment, is encouraged. Supportive care is given for long COVID symptoms, and the patient is advised on dietary modifications to manage constipation. Patient was informed and verbally consented to the use of an ambient scribe for clinic note documentation during this visit. Discussion Notes During our discussion, I emphasized the importance of maintaining her current medication regimen, particularly the antihypertensive and lipid-lowering therapies. We discussed the role of supplementation in addressing vitamin deficiencies and highlighted the importance of consistent use of prescribed medications for anxiety management. I informed her of the options for supportive care for her [id number] neurological symptoms, advised her on her diet to manage constipation, and highlighted the need for regular monitoring of vitamin levels. It was discussed that vitamin D supplementation might be adjusted with increased sunlight exposure. The patient was informed about the testing of vitamin B12 levels to assess the effectiveness of her supplementation. We agreed on the need for continued close follow-up and routine check-ups, particularly concerning her neurological symptoms. Patient Instructions - Continue taking atenolol 25 mg twice daily as prescribed. - Maintain atorvastatin 20 mg daily for cholesterol management. - Take duloxetine as prescribed regularly, utilize lorazepam as needed for acute anxiety episodes. - Continue vitamin D 2000 IU daily; consider reducing dosage in summer. - Take vitamin B12 supplementation and follow up for re-testing. - Manage constipation with dietary changes and stool softeners as needed. - Adhere to dietary modifications for irritable bowel syndrome. - Be aware of long COVID symptoms; follow supportive care recommendations. - Regular follow-up and testing are essential. - Remain vigilant during flu season, consider wearing a mask in crowded settings. Orders: Orders Vitamin B12 and Folate Today E53.8 - Deficiency of other specified B group vitamins Vitamin D 25-OH Total Today E53.8 - Deficiency of other specified B group vitamins Complete Blood Count Auto Diff Today E53.8 - Deficiency of other specified B group vitamins B Type Natriuretic Peptide Today E53.8 - Deficiency of other specified B group vitamins Erythrocyte Sedimentation Rate Today E53.8 - Deficiency of other specified B group vitamins C Reactive Protein Today E53.8 - Deficiency of other specified B group vitamins Intrinsic Factor Antibodies Today E53.8 - Deficiency of other specified B group vitamins Comprehensive Met. Panel Today E53.8 - Deficiency of other specified B group vitamins Parietal Cell Antibody Today E53.8 - Deficiency of other specified B group vitamins Medications: New cyanocobalamin (vitamin B-12) 1,000 mcg PO DAILY 30 caps 3RF E53.8 - Deficiency of other specified B group vitamins cholecalciferol (vitamin D3) 50 mcg PO DAILY 90 caps 3RF 90 days E55.9 - Vitamin D deficiency, unspecified Refilled duloxetine (Cymbalta) 20 mg PO DAILY 30 caps 1RF S32.030A - Wedge compression fracture of third lumbar vertebra, initial encounter for closed fracture duloxetine (Cymbalta) 20 mg PO DAILY 30 caps 1RF S32.030A - Wedge compression fracture of third lumbar vertebra, initial encounter for closed fracture
--- OUTSIDE RECORDS SUMMARY | 2024-12-21 16:10 | XMS_ITS ---
Author Organization [facility] [place] Address Unknown Allergies, Adverse Reactions, Alerts Substance Reaction Status Noted Date Resolved Date Shell Fish Anaphylaxis active 10/30/2020 Paxil Anaphylaxis active 10/30/2020 Nitrofurantoin Anaphylaxis active 10/30/2020 Meperidine Anaphylaxis active 10/30/2020 Azithromycin Anaphylaxis active 10/30/2020 Problems Problem Status Start Date End Date WEDGE COMPRESSION FRACTURE O F SECOND LUMBAR VERTEBRA, SUBSEQUENT ENCOUNTER FOR FRACTURE WITH ROUTINE HEALING (Primary) (S32.020D - ICD-10-CM) ACTIVE 10/30/2020 WEDGE COMPRESSION FRACTURE O F UNSPECIFIED THORACIC VERTEBRA, SUBSEQUENT ENCOUNTER FOR FRACTURE WITH ROUTINE HEALING (S22.000D - ICD-10-CM) ACTIVE 10/30/2020 LOW BACK PAIN (M54.5 - ICD-10-CM) ACTIVE 021 ANXIETY DISORDER, UNSPECIFIED (F41.9 - ICD-10-CM) ACTI VE 10/30/2020 MAJOR DEPRESSIVE DISORDER, S GITA EPISODE, UNSPECIFIED (F32.9 - ICD-10-CM) ACTIVE 10/30/2020 ESSENTIAL (PRIMARY) HYPERTENSION (I10 - ICD-10-CM) ACT KISHORE 10/30/2020 UNSPECIFIED ATRIAL FIBRILLATION (I48.91 - ICD-10-CM) A CTIVE 10/30/2020 OTHER SPECIFIED DISORDERS OF BONE DENSITY AND STRUCTURE, UNSPECIFIED SITE (M85.80 - ICD-10-CM) ACTIVE 10/30/2020 PURE HYPERCHOLESTEROLEMIA, U NSPECIFIED (E78.00 - ICD-10-CM) ACTIVE 10/30/2020 MUSCLE WEAKNESS (GENERALIZED) (M62.81 - ICD-10-CM) ACT KISHORE 10/30/2020 WEAKNESS (R53.1 - ICD-10-CM) ACTIVE 10/30/2020 Results * Individual Tests: COVID Screening Performed by: Abbot Component Value Range Date SARS coronavirus 2 Ag Negative 2020 12:00 am EST * Individual Tests: COVID Screening Performed by: Abbot Component Value Range Date SARS coronavirus 2 Ag Negative 2020 12:00 am EST * Individual Tests: COVID Screening Performed by: Abbot Component Value Range Date SARS coronavirus 2 Ag Negative 2020 12:00 am EST Encounters Encounter Performer Performer Role Encounter Diagnoses Location Date Discharge - Discharged to home or self care - *Home Care Agency To Be Determined - Private home/apt. with home health services [facility] [place] 10/30/2020 03:57 pm EST - 11/07/2020 11:30 am EST Immunizations Vaccine Date Influenza (high dose) COVID-19 Vaccine Dose 1 Social History
--- OUTSIDE RECORDS SUMMARY | 2024-12-21 16:10 | XMS_ITS | Encounter Summary ---
Author Organization [employer] Address [address] [place] [address] Care Team Providers Care Back Padder Name Role Phone Unavailable Primary Care Provider Unavailabl e Encounter Details Date Type Department Care Team (Late st Contact Info) Description 09/07/2024 Lab Requisition [facility] - Main Lab [address] [facility] [place] [address] Isaac Fischer MD [address] [place] [address] [address] [facility] [place] [address] Vitamin D deficiency, unspecified; Pure hypercholesterolemia , unspecified; Other specified abnormal findings of blood chemistry Social History Tobacco Use Types Packs/Day Years Used Date Smoking Tobacco: Never Assessed Comments Unknown Sex and Gender Information Value Date Recorded Sex Assigned at Not on file Legal Sex Female 11:44 PM EST Gender Identity Not on file Sexual Orientation Not on file documented as of this encounter Plan of Treatment Not on file documented as of this encounter Procedures Procedure Name Priority Date/Time Associated Diagnosis Comments VITAMIN B12 AND FOLATE Routine 7:44 AM EST Pure hypercholesterolemi a, unspecified Other specified abnormal findings of blood chemistry Vitamin D deficiency, unspecified LIPID PANEL WITH REFLEX TO DIRECT LDL Routine 09/07/2024 7:44 AM EST Pure hypercholesterolemi a, unspecified Other specified abnormal findings of blood chemistry Vitamin D deficiency, unspecified CBC WITH AUTO DIFFERENTIAL Routine 09/07/2024 7:44 AM EST Pure hypercholesterolemi a, unspecified Other specified abnormal findings of blood chemistry Vitamin D deficiency, unspecified VITAMIN D 25 HYDROXY Routine 09/07/2024 7:44 AM EST Pure hypercholesterolemi a, unspecified Other specified abnormal findings of blood chemistry Vitamin D deficiency, unspecified CBC AND DIFFERENTIAL Routine 09/07/2024 7:44 AM EST Pure hypercholesterolemi a, unspecified Other specified abnormal findings of blood chemistry Vitamin D deficiency, unspecified THYROID STIMULATING HORMONE Routine 09/07/2024 7:44 AM EST Pure hypercholesterolemi a, unspecified Other specified abnormal findings of blood chemistry Vitamin D deficiency, unspecified THYROXINE FREE Routine 09/07/2024 7:44 AM EST Pure hypercholesterolemi a, unspecified Other specified abnormal findings of blood chemistry Vitamin D deficiency, unspecified MAGNESIUM Routine 09/07/2024 7:44 AM EST Pure hypercholesterolemi a, unspecified Other specified abnormal findings of blood chemistry Vitamin D deficiency, unspecified COMPREHENSIVE METABOLIC PANEL Routine 09/07/2024 7:44 AM EST Pure hypercholesterolemi a, unspecified Other specified abnormal findings of blood chemistry Vitamin D deficiency, unspecified documented in this encounter Results * CBC auto differential (09/07/2024 7:44 AM EST) [facility] WBC 5.1 4.8 - 10.8 K/mcL LAB HEMETOLOGY METHOD 09/07/2024 11:30 AM [facility] RBC 4.50 3.80 - 4.80 M/mcL LAB HEMETOLOGY METHOD 09/07/2024 11:30 AM [facility] Hemoglobin 14.2 11.5 - 16.0 g/dL LAB HEMETOLOGY METHOD 09/07/2024 11:30 AM [facility] Hematocrit 43.3 35.0 - 47.0 % LAB HEMETOLOGY METHOD 09/07/2024 11:30 AM [facility] MCV 95.8 79.0 - 98.0 FL LAB HEMETOLOGY METHOD 09/07/2024 11:30 AM [facility] MCH 31.4 27.0 - 32.0 pcg LAB HEMETOLOGY METHOD 09/07/2024 11:30 AM [facility] MCHC 32.8 32.0 - 37.0 g/dL LAB HEMETOLOGY METHOD 09/07/2024 11:30 AM [facility] RDW 12.7 11.0 - 15.0 % LAB HEMETOLOGY METHOD 09/07/2024 11:30 AM [facility] Platelets 240 130 - 400 K/mcL LAB HEMETOLOGY METHOD 09/07/2024 11:30 AM [facility] MPV 10.2 7.0 - 11.0 FL LAB HEMETOLOGY METHOD 09/07/2024 11:30 AM [facility] NRBC 0.0 <1.0 % LAB HEMETOLOGY METHOD 09/07/2024 11:30 AM [facility] NRBC Absolute 0.00 <0.10 K/mcL LAB HEMETOLOGY METHOD 09/07/2024 11:30 AM [facility] Neutrophils Relative 56.0 % LAB HEMETOLOGY METHOD 09/07/2024 11:30 AM [facility] Lymphocytes Relative 28.4 % LAB HEMETOLOGY METHOD 09/07/2024 11:30 AM [facility] Monocytes Relative 10.1 % LAB HEMETOLOGY METHOD 09/07/2024 11:30 AM [facility] Eosinophils Relative 4.7 % LAB HEMETOLOGY METHOD 09/07/2024 11:30 AM [facility] Basophils Relative 0.6 % LAB HEMETOLOGY METHOD 09/07/2024 11:30 AM [facility] Immature Granulocytes Relative 0.2 % LAB HEMETOLOGY METHOD 09/07/2024 11:30 AM [facility] Neutrophils Absolute 2.84 1.50 - 7.00 K/mcL LAB HEMETOLOGY METHOD 09/07/2024 11:30 AM EST [facility] Lymphocytes Absolute 1.44 1.00 - 5.00 K/mcL LAB HEMETOLOGY METHOD 09/07/2024 11:30 AM EST [facility] Monocytes Absolute 0.51 0.20 - 1.00 K/[facility] LAB HEMETOLOGY METHOD 09/07/2024 11:30 AM EST [facility] Eosinophils Absolute 0.24 0.00 - 0.50 K/[facility] LAB HEMETOLOGY METHOD 09/07/2024 11:30 AM EST [facility] Basophils Absolute 0.03 0.00 - 0.20 K/[facility] LAB HEMETOLOGY METHOD 09/07/2024 11:30 AM [facility] Immature Granulocytes Absolute 0.01 0.00 - 0.03 K/[facility] LAB HEMETOLOGY METHOD 09/07/2024 11:30 AM [facility] Blood Venous blood specimen / Unknown 09/07/2024 7:44 AM EST 09/07/2024 10:33 AM EST Isaac Fischer MD LAB BLOOD ORDERABLES Final Resul t [facility] [address] [place] [address], * Comprehensive metabolic panel (09/07/2024 7:44 AM EST) Sodium 140 133 - 145 mmol/L LAB CHEMISTRY METHOD 09/07/2024 12:08 PM [facility] Potassium 4.3 3.5 - 5.5 mmol/L LAB CHEMISTRY METHOD 09/07/2024 12:08 PM [facility] Chloride 106 96 - 110 mmol/L LAB CHEMISTRY METHOD 09/07/2024 12:08 PM [facility] CO2 26 21 - 32 mmol/L LAB CHEMISTRY METHOD 09/07/2024 12:08 PM [facility] Anion Gap 8 3 - 11 LAB CHEMISTRY METHOD 09/07/2024 12:08 PM [facility] Glucose 84 70 - 100 mg/dL LAB CHEMISTRY METHOD 09/07/2024 12:08 PM [facility] BUN 13 5 - 25 mg/dL LAB CHEMISTRY METHOD 09/07/2024 12:08 PM [facility] Creatinine 0.85 0.50 - 1.10 mg/dL LAB CHEMISTRY METHOD 09/07/2024 12:08 PM [facility] eGFR 68 >=60 mL/min/1. 73m2 LAB CHEMISTRY METHOD 09/07/2024 12:08 PM [facility] Comment:Calculation based on the??Chronic Kidney Disease Epidemiology Collaboration (CKD-EPI) equation refit??without adjustment for race. BUN/Creatinine Ratio 15.3 LAB CHEMISTRY METHOD 09/07/2024 12:08 PM [facility] Calcium 8.9 8.5 - 10.5 mg/dL LAB CHEMISTRY METHOD 09/07/2024 12:08 PM [facility] AST (SGOT) 24 10 - 42 unit/L LAB CHEMISTRY METHOD 09/07/2024 12:08 PM [facility] ALT (SGPT) 27 10 - 60 unit/L LAB CHEMISTRY METHOD 09/07/2024 12:08 PM [facility] Alkaline Phosphatase 93 42 - 121 unit/L LAB CHEMISTRY METHOD 09/07/2024 12:08 PM [facility] Total Protein 6.4 6.0 - 8.0 g/dL LAB CHEMISTRY METHOD 09/07/2024 12:08 PM [facility] Albumin 3.6 3.2 - 5.0 g/dL LAB CHEMISTRY METHOD 09/07/2024 12:08 PM [facility] Total Bilirubin 0.7 0.0 - 1.4 mg/dL LAB CHEMISTRY METHOD 09/07/2024 12:08 PM EST [facility] Blood Venous blood specimen / Unknown Venipuncture / Unknown 09/07/2024 7:44 AM EST 09/07/2024 10:33 AM EST us Isaac Fischer MD LAB BLOOD ORDERABLES Final Resul t Performing Organization Address City/[facility]/ZIP Co de Phone Number [facility] [address] [place] [address], [place] [phone] * Thyroid stimulating hormone (09/07/2024 7:44 AM EST) TSH 3.62 0.40 - 4.00 mcIU/mL LAB CHEMISTRY METHOD 09/07/2024 12:16 PM EST [facility] Blood Venous blood specimen / Unknown Venipuncture / Unknown 09/07/2024 7:44 AM EST 09/07/2024 10:33 AM EST us Isaac Fischer MD LAB BLOOD ORDERABLES Final Resul t Performing Organization Address City/[facility]/ZIP Co de Phone Number [facility] [address] [place] [address], [place] [phone] * Magnesium (09/07/2024 7:44 AM EST) Magnesium 2.0 1.9 - 2.6 mg/dL LAB CHEMISTRY METHOD 09/07/2024 12:08 PM EST [facility] Blood Venous blood specimen / Unknown Venipuncture / Unknown 09/07/2024 7:44 AM EST 09/07/2024 10:33 AM EST us Isaac Fischer MD LAB BLOOD ORDERABLES Final Resul t [facility] [address] [place] [address], [place] [phone] * Lipid panel with reflex to direct LDL (09/07/2024 7:44 AM EST) Cholesterol 162 0 - 200 mg/dL LAB CHEMISTRY METHOD 09/07/2024 12:08 PM [facility] Triglycerides 64 0 - 150 mg/dL LAB CHEMISTRY METHOD 09/07/2024 12:08 PM [facility] HDL 63 >=40 mg/dL LAB CHEMISTRY METHOD 09/07/2024 12:08 PM [facility] LDL Calculated 86 0 - 100 mg/dL LAB CHEMISTRY METHOD 09/07/2024 12:08 PM [facility] VLDL Cholesterol Pablo 12.8 mg/dL LAB CHEMISTRY METHOD 09/07/2024 12:08 PM [facility] Non HDL Chol. (LDL+VLDL) 99 <145 mg/dL LAB CHEMISTRY METHOD 09/07/2024 12:08 PM [facility] Chol/HDL Ratio 2.6 0.0 - 4.4 LAB CHEMISTRY METHOD 09/07/2024 12:08 PM [facility] Blood Venous blood specimen / Unknown Venipuncture / Unknown 09/07/2024 7:44 AM EST 09/07/2024 10:33 AM EST us Isaac Fischer MD LAB BLOOD ORDERABLES Final Resul t [facility] [address] [place] [address], * Thyroxine free (09/07/2024 7:44 AM EST) Free T4 1.17 0.70 - 1.80 ng/dL LAB CHEMISTRY METHOD 09/07/2024 12:16 PM [facility] Blood Venous blood specimen / Unknown Venipuncture / Unknown 09/07/2024 7:44 AM EST 09/07/2024 10:33 AM EST us Isaac Fischer MD LAB BLOOD ORDERABLES Final Resul t Performing Organization Address City/[facility]/ZIP Co de Phone Number [facility] [address] [place] [address], [place] [phone] * (ABNORMAL) Vitamin B12 and folate (09/07/2024 7:44 AM EST) Vitamin B-12 241(L) 250 - 900 pcg/mL LAB CHEMISTRY METHOD 09/07/2024 12:30 PM EST [facility] Folate 5.2 2.8 - 17.0 ng/ml LAB CHEMISTRY METHOD 09/07/2024 12:30 PM EST [facility] Blood Venous blood specimen / Unknown Venipuncture / Unknown 09/07/2024 7:44 AM EST 09/07/2024 10:33 AM EST us Isaac Fischer MD LAB BLOOD ORDERABLES Final Resul t Performing Organization Address [facility] Co de Phone Number [facility] [address] [place] [address], [place] [phone] * (ABNORMAL) Vitamin D 25 hydroxy (09/07/2024 7:44 AM EST) Vit D, 25-Hydroxy 20.3(L) 30.0 - 80.0 ng/mL LAB CHEMISTRY METHOD 09/07/2024 12:16 PM EST [facility] Blood Venous blood specimen / Unknown Venipuncture / Unknown 09/07/2024 7:44 AM EST 09/07/2024 10:33 AM EST us Isaac Fischer MD LAB BLOOD ORDERABLES Final Resul t Performing Organization Address City/[facility]/ZIP Co de Phone Number [facility] [address] [place] [address], [place] [phone] documented in this encounter Visit Diagnoses Diagnosis Vitamin D deficiency, unspecified Pure hypercholesterolemia, unspecified Other specified abnormal findings of blood chemistry documented in this encounter
--- OUTSIDE RECORDS SUMMARY | 2024-12-21 16:10 | XMS_ITS | Encounter Summary ---
Author Organization [employer] Address [address] [place] [address] Care Team Providers Care Leather Patcher Name Role Phone Unavailable Primary Care Provider Unavailabl e Encounter Details Date Type Department Care Team (Late st Contact Info) Description 09/07/[address] [facility] - Main Lab [address] [facility] [employer] [place] [address] Isaac Fischer MD [address] [place] [address] [address] [facility] [place] [address] Dysuria Social History Tobacco Use Types Packs/Day Years [...] Procedure Name Priority Date/Time Associated Diagnosis Comments URINALYSIS WITH REFLEX MICROSCOPIC AND CULTURE Routine 09/07/2024 8:00 AM EST Dysuria CARPENTER URINE CULTURE TUBE Routine 09/07/2024 8:00 AM EST Dysuria URINALYSIS WITH REFLEX MICROSCOPIC AND CULTURE Routine 09/07/2024 8:00 AM EST Dysuria CULTURE URINE Routine 09/07/2024 8:00 AM EST Dysuria documented in this encounter Results * Culture urine (09/07/2024 8:00 AM EST) Culture, Urine No growth 09/08/2024 8:12 AM EST [facility] Urine Urine specimen obtained by clean catch procedure / Unknown Non-blood Collection / Unknown 09/07/2024 8:00 AM EST 09/07/2024 12:33 PM EST Isaac Fischer MD LAB MICROBIOLOGY - GENERAL ORDER HEIDI Final Result [facility] [address] [place] [address], [place] [phone] * (ABNORMAL) Urinalysis with reflex microscopic and culture (09/07/2024 8:00 AM EST) Specific [place] Urine 1.025 1.003 - 1.030 LAB URINALYSIS - AUTOMATED METHOD 09/07/2024 12:33 PM [facility] pH, Urine 6.0 5.0 - 8.0 pH LAB URINALYSIS - AUTOMATED METHOD 09/07/2024 12:33 PM [facility] Leukocytes, Urine Trace(A) Negative LAB URINALYSIS - AUTOMATED METHOD 09/07/2024 12:33 PM [facility] Nitrite, Urine Negative Negative LAB URINALYSIS - AUTOMATED METHOD 09/07/2024 12:33 PM [facility] Protein, Urine Negative <=Trace mg/dL LAB URINALYSIS - AUTOMATED METHOD 09/07/2024 12:33 PM [facility] Glucose, Urine Negative Negative mg/dL LAB URINALYSIS - AUTOMATED METHOD 09/07/2024 12:33 PM [facility] Ketones, Urine Negative Negative mg/dL LAB URINALYSIS - AUTOMATED METHOD 09/07/2024 12:33 PM [facility] Urobilinogen, Urine 0.2 0.2 - 1.0 mg/dL LAB URINALYSIS - AUTOMATED METHOD 09/07/2024 12:33 PM [facility] Bilirubin, Urine Negative Negative LAB URINALYSIS - AUTOMATED METHOD 09/07/2024 12:33 PM [facility] Blood, Urine Negative Negative LAB URINALYSIS - AUTOMATED METHOD 09/07/2024 12:33 PM [facility] RBC, Urine 5.3(H) 0 - 4 /HPF LAB URINALYSIS - AUTOMATED METHOD 09/07/2024 12:33 PM [facility] WBC, Urine 5.0(H) 0 - 4 /HPF LAB URINALYSIS - AUTOMATED METHOD 09/07/2024 12:33 PM [facility] Squamous Epithelial, Urine 53 0 - 60 /LPF LAB URINALYSIS - AUTOMATED METHOD 09/07/2024 12:33 PM [facility] Bacteria, Urine Negative Negative /HPF LAB URINALYSIS - AUTOMATED METHOD 09/07/2024 12:33 PM [facility] Hyaline Casts, Urine 4.5(H) 0 - 3 /LPF LAB URINALYSIS - AUTOMATED METHOD 09/07/2024 12:33 PM [facility] Urine Urine specimen obtained by clean catch procedure / Unknown Non-blood Collection / Unknown 09/07/2024 8:00 AM EST 09/07/2024 11:43 AM EST us Isaac Fischer MD LAB URINE ORDERABLES Final Resul t Performing Organization Address City/[facility]/ZIP Co de Phone Number [facility] [address] [place] [address], * Carpenter urine culture tube (09/07/2024 8:00 AM EST) Extra Tube Hold for add-ons. 09/07/2024 1:01 PM [facility] Comment:Auto resulted. Urine Urine specimen obtained by clean catch procedure / Unknown Non-blood Collection / Unknown 09/07/2024 8:00 AM EST 09/07/2024 11:43 AM EST us Isaac Fischer MD LAB URINE ORDERABLES Final Resul t [facility] ([facility] H[facility] LAB [address] [place] [address], documented in this encounter Visit Diagnoses Diagnosis Dysuria documented in this encounter
--- OUTSIDE RECORDS SUMMARY | 2024-12-21 16:11 | XMS_ITS | Clinical Summary ---
Author Organization [employer] [address] [facility] Address [address] [place] [address] Phone Care Team Providers Care Modern Dancer Name Role Phone Unavailable Primary Care Provider Unavailabl e Social History Tobacco Use Types Packs/Day Years Used Date Smoking Tobacco: Never Assessed Comments Unknown Sex and Gender Information Value Date Recorded Sex Assigned at Not on file Legal Sex Female 11:44 PM EST Gender Identity Not on file Sexual Orientation Not on file Plan of Treatment Health Maintenance Due Date Last Done Comments DTaP,Tdap,and Td Vaccines (1 - Tdap) 1959 Pneumococcal Vaccine: 50+ Ye ars (1 of 1 - PCV) 1990 Zoster Vaccines (1 of 2) 1990 RSV Immunization Patients 60 + Years Old (1 - 1-dose 75+ series) 2015 Depression Screening 09/28/2022 Falls Risk Assessment 09/28/2022 Medicare Annual Wellness Visit 09/28/2022 Osteoporosis Screening (Bone Density Screening) 09/28/2022 Social Influencers of Health Screening 09/28/2022 COVID-19 Vaccine (1 - 2023-2 5 season) 2024 Influenza Vaccine (#1) 2024 Cholesterol Screening (Lipid Panel) 09/07/2029 09/07/2024 HIB Vaccines Aged Out No longer eligi ble based on patient's age to complete this topic HPV Vaccines Aged Out No longer eligi ble based on patient's age to complete this topic Hepatitis A Vaccines Aged Out No long er eligible based on patient's age to complete this topic Hepatitis B Vaccines Aged Out No long er eligible based on patient's age to complete this topic IPV Vaccines Aged Out No longer eligi ble based on patient's age to complete this topic MMR Vaccines Aged Out No longer eligi ble based on patient's age to complete this topic Meningococcal ACWY Vaccine Aged Out N o longer eligible based on patient's age to complete this topic Meningococcal B Vacine Aged Out No lo nger eligible based on patient's age to complete this topic RSV Immunization Patients Un anshu 20 months Aged Out No longer eligible b ased on patient's age to complete this topic Varicella Vaccines Aged Out No longer eligible based on patient's age to complete this topic Procedures Procedure Name Priority Date/Time Associated Diagnosis Comments LIPID PANEL WITH REFLEX TO DIRECT LDL Routine 09/07/2024 7:44 AM EST Pure hypercholesterolemia , unspecified Other specified abnormal findings of blood chemistry Vitamin D deficiency, unspecified from Last 3 Months or Most Recently Relevant to Health Maintenance Results * Lipid panel with reflex to direct LDL (09/07/2024 7:44 AM EST) Cholesterol 162 0 - 200 mg/dL LAB CHEMISTRY METHOD 09/07/2024 12:08 PM [facility] Triglycerides 64 0 - 150 mg/dL LAB CHEMISTRY METHOD 09/07/2024 12:08 PM EST [facility] HDL 63 >=40 mg/dL LAB CHEMISTRY METHOD 09/07/2024 12:08 PM EST [facility] LDL Calculated 86 0 - 100 mg/dL LAB CHEMISTRY METHOD 09/07/2024 12:08 PM EST [facility] VLDL Cholesterol Pablo 12.8 mg/dL LAB CHEMISTRY METHOD 09/07/2024 12:08 PM [facility] Non HDL Chol. (LDL+VLDL) 99 <145 mg/dL LAB CHEMISTRY METHOD 09/07/2024 12:08 PM EST [facility] Chol/HDL Ratio 2.6 0.0 - 4.4 LAB CHEMISTRY METHOD 09/07/2024 12:08 PM [facility] Blood Venous blood specimen / Unknown Venipuncture / Unknown 09/07/2024 7:44 AM EST 09/07/2024 10:33 AM EST us Isaac Fischer MD LAB BLOOD ORDERABLES Final Resul t [facility] [place] ([facility]) HOSPITAL LAB [address] [place] [address], from Last 3 Months or Most Recently Relevant to Health Maintenance Insurance [employer]ICARE
--- OUTSIDE RECORDS SUMMARY | 2024-12-21 16:11 | XMS_ITS ---
Author Organization [facility] Address Unknown Allergies, Adverse Reactions, Alerts Substance Reaction Status Noted Date Resolved Date Zithromax active 11/17/2020 Shell Fish active 11/17/2020 Paroxetine active 11/17/2020 Nitrofurantoin active 11/17/2020 Meperidine active 11/17/2020 Problems Problem Status Start Date End Date WEDGE COMPRESSION FRACTURE O F UNSPECIFIED LUMBAR VERTEBRA, SUBSEQUENT ENCOUNTER FOR FRACTURE WITH ROUTINE HEALING (Primary) (S32.000D - ICD-10-CM) ACTIVE 11/17/2020 COVID-19 (U07.1 - ICD-10-CM) ACTIVE 11/18/2020 LOW BACK PAIN (M54.5 - ICD-10-CM) ACTIVE 021 PURE HYPERCHOLESTEROLEMIA, U NSPECIFIED (E78.00 - ICD-10-CM) ACTIVE 11/18/2020 UNSPECIFIED ATRIAL FIBRILLATION (I48.91 - ICD-10-CM) A CTIVE 11/18/2020 ESSENTIAL (PRIMARY) HYPERTENSION (I10 - ICD-10-CM) ACT 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 11/17/2020 HYPERLIPIDEMIA, UNSPECIFIED (E78.5 - ICD-10-CM) ACTIVE 11/17/2020 MUSCLE WASTING AND ATROPHY, NOT ELSEWHERE CLASSIFIED, RIGHT SHOULDER (M62.511 - ICD-10-CM) ACTIVE 11/17/2020 MUSCLE WASTING AND ATROPHY, NOT ELSEWHERE CLASSIFIED, LEFT SHOULDER (M62.512 - ICD-10-CM) ACTIVE 11/17/2020 DYSPHAGIA, OROPHARYNGEAL PHASE (R13.12 - ICD-10-CM) AC TIVE 11/17/2020 DIFFICULTY IN WALKING, NOT E LSEWHERE CLASSIFIED (R26.2 - ICD-10-CM) ACTIVE 11/17/2020 OTHER MALAISE (R53.81 - ICD-10-CM) ACTIVE 2020 OTHER REDUCED MOBILITY (Z74.09 - ICD-10-CM) ACTIVE 11/17/2020 ANXIETY DISORDER, UNSPECIFIED (F41.9 - ICD-10-CM) ACTI VE 11/17/2020 MAJOR DEPRESSIVE DISORDER, R ECURRENT, UNSPECIFIED (F33.9 - ICD-10-CM) ACTIVE 11/17/2020 GOUT, UNSPECIFIED (M10.9 - ICD-10-CM) ACTIVE OTHER SPECIFIED DISORDERS OF BONE DENSITY AND STRUCTURE, UNSPECIFIED SITE (M85.80 - ICD-10-CM) ACTIVE 11/17/2020 URINARY TRACT INFECTION, SIT E NOT SPECIFIED (N39.0 - ICD-10-CM) ACTIVE 11/17/2020 BENIGN NEOPLASM OF COLON, 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 1 03:07 pm EST - 1 01:30 pm EST Immunizations Vaccine Date Influenza TB 2 Step Mantoux Skin Test 11/18/2020 1 2:00 am EST PCV13 (Pneumococcal Conjugate)Vaccine Social History
--- OUTSIDE RECORDS SUMMARY | 2024-12-21 16:11 | XMS_ITS | Patient Health Record ---
Author Organization [facility] Address [address] [place] [address] [place] [id number] Care Team Providers Care Keno Writer/Runner Name Role Phone JOHNNIE VALENCIA M.D. Primary Care Provider Mitra Paige Unavailable [phone] Allergies Allergen (clinical drug ingredient) Drug/Non Drug Allergy documented on EMR Reaction Allergy Type Onset Date Status Azithromycin nausea Drug Allergy Acti ve meperidine DEMEROL Unknown Drug Allergy Active IODINE Unknown Drug Allergy Active levofloxacin LEVOFLOXACIN Unknown Drug Allergy A ctive Reason For Referral No Information Medications Medication SIG (Take, Route, Frequency, Duration) Notes Start Date End Date Status Vitamin D3 2000 UNIT 1 capsule Orally On day 03/12/2012 Active Atorvastatin Calcium 20MG 1 ORAL daily for -3 [facility] 07/26 Active Eliquis 5 MG TAKE 1 TABLET BY HUONG TH TWICE A DAY Oral for 30 Active Estradiol Vaginal Cream 0.01% 1 Gram Vaginally once a week for 90 days 03/24/2019 Active Atenolol 25MG 1 ORAL twice daily [facility] 03/12/2012 Active Colace 100 MG 2 capsule as needed Orally at night PRN Active Estradiol Vaginal Cream 0.01% 1 Gram Vaginally Twice a week for 90 days 06/22/2020 Active Calcium 600+D 600-400 MG-UNIT 1 tablet after a meal Orally Once a day Active Vitamin C 500 MG Orally Act angela Vitamin B12 1000 MCG 1 tablet Orally Anni ry other day Active Multaq 400 MG 600 mg Orally Twice a day Active Social History Tobacco Use: Social History Observation Description Date Details (start date - stop date) Never Smoker NA - NA Tobacco Use/Smoking Question Answer Notes Are you a nonsmoker Alcohol Screen (Audit-C) Question Answer Notes Did you have a drink containing alcohol in the p ast year? No Points 0 Interpretation Negative Sexual History Question Answer Notes Had sex in the past 12 months (vaginal, oral, or anal)? Yes with Men only Prevention strategies discussed: Other Problems Problem Type SNOMED Code ICD Code Onset Dates Problem Status W/U Status Risk Notes Problem Postmenopausal atrophic vaginitis (31626019) Postmenopausal atrophic vaginitis (N95.2) Active confirmed Problem Atrophy of vulva (852523265) Atrophy of vulva (N90.5) Active confirmed Problem Hyperlipidemia (17697088) Other and unspecified hyperlipidemia (272.4) Active confirmed Major Problem Benign essential hypertension (8006154) Essential hypertension, benign (401.1) Active confirmed Major Problem Atrial fibrillation (97798835) Atrial fibrillation (427.31) Active confirmed Major Problem Irritable bowel syndrome (79756473) Irritable bowel syndrome (564.1) Active confirmed Major Problem Menopausal symptom (41241553) Symptomatic menopausal or female climacteric states (627.2) Active confirmed Major Problem Urinary incontinence (951343275) Unspecified urinary incontinence (788.30) Active confirmed Diag Problem Gynecological examination normal (808287698342065) Routine gynecological examination (V72.31) Active confirmed Major Problem Screening for malignant neoplasm of colon (862915339) Special screening for malignant neoplasms, colon (V76.51) Active confirmed Major Plan Of Treatment Pending Test Test Name Order Date MAMMOGRAM, SCREENING 08/13/2015 MAMMOGRAM, SCREENING 06/22/2020 MAMMOGRAM, SCREENING 06/24/2021 Urinalysis 08/29/2019 25OH VITAMIN D 04/21/2019 COMPREHENSIVE METABOLIC PANEL 04/21/2019 N-TELOPEPTIDE CROSS 04/21/2019 PTH, INTACT 04/21/2019 TSH 04/21/2019 BONE DENSITY 03/01/2018 BONE DENSITY 06/24/2021 MM Digital Mammo Screening 06/24/2021 MM Digital Mammo Screening 06/22/2020 MM Digital Mammo Screening 03/01/2018 Insurance Providers Payer Name Payer Address Payer Phone Subscriber Number Group Number Insured Name Patient Relationship to Insured Coverage Start Date Coverage End Date [facility] [employer] [address] [address] [place] [address] [id number] [place] [address] [place] Self - patient is the insured Medical (General) History Medical History History ICD Code Unspecified urinary incontinence R32 Other hyperlipidemia E78.4 Essential (primary) hypertension I10 Irritable bowel syndrome with diarrhea K 58.0 Unspecified atrial fibrillation I48.91 Menopausal and female climacteric states N95.1 Atrophy of vulva N90.5 Postmenopausal atrophic vaginitis N95.2 Disorder of bone density and structure, unspecified M85.9 Surgical History Surgery Date(Month/Year) Bilateral Tubal Ligation Tonsillectomy/Adenoidectomy Colonoscopy Vertebroplasty 2+3 11/2013 Hospitalization History Reason Date(Month/Year) Child See Surgical Hx Atrial Fibrillation x2 2015
== END 2024-12-21 13:46 | disposition home or self-care (01) ==
PROVIDERS: PCP Internal Medicine; Visit Provider Internal Medicine
DX: S32.030A Wedge compression fracture of third lumbar vertebra, initial encounter for closed fracture (principal); I73.9 Peripheral vascular disease, unspecified; I48.0 Paroxysmal atrial fibrillation; I10 Essential (primary) hypertension; E78.00 Pure hypercholesterolemia, unspecified; K21.9 Gastro-esophageal reflux disease without esophagitis; F41.1 Generalized anxiety disorder; E53.8 Deficiency of other specified B group vitamins

== ENCOUNTER 2025-01-16 13:44 | Outpatient (AMB) | payer MEDICARE, SELFPAY ==
--- NOTE | 2025-01-16 13:51 | MHC.OFFVIS ---
Vital Signs 01/16/25 13:54 Height 5 ft 7 in Weight 156 lb BMI 24.4 BP 150/70 H Blood Pressure Location Lt brachial Position Sitting Pulse 60 Intake Visit Reasons: abdominal pain Intake Note: Lucinda presents in the office as a follow up for abdominal pains. CC: she was in the ED for 5 days because of a bowel obstruction no surgery was needed. She has been having nausea and pains in her stomach every day. Bloating in her abdomen. She states that every time she eats her stomach distends. She states that she feels like she has the symptoms of the long covid. Dr. Fischer also feels that is something that she should mention today as well. She noticed more issues after having COVID. She has been diagnosed with irritable bowel and avoids alot of foods. Network Engineer Required: No Allergies meperidine [Demerol] Allergy (Intermediate, Verified 01/16/25 13:55) syncope nitrofurantoin [From Macrobid] Allergy (Intermediate, Verified 01/16/25 13:55) Rash paroxetine [From PAXIL] Allergy (Intermediate, Verified 01/16/25 13:55) SYNCOPE shellfish derived [SHELLFISH DERIVED] Allergy (Intermediate, Verified 01/16/25 13:55) HIVES ondansetron [From Zofran] Allergy (Verified 01/16/25 13:55) Nausea azithromycin [From ZITHROMAX Z-NAYLA] Adverse Reaction (Verified 01/16/25 13:55) presyncope HPI HPI abdominal pain: Details: 84 y/o female with hx of a-fib, HTN, HLP, gout, GERD< osteoporosis, PVD who I am seeing for f/u for abdominal pain. RECAP:saw [facility] before being seen for abdominal pain and constipation had CT scans with no acute path, diverticulosis noted she also has chronic back pain from vertebral fractures celiac and TSh were nml INTERIM: she has been dx with long covdi with brain fog and altered smell and taste she has stomach pain--upper abdomen nausea it is better after passing stools she has partial bowel obstruction 08/18 she has bloating as well stools vary, can be diarrhea, incomplete evacuation EXAM: GENERAL: The patient is well developed and nontoxic. VITAL SIGNS:see workflow HEENT: Nonicteric sclerae, PERRLA, EOMI. Oropharynx clear. Moist mucous membranes. Conjunctivae appear well perfused. No thyroid mass. CHEST: Chest wall is nontender. HEART: Regular rate and rhythm without murmurs. LUNGS: Clear to auscultation bilaterally. ABDOMEN: Soft, positive bowel sounds, nontender, no organomegaly.no flank tenderness SKIN: No rash, no excessive bruising, petechiae, or purpura. NEUROLOGIC: Cranial nerves II-XII intact without motor/sensory deficit. ms- hunched over uses stick A/P: 1/altered bowel habit, with distention--?possible p SBO in the recent past--need to r/o IBD< polyps, stricture PLAN: 1/ EGD, colonoscopy, sutab, stemtil --hold eliquis for 2 d 2/ offered rifaximin but she declines PFSH Medical History (Updated 01/16/25 @ 14:20 by Philomena Damon MD) Paroxysmal atrial fibrillation Chronic constipation Closed lumbar vertebral fracture Gout Osteopenia Tubular adenoma of colon Hypertension Hypercholesterolemia Surgical History (Updated 08/30/24 @ 00:03 by Dirk Randolph) Fracture of lumbar spine History of colonoscopy History of tonsillectomy History of tubal ligation Family History Father Diabetes Social History (Updated 09/01/24 @ 13:42 by Isaac Fischer MD) Household Members: None Housing: Assisted Living Facility Housing Other:: independent living Do you presently have visiting nurse or other home services: No Alcohol intake: current Alcohol intake frequency: 0-2 drinks per day Alcohol type: wine Comment: Qd 6 oz red wine Patient Tobacco Use Status: Never used Tobacco Tobacco use type: Cigarette e-Cigarette/Vaping Use: Never Used Second Hand Smoke Exposure: No service: No Current occupational status: retired Cognitive needs: No Hearing needs: No Vision needs: Yes Physical Exam Vital Signs: Last Vital Signs Pulse 60 01/16/25 13:54 BP 150/70 H 01/16/25 13:54 BMI result Body Mass Index 24.4 Assessment & Plan Assessment & Plan (1) Altered bowel habits: Code(s): R19.4 - Change in bowel habit Category: Medical Plan: as above Medications: New prochlorperazine maleate 5 mg PO BID PRN 10 tabs 0RF nausea and vomiting sod sulf-pot chloride-mag sulf 1.479-0.188- 0.225 gram (Sutab) PO PER PKG DIR 24 tabs 0RF Coding Level of Care Code Est Pt Level 4 (68559) Diagnoses Altered bowel habits R19.4
[2025-01-16 13:54] VITALS: BP 150/70; PULSE 60; BMI 24.4
== END 2025-01-16 14:21 | disposition home or self-care (01) ==
LOC: HO.HGI 13:45
PROVIDERS: PCP Internal Medicine; Visit Provider Internal Medicine Gastroenterology
DX: R19.4 Change in bowel habit (principal)
CPT/HCPCS: 99214

== ENCOUNTER → 2025-01-16 13:44 | Outpatient (BNVA) | payer MEDICARE, SELFPAY | PROVIDERS: PCP Internal Medicine; Visit Provider Internal Medicine Gastroenterology | DX: R19.4 Change in bowel habit (principal); R10.9 Unspecified abdominal pain | CPT/HCPCS: 99212 ==

== ENCOUNTER 2025-01-30 08:13 | Emergency (ER) | payer MEDICARE, SELFPAY ==
--- NOTE | ~2025-01-30 | CT_ITS ---
EXAMINATION: CT ABDOMEN AND PELVIS WITH CONTRAST CLINICAL INFORMATION: Abdominal pain. Nausea. No bowel movement. COMPARISON: August 20, 2024. TECHNIQUE: Multidetector volumetric images were obtained from the superior aspect of the liver through the pubic symphysis following administration 85 mL of Omnipaque 350 intravenous contrast. Sagittal and coronal reformatted images were obtained on the technologist's workstation. Oral contrast: No This CT examination was performed using dose optimization techniques as appropriate, variously including the following: *Automated exposure control *Adjustment of mA and/or kV according to patient size (this includes techniques or standardized protocols for targeted exams where dose is matched to indication/reason for exam; i.e. extremities or head) *Use of iterative reconstruction technique. DLP: 518 mGy centimeter. FINDINGS: LUNG BASES: No acute airspace disease. LIVER, GALLBLADDER, AND BILIARY TREE: Liver measures 13 cm. Subtle nodular surface. 2 mm hypodensity right hepatic lobe too small to be fully characterized. Main portal veins, and intrahepatic portion of the IVC are patent. No pericholecystic fluid collection or gallbladder wall thickening. No intrahepatic or extrahepatic biliary ductal dilatation. PANCREAS: No focal mass. No peripancreatic fluid collection. No main pancreatic ductal dilatation. Reduced volume of the parenchyma. SPLEEN: 7 cm. No focal lesion. ADRENAL GLANDS: No nodular lesion. KIDNEYS AND URETERS: No hydronephrosis. No gross nephrolithiasis. 1.8 cm exophytic cyst, lower pole right kidney. BLADDER: Fluid-filled. GASTROINTESTINAL TRACT: Numerous diverticula, sigmoid colon. Abundant stool. No intestinal obstruction pattern. Appendix is normal. Gas and fluid-filled nondistended distal ileal loops. No gross wall thickening. No ascites. No pneumoperitoneum. No pneumatosis intestinalis. ABDOMINAL WALL: No gross hernia, umbilical. LYMPH NODES: No lymphadenopathy, mesenteric or retroperitoneal. VASCULAR: Mixed plaques throughout the abdominal aorta wall and iliac arteries without aneurysm or dissection. Calcified plaques in the origin of the mesenteric arteries and main renal arteries. Calcified plaques in the aortic valve.. PELVIC VISCERA: No gross masses. Desiccation seen in the lower pelvis/perisigmoid:, Nonspecific. OSSEOUS STRUCTURES: Status post kyphoplasty/vertebroplasty L2 and L3. Superior endplate compression deformity likely old representing 40% volume loss at L4 similar findings at L1, T12 and T11. Osteopenia versus osteoporosis. Degenerative changes in the sacroiliac joints and coxofemoral joints as well at the symphysis pubis. CT/CT abdomen pelvis w IV con IMPRESSION: No intestinal obstruction pattern. Diverticular disease, sigmoid colon. Atherosclerosis disease. Simple cyst, lower pole right kidney. Old likely osteoporotic compression deformities throughout the included axial skeleton. Fleischner guidelines were followed. Electronically signed by: Harry Bain MD 01/30/2025 10:09 AM EDT
[2025-01-30 08:18] VITALS: BP 142/65; BP 150/76; PULSE 60; PULSE 65; RESP 16; TEMP 36.5; O2SAT 95; O2SAT 98; BMI 26.3
--- NOTE | 2025-01-30 08:26 | ECG_ITS ---
Test Reason : ABDOMINAL PAIN Blood Pressure : */* mmHG Vent. Rate : 53 BPM Atrial Rate : 53 BPM P-R Int : 174 ms QRS Dur : 74 ms QT Int : 450 ms P-R-T Axes : 32 -16 15 degrees QTcB Int : 422 ms Sinus bradycardia Cannot rule out Anterior infarct , age undetermined Abnormal ECG When compared with ECG of 18-Aug-2024 06:33, Sinus rhythm has replaced Atrial fibrillation Vent. rate has decreased by 58 bpm Minimal criteria for Anterior infarct are now Present Referred By: Gisele Parra Electronically Signed By: Isauro Conway
[2025-01-30 08:41] VITALS: RESP 16
[2025-01-30] MEDS: Morphine Sulfate 2 MG/ML CARTRIDGE IVPUSH (08:41)
--- NOTE | 2025-01-30 08:41 | ED.ABDPAIN ---
HPI - Abdominal Pain General Chief Complaint: Abdominal Pain Stated Complaint: LOW ABD PAIN,FROM [facility] PER EMS Source: patient, EMS and old records reviewed Mode of arrival: EMS Limitations: no limitations History of Present Illness ED Provider: MORELIA HPI narrative: 84 yo female with PMH of PAF on eliquis, HTN, HLD, anxiety, ileus and gastritis denies prior abdominal surgery, IBS with chronic constipation who started with lower abdominal pain and chills last night. She denies n/v, dysuria, states she passed small flatus and stool this AM which helped with her distention. She states she has a lot of pain and wants something for it. No new med changes. She is also worried she is back in Afib. MD elicited complaint: abdominal pain Pertinent past history: constipation Onset (ago): day(s) (1) Pain Consistency: constant Location: L flank, R flank and suprapubic Severity: mild Quality: cramping Radiation: none Migration to: no migration Exacerbating factors: movement Relieving factors: nothing Context: history of similar episodes Associated symptoms: chills and constipation Related Data Home Medications ?Medication ?Instructions ?Recorded ?Confirmed fluoride (sodium) 1.1 % dental 1 appl PO DAILY 08/30/24 01/30/25 cream (Denta 5000 Plus) docusate sodium 100 mg capsule 100 mg PO BEDTIME 01/30/25 01/30/25 (Colace) vit C 226 mg-vit E 90 mg-copper 1 cap PO BID 01/30/25 01/30/25 0.8 mg-zinc oxide-lutein 5 mg capsule (PreserVision Lutein) Previous Rx's ?Medication ?Instructions ?Recorded apixaban 5 mg tablet (Eliquis) 5 mg PO BID #180 tabs 08/15/24 lorazepam 0.5 mg tablet 0.5 mg PO DAILY PRN anxiety #90 09/01/24 tabs atenolol 25 mg tablet 25 mg PO BID #180 tabs 10/02/24 atorvastatin 20 mg tablet 20 mg PO DAILY 90 days #90 tabs 10/02/24 cholecalciferol (vitamin D3) 50 50 mcg PO DAILY 90 days #90 caps 12/21/24 mcg (2,000 unit) capsule cyanocobalamin (vitamin B-12) 1,000 mcg PO DAILY #30 caps 12/21/24 1,000 mcg capsule cefuroxime axetil 250 mg tablet 250 mg PO BID 7 days #14 tabs 01/30/25 lorazepam 0.5 mg tablet (Ativan) 0.5 mg PO DAILY PRN anxiety #7 tabs 01/31/25 Allergies Allergy/AdvReac Type Severity Reaction Status Date / Time meperidine [Demerol] Allergy Intermediate syncope Verified 01/30/25 08:24 nitrofurantoin Allergy Intermediate Rash Verified 01/30/25 08:24 [From Macrobid] paroxetine [From PAXIL] Allergy Intermediate SYNCOPE Verified 01/30/25 08:24 shellfish derived Allergy Intermediate HIVES Verified 01/30/25 08:24 [SHELLFISH DERIVED] ondansetron [From Zofran] Allergy Nausea Verified 01/30/25 08:24 azithromycin AdvReac presyncope Verified 01/30/25 08:24 [From ZITHROMAX Z-NAYLA] Review of Systems Review of Systems Constitutional : No Weight loss, No Fever, pos Chills ENT/Mouth : No sore throat, No Rhinorrhea Eyes: No Swelling, No Redness Cardiovascular : No Chest Pain, No SOB, NoEdema Respiratory : No Cough, No Sputum, No Wheezing Gastrointestinal : no Nausea, no Vomiting, no Diarrhea, positive abdominal Pain, No Hematochezia, No Melena Genitourinary : No Dysuria, No Urinary Frequency, No Hematuria, No Urgency Musculoskeletal : No joint pain, No Myalgias, No Joint Swelling Skin : No Skin Lesions, No rash Neuro : No Weakness, No Numbness, No Dizziness, No Headache All other systems reviewed and are negative. ON LICENSE OF [facility] Past Medical History Attestation statement: The following information was validated with the patient. Source: old records reviewed Medical History Paroxysmal atrial fibrillation Chronic constipation Closed lumbar vertebral fracture Gout Osteopenia Tubular adenoma of colon Hypertension Hypercholesterolemia Surgical History Fracture of lumbar spine History of colonoscopy History of tonsillectomy History of tubal ligation Family History Family History Father Diabetes Social History Social History Household Members: None Housing: Assisted Living Facility Housing Other:: independent living Do you presently have visiting nurse or other home services: No Alcohol intake: current Alcohol intake frequency: 0-2 drinks per day Alcohol type: wine Comment: Qd 6 oz red wine Patient Tobacco Use Status: Never used Tobacco Tobacco use type: Cigarette Smoked in Last 30 Days: No e-Cigarette/Vaping Use: Never Used Second Hand Smoke Exposure: No Use of substances other than those prescribed or required for medical reasons: No Advance Directives: No Advance Directives Information Provided: Yes service: No Current occupational status: retired Cognitive needs: No Hearing needs: No Vision needs: Yes Physical Exam ED Vital Signs: Vital Signs - 24 hr 01/30/25 20:56 01/31/25 04:58 01/31/25 08:35 Temperature 97.6 F 98.2 F Pulse Rate 65 63 68 Respiratory Rate 16 20 Blood Pressure 116/52 L 148/75 H 128/57 L Pulse Oximetry 99 98 Oxygen Delivery Method Room Air Room Air 01/31/25 08:43 Temperature Pulse Rate 68 Respiratory Rate Blood Pressure 128/57 L Pulse Oximetry Oxygen Delivery Method BMI result Body Mass Index 26.3 Appearance: Alert. Oriented X3. No acute distress. Eyes: Pupils equal, round and reactive to light. ENT: Pharynx normal. Neck: Normal inspection. Neck supple. CVS: Normal heart rate and rhythm. Pulses normal. Respiratory: No respiratory distress. Breath sounds normal. Abdomen: Soft and mild distention with very mild diffuse ttp Skin: Skin warm and dry. Normal skin color. Normal skin turgor. Extremities: No lower extremity edema. No calf ttp Neuro: Oriented X 3. No motor deficit. No sensory deficit. CN2-12 intact Course Course Course Narrative: Time: 08:59 Date: 01/31/25 Provider: Gisele Parra, DO Patient in physician observation for case management needs. No acute events reported overnight.? No current issues or complaints. VS stable. Patient is pending placement at facility. Will continue to monitor. Reevaluation(s) Reevaluation #1: Time: 15:54 Date: 01/31/25 Provider: PATRICE Proctor Physician observation ended at 354pm. patient is medically stable for discharge to [facility] and does not require medical admission at this time. VS remain stable. stable for d/c to acute rehab. to continue abx for UTI. Time: 15:53 Medical Decision Making Medical Decision Making MDM Narrative: 84 yo female with PMH of PAF on eliquis, HTN, HLD, anxiety, ileus and gastritis, IBS and constipation here with c/o lower abdominal pain and chills but had flatus and very small BM this AM - she is worried she is obstructed. She has no other GI or symptoms. She is also worried she is in afib but no CP/SOB. At this time labs, UA, CT scan for obstruction, IV morphine for pain. Differential Diagnosis Differential Diagnoses: The differential diagnosis associated with the presentation includes IBS, anxiety, urinary pathology, diverticular disease Admission/Observation Consideration of admission/observation: Escalation of care including admission/observation considered positive UA but CT scan unremarkable stable for DC labs reassuring she states she lives alone and refuses to go home she cannot even think about being alone or taking care of herself. At this time she is asking to go to a rehab physician observation for case management started at 1054am Consult Healthcare Provider Management of the patient was discussed with: Respiratory Therapy Technician Lab Data [facility] Lab Attestation statement: I reviewed the patient's lab results. 01/30/25 09:02 01/30/25 09:02 Labs: Lab Results 01/30/25 01/30/25 Range/Units 09:02 10:21 WBC 5.1 (4.8-10.8) X10*3/uL RBC 4.56 (4.20-5.50) X10*6/uL Hgb 14.2 (12.0-16.0) g/dl Hct 42.3 (37.0-47.0) % MCV 92.8 (80.0-98.0) fL MCH 31.1 (27.0-33.0) pg MCHC 33.6 (31.0-35.0) g/dl RDW 12.6 (11.0-16.0) % Plt Count 168 (160-400) X10*3/uL MPV 10.2 (9.4-12.3) fL Immature Gran % (Auto) 0.0 (0.0-0.4) % Neut % (Auto) 59.9 (45-73) % Lymph % (Auto) 25.7 (20-40) % [place] % (Auto) 10.1 (2-11) % Eos % (Auto) 3.7 (0-4) % Baso % (Auto) 0.6 (0-2) % Lymph # (Auto) 1.3 (1.2-4.9) X10*3/uL [place] # (Auto) 0.5 (0.1-1.2) X10*3/uL Eos # (Auto) 0.2 (0.0-0.4) X10*3/uL Baso # (Auto) 0.0 (0.0-0.2) X10*3/uL Abs Immat Gran (auto) 0.00 (0.00-0.03) X10*3/uL Absolute Neuts (auto) 3.1 (2.0-8.3) x10*3/uL Absolute Nucleated RBC 0.000 (0.0-0.012) X10*3/uL Nucleated RBC % (auto) 0.0 (0.0-0.2) /100WBC Sodium 138 (135-145) mmol/L Potassium 4.2 (3.3-5.1) mmol/L Chloride 108 (96-108) mmol/L Carbon Dioxide 24 (22-29) mmol/L Anion Gap 10 L (12-20) BUN 9 (9-16) mg/dL Creatinine 0.75 (0.5-1.4) mg/dL Estim Creat Clear Calc 61.5 Estimated GFR > 60 Random Glucose 91 (60-115) mg/dL Calcium 8.8 (8.4-10.2) mg/dL Magnesium 2.1 (1.6-2.6) mg/dL Total Bilirubin 0.7 (0.0-1.0) mg/dL Direct Bilirubin 0.1 (0.0-0.5) mg/dL AST 31 (5-31) U/L ALT 16 (0-31) U/L Alkaline Phosphatase 77 (39-117) U/L Troponin I High Sens < 2.7 (<3.5-17.0) ng/L Total Protein 6.6 (6.5-8.0) g/dL Albumin 3.7 (3.5-5.0) g/dL Lipase 17 (8-78) U/L Urine Color Yellow Urine Appearance Clear Urine pH 8.0 (5.0-9.0) Ur Specific [place] 1.025 (1.005-1.025) Urine Protein Negative (Neg-Trace) mg/dL Urine Glucose (UA) Negative (Negative) mg/dL Urine Ketones Negative (Negative) mg/dL Urine Blood Negative (Negative) Urine Nitrite Negative (Negative) Ur Leukocyte Esterase Large (3+) H (Negative) Urine RBC 0-2 (0-2) /HPF Urine WBC 21-50 H (0-5) /HPF Ur Squamous Epith Cells 3-5 (0-2) /HPF Urine Bacteria None Seen (None Seen) Hyaline Casts 0-2 (0-2) /LPF Influenza Type A (PCR) NEGATIVE (Negative) Influenza Type B (PCR) NEGATIVE (Negative) RSV RNA Qual (PCR) NEGATIVE (Negative) SARS-CoV-2 RNA (RT-PCR) NEGATIVE (Negative) Independent Interpretation I performed an independent interpretation of an: EKG and CT Scan (no acute pathology ) Interpretation: Rate: 53 Rhythm: sinus bradycardia [place]: left Normal P waves. Normal TATY. Normal QRS complex. ST T wave : inverted t wave V1, III, no PAIGE qTC: 422 prior studies: no acute ischemia The study has been interpreted contemporaneously by me. . Radiology Impression Discussion of test interpretation with radiology: I have reviewed the radiologist's reading. Independent Historian Clinical information obtained from an independent historian. History obtained from or confirmed by: EMS External Record Review External record reviewed: Inpatient record and Outpatient record Prescription Management I considered prescription management with: Antibiotic Medications Administered Generic Name Dose Route Start Last Admin Trade Name Freq PRN Reason Stop Dose Admin Amoxicillin/Clavulanate Potassium 875 mg 01/30/25 11:00 01/31/25 08:43 Amoxicillin/Potassium Clav 875 Mg Tablet PO 02/06/25 10:59 875 mg BID KETAN Administration Apixaban 5 mg 01/30/25 21:00 01/31/25 08:43 Apixaban 5 Mg Tablet PO 5 mg BID KETAN Administration Atenolol 25 mg 01/30/25 21:00 01/31/25 08:43 Atenolol 25 Mg Tablet PO 25 mg BID KETAN Administration Protocol Atorvastatin Calcium 20 mg 01/30/25 17:30 01/31/25 08:43 Atorvastatin Calcium 20 Mg Tablet PO 20 mg DAILY KETAN Administration Cyanocobalamin 1,000 mcg 01/30/25 17:30 01/31/25 08:42 Cyanocobalamin (Vitamin B-12) 1,000 Mcg Tablet PO 1,000 mcg DAILY KETAN Administration Vitamin D 50 mcg 01/30/25 17:30 01/31/25 08:43 Cholecalciferol (Vitamin D3) 25 Mcg Tablet PO 50 mcg DAILY KETAN Administration Discontinued Medications Generic Name Dose Route Start Last Admin Trade Name Canelo PRN Reason Stop Dose Admin Iohexol 100 ml 01/30/25 09:47 01/30/25 09:47 Iohexol 350 Mg/Ml 100 Ml Infus..Btl IV 01/30/25 09:48 85 ml ONCE ONE Administration Morphine Sulfate 2 mg 01/30/25 08:33 01/30/25 08:41 Morphine Sulfate 2 Mg/Ml Cartridge IVPUSH 01/30/25 08:34 2 mg ONCE ONE Administration Protocol Non-Formulary Medication 1 appl 01/30/25 17:30 01/30/25 19:16 Fluoride (Sodium) [Denta 5000 Plus] PO Not Given DAILY KETAN Prochlorperazine Maleate 5 mg 01/31/25 06:07 01/31/25 06:36 Prochlorperazine Maleate 5 Mg Tablet PO 01/31/25 06:08 5 mg ONCE ONE Administration Discharge Plan Discharge Clinical Impression: Acute UTI Abdominal pain Qualifiers: Abdominal location: lower abdomen, unspecified Qualified Code(s): R10.30 - Lower abdominal pain, unspecified Patient Disposition: er Inpatient Rehab Fac Transfer Details: [facility] Instructions: Urinary Tract Infection in Women (ED), Abdominal Pain (ED) Additional Instructions: labs reassuring CT scan no obstruction. Old back fractures noted urine has slight infection at this time start oral abx for infection - continue ceftin 250 mg two times per day for another 5 days return for worsening pain, unable to eat or drink, fevers or any other concerns On a cephalosporin?antibiotic, softer bowel movements are to be expected. Call your provider if you move your bowels more than 4 times a day, your bowel movements are almost all liquid, or you get a rash.?? OSSEOUS STRUCTURES: Status post kyphoplasty/vertebroplasty L2 and L3. Superior endplate compression deformity likely old representing 40% volume loss at L4 similar findings at L1, T12 and T11. Osteopenia versus osteoporosis. Degenerative changes in the sacroiliac joints and coxofemoral joints as well at the symphysis pubis. CT/CT abdomen pelvis w IV con IMPRESSION: No intestinal obstruction pattern. Diverticular disease, sigmoid colon. Atherosclerosis disease. Simple cyst, lower pole right kidney. Old likely osteoporotic compression deformities throughout the included axial skeleton. Prescriptions: New cefuroxime axetil 250 mg tablet 250 mg PO BID 7 Days Qty: 14 0RF lorazepam [Ativan] 0.5 mg tablet 0.5 mg PO DAILY PRN (Reason: anxiety) Qty: 7 0RF No Action Eliquis 5 mg tablet 5 mg PO BID Qty: 180 2RF atorvastatin 20 mg tablet 20 mg PO DAILY 90 Days Qty: 90 3RF atenolol 25 mg tablet 25 mg PO BID Qty: 180 3RF PreserVision Lutein 226-90-0.8-5 mg Capsule 1 cap PO BID docusate sodium [Colace] 100 mg Capsule 100 mg PO BEDTIME lorazepam 0.5 mg tablet 0.5 mg PO DAILY PRN (Reason: anxiety) Qty: 90 1RF fluoride (sodium) [Denta 5000 Plus] 1.1 % cream 1 appl PO DAILY cyanocobalamin (vitamin B-12) 1,000 mcg capsule 1,000 mcg PO DAILY Qty: 30 3RF cholecalciferol (vitamin D3) 50 mcg (2,000 unit) capsule 50 mcg PO DAILY 90 Days Qty: 90 3RF Referrals: Gracia Russ [Outside] Print Language: Tanzanian
--- NOTE | 2025-01-30 08:50 | PC.NURSE ---
Pt BIBA from assisted living for lower ABD pain X36 hours, 06/04, intermittent, cramping. Pt had recent partial bowel obstruction a few months ago and reporting it feels similar. Denying any fevers, cough, vomiting. Does report decreased PO intake. Alert and oriented, breathing even and unlabored, skin warm and dry. IV in left hand by EMS, flushes well.
[2025-01-30 09:05] LABS: MANUAL DIFF FLAG NO
[2025-01-30 09:13] LABS: Basophils Percent Auto 0.6 % (0-2); Eosinophils Absolute Auto 0.2 X10*3/uL (0.0-0.4); Eosinophils Percent Auto 3.7 % (0-4); Hematocrit 42.3 % (37.0-47.0); Hemoglobin 14.2 g/dl (12.0-16.0); Lymphocytes Absolute Auto 1.3 X10*3/uL (1.2-4.9); Lymphocytes Percent Auto 25.7 % (20-40); Mean Corpuscular HGB Conc 33.6 g/dl (31.0-35.0); Mean Corpuscular Hemoglobin 31.1 pg (27.0-33.0); Mean Corpuscular Volume 92.8 fL (80.0-98.0); Mean Platelet Volume 10.2 fL (9.4-12.3); Monocytes Absolute Auto 0.5 X10*3/uL (0.1-1.2); Monocytes Percent Auto 10.1 % (2-11); Neutrophils Absolute Auto 3.1 x10*3/uL (2.0-8.3); Neutrophils Percent Auto 59.9 % (45-73); Platelet Count 168 X10*3/uL (160-400); Red Blood Count 4.56 X10*6/uL (4.20-5.50); Red Cell Distribution Width 12.6 % (11.0-16.0); White Blood Count 5.1 X10*3/uL (4.8-10.8)
--- OUTSIDE RECORDS SUMMARY | 2025-01-30 09:25 | XMS_ITS | Encounter Summary ---
Author Organization [employer] Address [address] [place] [address] Care Team Providers Care Cardiac/Vascular Sonographer Name Role Phone Unavailable Primary Care Provider Unavailabl e Encounter Details Date Type Department Care Team (Late st Contact Info) Description 09/07/2024 Lab Requisition [facility] Lab [address] [facility] [place] [address] Isaac Fischer MD [address] [place] [address] [address] [facility] [place] [address] Dysuria Social History Tobacco Use Types Packs/Day [...] Urine No growth 09/08/2024 8:12 AM EST [facility] ([facility]) [facility] Urine Urine specimen obtained by clean catch procedure / Unknown Non-blood Collection / Unknown 09/07/2024 8:00 AM EST 09/07/2024 12:33 PM EST Isaac Fischer MD LAB MICROBIOLOGY - GENERAL ORDER HEIDI Final Result [facility] [address] [place] [address], [place] [phone] * (ABNORMAL) Urinalysis with reflex microscopic and culture (09/07/2024 8:00 AM EST) Specific Julian Urine 1.025 1.003 - 1.030 LAB URINALYSIS - AUTOMATED METHOD 09/07/2024 12:33 PM [facility] pH, Urine 6.0 5.0 - 8.0 pH LAB URINALYSIS - AUTOMATED METHOD 09/07/2024 12:33 PM [facility] Leukocytes, Urine Trace(A) Negative LAB URINALYSIS - AUTOMATED METHOD 09/07/2024 12:33 PM [facility] Nitrite, Urine Negative Negative LAB URINALYSIS - AUTOMATED METHOD 09/07/2024 12:33 PM [facility] Protein, Urine Negative <=Trace mg/dL LAB URINALYSIS - AUTOMATED METHOD 09/07/2024 12:33 PM [facility] Glucose, Urine Negative Negative mg/dL LAB URINALYSIS - AUTOMATED METHOD 09/07/2024 12:33 PM [facility] Ketones, Urine Negative Negative mg/dL LAB URINALYSIS - AUTOMATED METHOD 09/07/2024 12:33 PM [facility] Urobilinogen, Urine 0.2 0.2 - 1.0 mg/dL LAB URINALYSIS - AUTOMATED METHOD 09/07/2024 12:33 PM [facility] Bilirubin, Urine Negative Negative LAB URINALYSIS - AUTOMATED METHOD 09/07/2024 12:33 PM [facility] Blood, Urine Negative Negative LAB URINALYSIS - AUTOMATED METHOD 09/07/2024 12:33 PM [facility] RBC, Urine 5.3(H) 0 - 4 /HPF LAB URINALYSIS - AUTOMATED METHOD 09/07/2024 12:33 PM [facility] WBC, Urine 5.0(H) 0 - 4 /HPF LAB URINALYSIS - AUTOMATED METHOD 09/07/2024 12:33 PM [facility] Squamous Epithelial, Urine 53 0 - 60 /LPF LAB URINALYSIS - AUTOMATED METHOD 09/07/2024 12:33 PM [facility] Bacteria, Urine Negative Negative /HPF LAB URINALYSIS - AUTOMATED METHOD 09/07/2024 12:33 PM [facility] Hyaline Casts, Urine 4.5(H) 0 - 3 /LPF LAB URINALYSIS - AUTOMATED METHOD 09/07/2024 12:33 PM [facility] Urine Urine specimen obtained by clean catch procedure / Unknown Non-blood Collection / Unknown 09/07/2024 8:00 AM EST 09/07/2024 11:43 AM EST us Isaac Fischer MD LAB URINE ORDERABLES Final Resul t Performing Organization Address City/[facility]/ZIP Co de Phone Number [facility] [address] [place] [address], * Carpenter urine culture tube (09/07/2024 8:00 AM EST) Extra Tube Hold for add-ons. 09/07/2024 1:01 PM [facility] Comment:Auto resulted. Urine Urine specimen obtained by clean catch procedure / Unknown Non-blood Collection / Unknown 09/07/2024 8:00 AM EST 09/07/2024 11:43 AM EST us Isaac Fischer MD LAB URINE ORDERABLES Final Resul t [facility] ([facility]) HOSPITAL LAB [address] [place] [address], documented in this encounter Visit Diagnoses Diagnosis Dysuria documented in this encounter
--- OUTSIDE RECORDS SUMMARY | 2025-01-30 09:25 | XMS_ITS | Clinical Summary ---
Author Organization [address] [facility] Address [address] [place] [address] Phone Care Team Providers Care Reports Analyst Name Role Phone Unavailable Primary Care Provider [...] Vaccines (1 of 2) 1990 RSV Immunization Adult Patie nts (1 - 1-dose 75+ series) 2015 Depression Screening 09/28/2022 Falls Risk Assessment 09/28/2022 Medicare Annual Wellness Visit 09/28/2022 Osteoporosis Screening (Bone Density Screening) 09/28/2022 Social Influencers of Health Screening 09/28/2022 COVID-19 Vaccine ( - 2023-2 5 season) 2024 Influenza Vaccine (Season Ended) 2025 Cholesterol Screening (Lipid Panel) 09/07/2029 09/07/2024 HIB [...] LAB CHEMISTRY METHOD 09/07/2024 12:08 PM EST [facility] Triglycerides 64 0 - 150 mg/dL LAB CHEMISTRY METHOD 09/07/2024 12:08 PM EST [facility] HDL 63 >=40 mg/dL LAB CHEMISTRY METHOD 09/07/2024 12:08 PM EST [facility] LDL Calculated 86 0 - 100 mg/dL LAB CHEMISTRY METHOD 09/07/2024 12:08 PM EST [facility] VLDL Cholesterol Pablo 12.8 mg/dL LAB CHEMISTRY METHOD 09/07/2024 12:08 PM EST [facility] Non HDL Chol. (LDL+VLDL) 99 <145 mg/dL LAB CHEMISTRY METHOD 09/07/2024 12:08 PM EST [facility] Chol/HDL Ratio 2.6 0.0 - 4.4 LAB CHEMISTRY METHOD 09/07/2024 12:08 PM [facility] Blood Venous blood specimen / Unknown Venipuncture / Unknown 09/07/2024 7:44 AM EST 09/07/2024 10:33 AM EST us Isaac Fischer MD LAB BLOOD ORDERABLES Final Resul t [facility] ([facility]) HOSPITAL LAB [address] [place] [address], from Last 3 Months or Most Recently Relevant to Health Maintenance Insurance [employer]
--- OUTSIDE RECORDS SUMMARY | 2025-01-30 09:25 | XMS_ITS | Encounter Summary ---
Author Organization [employer] Address [address] [place] [address] Care Team Providers Care Senior National Account Manager Name Role Phone Unavailable Primary Care Provider Unavailabl e Encounter Details Date Type Department Care Team (Late st Contact Info) Description 09/07/2024 Lab Requisition [facility] - Main Lab [address] [facility] [place] [address] Isaac Fischer MD [address] [place] [address] [address] [facility] [place] [address] Vitamin D deficiency, unspecified; Pure hypercholesterolemia , [...] CBC auto differential (09/07/2024 7:44 AM EST) [facility] WBC 5.1 4.8 - 10.8 K/mcL LAB HEMETOLOGY METHOD 09/07/2024 11:[address] [facility] RBC 4.50 3.80 - 4.80 M/mcL LAB HEMETOLOGY METHOD 09/07/2024 11:[address] [facility] Hemoglobin 14.2 11.5 - 16.0 g/dL LAB HEMETOLOGY METHOD 09/07/2024 11:[address] [facility] Hematocrit 43.3 35.0 - 47.0 % LAB HEMETOLOGY METHOD 09/07/2024 11:[address] [facility] MCV 95.8 79.0 - 98.0 FL LAB HEMETOLOGY METHOD 09/07/2024 11:[address] [facility] MCH 31.4 27.0 - 32.0 pcg LAB HEMETOLOGY METHOD 09/07/2024 11:[address] [facility] MCHC 32.8 32.0 - 37.0 g/dL LAB HEMETOLOGY METHOD 09/07/2024 11:[address] [facility] RDW 12.7 11.0 - 15.0 % LAB HEMETOLOGY METHOD 09/07/2024 11:[address] [facility] Platelets 240 130 - 400 K/mcL LAB HEMETOLOGY METHOD 09/07/2024 11:[address] [facility] MPV 10.2 7.0 - 11.0 FL LAB HEMETOLOGY METHOD 09/07/2024 11:[address] [facility] NRBC 0.0 <1.0 % LAB HEMETOLOGY METHOD 09/07/2024 11:[address] [facility] NRBC Absolute 0.00 <0.10 K/mcL LAB HEMETOLOGY METHOD 09/07/2024 11:[address] [facility] Neutrophils Relative 56.0 % LAB HEMETOLOGY METHOD 09/07/2024 11:[address] [facility] Lymphocytes Relative 28.4 % LAB HEMETOLOGY METHOD 09/07/2024 11:[address] [facility] Monocytes Relative 10.1 % LAB HEMETOLOGY METHOD 09/07/2024 11:[address] [facility] Eosinophils Relative 4.7 % LAB HEMETOLOGY METHOD 09/07/2024 11:[address] [facility] Basophils Relative 0.6 % LAB HEMETOLOGY METHOD 09/07/2024 11:[address] [facility] Immature Granulocytes Relative 0.2 % LAB HEMETOLOGY METHOD 09/07/2024 11:[address] [facility] Neutrophils Absolute 2.84 1.50 - 7.00 K/mcL LAB HEMETOLOGY METHOD 09/07/2024 11:30 AM EST [facility] Lymphocytes Absolute 1.44 1.00 - 5.00 K/mcL LAB HEMETOLOGY METHOD 09/07/2024 11:30 AM EST [facility] Monocytes Absolute 0.51 0.20 - 1.00 K/[facility] LAB HEMETOLOGY METHOD 09/07/2024 11:30 AM EST [facility] Eosinophils Absolute 0.24 0.00 - 0.50 K/[facility] LAB HEMETOLOGY METHOD 09/07/2024 11:30 AM EST [facility] Basophils Absolute 0.03 0.00 - 0.20 K/[facility] LAB HEMETOLOGY METHOD 09/07/2024 11:[address] [facility] Immature Granulocytes Absolute 0.01 0.00 - 0.03 K/[facility] LAB HEMETOLOGY METHOD 09/07/2024 11:[address] [facility] Blood Venous blood specimen / Unknown 09/07/2024 7:44 AM EST 09/07/2024 10:33 AM EST Isaac Fischer MD LAB BLOOD ORDERABLES Final Resul t [facility] [address] [place] [address], * Comprehensive metabolic panel (09/07/2024 7:44 AM EST) Sodium 140 133 - 145 mmol/L LAB CHEMISTRY METHOD 09/07/2024 12:[address] [facility] Potassium 4.3 3.5 - 5.5 mmol/L LAB CHEMISTRY METHOD 09/07/2024 12:[address] [facility] Chloride 106 96 - 110 mmol/L LAB CHEMISTRY METHOD 09/07/2024 12:[address] [facility] CO2 26 21 - 32 mmol/L LAB CHEMISTRY METHOD 09/07/2024 12:[address] [facility] Anion Gap 8 3 - 11 LAB CHEMISTRY METHOD 09/07/2024 12:[address] [facility] Glucose 84 70 - 100 mg/dL LAB CHEMISTRY METHOD 09/07/2024 12:[address] [facility] BUN 13 5 - 25 mg/dL LAB CHEMISTRY METHOD 09/07/2024 12:[address] [facility] Creatinine 0.85 0.50 - 1.10 mg/dL LAB CHEMISTRY METHOD 09/07/2024 12:[address] [facility] eGFR 68 >=60 mL/min/1. 73m2 LAB CHEMISTRY METHOD 09/07/2024 12:[address] [facility] Comment:Calculation based on the??Chronic Kidney Disease Epidemiology Collaboration (CKD-EPI) equation refit??without adjustment for race. BUN/Creatinine Ratio 15.3 LAB CHEMISTRY METHOD 09/07/2024 12:[address] [facility] Calcium 8.9 8.5 - 10.5 mg/dL LAB CHEMISTRY METHOD 09/07/2024 12:[address] [facility] AST (SGOT) 24 10 - 42 unit/L LAB CHEMISTRY METHOD 09/07/2024 12:[address] [facility] ALT (SGPT) 27 10 - 60 unit/L LAB CHEMISTRY METHOD 09/07/2024 12:[address] [facility] Alkaline Phosphatase 93 42 - 121 unit/L LAB CHEMISTRY METHOD 09/07/2024 12:[address] [facility] Total Protein 6.4 6.0 - 8.0 g/dL LAB CHEMISTRY METHOD 09/07/2024 12:[address] [facility] Albumin 3.6 3.2 - 5.0 g/dL LAB CHEMISTRY METHOD 09/07/2024 12:[address] [facility] Total Bilirubin 0.7 0.0 - 1.4 mg/dL LAB CHEMISTRY METHOD 09/07/2024 12:08 PM EST [facility] Blood Venous blood specimen / Unknown Venipuncture / Unknown 09/07/2024 7:44 AM EST 09/07/2024 10:33 AM EST us Isaac Fischer MD LAB BLOOD ORDERABLES Final Resul t Performing Organization Address City/[facility]/ZIP Co de Phone Number [facility] [address] [place] [address], [place] [phone] * Thyroid stimulating hormone (09/07/2024 7:44 AM EST) TSH 3.62 0.40 - 4.00 mcIU/mL LAB CHEMISTRY METHOD 09/07/2024 12:16 PM EST [facility] Blood Venous blood specimen / Unknown Venipuncture / Unknown 09/07/2024 7:44 AM EST 09/07/2024 10:33 AM EST us Isaac Fischer MD LAB BLOOD ORDERABLES Final Resul t Performing Organization Address City/[facility]/ZIP Co de Phone Number [facility] [address] [place] [address], [place] [phone] * Magnesium (09/07/2024 7:44 AM EST) Magnesium 2.0 1.9 - 2.6 mg/dL LAB CHEMISTRY METHOD 09/07/2024 12:08 PM EST [facility] Blood Venous blood specimen / Unknown Venipuncture / Unknown 09/07/2024 7:44 AM EST 09/07/2024 10:33 AM EST us Isaac Fischer MD LAB BLOOD ORDERABLES Final Resul t [facility] [address] [place] [address], [place] [phone] * Lipid panel with reflex to direct LDL (09/07/2024 7:44 AM EST) Cholesterol 162 0 - 200 mg/dL LAB CHEMISTRY METHOD 09/07/2024 12:[address] [facility] Triglycerides 64 0 - 150 mg/dL LAB CHEMISTRY METHOD 09/07/2024 12:[address] [facility] HDL 63 >=40 mg/dL LAB CHEMISTRY METHOD 09/07/2024 12:[address] [facility] LDL Calculated 86 0 - 100 mg/dL LAB CHEMISTRY METHOD 09/07/2024 12:[address] [facility] VLDL Cholesterol Pablo 12.8 mg/dL LAB CHEMISTRY METHOD 09/07/2024 12:[address] [facility] Non HDL Chol. (LDL+VLDL) 99 <145 mg/dL LAB CHEMISTRY METHOD 09/07/2024 12:[address] [facility] Chol/HDL Ratio 2.6 0.0 - 4.4 LAB CHEMISTRY METHOD 09/07/2024 12:[address] [facility] Blood Venous blood specimen / Unknown Venipuncture / Unknown 09/07/2024 7:44 AM EST 09/07/2024 10:33 AM EST us Isaac Fischer MD LAB BLOOD ORDERABLES Final Resul t [facility] [address] [place] [address], * Thyroxine free (09/07/2024 7:44 AM EST) Free T4 1.17 0.70 - 1.80 ng/dL LAB CHEMISTRY METHOD 09/07/2024 12:[address] [facility] Blood Venous blood specimen / Unknown Venipuncture / Unknown 09/07/2024 7:44 AM EST 09/07/2024 10:33 AM EST us Isaac Fischer MD LAB BLOOD ORDERABLES Final Resul t Performing Organization Address City/[facility]/ZIP Co de Phone Number [facility] [address] [place] [address], [place] [phone] * (ABNORMAL) Vitamin B12 and folate (09/07/2024 [...] ORDERABLES Final Resul t Performing Organization Address [facility] [[email or web address]] Co de Phone Number [facility] [address] [place] [address], [place] [phone] * (ABNORMAL) Vitamin D 25 hydroxy (09/07/2024 7:44 AM EST) Vit D, 25-Hydroxy 20.3(L) 30.0 - 80.0 ng/mL LAB CHEMISTRY METHOD 09/07/2024 12:16 PM EST [facility] Blood Venous blood specimen / Unknown Venipuncture / Unknown 09/07/2024 7:44 AM EST 09/07/2024 10:33 AM EST us Isaac Fischer MD LAB BLOOD ORDERABLES Final Resul t Performing Organization Address City/[facility]/ZIP Co de Phone Number [facility] [address] [place] [address], [place] [phone] documented in this encounter Visit Diagnoses Diagnosis Vitamin D deficiency, unspecified Pure hypercholesterolemia, unspecified Other specified abnormal findings of blood chemistry documented in this encounter
--- OUTSIDE RECORDS SUMMARY | 2025-01-30 09:25 | XMS_ITS | Patient Health Record ---
Author Organization [facility] Address [address] [place] [address] [place] [id number] Care Team Providers Care Digital Field Service Technician Name Role Phone JOHNNIE VALENCIA M.D. Primary Care Provider Mitra Paige Unavailable [phone] Allergies Allergen (clinical drug ingredient) Drug/Non Drug [...] Calcium 20MG 1 ORAL daily for -3 [facility] 07/26 Active Eliquis 5 MG TAKE 1 TABLET BY HUONG TH TWICE A DAY Oral for 30 Active Estradiol Vaginal Cream 0.01% 1 Gram Vaginally once a week for 90 days 03/24/2019 Active Atenolol 25MG 1 ORAL twice daily [facility] 03/12/2012 Active Colace 100 MG [...] Status Risk Notes Problem Postmenopausal atrophic vaginitis (12117068) Postmenopausal atrophic vaginitis (N95.2) Active confirmed Problem Atrophy of vulva (172725843) Atrophy of vulva (N90.5) Active confirmed Problem Hyperlipidemia (12043596) Other and unspecified hyperlipidemia (272.4) Active confirmed Major Problem Benign essential hypertension (4430554) Essential hypertension, benign (401.1) Active confirmed Major Problem Atrial fibrillation (39055134) Atrial fibrillation (427.31) Active confirmed Major Problem Irritable bowel syndrome (51777216) Irritable bowel syndrome (564.1) Active confirmed Major Problem Menopausal symptom (69202551) Symptomatic menopausal or female climacteric states (627.2) Active confirmed Major Problem Urinary incontinence (981553194) Unspecified urinary incontinence (788.30) Active confirmed Diag Problem Gynecological examination normal (285809720865309) Routine gynecological examination (V72.31) Active confirmed Major Problem Screening for malignant neoplasm of colon (140595292) Special screening for malignant neoplasms, colon (V76.51) Active confirmed Major Plan Of Treatment Pending Test Test Name Order Date MAMMOGRAM, SCREENING 06/22/2020 MAMMOGRAM, SCREENING 06/24/2021 MAMMOGRAM, SCREENING 08/13/2015 Urinalysis 08/29/2019 25OH VITAMIN D 04/21/2019 COMPREHENSIVE METABOLIC PANEL 04/21/2019 N-TELOPEPTIDE CROSS 04/21/2019 PTH, INTACT 04/21/2019 TSH 04/21/2019 BONE DENSITY 03/01/2018 BONE DENSITY 06/24/2021 MM Digital Mammo Screening 03/01/2018 MM Digital Mammo Screening 06/22/2020 MM Digital Mammo Screening 06/24/2021 Insurance Providers Payer Name Payer Address Payer Phone Subscriber Number Group Number Insured Name Patient Relationship to Insured Coverage Start Date Coverage End Date [facility] [employer] [address] [address] [place] [address] [id number] [place] [address] [place] Self - patient [...]
[2025-01-30 09:30] LABS: Alanine Aminotransferase 16 U/L (0-31); Albumin Level 3.7 g/dL (3.5-5.0); Alkaline Phosphatase 77 U/L (39-117); Anion Gap 10 (12-20); Aspartate Amino Transferase 31 U/L (5-31); Bilirubin Direct 0.1 mg/dL (0.0-0.5); Bilirubin Total 0.7 mg/dL (0.0-1.0); Blood Urea Nitrogen 9 mg/dL (9-16); Calcium 8.8 mg/dL (8.4-10.2); Carbon Dioxide 24 mmol/L (22-29); Chloride 108 mmol/L (96-108); Creatinine Clr Calc Pharmacy 61.5; Estimated Glomerular Filt Rate > 60; Glucose Random 91 mg/dL (60-115); Lipase 17 U/L (8-78); Magnesium 2.1 mg/dL (1.6-2.6); Potassium 4.2 mmol/L (3.3-5.1); Sodium 138 mmol/L (135-145); Total Protein 6.6 g/dL (6.5-8.0)
[2025-01-30 09:37] LABS: Troponin-I High Sensitivity < 2.7 ng/L (<3.5-17.0)
[2025-01-30] MEDS: iohexoL 350 MG/ML 100 ML INFUS..BTL IV (09:47)
[2025-01-30 09:57] LABS: Influenza A PCR NEGATIVE (Negative); Influenza B PCR NEGATIVE (Negative); Resp Syncy Virus RNA Qual PCR NEGATIVE (Negative); SARS COV2 PCR INHOUSE NEGATIVE (Negative)
[2025-01-30 10:27] LABS: Appearance Urine Clear; Color Urine Yellow; Glucose Urine UA Negative (Negative); Leukocyte Esterase Urine Large (3+) (Negative); Nitrite Urine Negative (Negative); Specific Gravity - Urine 1.025 (1.005-1.025); UMIC TRIGGER UACC YES; Urine Blood Negative (Negative); Urine Ketones Negative (Negative); Urine Protein Negative (Neg-Trace)
[2025-01-30 10:33] VITALS: BP 144/51; PULSE 60; RESP 18; TEMP 36.4; O2SAT 98
[2025-01-30 10:33] LABS: Bacteria Urine None Seen (None Seen); Hyaline Casts Urine 0-2 /LPF (0-2); RBC Urine 0-2 /HPF (0-2); UACC Culture Trigger YES; WBC Urine 21-50 /HPF (0-5)
[2025-01-30] MEDS: Amoxicillin/Potassium Clav 875 MG TABLET PO ×2 (11:03→20:56)
--- NOTE | 2025-01-30 13:19 | MHC.CM.ED ---
Addendum entered by Caroline Angela 01/30/25 13:54: [facility] is not contracted with [facility] and [facility]. Patient does not want to go to [facility] or [facility] [address]. Will refer to local SNF that are contracted with patient's insurance. Original Note: Received case management consult from Dr Parra. Patient came to the ER due to abd pain. Work up essentially negative. Patient states she doesn't feel she is strong enough to return home. Physical therapy eval ordered and pending. Met with patient in regards to discharge planning. Patient lives in independently living in [facility], ambulates with a cane and had no services prior to coming to the ER. PCP verified. Copy of HCP verfied to be on file. Patient aware physical therapy eval is pending. If PT rec STR, patient's SNF choices are 1) [facility] 2) [facility]. Referrals will be made via careport. Continue to monitor for d/c needs.
[2025-01-30 14:13] VITALS: BP 171/76; PULSE 64; RESP 14; TEMP 36.6; O2SAT 99
--- NOTE | 2025-01-30 18:17 | PC.NURSE ---
medications due for 1729 not yet verified by pharmacy
--- NOTE | 2025-01-30 18:58 | PHA.MEDREC ---
Pharmacy Consult ? Medication Reconciliation Pharmacy has completed the medication reconciliation.Med rec complete, done by nursing. Pharmacist confirmed meds and added a few OTC meds after speaking with patient.
[2025-01-30] MEDS: Cholecalciferol (Vitamin D3) 25 MCG TABLET 50 MCG PO (19:08)
[2025-01-30] MEDS: Cyanocobalamin (Vitamin B-12) 1,000 MCG TABLET 1000 MCG PO (19:08)
[2025-01-30] MEDS: Atorvastatin Calcium 20 MG TABLET PO (19:08)
--- NOTE | 2025-01-30 20:12 | MHC.CM.ED ---
CM met with patient and family. PT recommends STR. Patient is agreeable. Reviewed bed offers. Pt accepts bed at [facility]. Facility notified via [facility]. Awaiting insurance auth.. Pt has [place] [employer] Advantage.
[2025-01-30 20:56] VITALS: BP 116/52; PULSE 65
[2025-01-30] MEDS: atenoloL 25 MG TABLET PO (20:56)
[2025-01-30] MEDS: Apixaban 5 MG TABLET PO (20:58)
[2025-01-31 04:58] VITALS: BP 148/75; PULSE 63; RESP 16; TEMP 36.4; O2SAT 99
[2025-01-31] MEDS: Prochlorperazine Maleate 5 MG TABLET PO (06:36)
[2025-01-31 08:35] VITALS: BP 128/57; PULSE 68; RESP 20; TEMP 36.8; O2SAT 98
[2025-01-31] MEDS: Cyanocobalamin (Vitamin B-12) 1,000 MCG TABLET 1000 MCG PO (08:42)
[2025-01-31 08:43] VITALS: BP 128/57; PULSE 68
[2025-01-31] MEDS: Apixaban 5 MG TABLET PO (08:43)
[2025-01-31] MEDS: atenoloL 25 MG TABLET PO (08:43)
[2025-01-31] MEDS: Cholecalciferol (Vitamin D3) 25 MCG TABLET 50 MCG PO (08:43)
[2025-01-31] MEDS: Atorvastatin Calcium 20 MG TABLET PO (08:43)
[2025-01-31] MEDS: Amoxicillin/Potassium Clav 875 MG TABLET PO (08:43)
--- NOTE | 2025-01-31 08:59 | MHC.CM.ED ---
Addendum entered by Caroline Angela 01/31/25 15:51: Gracia Russ has obtained insurance auth. Balwinder RODRIGUEZS booked for 430pm. Med nec with chart. Patient, Michelle RN and Corie IBRAHIM aware. Original Note: Patient remains in ER. Gracia Russ is in the process of obtaining insurance auth. Continue to monitor for d/c needs.
--- NOTE | 2025-01-31 13:14 | MHC.EDTECH ---
Pt ate 100% of lunch tray
--- NOTE | 2025-01-31 16:48 | PC.NURSE ---
report given to ems for tx
== END 2025-01-31 16:48 ==
PROVIDERS: Emergency Provider Emergency Medicine; PCP Internal Medicine
DX: N39.0 Urinary tract infection, site not specified (principal); R10.2 Pelvic and perineal pain; I10 Essential (primary) hypertension; R10.30 Lower abdominal pain, unspecified; R26.81 Unsteadiness on feet; R00.1 Bradycardia, unspecified; Z79.899 Other long term (current) drug therapy; Z03.818 Encounter for observation for suspected exposure to other biological agents ruled out
CPT/HCPCS: 0241U; 36415; 74177; 80048; 80076; 81001; 83690; 83735; 84484; 85025; 87086; 93005; 96374; 97161; 99285; J2270; Q9967

== ENCOUNTER → 2025-01-30 08:26 | Outpatient (BNV) | payer MEDICARE, SELFPAY | PROVIDERS: Emergency Provider Emergency Medicine; PCP Internal Medicine; Visit Provider Internal Medicine Cardiovascular Disease | DX: R00.1 Bradycardia, unspecified (principal) | CPT/HCPCS: 93010 ==

== ENCOUNTER → 2025-01-30 08:27 | Outpatient (BNV) | payer MEDICARE, SELFPAY | PROVIDERS: Emergency Provider Emergency Medicine; PCP Internal Medicine; Visit Provider Radiology Diagnostic Radiology | DX: K57.30 Diverticulosis of large intestine without perforation or abscess without bleeding (principal); N20.0 Calculus of kidney | CPT/HCPCS: 74177 ==

== ENCOUNTER 2025-03-15 13:45 | Outpatient (AMB) | payer MEDICARE, SELFPAY ==
--- NOTE | 2025-03-15 13:56 | A.OFFVIS_ITS ---
Intake Visit Reasons: history of UTI Intake Note: Patient is present for HISTORY OF UTI Urology Medication:VITAMIN B12 Antibiotic Allergy:AZITHROMYCIN Blood Thinner:APIXABAN Cereal Supervisor Required: No Allergies meperidine [Demerol] Allergy (Intermediate, Verified 03/15/25 13:58) syncope nitrofurantoin [From Macrobid] Allergy (Intermediate, Verified 03/15/25 13:58) Rash paroxetine [From PAXIL] Allergy (Intermediate, Verified 03/15/25 13:58) SYNCOPE shellfish derived [SHELLFISH DERIVED] Allergy (Intermediate, Verified 03/15/25 13:58) HIVES ondansetron [From Zofran] Allergy (Verified 03/15/25 13:58) Nausea azithromycin [From ZITHROMAX Z-NAYLA] Adverse Reaction (Verified 03/15/25 13:58) presyncope HPI Comments Details: Lucinda is a pleasant female. She is a patient of Dr. Fischer. She is seen for the following urologic conditions - recurrent urinary tract symptoms Accompanied by her sister Two UTIs within the past 6 months Recurrent UTI Background of IBS with constipation Has managed to partially resolve with Dr. Damon Uses magnesium citrate Discussed use of stone fruit Start Estrace [facility] Medical History Paroxysmal atrial fibrillation Chronic constipation Closed lumbar vertebral fracture Gout Osteopenia Tubular adenoma of colon Hypertension Hypercholesterolemia Surgical History Fracture of lumbar spine History of colonoscopy History of tonsillectomy History of tubal ligation Family History Father Diabetes Social History Household Members: None Housing: Assisted Living Facility Housing Other:: independent living Do you presently have visiting nurse or other home services: No Alcohol intake: current Alcohol intake frequency: 0-2 drinks per day Alcohol type: wine Comment: Qd 6 oz red wine Patient Tobacco Use Status: Never used Tobacco Tobacco use type: Cigarette e-Cigarette/Vaping Use: Never Used Second Hand Smoke Exposure: No service: No Current occupational status: retired Cognitive needs: No Hearing needs: No Vision needs: Yes Review of Systems Const Denies chills and Denies fever(s) Card Reports no additional complaints and Denies syncope Resp Denies cough GI Denies abdominal pain and Denies heartburn Reports as per HPI and Denies change in libido Neuro Denies syncope Psych Denies change in libido Endo Denies change in libido Physical Exam Const General: cooperative, healthy appearing, comfortable and no acute distress Orientation/consciousness: patient oriented x3 HEENT Face and sinus: Yes normal facial exam Mouth: moist mucous membranes Neck Neck: Yes normal visual inspection, Yes full ROM and Yes trachea midline Chest Chest palpation & inspection: normal inspection of the chest Resp Effort & Inspection: normal respiratory effort, able to speak in complete sentences and no respiratory distress GI Inspection: Yes normal to inspection Back/Spine/Pelvis Cervical Spine: normal cervical lordosis Thoracic/Lumbar Spine: thoracic and lumbar spine normal to inspection Skin General skin exam: no rashes or lesions noted Neuro General: patient oriented x3, gait normal, tone normal and moves all extremities Extrem General: Yes normal to inspection and Yes capillary refill normal Results AMB Urinalysis, Automated UA Leukoctes 0 Kellen/uL Last Edit by ANSHU Rico on 03/15/25 15:59 UA Nitrite Negative Last Edit by ANSUH Rico on 03/15/25 15:59 UA Urobilinogen 3.5 mg/dL Last Edit by ANSHU Rico on 03/15/25 15:5 9 UA Protein 0 mg/dL Last Edit by ANSHU Rico on 03/15/25 15:59 UA pH 6.0 Last Edit by ANSHU Rico on 03/15/25 15:59 UA Blood 0 Alex/uL Last Edit by ANSHU Rico on 03/15/25 15:59 UA Specific [place] 1.015 Last Edit by ANSHU Rico on 03/15/25 15: 59 UA Ketone Negative Last Edit by ANSHU Rico on 03/15/25 15:59 UA Bilirubin 0 mg/dL Last Edit by ANSHU Rico on 03/15/25 15:59 UA Glucose 0 mg/dL Last Edit by ANSHU Rico on 03/15/25 15:59 Results Reviewed Results Reviewed: Laboratory Last Values Urine pH (Auto) 6.0 03/15/25 15:59 Specific [place] (Auto) 1.015 03/15/25 15:59 Urine Protein (Auto) 0 mg/dL 03/15/25 15:59 Glucose (UA)(Auto) 0 mg/dL 03/15/25 15:59 Urine Ketones (Auto) Negative 03/15/25 15:59 Urine Blood (Auto) 0 Alex/uL 03/15/25 15:59 Urine Nitrite (Auto) Negative 03/15/25 15:59 Urine Bilirubin (Auto) 0 mg/dL 03/15/25 15:59 Urine Urobilinogen (Auto) 3.5 mg/dL 03/15/25 15:59 Leukocyte Esterase (Auto) 0 Kellen/uL 03/15/25 15:59 Assessment & Plan Assessment & Plan (1) Recurrent UTI (urinary tract infection): Code(s): N39.0 - Urinary tract infection, site not specified Category: Medical Plan Constipation management Estrace cream Six-month follow-up Orders: Orders AMB Urinalysis Automated Today Z13.9 - Encounter for screening, unspecified Medications: New estradiol 0.01%(0.1mg/gram) vaginal 3XW apply pea sized amount to urethra 42.5 grams 1RF 30 days N39.0 - Urinary tract infection, site not specified Patient Instructions: This note is constructed using voice recognition software. While every effort has been made to ensure accuracy recycling operations manager errors may have been included. Imaging studies, laboratory and physical exam results were discussed and reviewed in detail. No major barriers to patient understanding were identified. An opportunity to ask questions regarding the treatment plan was provided. All questions were answered. The patient expressed understanding and agreement with the above treatment plan. The patient is aware they should contact our office by phone for worsening of their current condition or the appearance of new urologic symptoms. Compliance is encouraged with any medications and followup testing that is ordered. It is a privilege to participate in the urologic care of your patient. If you have any questions or concerns regarding treatment for the above conditions, or other urologic issues, please do not hesitate to contact me. The office telephone contact is [phone]. Sincerely, Dr Richard Isabel MD, [facility] - Urology Compassionate Specialist Care for the Genitourinary System Coding Level of Care Code New Pt Level 4 (65810) Diagnoses Recurrent UTI (urinary tract infection) N39.0
--- OUTSIDE RECORDS SUMMARY | 2025-03-15 14:20 | XMS_ITS | Patient Health Record ---
Author Organization [facility] Address [address] [place] [address] [place] [address] Care Team Providers Care General Doc Name Role Phone JOHNNIE VALENCIA M.D. Primary Care Provider Mitra Paige Unavailable [phone] Allergies Allergen (clinical drug ingredient) Drug/Non Drug [...] Calcium 20MG 1 ORAL daily for -3 [facility] 07/26 Active Eliquis 5 MG TAKE 1 TABLET BY HUONG TH TWICE A DAY Oral for 30 Active Estradiol Vaginal Cream 0.01% 1 Gram Vaginally once a week for 90 days 03/24/2019 Active Atenolol 25MG 1 ORAL twice daily [facility] 03/12/2012 Active Colace 100 MG [...] Status Risk Notes Problem Postmenopausal atrophic vaginitis (55329108) Postmenopausal atrophic vaginitis (N95.2) Active confirmed Problem Atrophy of vulva (563225940) Atrophy of vulva (N90.5) Active confirmed Problem Hyperlipidemia (19606188) Other and unspecified hyperlipidemia (272.4) Active confirmed Major Problem Benign essential hypertension (0742525) Essential hypertension, benign (401.1) Active confirmed Major Problem Atrial fibrillation (54618765) Atrial fibrillation (427.31) Active confirmed Major Problem Irritable bowel syndrome (16797150) Irritable bowel syndrome (564.1) Active confirmed Major Problem Menopausal symptom (76722611) Symptomatic menopausal or female climacteric states (627.2) Active confirmed Major Problem Urinary incontinence (372523895) Unspecified urinary incontinence (788.30) Active confirmed Diag Problem Gynecological examination normal (725275236599397) Routine gynecological examination (V72.31) Active confirmed Major Problem Screening for malignant neoplasm of colon (962396213) Special screening for malignant neoplasms, colon (V76.51) [...] Insured Coverage Start Date Coverage End Date [employer] [address] [address] [place] [address] [id number] [place] DE [place] SANTOS Self - patient [...]
--- OUTSIDE RECORDS SUMMARY | 2025-03-15 14:20 | XMS_ITS | Encounter Summary ---
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 Name Role Phone Unavailable Primary Care Provider Unavailabl e Encounter Details Date Type Department Care Team (Late st Contact Info) Description 09/07/2024 Lab Requisition [facility] - Main Lab [address] [facility] [place] [address] Isaac Fischer MD [address] [place] [address] [address] [facility] [place] [address] Vitamin D deficiency, unspecified; Pure hypercholesterolemia , [...] CBC auto differential (09/07/2024 7:44 AM EST) [facility] WBC 5.1 4.8 - 10.8 K/mcL LAB HEMETOLOGY METHOD 09/07/2024 11:30 AM [facility] RBC 4.50 3.80 - 4.80 M/mcL LAB HEMETOLOGY METHOD 09/07/2024 11:30 AM [facility] Hemoglobin 14.2 11.5 - 16.0 g/dL LAB HEMETOLOGY METHOD 09/07/2024 11:30 AM [facility] Hematocrit 43.3 35.0 - 47.0 % LAB HEMETOLOGY METHOD 09/07/2024 11:30 AM [facility] MCV 95.8 79.0 - 98.0 FL LAB HEMETOLOGY METHOD 09/07/2024 11:30 AM [facility] MCH 31.4 27.0 - 32.0 pcg LAB HEMETOLOGY METHOD 09/07/2024 11:30 AM [facility] MCHC 32.8 32.0 - 37.0 g/dL LAB HEMETOLOGY METHOD 09/07/2024 11:30 AM [facility] RDW 12.7 11.0 - 15.0 % LAB HEMETOLOGY METHOD 09/07/2024 11:30 AM [facility] Platelets 240 130 - 400 K/mcL LAB HEMETOLOGY METHOD 09/07/2024 11:30 AM [facility] MPV 10.2 7.0 - 11.0 FL LAB HEMETOLOGY METHOD 09/07/2024 11:30 AM [facility] NRBC 0.0 <1.0 % LAB HEMETOLOGY METHOD 09/07/2024 11:30 AM [facility] NRBC Absolute 0.00 <0.10 K/mcL LAB HEMETOLOGY METHOD 09/07/2024 11:30 AM [facility] Neutrophils Relative 56.0 % LAB HEMETOLOGY METHOD 09/07/2024 11:30 AM [facility] Lymphocytes Relative 28.4 % LAB HEMETOLOGY METHOD 09/07/2024 11:30 AM [facility] Monocytes Relative 10.1 % LAB HEMETOLOGY METHOD 09/07/2024 11:30 AM [facility] Eosinophils Relative 4.7 % LAB HEMETOLOGY METHOD 09/07/2024 11:30 AM [facility] Basophils Relative 0.6 % LAB HEMETOLOGY METHOD 09/07/2024 11:30 AM [facility] Immature Granulocytes Relative 0.2 % LAB HEMETOLOGY METHOD 09/07/2024 11:30 AM [facility] Neutrophils Absolute 2.84 1.50 - 7.00 K/mcL LAB HEMETOLOGY METHOD 09/07/2024 11:30 AM EST [facility] Lymphocytes Absolute 1.44 1.00 - 5.00 K/mcL LAB HEMETOLOGY METHOD 09/07/2024 11:30 AM EST [facility] Monocytes Absolute 0.51 0.20 - 1.00 K/[facility] LAB HEMETOLOGY METHOD 09/07/2024 11:30 AM EST [facility] Eosinophils Absolute 0.24 0.00 - 0.50 K/[facility] LAB HEMETOLOGY METHOD 09/07/2024 11:30 AM EST [facility] Basophils Absolute 0.03 0.00 - 0.20 K/[facility] LAB HEMETOLOGY METHOD 09/07/2024 11:30 AM [facility] Immature Granulocytes Absolute 0.01 0.00 - 0.03 K/[facility] LAB HEMETOLOGY METHOD 09/07/2024 11:30 AM [facility] Blood Venous blood specimen / Unknown 09/07/2024 7:44 AM EST 09/07/2024 10:33 AM EST Isaac Fischer MD LAB BLOOD ORDERABLES Final Resul t [facility] [address] [place] [address], * Comprehensive metabolic panel (09/07/2024 7:44 AM EST) Sodium 140 133 - 145 mmol/L LAB CHEMISTRY METHOD 09/07/2024 12:08 PM [facility] Potassium 4.3 3.5 - 5.5 mmol/L LAB CHEMISTRY METHOD 09/07/2024 12:08 PM [facility] Chloride 106 96 - 110 mmol/L LAB CHEMISTRY METHOD 09/07/2024 12:08 PM [facility] CO2 26 21 - 32 mmol/L LAB CHEMISTRY METHOD 09/07/2024 12:08 PM [facility] Anion Gap 8 3 - 11 LAB CHEMISTRY METHOD 09/07/2024 12:08 PM [facility] Glucose 84 70 - 100 mg/dL LAB CHEMISTRY METHOD 09/07/2024 12:08 PM [facility] BUN 13 5 - 25 mg/dL LAB CHEMISTRY METHOD 09/07/2024 12:08 PM [facility] Creatinine 0.85 0.50 - 1.10 mg/dL LAB CHEMISTRY METHOD 09/07/2024 12:08 PM [facility] eGFR 68 >=60 mL/min/1. 73m2 LAB CHEMISTRY METHOD 09/07/2024 12:08 PM [facility] Comment:Calculation based on the??Chronic Kidney Disease Epidemiology Collaboration (CKD-EPI) equation refit??without adjustment for race. BUN/Creatinine Ratio 15.3 LAB CHEMISTRY METHOD 09/07/2024 12:08 PM [facility] Calcium 8.9 8.5 - 10.5 mg/dL LAB CHEMISTRY METHOD 09/07/2024 12:08 PM [facility] AST (SGOT) 24 10 - 42 unit/L LAB CHEMISTRY METHOD 09/07/2024 12:08 PM [facility] ALT (SGPT) 27 10 - 60 unit/L LAB CHEMISTRY METHOD 09/07/2024 12:08 PM [facility] Alkaline Phosphatase 93 42 - 121 unit/L LAB CHEMISTRY METHOD 09/07/2024 12:08 PM [facility] Total Protein 6.4 6.0 - 8.0 g/dL LAB CHEMISTRY METHOD 09/07/2024 12:08 PM [facility] Albumin 3.6 3.2 - 5.0 g/dL LAB CHEMISTRY METHOD 09/07/2024 12:08 PM [facility] Total Bilirubin 0.7 0.0 - 1.4 mg/dL LAB CHEMISTRY METHOD 09/07/2024 12:08 PM EST [facility] Blood Venous blood specimen / Unknown Venipuncture / Unknown 09/07/2024 7:44 AM EST 09/07/2024 10:33 AM EST us Isaac Fischer MD LAB BLOOD ORDERABLES Final Resul t Performing Organization Address City/[facility]/ZIP Co de Phone Number [facility] [address] [place] [address], [place] [phone] * Thyroid stimulating hormone (09/07/2024 7:44 AM EST) TSH 3.62 0.40 - 4.00 mcIU/mL LAB CHEMISTRY METHOD 09/07/2024 12:16 PM EST [facility] Blood Venous blood specimen / Unknown Venipuncture / Unknown 09/07/2024 7:44 AM EST 09/07/2024 10:33 AM EST us Isaac Fischer MD LAB BLOOD ORDERABLES Final Resul t Performing Organization Address City/[facility]/ZIP Co de Phone Number [facility] [address] [place] [address], [place] [phone] * Magnesium (09/07/2024 7:44 AM EST) Magnesium 2.0 1.9 - 2.6 mg/dL LAB CHEMISTRY METHOD 09/07/2024 12:08 PM EST [facility] Blood Venous blood specimen / Unknown Venipuncture / Unknown 09/07/2024 7:44 AM EST 09/07/2024 10:33 AM EST us Isaac Fischer MD LAB BLOOD ORDERABLES Final Resul t [facility] [address] [place] [address], [place] [phone] * Lipid panel with reflex to direct LDL (09/07/2024 7:44 AM EST) Cholesterol 162 0 - 200 mg/dL LAB CHEMISTRY METHOD 09/07/2024 12:08 PM [facility] Triglycerides 64 0 - 150 mg/dL LAB CHEMISTRY METHOD 09/07/2024 12:08 PM [facility] HDL 63 >=40 mg/dL LAB CHEMISTRY METHOD 09/07/2024 12:08 PM [facility] LDL Calculated 86 0 - 100 mg/dL LAB CHEMISTRY METHOD 09/07/2024 12:08 PM [facility] VLDL Cholesterol Pablo 12.8 mg/dL LAB CHEMISTRY METHOD 09/07/2024 12:08 PM [facility] Non HDL Chol. (LDL+VLDL) 99 <145 mg/dL LAB CHEMISTRY METHOD 09/07/2024 12:08 PM [facility] Chol/HDL Ratio 2.6 0.0 - 4.4 LAB CHEMISTRY METHOD 09/07/2024 12:08 PM [facility] Blood Venous blood specimen / Unknown Venipuncture / Unknown 09/07/2024 7:44 AM EST 09/07/2024 10:33 AM EST us Isaac Fischer MD LAB BLOOD ORDERABLES Final Resul t [facility] [address] [place] [address], * Thyroxine free (09/07/2024 7:44 AM EST) Free T4 1.17 0.70 - 1.80 ng/dL LAB CHEMISTRY METHOD 09/07/2024 12:16 PM [facility] Blood Venous blood specimen / Unknown Venipuncture / Unknown 09/07/2024 7:44 AM EST 09/07/2024 10:33 AM EST us Isaac Fischer MD LAB BLOOD ORDERABLES Final Resul t Performing Organization Address City/[facility]/ZIP Co de Phone Number [facility] [address] [place] [address], [place] [phone] * (ABNORMAL) Vitamin B12 and folate (09/07/2024 7:44 AM EST) Vitamin B-12 241(L) 250 - 900 pcg/mL LAB CHEMISTRY METHOD 09/07/2024 12:30 PM EST [facility] Folate 5.2 2.8 - 17.0 ng/ml LAB CHEMISTRY METHOD 09/07/2024 12:30 PM EST [facility] Blood Venous blood specimen / Unknown Venipuncture / Unknown 09/07/2024 7:44 AM EST 09/07/2024 10:33 AM EST us Isaac Fischer MD LAB BLOOD ORDERABLES Final Resul t Performing Organization Address [facility] Co de Phone Number [facility] [address] [place] [address], [place] [phone] * (ABNORMAL) Vitamin D 25 hydroxy (09/07/2024 7:44 AM EST) Vit D, 25-Hydroxy 20.3(L) 30.0 - 80.0 ng/mL LAB CHEMISTRY METHOD 09/07/2024 12:16 PM EST [facility] Blood Venous blood specimen / Unknown Venipuncture / Unknown 09/07/2024 7:44 AM EST 09/07/2024 10:33 AM EST us Isaac Fischer MD LAB BLOOD ORDERABLES Final Resul t Performing Organization Address City/[facility]/ZIP Co de Phone Number [facility] [address] [place] [address], [place] [phone] documented in this encounter Visit Diagnoses Diagnosis Vitamin D deficiency, unspecified Pure hypercholesterolemia, unspecified Other specified abnormal findings of blood chemistry documented in this encounter
--- OUTSIDE RECORDS SUMMARY | 2025-03-15 14:20 | XMS_ITS | Encounter Summary ---
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 Role Phone Unavailable Primary Care Provider Unavailabl e Encounter Details Date Type Department Care Team (Late st Contact Info) Description 09/07/2024 Lab Requisition [facility] - Main Lab [address] [facility] [place] [address] Isaac Fischer MD [address] [place] [address] [address] [facility] [place] [address] Dysuria Social History Tobacco Use Types Packs/Day [...] Urine No growth 09/08/2024 8:12 AM EST [facility] Urine Urine specimen obtained by clean catch procedure / Unknown Non-blood Collection / Unknown 09/07/2024 8:00 AM EST 09/07/2024 12:33 PM EST Isaac Fischer MD LAB MICROBIOLOGY - GENERAL ORDER HEIDI Final Result [facility] [address] [place] [address], [place] [phone] * (ABNORMAL) Urinalysis with reflex microscopic and culture (09/07/2024 8:00 AM EST) Specific [place] Urine 1.025 1.003 - 1.030 LAB URINALYSIS - AUTOMATED METHOD 09/07/2024 12:33 PM [facility] pH, Urine 6.0 5.0 - 8.0 pH LAB URINALYSIS - AUTOMATED METHOD 09/07/2024 12:33 PM [facility] Leukocytes, Urine Trace(A) Negative LAB URINALYSIS - AUTOMATED METHOD 09/07/2024 12:33 PM [facility] Nitrite, Urine Negative Negative LAB URINALYSIS - AUTOMATED METHOD 09/07/2024 12:33 PM [facility] Protein, Urine Negative <=Trace mg/dL LAB URINALYSIS - AUTOMATED METHOD 09/07/2024 12:33 PM [facility] Glucose, Urine Negative Negative mg/dL LAB URINALYSIS - AUTOMATED METHOD 09/07/2024 12:33 PM [facility] Ketones, Urine Negative Negative mg/dL LAB URINALYSIS - AUTOMATED METHOD 09/07/2024 12:33 PM [facility] Urobilinogen, Urine 0.2 0.2 - 1.0 mg/dL LAB URINALYSIS - AUTOMATED METHOD 09/07/2024 12:33 PM [facility] Bilirubin, Urine Negative Negative LAB URINALYSIS - AUTOMATED METHOD 09/07/2024 12:33 PM [facility] Blood, Urine Negative Negative LAB URINALYSIS - AUTOMATED METHOD 09/07/2024 12:33 PM [facility] RBC, Urine 5.3(H) 0 - 4 /HPF LAB URINALYSIS - AUTOMATED METHOD 09/07/2024 12:33 PM [facility] WBC, Urine 5.0(H) 0 - 4 /HPF LAB URINALYSIS - AUTOMATED METHOD 09/07/2024 12:33 PM [facility] Squamous Epithelial, Urine 53 0 - 60 /LPF LAB URINALYSIS - AUTOMATED METHOD 09/07/2024 12:33 PM [facility] Bacteria, Urine Negative Negative /HPF LAB URINALYSIS - AUTOMATED METHOD 09/07/2024 12:33 PM [facility] Hyaline Casts, Urine 4.5(H) 0 - 3 /LPF LAB URINALYSIS - AUTOMATED METHOD 09/07/2024 12:33 PM [facility] Urine Urine specimen obtained by clean catch procedure / Unknown Non-blood Collection / Unknown 09/07/2024 8:00 AM EST 09/07/2024 11:43 AM EST us Isaac Fischer MD LAB URINE ORDERABLES Final Resul t Performing Organization Address City/[facility]/ZIP Co de Phone Number [facility] [address] [place] [address], * Carpenter urine culture tube (09/07/2024 8:00 AM EST) Extra Tube Hold for add-ons. 09/07/2024 1:01 PM [facility] Comment:Auto resulted. Urine Urine specimen obtained by clean catch procedure / Unknown Non-blood Collection / Unknown 09/07/2024 8:00 AM EST 09/07/2024 11:43 AM EST us Isaac Fischer MD LAB URINE ORDERABLES Final Resul t [facility] ([facility] H[facility] LAB [address] [place] [address], documented in this encounter Visit Diagnoses Diagnosis Dysuria documented in this encounter
--- OUTSIDE RECORDS SUMMARY | 2025-03-15 14:21 | XMS_ITS | Clinical Summary ---
Author Organization [facility] [address] [facility] Address [address] [place] [address] Phone Care Team Providers Care Field Marketing Team Leader Name Role Phone Unavailable Primary Care Provider [...] age to complete this topic Meningococcal B Vaccine Aged Out No l onger eligible based on patient's age to complete [...] LAB CHEMISTRY METHOD 09/07/2024 12:08 PM EST [facility] Triglycerides 64 0 - 150 mg/dL LAB CHEMISTRY METHOD 09/07/2024 12:08 PM EST [facility] HDL 63 >=40 mg/dL LAB CHEMISTRY METHOD 09/07/2024 12:08 PM EST [facility] LDL Calculated 86 0 - 100 mg/dL LAB CHEMISTRY METHOD 09/07/2024 12:08 PM EST [facility] VLDL Cholesterol Pablo 12.8 mg/dL LAB CHEMISTRY METHOD 09/07/2024 12:08 PM EST [facility] Non HDL Chol. (LDL+VLDL) 99 <145 mg/dL LAB CHEMISTRY METHOD 09/07/2024 12:08 PM EST [facility] Chol/HDL Ratio 2.6 0.0 - 4.4 LAB CHEMISTRY METHOD 09/07/2024 12:08 PM [facility] Blood Venous blood specimen / Unknown Venipuncture / Unknown 09/07/2024 7:44 AM EST 09/07/2024 10:33 AM EST us Isaac Fischer MD LAB BLOOD ORDERABLES Final Resul t [facility] [address] [place] [address], from Last 3 Months or Most Recently Relevant to Health Maintenance Insurance [employer]
== END 2025-03-15 15:03 | disposition home or self-care (01) ==
LOC: HO.HUSH 13:49
PROVIDERS: PCP Internal Medicine; Visit Provider Urology
DX: N39.0 Urinary tract infection, site not specified (principal); Z13.9 Encounter for screening, unspecified
CPT/HCPCS: 99204

== ENCOUNTER → 2025-03-15 13:45 | Outpatient (BNVA) | payer MEDICARE, SELFPAY | PROVIDERS: PCP Internal Medicine; Visit Provider Urology | DX: N39.0 Urinary tract infection, site not specified (principal) | CPT/HCPCS: 81003; 99202 ==

== ENCOUNTER 2025-04-11 13:10 | Outpatient (AMB) | payer MEDICARE, SELFPAY ==
--- NOTE | 2025-04-11 13:14 | A.OFFVIS_ITS ---
Vital Signs 04/11/25 13:15 Height 5 ft 7 in Weight 165 lb 5.547 oz BMI 25.9 BP 120/70 Blood Pressure Location Lt brachial Position Sitting Pulse 60 Intake Visit Reasons: 1 yr follow up/ EKG Intake Note: 1 year follow-up with ekg had afib when she was having bowel issues but stopped quickly and has had since Junior Php Developer Required: No Allergies meperidine [Demerol] Allergy (Intermediate, Verified 03/15/25 13:58) syncope nitrofurantoin [From Macrobid] Allergy (Intermediate, Verified 03/15/25 13:58) Rash paroxetine [From PAXIL] Allergy (Intermediate, Verified 03/15/25 13:58) SYNCOPE shellfish derived [SHELLFISH DERIVED] Allergy (Intermediate, Verified 03/15/25 13:58) HIVES ondansetron [From Zofran] Allergy (Verified 03/15/25 13:58) Nausea azithromycin [From ZITHROMAX Z-NAYLA] Adverse Reaction (Verified 03/15/25 13:58) presyncope Medication List - Last Reconciled 04/11/25 by Seymour Rivera MD apixaban (Eliquis) 5 mg PO BID atenolol 25 mg PO BID atorvastatin 20 mg PO DAILY 90 days cefuroxime axetil 250 mg PO BID 7 days cholecalciferol (vitamin D3) 50 mcg PO DAILY 90 days cyanocobalamin (vitamin B-12) 1,000 mcg PO DAILY docusate sodium (Colace) 100 mg PO BEDTIME estradiol 0.01%(0.1mg/gram) vaginal 3XW apply pea sized amount to urethra 30 days fluoride (sodium) 1.1% (Denta 5000 Plus) 1 appl PO DAILY lorazepam (Ativan) 0.5 mg PO DAILY PRN sodium,potassium,mag sulfates 17.5-3.13-1.6 gram (Suprep Bowel Prep Kit) DILUTE each bottle with 16oz of water; drink first bottle 5pm evening before procedure AND second bottle at 11pm; follow each bottle with at least 32 oz.of water within 1 hour after each bottle vit H-U-qookrf-zinc-lutein 226-90-0.8-5 mg (PreserVision Lutein) 1 cap PO BID HPI Comments Details: Lucinda comes for follow-up. She was hospitalized multiple times as per her for GI issues. During 1 of the hospitalization when she is having severe discomfort she says she had recurrent atrial fibrillation however that subsided once his GI symptoms resolved. Otherwise she has not had any significant episodes of atrial fibrillation. No bleeding issues or neurologic events. No heart failure symptoms. No exertional chest pain. She takes all her medications regularly. [facility] Medical History Paroxysmal atrial fibrillation Chronic constipation Closed lumbar vertebral fracture Gout Osteopenia Tubular adenoma of colon Hypertension Hypercholesterolemia Surgical History Fracture of lumbar spine History of colonoscopy History of tonsillectomy History of tubal ligation Family History Father Diabetes Social History Household Members: None Housing: Assisted Living Facility Housing Other:: independent living Do you presently have visiting nurse or other home services: No Alcohol intake: current Alcohol intake frequency: 0-2 drinks per day Alcohol type: wine Comment: Qd 6 oz red wine Patient Tobacco Use Status: Never used Tobacco Tobacco use type: Cigarette e-Cigarette/Vaping Use: Never Used Second Hand Smoke Exposure: No service: No Current occupational status: retired Cognitive needs: No Hearing needs: No Vision needs: Yes Review of Systems Const Denies chills, Denies fatigue, Denies fever(s), Denies frequent falls, Denies weakness, Denies weight gain and Denies weight loss ENT Denies dizziness Card Denies chest pain, Denies leg edema, Denies lightheadedness, Denies palpitations, Denies dyspnea, Denies dyspnea on exertion, Denies orthopnea and Denies other (loss of consciousness) Resp Denies cough, Denies dyspnea and Denies dyspnea on exertion GI Denies hematochezia and Denies change in stool character Musc Denies abnormal gait, Denies muscle weakness, Denies numbness, Denies radiating pain into limb and Denies tingling Neuro Denies abnormal gait, Denies dizziness, Denies frequent falls, Denies numbness, Denies tingling and Denies weakness Endo Denies fatigue and Denies palpitations Physical Exam Vital Signs: Last Vital Signs Pulse 60 04/11/25 13:15 BP 120/70 04/11/25 13:15 BMI result Body Mass Index 25.9 Const General: cooperative, comfortable, no acute distress, alert, awake and well groomed Nutritional Appearance: thin and other (Frail elderly woman) Orientation/consciousness: patient oriented x3 Limitations: ambulation with cane Neck Neck: Yes trachea midline, Yes supple and Yes no JVD Chest Chest palpation & inspection: abnormal inspection of the chest kyphotic Resp Effort & Inspection: normal respiratory effort Auscultation: clear to auscultation bilaterally Cardio Jugular venous distension: no JVD Palpation: normal PMI Rate: regular rate Rhythm: regular rhythm Heart sounds: S1 normal heart sound present, S2 normal heart sound present and Other heart sounds present (S4 present) GI Auscultation: normal bowel sounds Skin General skin exam: no rashes or lesions noted Neuro General: patient oriented x3 and no focal motor deficits Extrem General: No clubbing, No cyanosis and Yes edema (Ashlee ankle) Psych Appearance: grossly normal Office Procedures EKG Details: EKG shows normal sinus rhythm with poor R-wave progression [id number], Complete Assessment & Plan Assessment & Plan (1) Paroxysmal atrial fibrillation: Code(s): I48.0 - Paroxysmal atrial fibrillation Category: Medical Plan: Paroxysmal atrial fibrillation this elderly woman which has remained predominantly suppressed on current therapy. She had recurrent bout in the setting of acute abdominal issue. Since then she has had no recurrent issues. Continue stress mitigation strategies. Treatment of anxiety. Avoidance of stimulants was discussed. Continue atenolol therapy. Continue full oral anticoagulation, currently on Eliquis 5 mg b.i.d.. Quarterly renal function test should be pursued. No additional antiarrhythmic drug therapy is needed at this point time. (2) Hypertension: Code(s): I10 - Essential (primary) hypertension Category: Medical Qualifiers: Hypertension type: essential hypertension Qualified Code(s): I10 - Essential (primary) hypertension Plan: Hypertension which is currently well optimized advised to monitor blood pressure at home maintain a log. Goal blood pressure less than 130/84. Low-salt diet was advised. Importance of good blood pressure control was discussed. Will follow up in the clinic in 1 year's time, sooner p.r.n.. Thank you for allowing me to partake in her care Coding Level of Care Code Est Pt Level 4 (71325) Complex EM visit Add On G2211 Diagnoses Paroxysmal atrial fibrillation I48.0 Essential hypertension I10 Hypertension type: essential hypertension CPT Codes EKG - CPT: 74672-[id number], Complete ([id number])
[2025-04-11 13:15] VITALS: BP 120/70; PULSE 60; BMI 25.9
--- OUTSIDE RECORDS SUMMARY | 2025-04-11 14:59 | XMS_ITS | Encounter Summary ---
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 Role Phone Unavailable Primary Care Provider Unavailabl e Encounter Details Date Type Department Care Team (Late st Contact Info) Description 09/07/2024 Lab Requisition [facility] - Main Lab [address] [facility] [place] [address] Isaac Fischer MD [address] [place] [address] [address] [facility] [place] [address] Dysuria Social History Tobacco Use Types Packs/Day [...] Urine No growth 09/08/2024 8:12 AM EST [facility] LAB Urine Urine specimen obtained by clean catch procedure / Unknown Non-blood Collection / Unknown 09/07/2024 8:00 AM EST 09/07/2024 12:33 PM EST Isaac Fischer MD LAB MICROBIOLOGY - GENERAL ORDER HEIDI Final Result [facility] [address] [place] [address], [place] [phone] * (ABNORMAL) Urinalysis with reflex microscopic and culture (09/07/2024 8:00 AM EST) Specific [place] Urine 1.025 1.003 - 1.030 LAB URINALYSIS - AUTOMATED METHOD 09/07/2024 12:33 PM [facility] LAB pH, Urine 6.0 5.0 - 8.0 pH LAB URINALYSIS - AUTOMATED METHOD 09/07/2024 12:33 PM [facility] Leukocytes, Urine Trace(A) Negative LAB URINALYSIS - AUTOMATED METHOD 09/07/2024 12:33 PM [facility] Nitrite, Urine Negative Negative LAB URINALYSIS - AUTOMATED METHOD 09/07/2024 12:33 PM [facility] Protein, Urine Negative <=Trace mg/dL LAB URINALYSIS - AUTOMATED METHOD 09/07/2024 12:33 PM [facility] Glucose, Urine Negative Negative mg/dL LAB URINALYSIS - AUTOMATED METHOD 09/07/2024 12:33 PM [facility] Ketones, Urine Negative Negative mg/dL LAB URINALYSIS - AUTOMATED METHOD 09/07/2024 12:33 PM [facility] Urobilinogen, Urine 0.2 0.2 - 1.0 mg/dL LAB URINALYSIS - AUTOMATED METHOD 09/07/2024 12:33 PM [facility] Bilirubin, Urine Negative Negative LAB URINALYSIS - AUTOMATED METHOD 09/07/2024 12:33 PM [facility] Blood, Urine Negative Negative LAB URINALYSIS - AUTOMATED METHOD 09/07/2024 12:33 PM [facility] RBC, Urine 5.3(H) 0 - 4 /HPF LAB URINALYSIS - AUTOMATED METHOD 09/07/2024 12:33 PM [facility] WBC, Urine 5.0(H) 0 - 4 /HPF LAB URINALYSIS - AUTOMATED METHOD 09/07/2024 12:33 PM [facility] Squamous Epithelial, Urine 53 0 - 60 /LPF LAB URINALYSIS - AUTOMATED METHOD 09/07/2024 12:33 PM [facility] Bacteria, Urine Negative Negative /HPF LAB URINALYSIS - AUTOMATED METHOD 09/07/2024 12:33 PM [facility] Hyaline Casts, Urine 4.5(H) 0 - 3 /LPF LAB URINALYSIS - AUTOMATED METHOD 09/07/2024 12:33 PM [facility] Urine Urine specimen obtained by clean catch procedure / Unknown Non-blood Collection / Unknown 09/07/2024 8:00 AM EST 09/07/2024 11:43 AM EST us Isaac Fischer MD LAB URINE ORDERABLES Final Resul t Performing Organization Address City/[facility]/ZIP Co de Phone Number [facility] [address] [place] [address], * Carpenter urine culture tube (09/07/2024 8:00 AM EST) Extra Tube Hold for add-ons. 09/07/2024 1:01 PM [facility] LAB Comment:Auto resulted. Urine Urine specimen obtained by clean catch procedure / Unknown Non-blood Collection / Unknown 09/07/2024 8:00 AM EST 09/07/2024 11:43 AM EST us Isaac Fischer MD LAB URINE ORDERABLES Final Resul t [facility] HOSPITAL LAB [address] [place] [address], documented in this encounter Visit Diagnoses Diagnosis Dysuria documented in this encounter
== END 2025-04-11 13:38 | disposition home or self-care (01) ==
PROVIDERS: PCP Internal Medicine; Visit Provider Internal Medicine Cardiovascular Disease
DX: I48.0 Paroxysmal atrial fibrillation (principal); I10 Essential (primary) hypertension
CPT/HCPCS: 93010; 99214; G2211

== ENCOUNTER → 2025-04-11 13:10 | Outpatient (BNVA) | payer MEDICARE, SELFPAY | PROVIDERS: PCP Internal Medicine; Visit Provider Internal Medicine Cardiovascular Disease | DX: I48.0 Paroxysmal atrial fibrillation (principal); I10 Essential (primary) hypertension; R94.31 Abnormal electrocardiogram [ECG] [EKG] | CPT/HCPCS: 93005; 99212 ==

== ENCOUNTER 2025-04-20 14:03 | Outpatient (AMB) | payer MEDICARE, SELFPAY ==
[2025-04-20 14:14] VITALS: BP 130/68; PULSE 67; O2SAT 97; BMI 25.7
--- NOTE | 2025-04-20 14:14 | A.OFFPC_ITS ---
Vital Signs 04/20/25 14:14 Height 5 ft 7 in Weight 164 lb BMI 25.7 BP 130/68 Blood Pressure Location Lt brachial Position Sitting Pulse 67 Pulse Source Pulse Oximeter Pulse Oximetry (%) 97 Oxygen Delivery Method Room Air Intake Visit Reasons: 4 Month Follow Up Allergies meperidine (Demerol) Allergy (Intermediate, Verified 04/20/25 14:14) syncope nitrofurantoin (From Macrobid) Allergy (Intermediate, Verified 04/20/25 14:14) Rash paroxetine (From PAXIL) Allergy (Intermediate, Verified 04/20/25 14:14) SYNCOPE shellfish derived (SHELLFISH DERIVED) Allergy (Intermediate, Verified 04/20/25 14:14) HIVES ondansetron (From Zofran) Allergy (Verified 04/20/25 14:14) Nausea azithromycin (From ZITHROMAX Z-NAYLA) Adverse Reaction (Verified 04/20/25 14:14) presyncope Medication List - Last Reconciled 04/20/25 by Isaac Fischer MD apixaban (Eliquis) 5 mg PO BID atenolol 25 mg PO BID atorvastatin 20 mg PO DAILY 90 days cholecalciferol (vitamin D3) 50 mcg PO DAILY 90 days cyanocobalamin (vitamin B-12) 1,000 mcg PO DAILY docusate sodium (Colace) 100 mg PO BEDTIME estradiol 0.01%(0.1mg/gram) vaginal 3XW apply pea sized amount to urethra 30 days fluoride (sodium) 1.1% (Denta 5000 Plus) 1 appl PO DAILY lorazepam (Ativan) 0.5 mg PO DAILY PRN sodium,potassium,mag sulfates 17.5-3.13-1.6 gram (Suprep Bowel Prep Kit) DILUTE each bottle with 16oz of water; drink first bottle 5pm evening before procedure AND second bottle at 11pm; follow each bottle with at least 32 oz.of water within 1 hour after each bottle vit X-F-vcoadv-zinc-lutein 226-90-0.8-5 mg (PreserVision Lutein) 1 cap PO BID Tobacco use date assessed: 12/21/24 Fall risk assessment: No Falls in past year Last assessed Fall Risk: 04/20/25 Dental Screening Dental Screen Date: 12/21/24 [facility] Medical History Paroxysmal atrial fibrillation Chronic constipation Closed lumbar vertebral fracture Gout Osteopenia Tubular adenoma of colon Hypertension Hypercholesterolemia Surgical History Fracture of lumbar spine History of colonoscopy History of tonsillectomy History of tubal ligation Family History Father Diabetes Social History Household Members: None Housing: Assisted Living Facility Housing Other:: independent living Do you presently have visiting nurse or other home services: No Alcohol intake: current Alcohol intake frequency: 0-2 drinks per day Alcohol type: wine Comment: Qd 6 oz red wine Patient Tobacco Use Status: Never used Tobacco Tobacco use type: Cigarette e-Cigarette/Vaping Use: Never Used Second Hand Smoke Exposure: No service: No Current occupational status: retired Cognitive needs: No Hearing needs: No Vision needs: Yes Questionnaire PHQ-9 Over the last 2 weeks, how often have you been bothered by any of the following problems? 1. Little interest or pleasure in doing things: not at all 2. Feeling down, depressed, or hopeless: not at all 3. Trouble falling or staying asleep, or sleeping too much: not at all 4. Feeling tired or having little energy: not at all 5. Poor appetite or overeating: not at all 6. Feeling bad about yourself - or that you are a failure or have let yourself or your family down: not at all 7. Trouble concentrating on things, such as reading the newspaper or watching television: not at all 8. Moving or speaking so slowly that other people could have noticed. Or the opposite - being so fidgety or restless that you have been moving around a lot more than usual: not at all 9. Thoughts that you would be better off or of hurting yourself in some way: not at all Total score: 0 Source: Developed by Drs. Leonidas Edwards, Kait Hong, [place] See and colleagues, with an educational lance from [employer]. Thrive Questionnaire Date Thrive assessed: 12/21/24 I am a: Patient What is your living situation today?: I have a steady place to live Within the past 12 months, did the food you bought not last and you didn't have the money to get more?: Never true Within the past 12 months, did you worry whether your food would run out before you got money to buy more?: Never true Do you have trouble paying for medicines?: No Do you have trouble getting transportation to medical appointments?: No Do you have trouble paying your heating and electricity bill?: No Do you have trouble taking care of your child, family member or friend?: No Do you have trouble with day-to-day activities such as bathing, preparing meals, shopping, managing finances, etc.?: No Are you currently unemployed and looking for a job?: No Are you interested in more education?: No Please select the resources that you would like help with: None Currently or been in a relationship where the following occur: No concerns reported THRIVE Score: 0 AUDIT C Alcohol Use Questionnaire (AUDIT-C) 1. How often do you have a drink containing alcohol?: 2-4 times a month 2. How many drinks containing alcohol do you have on a typical day when you are drinking?: 1 or 2 3. How often do you have six or more drinks on one occasion?: Never Total Score: 2 VAIBHAV-7 AMB Questionnaire VAIBHAV-7 Date VAIBHAV - 7 assessed: 12/21/24 Feeling nervous, anxious, or on edge: 1 = Several days Not being able to stop or control worryin = Not at all Worrying too much about different things: 0 = Not at all Trouble relaxin = Not at all Being so restless that it is hard to sit still: 0 = Not at all Becoming easily annoyed or irritable: 0 = Not at all Feeling afraid as if something awful might happen: 0 = Not at all Total VAIBHAV-7 score (0-4 normal; 5-9 mild; 10-14 moderate; 15-21 severe): 1 Source: Developed by Drs. Leonidas Edwards, Kait Hong, [place] See and colleagues, with an educational lance from [employer]. Physical exam (Primary Care) Vital Signs: Last Vital Signs Pulse 67 04/20/25 14:14 BP 130/68 04/20/25 14:14 Pulse Ox 97 04/20/25 14:14 Oxygen Delivery Method Room Air 04/20/25 14:14 BMI result Body Mass Index 25.7 Tobacco/Smoking Status: Tobacco use Status Tobacco use date assessed 12/21/24 04/20/25 14:20 Patient Tobacco Use Status Never used Tobacco 04/20/25 14:20 Tobacco use type Cigarette 04/20/25 14:20 e-Cigarette/Vaping Use Never Used 04/20/25 14:20 PHQ-9: PHQ-9 Score PHQ-9: Total score 0 04/20/25 14:20 Thrive Assessment: Date of Thrive Assessment Date Thrive assessed 12/21/24 04/20/25 14:20 Currently or been in a relationship where the following occur: No concerns reported Const General: alert; No acute distress Eyes Conjunctivae: conjunctivae normal Resp Auscultation: clear to auscultation bilaterally Cardio Rate: regular rate Rhythm: regular rhythm GI Inspection: Yes normal to inspection Extrem General: Yes normal to inspection and No edema Coding Level of Care Code Est Pt Level 4 (35889) Diagnoses Paroxysmal atrial fibrillation I48.0 Essential hypertension I10 Hypertension type: essential hypertension Hypercholesterolemia E78.00 Gastroesophageal reflux disease without esophagitis K21.9 Esophagitis presence: without esophagitis Compression fracture of L3 vertebra S32.030A Assessment & Plan Assessment & Plan (1) Paroxysmal atrial fibrillation: Code(s): I48.0 - Paroxysmal atrial fibrillation Category: Medical Plan: Continue with anticoagulation and suppressed with atenolol. Patient follows up with Cardiology (2) Hypertension: Code(s): I10 - Essential (primary) hypertension Category: Medical Qualifiers: Hypertension type: essential hypertension Qualified Code(s): I10 - Essential (primary) hypertension Plan: Continue with blood pressure medication. Decrease salt intake and exercise on atenolol (3) Hypercholesterolemia: Comment: April 2022, 08/2024 blood work Code(s): E78.00 - Pure hypercholesterolemia, unspecified Category: Medical Plan: Avoid fried foods, chicken skin, eggs, butter margarine, pastries and meat. Be it pork or beef they have a lot of cholesterol LDL goal of less than 100 and triglyceride of less than 150 patient is stable on atorvastatin 20 but needs blood work (4) GERD (gastroesophageal reflux disease): Code(s): K21.9 - Gastro-esophageal reflux disease without esophagitis Category: Medical Qualifiers: Esophagitis presence: without esophagitis Qualified Code(s): K21.9 - Gastro-esophageal reflux disease without esophagitis Plan: Avoid the foods that causes that usually spicy foods, tomato products, juices, coffee, soda and foods that your sensitive to. After eating do not lie down, allow 3-4 hours before in lie down. And keep the head of bed above 30 degrees to avoid the acid from going up. (5) Compression fracture of L3 vertebra: Comment: Walks with cane, MRI 08/2023 Code(s): S32.030A - Wedge compression fracture of third lumbar vertebra, initial encounter for closed fracture Category: Medical Plan: Patient on muscle relaxant. Plan History of Present Illness The patient is an 85-year-old female presenting for a follow-up visit to manage multiple chronic conditions including hypertension, atrial fibrillation, and hypercholesterolemia. She has a history of hypertension and lumbar compression fracture, which occurred in August 2023. The patient also has hypercho lesterolemia and peripheral vascular disease. The patient has been experiencing gastrointestinal issues and recurrent urinary tract infections, for which she follows up with urology. She is currently on anticoagulation therapy and is advised to continue with quarterly renal function testing. The patient is stable on atorvastatin 20 mg for hypercholesterolemia and is advised to maintain an LDL goal of less than 100 mg/dL and triglycerides less than 150 mg/dL. She is also on atenolol for blood pressure management and follows up with cardiology. Health Maintenance - Cardiovascular health: Continue anticoagulation therapy and quarterly renal function testing. - Lipid management: Maintain LDL goal of less than 100 mg/dL and triglycerides less than 150 mg/dL. Social History - Exercise: Patient engages in regular walking within her living complex, covering approximately a mile daily. Review of Systems - Cardiovascular: Reports atrial fibrillation. Denies chest pain. - Gastrointestinal: Reports gastrointestinal issues. - Genitourinary: Reports recurrent urinary tract infections. - Neurological: Denies headaches. Physical Exam - Neurological: Normal motor function with ability to squeeze fingers and close eyes tightly. Results - Labs: Normal blood count, normal electrolytes, good renal function, normal blood sugar, normal liver function. Plan The patient will continue with her current anticoagulation therapy and is advised to undergo quarterly renal function testing to monitor her condition. For hypercholesterolemia, she will remain on atorvastatin 20 mg and aim to simone ntain an LDL goal of less than 100 mg/dL and triglycerides less than 150 mg/dL. The patient is also on atenolol for blood pressure management and will continue to follow up with cardiology for her atrial fibrillation. She is advised to maintain her exercise routine and ensure adequate hydration to support overall health and circulation. Patient was informed and verbally consented to the use of an ambient scribe for clinic note documentation during this visit. Discussion Notes During the visit, I discussed with the patient the importance of continuing her current anticoagulation therapy and the need for regular renal function testing to monitor her condition. We also reviewed her lipid management goals, emphasizing the importance of maintaining an LDL level below 100 mg/dL and triglycerides below 150 mg/dL while on atorvastatin. I advised her to continue her exercise routine and ensure adequate hydration to support her overall health and circulation. Patient Instructions - Continue taking anticoagulation medication as prescribed. - Undergo quarterly renal function tests. - Maintain atorvastatin therapy and aim for LDL below 100 mg/dL and triglycerides below 150 mg/dL. - Follow up with cardiology as scheduled. - Engage in regular exercise and ensure adequate hydration. Orders: Orders Complete Blood Count Auto Diff 3 Months I48.0 - Paroxysmal atrial fibrillation Thyroid Stimulating Hormone 3 Months I48.0 - Paroxysmal atrial fibrillation Lipid Panel 3 Months E78.00 - Pure hypercholesterolemia, unspecified, I48.0 - Paroxysmal atrial fibrillation Vitamin B12 and Folate 3 Months I48.0 - Paroxysmal atrial fibrillation Hemoglobin A1c 3 Months I48.0 - Paroxysmal atrial fibrillation Magnesium 3 Months I48.0 - Paroxysmal atrial fibrillation UA CC w/rflx Micro + Cult 3 Months I48.0 - Paroxysmal atrial fibrillation, R30.0 - Dysuria Comprehensive Met. Panel 3 Months I48.0 - Paroxysmal atrial fibrillation Free T4 (Free Thyroxine) 3 Months I48.0 - Paroxysmal atrial fibrillation Vitamin D 25-OH Total 3 Months I48.0 - Paroxysmal atrial fibrillation Medications: Refilled lorazepam (Ativan) 0.5 mg PO DAILY PRN 30 tabs 1RF anxiety I48.0 - Paroxysmal atrial fibrillation
--- OUTSIDE RECORDS SUMMARY | 2025-04-20 16:59 | XMS_ITS | Encounter Summary ---
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 [place] [address] Isaac Fischer MD [address] [place] [address] [address] [facility] [place] [address] Dysuria Social History Tobacco Use Types Packs/Day [...] Urine No growth 09/08/2024 8:12 AM EST [facility] LAB Urine Urine specimen obtained by clean catch procedure / Unknown Non-blood Collection / Unknown 09/07/2024 8:00 AM EST 09/07/2024 12:33 PM EST Isaac Fischer MD LAB MICROBIOLOGY - GENERAL ORDER HEIDI Final Result [facility] [address] [place] [address], [place] [phone] * (ABNORMAL) Urinalysis with reflex microscopic and culture (09/07/2024 8:00 AM EST) Specific [place] Urine 1.025 1.003 - 1.030 LAB URINALYSIS [...] ORDERABLES Final Resul t Performing Organization Address City/[facility]/ZIP Co de Phone Number [facility] [address] [place] [address], * Carpenter urine culture tube (09/07/2024 8:00 AM EST) Extra Tube Hold for add-ons. 09/07/2024 1:01 PM [facility] LAB Comment:Auto resulted. Urine Urine specimen obtained by clean catch procedure / Unknown Non-blood Collection / Unknown 09/07/2024 8:00 AM EST 09/07/2024 11:43 AM EST us Isaac Fischer MD LAB URINE ORDERABLES Final Resul t [facility]) HOSPITAL LAB [address] [place] [address], documented in this encounter Visit Diagnoses Diagnosis Dysuria documented in this encounter
== END 2025-04-20 14:54 | disposition home or self-care (01) ==
LOC: HO.HMCH 14:04
PROVIDERS: PCP Internal Medicine; Visit Provider Internal Medicine
DX: I48.0 Paroxysmal atrial fibrillation (principal); S32.030A Wedge compression fracture of third lumbar vertebra, initial encounter for closed fracture; I10 Essential (primary) hypertension; E78.00 Pure hypercholesterolemia, unspecified; K21.9 Gastro-esophageal reflux disease without esophagitis

== ENCOUNTER → 2025-04-20 14:03 | Outpatient (BNVA) | payer MEDICARE, SELFPAY | PROVIDERS: PCP Internal Medicine; Visit Provider Internal Medicine | DX: I48.0 Paroxysmal atrial fibrillation (principal); I10 Essential (primary) hypertension; E78.00 Pure hypercholesterolemia, unspecified; K21.9 Gastro-esophageal reflux disease without esophagitis; S32.030D Wedge compression fracture of third lumbar vertebra, subsequent encounter for fracture with routine healing | CPT/HCPCS: 99212 ==